=== PATIENT | female | born 1940 | race Caucasian/White ===

== ENCOUNTER 2016-11-11 10:24 | Observation (INO) | payer MEDICARE ==
[~2016-11-11] VITALS: Ht 157.5 cm; Wt 55.0 kg
[~2016-11-11 10:24] MED LIST: ALPR.25 PO; APIX5TAB PO; BETH10TA PO; CALTTAB2 PO; CARV3.12 PO; CO Q100C9 PO; DILT120C9 PO; FERR324T4 PO; FISH1000 PO; IMDU60TA PO; LEVO.1 PO; LUTE20TA PO; MESA1000R RECTAL; NITR0.4S SL; OMEP40CA2 PO; PACE100T2 PO; PRESCAP5 PO; RED600TA PO; REST0.05 EACH EYE; VITA100020 PO
[2016-11-11 10:39] VITALS: BP 188/81; PULSE 74; RESP 20; TEMP 97.9; O2SAT 99
[2016-11-11] MEDS ORDERED: REST0.05 EACH EYE (11:15)
[2016-11-11] MEDS ORDERED: LEVO125T4 PO (11:15)
[2016-11-11] MEDS ORDERED: OMEG600C2 PO (11:15)
[2016-11-11] MEDS ORDERED: ISOS60TA PO (11:15)
[2016-11-11] MEDS ORDERED: DILT120C9 PO (11:15)
[2016-11-11] MEDS ORDERED: APIX5TAB PO (11:15)
[2016-11-11] MEDS ORDERED: LUTE20CA PO (11:15)
[2016-11-11] MEDS ORDERED: PROT40TA PO (11:15)
[2016-11-11] MEDS ORDERED: CARV3.125 PO (11:15)
[2016-11-11] MEDS ORDERED: VITA10002 PO (11:19)
[2016-11-11] MEDS ORDERED: AMIO0.1T PO (11:19)
[2016-11-11] MEDS ORDERED: NITR0.4S SL (11:19)
[2016-11-11] MEDS ORDERED: VITA200012 PO (11:19)
[2016-11-11] MEDS ORDERED: CALC1TAB30 PO (11:19)
[2016-11-11] MEDS ORDERED: COEN1CAP PO (11:19)
[2016-11-11] MEDS ORDERED: OCUVTAB4 PO (11:19)
[2016-11-11 11:23] VITALS: BP 164/79; PULSE 74; RESP 18; O2SAT 100
--- NOTE | 2016-11-11 11:37 | RADRPT ---
EXAM DATE/TIME: 11/11/2016 11:22 [facility] COMPARISON: CHEST SINGLE AP, March 06, 2016, 15:21. INDICATIONS : Chest pain. Tingling down arms and legs. MEDICAL HISTORY : Hypertension. A-Fib. SURGICAL HISTORY : None. ENCOUNTER: Initial ACUITY: 1 day PAIN SCORE: 2/10 LOCATION: Bilateral chest FINDINGS: A single view of the chest demonstrates the lungs to be symmetrically hyperinflated with stable scarr ing in the left upper lobe. New atelectatic changes in the left base. No confluent infiltrate or effu lorna. Heart size is normal. Levoscoliosis of the dorsal spine with associated degenerative changes ar e. CONCLUSION: 1. Hyperinflation and linear scarring in the left upper lung, unchanged. 2. New atelectatic changes/scarring in the left lateral base. 3. No confluent infiltrate or effusion Bernabe Perea MD on November 11, 2016 at 11:31 Board Certified Radiologist. This report was verified electronically.
--- NOTE | 2016-11-11 11:38 | PD ---
HPI Chief Complaint: Neuro Symptoms/ Deficits Time Seen by Provider: 11:32 Travel History International Travel<30 days: No Contact w/Intl Traveler<30days: No Traveled to known affect area: No History of Present Illness HPI 76-year-old female that presents to the ED for evaluation of possible neuro deficits. Per patient she was at home about an hour ago when she was doing her normal chores when she was trying to walk to feed her birds and as she was walking towards the cage she started feeling that she was beginning to the left. Per patient she felt unsteady and she was able to hold onto something before she felt like she was given a fall. Per patient the sensation lasted for almost half an hour. Ambulance was called and when they got there she was complaining of some dizziness as well as tingling sensation to her hands and a burning sensation in her chest. Per patient this burning sensation and tingling sensation has since resolved. She was given nitroglycerin by ambulance. Per patient she's been having a slight headache on the back of her head but she is unclear as to if she had this headache when the symptoms started or after she was given the nitroglycerin. She states that she really doesn't have any pain at this time. Per patient she has no nausea or vomiting. She has a history of TIA as well as atrial fibrillation in the past. She states that she currently takes liquids. She denies any fall or injury. When asked she does tell me that she felt like she was weak on her left leg and that is what made her be or to the left that she is not quite sure she's never had this sensation before. She denies any recent travel or injury. No changes in medication. She does have a history of HTN, hypothyroidism, gastroparesis. Per patient her headache on the back of her head right naris 2 out of 10 and is mild. PFSH Past Medical History Hx Anticoagulant Therapy: Yes Arthritis: Yes Atrial Fibrillation: Yes Heart Rhythm Problems: Yes Cancer: No Cardiovascular Problems: Yes Chest Pain: Yes Cerebrovascular Accident: Yes Coronary Artery Disease: Yes Diabetes: No Diminished Hearing: No Endocrine: No Gastrointestinal Disorders: Yes (GASTROPARESIS, MCKENZIE'S ESOPHAGUS, DYSPHAGIA , NAUSEA, GERD) GERD: Yes Glaucoma: Yes Genitourinary: No Headaches: Yes Hepatitis: No Hiatal Hernia: Yes Hypertension: Yes Immune Disorder: Yes (ARTHRITIS) Implanted Vascular Access Dvce: Yes Musculoskeletal: No Neurologic: No Psychiatric: No Reproductive: No Respiratory: Yes (SLEEP APNEA) Immunizations Current: Yes Sleep Apnea: Yes Thyroid Disease: Yes Ulcer: Yes Menopausal: Yes : 3 Para: 3 Past Surgical History Abdominal Surgery: Yes (CHOLY, TOTAL COLECTOMY) AICD: No Appendectomy: Yes Body Medical Devices: STARCLOSE,RIGHT THUMB METAL,LEFT FOOT 2 SCREWS Cardiac Surgery: No Cholecystectomy: Yes Ear Surgery: No Endocrine Surgery: Yes (LYMPH NODE SURG) Eye Surgery: Yes (ESTELLA EYE CATARACT SX) Genitourinary Surgery: Yes Gynecologic Surgery: Yes (HYSTERECTOMY) Hysterectomy: Yes Joint Replacement: Yes (R HIP REPLACEMENT) Neurologic Surgery: No Oral Surgery: Yes (TONSILLECTOMY) Pacemaker: No Thoracic Surgery: No Tonsillectomy: Yes Other Surgery: Yes (NOSE SURG BONE SPURS, CALCANAL OSTEOTOMY) Social History Alcohol Use: No Tobacco Use: No Substance Use: No Allergies-Medications (Allergen,Severity, Reaction): Coded Allergies: Codeine (Verified Allergy, Severe, 11/11/16) Contrast Media (Verified Allergy, Severe, Cardiac Arrest, ANAPHALAXIS, ) Crab (Verified Allergy, Severe, Anaphylaxis, 11/11/16) Iodine (Verified Allergy, Severe, 11/11/16) Latex (Verified Allergy, Severe, SKIN BLISTERS, 11/11/16) Shellfish (Verified Allergy, Severe, ANAPHYLAXIS TO ALL SHELLFISH, 11/11/16 ) Reported Meds & Prescriptions Reported Meds & Active Scripts Active Reported Preservision Areds (Multiple Vitamins W/ Minerals) 1 Tab 1 Tab PO BID Amiodarone (Amiodarone HCl) 100 Mg Tab 100 Mg PO DAILY Nitrostat SL (Nitroglycerin) 0.4 Mg Subl 0.4 Mg SL DIRECTED PRN 1 tablet under the tongue as needed for chest pain. Repeat every 5 minutes for a total of 3 DOSES or call 911 if NO relief. Vitamin D3 (Cholecalciferol) 2,000 Unit Tab 2,000 Units PO BID Calcium 600 + D (Calcium Carbonate-Cholecalciferol) 600-200 Mg-Unit Tab 1 Tab PO BID Vitamin B-12 (Cyanocobalamin) 1,000 Mcg Tab 1,000 Mcg PO BID Co Q-10 (Coenzyme Q10 (Ubidecarenone)) 100 Mg Cap 100 Mg PO DAILY Restasis Opth Drops (Cyclosporine Opth Drops) 0.05% Emul 2 Drop EACH EYE BID Lutein 20 Mg Cap 20 Mg PO DAILY Fish Oil 600 mg ([place]-3 Fatty Acids) 1 Cap Cap 600 Mg PO BID Protonix (Pantoprazole Sodium) 40 Mg Tab 40 Mg PO DAILY Levothyroxine (Levothyroxine Sodium) 125 Mcg Tab 125 Mcg PO DAILY Isosorbide Mononitrate ER (Isosorbide Mononitrate) 60 Mg Tab 60 Mg PO DAILY Eliquis (Apixaban) 5 Mg Tab 5 Mg PO BID Coreg (Carvedilol) 3.125 Mg Tab 3.125 Mg PO BID Diltiazem ER 12 HR (Diltiazem HCl) 120 Mg Caper 120 Mg PO BID Review of Systems General / Constitutional: No: Fever, Chills, Weight Gain, Weight Loss, Other Eyes: No: Diploplia, Blurred Vision, Photophobia, Drainage, Redness, Foreign Body Sensation, Pain, Tearing, Blind Spots, Visual changes, Blindness, Other HENT: Positive: Headaches, No: Vertigo, Lightheadedness, Sore Throat, Rhinitis , Rhinorrhea, Congestion, Nosebleed, Neck Stiffness, Neck Pain, Masses, Gingival Bleeding, Dental Difficulties, Ear Discharge, Earache, Other Cardiovascular: Positive: Chest Pain or Discomfort, No: Palpitations, Irregular Rhythm, Tachycardia, Diaphoresis, Syncope, Dyspnea on exertion, Varicosities, Edema, Cyanosis, Varicosities, Phlebitis, Claudication, Other Respiratory: No: Cough, Shortness of Breath, Wheezing, Sneezing, Orthopnea, Hemoptysis, Stridor, Night Sweats, Pleuritic Pain, Other Gastrointestinal: No: Nausea, Vomiting, Diarrhea, Abdominal Pain, Hematemesis, Hematochezia, Constipation, Changes in Bowel Habits, Indigestion, Dysphagia, Loss of Appetite, Other Genitourinary: No: Urgency, Frequency, Dysuria, Nocturia, Hematuria, Decreased Urinary Output, Oliguria, Hesitancy, Dribbling, Incontinence, Pelvic Pain, Flank Pain, Dyspareunia, Discharge, Dysmenorrhea, Menorrhagia, Metorrhagia, Vaginal Bleeding, Other Musculoskeletal: Positive: Weakness, No: Myalgias, Arthralgias, Limited ROM, Cramping, Edema, Pain, Atrophy, Other Skin: No Rash, No Itching, No Dryness, No Lumps, No Hives, No Change in Pigmentation, No Change in nails, No Alopecia, No Lesions, No Breast Lumps, No Breast Tenderness, No Breast Swelling, No Other Neurologic: Positive: Weakness, Dizziness, Headache, Paresthesia, No: Syncope , Focal Abnormalities, Coordination Problem, Tremor, Ataxia, Change in Mentation , Slurred Speech, Incontinence, Seizures, Sensory Disturbance, Other Psychiatric: No: Anxiety, Depression, Suicidal Ideations, Disorder of Thought, Mood Disorder, Substance Abuse, Homicidal Ideation, Other Endocrine: No: Heat Intolerance, Cold Intolerance, Polyuria, Polydipsia, Other Hematologic/Lymphatic: No: Easy Bruising, Lymph Node Enlargement, Other Physical Exam Narrative GENERAL: SKIN: Warm and dry. HEAD: Atraumatic. Normocephalic. EYES: Pupils equal and round 4 mm reactive to light and accommodation. No scleral icterus. No injection or drainage. ENT: No nasal bleeding or discharge. Mucous membranes pink and moist. Tongue is midline. No uvula deviation. NECK: Trachea midline. No JVD. CARDIOVASCULAR: Regular rate and rhythm. No murmurs, S3, S4. RESPIRATORY: No accessory muscle use. Clear to auscultation. Breath sounds equal bilaterally. GASTROINTESTINAL: Abdomen soft, non-tender, nondistended. Hepatic and splenic margins not palpable. MUSCULOSKELETAL: Extremities without clubbing, cyanosis, or edema. No obvious deformities. Full range of motion of the upper and lower extremities bilaterally. 2+ pulses bilaterally. No lumbar, thoracic, cervical spine tenderness to palpation. NEUROLOGICAL: Awake and alert. No obvious cranial nerve deficits. Motor grossly within normal limits. Five out of 5 muscle strength in the arms and legs. Normal speech. Romberg test negative. Pronator test negative. Sensation appears to be intact bilaterally. PSYCHIATRIC: Appropriate mood and affect; insight and judgment normal. Data Data Last Documented VS Vital Signs Date Time Temp Pulse Resp B/P Pulse Ox O2 Delivery O2 Flow Rate FiO2 11/11/16 11:23 76 20 99 Room Air 11/11/16 11:23 164/79 11/11/16 10:39 97.9 Orders Electrocardiogram (11/11/16 11:19) Complete Blood Count With Diff (11/11/16 11:19) Comprehensive Metabolic Panel (11/11/16 11:19) Ckmb (Isoenzyme) Profile (11/11/16 11:19) Troponin I (11/11/16 11:19) Prothrombin Time / Inr (Pt) (11/11/16 11:19) Act Partial Throm Time (Ptt) (11/11/16 11:19) Urinalysis - C+S If Indicated (11/11/16 11:19) Magnesium (Mg) (11/11/16 11:19) Thyroid Stimulating Hormone (11/11/16 11:19) Chest, Single Ap (11/11/16 11:19) Ct Brain W/O Iv Contrast(Rout) (11/11/16 11:19) Acetaminophen (Tylenol) (11/11/16 12:45) Admit Order (Ed Use Only) (11/11/16 12:58) Labs Laboratory Tests Test 11/11/16 11/11/16 11:10 11:15 Urine Color YELLOW Urine Turbidity CLEAR Urine pH 7.0 Urine Specific [place] 1.012 Urine Protein NEG mg/dL Urine Glucose (UA) NEG mg/dL Urine Ketones NEG mg/dL Urine Occult Blood NEG Urine Nitrite NEG Urine Bilirubin NEG Urine Urobilinogen LESS THAN 2.0 MG/DL Urine Leukocyte Esterase MOD Urine RBC LESS THAN 1 /hpf Urine WBC 2 /hpf Urine Squamous Epithelial <1 /hpf Cells Urine Mucus FEW /lpf Microscopic Urinalysis Comment CULT NOT INDICATED White Blood Count 6.5 TH/MM3 Red Blood Count 3.96 MIL/MM3 Hemoglobin 9.1 GM/DL Hematocrit 29.2 % Mean Corpuscular Volume 73.7 FL Mean Corpuscular Hemoglobin 23.0 PG Mean Corpuscular Hemoglobin 31.2 % Concent Red Cell Distribution Width 16.7 % Platelet Count 184 TH/MM3 Mean Platelet Volume 7.4 FL Neutrophils (%) (Auto) 73.9 % Lymphocytes (%) (Auto) 15.5 % Monocytes (%) (Auto) 8.8 % Eosinophils (%) (Auto) 1.4 % Basophils (%) (Auto) 0.4 % Neutrophils # (Auto) 4.8 TH/MM3 Lymphocytes # (Auto) 1.0 TH/MM3 Monocytes # (Auto) 0.6 TH/MM3 Eosinophils # (Auto) 0.1 TH/MM3 Basophils # (Auto) 0.0 TH/MM3 CBC Comment AUTO DIFF Differential Comment AUTO DIFF CONFIRMED Prothrombin Time 11.4 SEC Prothromb Time International 1.0 RATIO Ratio Activated Partial 24.5 SEC Thromboplast Time Sodium Level 140 MEQ/L Potassium Level 3.6 MEQ/L Chloride Level 105 MEQ/L Carbon Dioxide Level 26.1 MEQ/L Anion Gap 9 MEQ/L Blood Urea Nitrogen 25 MG/DL Creatinine 0.95 MG/DL Estimat Glomerular Filtration 57 ML/MIN Rate Random Glucose 93 MG/DL Calcium Level 9.4 MG/DL Magnesium Level 1.9 MG/DL Total Bilirubin 0.5 MG/DL Aspartate Amino Transf 15 U/L (AST/SGOT) Alanine Aminotransferase 21 U/L (ALT/SGPT) Alkaline Phosphatase 71 U/L Total Creatine Kinase 41 U/L Troponin I LESS THAN 0.02 NG/ML Total Protein 6.0 GM/DL Albumin 3.1 GM/DL Thyroid Stimulating Hormone 2.820 uIU/ML [address] [place] [address] Medical Decision Making Medical Screen Exam Complete: Yes Emergency Medical Condition: Yes Medical Record Reviewed: Yes Interpretation(s) CBC & BMP Diagram 11/11/16 11:15 coags WNL LFTs WNL EKG shows sinus rhythm with no sign of acute ischemia or arrhytmia. Read by me and attending Troponin and CKMB negative Last Impressions Chest X-Ray 11/11/16 1119 Signed Impressions: Service Date/Time: Friday, November 11, 2016 11:22 - CONCLUSION: 1. Hyperinflation and linear scarring in the left upper lung, unchanged. 2. New atelectatic changes/scarring in the left lateral base. 3. No confluent infiltrate or effusion Bernabe Perea MD CT head negative Differential Diagnosis TIA versus CVA versus STEMI versus ACS versus atrophy relation versus anemia versus electrolyte abnormality versus generalized weakness versus weakness Narrative Course 76-year-old female that presents to the ED for evaluation of possible neurological deficits. Patient was properly examined and was found to have signs and symptoms which appear to be consistent with possible TIA versus CVA. Recommendation at this time is for labs and imaging. On my exam patient doesn' t have any obvious deficits. I do recommend labs and imaging. Patient complains of burning sensation in her chest and will check cardiac enzymes to rule out any sign of acute heart disease. Labs and imaging were essentially unremarkable. At this time I do recommend admission for possible TIA versus CVA. Patient is agreeable with this plan. Patient was admitted to the resident team who agreed to admission. Procedures EKG Prior to Arrival: No Diagnosis Primary Impression: Gait instability Additional Impression: Chest pain in adult Admitting Information Admitting Physician Requests: Observation Quoc Wagner Nov 11, 2016 11:38
[2016-11-11 11:48] LABS: AUTOMATED NEUTROPHIL # 4.8 TH/MM3 (1.8-7.7); BASOPHIL % 0.4 % (0.0-2.0); EOSINOPHIL # 0.1 TH/MM3 (0-0.4); EOSINOPHIL % 1.4 % (0.0-4.0); HEMATOCRIT 29.2 % (35.0-46.0); LYMPH % 15.5 % (9.0-44.0); MEAN CELL VOLUME 73.7 FL (80.0-100.0); MEAN CORPUSCULAR HGB CONC 31.2 % (32.0-36.0); MONO % 8.8 % (0.0-8.0); NEUT % 73.9 % (16.0-70.0); PLATELET COUNT 184 TH/MM3 (150-450); RED BLOOD COUNT 3.96 MIL/MM3 (4.00-5.30); RED CELL DISTRIBUTION WIDTH 16.7 % (11.6-17.2); WHITE BLOOD COUNT 6.5 TH/MM3 (4.0-11.0)
[2016-11-11 11:52] LABS: HEMO FLAGS AUTO DIFF
[2016-11-11 11:56] LABS: APTT (PATIENT) 24.5 SEC (24.3-30.1); PROTHROMBIN TIME - PATIENT 11.4 SEC (9.8-11.6)
[2016-11-11 12:02] LABS: BLOOD, URINE NEG (NEG); COMMENT (UR) CULT NOT INDICATED; CULTURE IF INDICATED CULT NOT INDICATED; GLUCOSE,URINE NEG (NEG); KETONE, URINE NEG (NEG); MUCUS URINE FEW /lpf (OCC); NITRITE,URINE NEG (NEG); SQUAMOUS EPITHELIAL CELL URINE <1 /hpf (0-5); URINE COLOR YELLOW (YELLW/STRAW)
[2016-11-11 12:04] LABS: ALT (GPT) 21 U/L (10-53); ANION GAP 9 MEQ/L (5-15); AST (GOT) 15 U/L (15-37); BICARBONATE 26.1 MEQ/L (21.0-32.0); BLOOD UREA NITROGEN 25 MG/DL (7-18); CHLORIDE 105 MEQ/L (98-107); GLOMERULAR FILTRATION RATE 57 ML/MIN (>89); MAGNESIUM 1.9 MG/DL (1.5-2.5); POTASSIUM 3.6 MEQ/L (3.5-5.1); SODIUM (NA) 140 MEQ/L (136-145)
[2016-11-11 12:14] LABS: ALKALINE PHOSPHATASE 71 U/L (45-117); TOTAL BILIRUBIN ADULT 0.5 MG/DL (0.2-1.0)
[2016-11-11 12:17] LABS: CREATINE KINASE 41 U/L (26-192)
[2016-11-11 12:21] LABS: SCAN/DIFF AUTO DIFF CONFIRMED
--- NOTE | 2016-11-11 12:31 | RADRPT ---
EXAM DATE/TIME: 11/11/2016 12:01 [facility] COMPARISON: No previous studies available for comparison. INDICATIONS : Dizziness and unsteady gait today. RADIATION DOSE: 56.35 CTDIvol (mGy) MEDICAL HISTORY : Stroke. Hypertension. Cardiovascular disease SURGICAL HISTORY : Hysterectomy. ENCOUNTER: Initial ACUITY: 1 day PAIN SCALE: 0/10 LOCATION: Bilateral head TECHNIQUE: Multiple contiguous axial images were obtained of the head. Using automated exposure control and adj ustment of the mA and/or kV according to patient size, radiation dose was kept as low as reasonably a chievable to obtain optimal diagnostic quality images. FINDINGS: CEREBRUM: The ventricles are normal for age. No evidence of midline shift, mass lesion, hemorrhage or acute in farction. No extra-axial fluid collections are seen. POSTERIOR FOSSA: The cerebellum and brainstem are intact. The 4th ventricle is midline. The cerebellopontine angle i s unremarkable. EXTRACRANIAL: The visualized portion of the orbits is intact. SKULL: The calvaria is intact. No evidence of skull fracture. CONCLUSION: Negative for an acute process. Gregory Medrano MD FACR on November 11, 2016 at 12:29 Board Certified Radiologist. This report was verified electronically.
[2016-11-11] MEDS ORDERED: ACETAMINOPHEN 500 MG CPLT PO ONE (12:45)
--- NOTE | 2016-11-11 12:59 | HHI.HP ---
[facility] Service Family Medicine Primary Care Physician Vickie Dinh, DO Admission Diagnosis Diagnoses: International Travel<30 Days: No Contact w/Intl Traveler<30days: No Known Affected Area: No History of Present Illness Patient is a 76-year-old female with a PMH significant for A. fib, prior TIA, gastroparesis, colon ulcer. Presented today due to left-sided weakness. Symptoms started this morning as she was walking over to take care of her parrot. She noticed that she began to lean to her left side due to left lower and upper extremity weakness. She then sat down for about 15 minutes which did help her symptoms. However when she tried to walk again, she continued to have left-sided weakness and leaning to the left side. She then developed substernal chest burning with bilateral arm paresthesia. Associated with nausea but not vomiting. She called EMS at which time she received nitroglycerin which did help alleviate her symptoms. History significant for prior TIA in 2014 that was associated with right arm flaccid paralysis. She otherwise is a relatively active lady and is able to walk upstairs without chest pain or SOB. Prior to the onset of symptoms today, she was feeling well except for a history of significant weight loss due to gastroparesis. (Lula Otto MD R2) Review of Systems Constitutional: COMPLAINS OF: Weight loss, Change in appetite, DENIES: Diaphoretic episodes Eyes: DENIES: Blurred vision, Eye pain Ears, nose, mouth, throat: DENIES: Throat pain, Running Nose Respiratory: COMPLAINS OF: Sputum production, DENIES: Cough, Shortness of breath Cardiovascular: DENIES: Chest pain, Syncope, Lower Extremity Edema Gastrointestinal: COMPLAINS OF: Nausea, DENIES: Abdominal pain, Constipation, Diarrhea, Vomiting Genitourinary: DENIES: Hematuria, Dysuria Integumentary: DENIES: Rash Neurologic: COMPLAINS OF: Abnormal gait, Headache, Paresthesias, DENIES: Speech Problems (Lula Fischer MD R2) Past Family Social History Past Medical History Atrial fibrillation on chronic anticoagulation with Eliquis Gastroparesis Mild coronary artery disease with 10% lesion on cardiac catheterization in 2011 Hypothyroidism GERD/Mccoy's esophagus Colon ulcer HTN TIA 2014 Past Surgical History Tonsillectomy Cholecystectomy Partial colectomy Cataract surgery bilaterally Hysterectomy Bilateral rotator cuff surgery Left foot surgery Cardiac catheterization in 2011, no intervention (Dr. Alonso) Reported Medications Reported Meds & Active Scripts Active Reported Preservision Areds (Multiple Vitamins W/ Minerals) 1 Tab 1 Tab PO BID Amiodarone (Amiodarone HCl) 100 Mg Tab 100 Mg PO DAILY Nitrostat SL (Nitroglycerin) 0.4 Mg Subl 0.4 Mg SL DIRECTED PRN 1 tablet under the tongue as needed for chest pain. Repeat every 5 minutes for a total of 3 DOSES or call 911 if NO relief. Vitamin D3 (Cholecalciferol) 2,000 Unit Tab 2,000 Units PO BID Calcium 600 + D (Calcium Carbonate-Cholecalciferol) 600-200 Mg-Unit Tab 1 Tab PO BID Vitamin B-12 (Cyanocobalamin) 1,000 Mcg Tab 1,000 Mcg PO BID Co Q-10 (Coenzyme Q10 (Ubidecarenone)) 100 Mg Cap 100 Mg PO DAILY Restasis Opth Drops (Cyclosporine Opth Drops) 0.05% Emul 2 Drop EACH EYE BID Lutein 20 Mg Cap 20 Mg PO DAILY Fish Oil 600 mg ([place]-3 Fatty Acids) 1 Cap Cap 600 Mg PO BID Protonix (Pantoprazole Sodium) 40 Mg Tab 40 Mg PO DAILY Levothyroxine (Levothyroxine Sodium) 125 Mcg Tab 125 Mcg PO DAILY Isosorbide Mononitrate ER (Isosorbide Mononitrate) 60 Mg Tab 60 Mg PO DAILY Eliquis (Apixaban) 5 Mg Tab 5 Mg PO BID Coreg (Carvedilol) 3.125 Mg Tab 3.125 Mg PO BID Diltiazem ER 12 HR (Diltiazem HCl) 120 Mg Caper 120 Mg PO BID (Lula Fischer MD R2) Allergies: Coded Allergies: Codeine (Verified Allergy, Severe, 11/11/16) Contrast Media (Verified Allergy, Severe, Cardiac Arrest, ANAPHALAXIS, ) Crab (Verified Allergy, Severe, Anaphylaxis, 11/11/16) Iodine (Verified Allergy, Severe, 11/11/16) Latex (Verified Allergy, Severe, SKIN BLISTERS, 11/11/16) Shellfish (Verified Allergy, Severe, ANAPHYLAXIS TO ALL SHELLFISH, 11/11/16 ) Family History Reports her whole family has heart disease and that her daughter in her early 50s from heart disease Social History Lives alone Tobacco: Denies Alcohol: Denies Illicit: Denies (Lula Fischer MD R2) Physical Exam Vital Signs Vital Signs Date Time Temp Pulse Resp B/P Pulse Ox O2 Delivery O2 Flow Rate FiO2 11/11/16 11:23 76 20 99 Room Air 11/11/16 11:23 74 18 164/79 100 Room Air 11/11/16 10:39 97.9 74 20 188/81 99 Physical Exam GENERAL: This is a well-nourished, well-developed patient, in no apparent distress. Resting comfortably in bed. SKIN: No rashes or lesions. Cool and dry. Multiple ecchymosis present on bilateral upper and lower extremities that are of varying ages. HEAD: Atraumatic. Normocephalic. EYES: Pupils equal round and reactive. Pale Conjunctiva. Extraocular motions intact. No scleral icterus. No injection or drainage. ENT: Nose without bleeding, purulent drainage. Throat without erythema, tonsillar hypertrophy or exudate. Airway patent. NECK: No lymphadenopathy. CARDIOVASCULAR: Regular rate and rhythm without murmurs, gallops, or rubs. RESPIRATORY: Clear to auscultation. Breath sounds equal bilaterally. No wheezes , rales, or rhonchi. GASTROINTESTINAL: Abdomen soft, non-tender, nondistended. No hepato-splenomegaly , or palpable masses. No guarding. MUSCULOSKELETAL: Extremities without clubbing, cyanosis, or edema. No calf tenderness. NEUROLOGICAL: Awake and alert. Cranial nerves II through XII intact. Pronator drift negative. Motor and sensory grossly within normal limits. Five out of 5 muscle strength in all muscle groups. Normal speech. Laboratory Laboratory Tests Test 11/11/16 11/11/16 11:10 11:15 Urine Color YELLOW Urine Turbidity CLEAR Urine pH 7.0 Urine Specific Sweet 1.012 Urine Protein NEG Urine Glucose (UA) NEG Urine Ketones NEG Urine Occult Blood NEG Urine Nitrite NEG Urine Bilirubin NEG Urine Urobilinogen LESS THAN 2.0 Urine Leukocyte Esterase MOD Urine RBC LESS THAN 1 Urine WBC 2 Urine Squamous Epithelial <1 Cells Urine Mucus FEW Microscopic Urinalysis Comment CULT NOT INDICATED White Blood Count 6.5 Red Blood Count 3.96 Hemoglobin 9.1 Hematocrit 29.2 Mean Corpuscular Volume 73.7 Mean Corpuscular Hemoglobin 23.0 Mean Corpuscular Hemoglobin 31.2 Concent Red Cell Distribution Width 16.7 Platelet Count 184 Mean Platelet Volume 7.4 Neutrophils (%) (Auto) 73.9 Lymphocytes (%) (Auto) 15.5 Monocytes (%) (Auto) 8.8 Eosinophils (%) (Auto) 1.4 Basophils (%) (Auto) 0.4 Neutrophils # (Auto) 4.8 Lymphocytes # (Auto) 1.0 Monocytes # (Auto) 0.6 Eosinophils # (Auto) 0.1 Basophils # (Auto) 0.0 CBC Comment AUTO DIFF Differential Comment AUTO DIFF CONFIRMED Prothrombin Time 11.4 Prothromb Time International 1.0 Ratio Activated Partial 24.5 Thromboplast Time Sodium Level 140 Potassium Level 3.6 Chloride Level 105 Carbon Dioxide Level 26.1 Anion Gap 9 Blood Urea Nitrogen 25 Creatinine 0.95 Estimat Glomerular Filtration 57 Rate Random Glucose 93 Calcium Level 9.4 Magnesium Level 1.9 Total Bilirubin 0.5 Aspartate Amino Transf 15 (AST/SGOT) Alanine Aminotransferase 21 (ALT/SGPT) Alkaline Phosphatase 71 Total Creatine Kinase 41 Troponin I LESS THAN 0.02 Total Protein 6.0 Albumin 3.1 Thyroid Stimulating Hormone 2.820 3rd Gen (Lula Fishcer MD R2) Result Diagram: 11/11/16 1115 11/11/16 1115 Imaging Last Impressions Head CT 11/11/16 1119 Signed Impressions: Service Date/Time: Friday, November 11, 2016 12:01 - CONCLUSION: Negative for an acute process. Gregory Medrano MD FACR Chest X-Ray 11/11/16 1119 Signed Impressions: Service Date/Time: Friday, November 11, 2016 11:22 - CONCLUSION: 1. Hyperinflation and linear scarring in the left upper lung, unchanged. 2. New atelectatic changes/scarring in the left lateral base. 3. No confluent infiltrate or effusion Bernabe Perea MD (Lula Fischer MD R2) Assessment and Plan Assessment and Plan 76-year-old female with a PMH significant for A. fib, prior TIA, gastroparesis , colon ulcer Code Status Full Discussed Condition With Dr. Fernández (Lula Fischer MD R2) Attending Attestation Patient seen and examined. Case reviewed and discussed with the resident team. Agree with plan of care as discussed with me and documented in the resident note. (Maida Fernández MD) Problem List: (1) TIA (transient ischemic attack) Status: Acute Plan: History of prior TIA. New-onset left-sided weakness that was associated with unsteady gait. No slurred speech. No focal neurological deficits on exam. Symptoms have improved since presentation to the ED. -CBC unremarkable except for anemia -ACS evaluation -Echocardiogram ordered -Lipid panel and A1c ordered -Neuro checks and cardiac telemetry Imaging: * Head CT negative * MRI, MRA: Pending * CXR: Negative for acute processes Medications: * Atorvastatin 40 mg * NOT A CANDIDATE FOR ASPIRIN (2) Atrial fibrillation Status: Chronic Plan: Current rate and rhythm controlled. Continue the following home meds -Amiodarone 100mg daily -Eliquis 5mg BID -Coreg 3.125mg BID -Cardizem 120mg BID (3) Atypical chest pain Status: Acute Plan: No supicious for cardiac etiology. Suspect symptoms of chest burning with paresthesias may be due to anxiety at the onset of strokelike symptoms. We 'll evaluate further with ACS evaluation. See plan above. -Continue home Imdur (4) Nutrition, metabolism, and development symptoms Status: Acute Plan: Diet: Heart healthy with boost supplementation due to gastroparesis Electrolytes: Unremarkable Fluids: None DVT prophylaxis: home Eliquis GI prophylaxis: Continue home Protonix Chronic Conditions: * Hypothyroidism: continue home levothyroxine (Lula Fischer MD R2) Lula Fischer MD R2 Nov 11, 2016 12:59 Maida Fernández MD Nov 11, 2016 16:06
[2016-11-11] MEDS ORDERED: PILL SPLITTER OTHER PRN (13:30)
[2016-11-11] MEDS ORDERED: DEXTROSE 50% IN WATER 50 ML VIAL(D50) IV PUSH PRN (13:45)
[2016-11-11] MEDS ORDERED: SODIUM CHLORIDE 0.9% FLUSH 10 ML FLUSH IV FLUSH PRN (13:45)
[2016-11-11] MEDS ORDERED: GLUCAGON 1 MG/ML VIAL OTHER PRN (13:45)
[2016-11-11] MEDS ORDERED: ENALAPRILAT 1.25 MG/ML VIAL IV PRN (13:45)
--- NOTE | 2016-11-11 13:47 | HHI.FPPN ---
Subjective Remarks 76 yo female who lives at home with her parrot today was walking after breakfast at home, and felt the left side of her body was weak and she felt she was veering to the left. Sat down, waited a few minutes, made some phone calls, then arose and the sx were the same, so she called [facility] on the advice of her PCP. She experienced central burning chest pain and a brief episode of nausea in [facility]. Has had OLIVER since nitro in [facility]. Now here CP and weakness have completely resolved. See H&P for this admission for detailed past, family, social history and ROS. Objective Vitals Vital Signs Date Time Temp Pulse Resp B/P Pulse Ox O2 Delivery O2 Flow Rate FiO2 11/11/16 11:23 76 20 99 Room Air 11/11/16 11:23 74 18 164/79 100 Room Air 11/11/16 10:39 97.9 74 20 188/81 99 Result Diagram: 11/11/16 1115 11/11/16 1115 Other Results Laboratory Tests Test 11/11/16 11/11/16 11:10 11:15 Urine Leukocyte Esterase MOD Urine Mucus FEW /lpf Red Blood Count 3.96 MIL/MM3 Hemoglobin 9.1 GM/DL Hematocrit 29.2 % Mean Corpuscular Volume 73.7 FL Mean Corpuscular Hemoglobin 23.0 PG Mean Corpuscular Hemoglobin 31.2 % Concent Neutrophils (%) (Auto) 73.9 % Monocytes (%) (Auto) 8.8 % Blood Urea Nitrogen 25 MG/DL Estimat Glomerular Filtration 57 ML/MIN Rate Troponin I LESS THAN 0.02 NG/ML Total Protein 6.0 GM/DL Albumin 3.1 GM/DL Imaging EKG: SINUS RHYTHM NORMAL ECG Last Impressions Head CT 11/11/161118 Signed Impressions: Service Date/Time: Friday, November 11, 2016 12:01 - CONCLUSION: Negative for an acute process. Gregory Medrano MD FACR Chest X-Ray 11/11/161118 Signed Impressions: Service Date/Time: Friday, November 11, 2016 11:22 - CONCLUSION: 1. Hyperinflation and linear scarring in the left upper lung, unchanged. 2. New atelectatic changes/scarring in the left lateral base. 3. No confluent infiltrate or effusion Bernabe Perea MD Objective Remarks O. CONSTITUTIONAL/GEN: normally nourished, in NAD. EYES: conjunctiva pale, PERRLA, EOMI. ENT: Mouth and pharynx normal. NECK: thyroid midline, carotids symmetrical. LUNGS: clear A-P, respiratory effort is normal. CARDIOVASCULAR: RR without murmur or gallop. No significant edema. GI/ABD: soft without masses, without organomegaly. : no CVA tenderness NEURO: No focal deficits. CN 2-12 intact. SKIN: color normal, no rashes noted. HEME/LYMPH: no unusual bruising, petechia or significant adenopathy MUSC: back is normal in appearance. Extremities are normal in appearance. PSYCH/MENTAL STATUS: Alert and oriented x 3. A/P Assessment and Plan 76 yo female with transient neurological sx of left sided weakness, history of TIA in 2015 on Eliquis for AF. Attending Attestation Patient seen and examined. Case reviewed and discussed with the resident team. Agree with plan of care as discussed with me and documented in the resident note. Maida Fernández MD Nov 11, 2016 13:47
[2016-11-11 14:37] VITALS: O2SAT 99
[2016-11-11 15:24] VITALS: BP 180/84; PULSE 80; RESP 18; O2SAT 98
--- NOTE | 2016-11-11 15:25 | RADRPT ---
EXAM DATE/TIME: 11/11/2016 14:26 [facility] COMPARISON: No previous studies available for comparison. INDICATIONS : Left sided weakness. MEDICAL HISTORY : Afib SURGICAL HISTORY : Tonsillectomy. Hysterectomy. Cholecystectomy. ENCOUNTER: Initial ACUITY: 2 day PAIN SCORE: 1/10 LOCATION: Head TECHNIQUE: Multiplanar, multisequence MRI of the brain was performed without contrast. FINDINGS: Scattered periventricular white matter changes are noted. There is no restricted diffu lorna. There are no extra-axial fluid collections appreciated. Posterior fossa is unremarkable. Portion of the orbits and paranasal sinuses visualized are unremarkable. Midline structures are intact. There is no evidence for parenchymal hemorrhage. CONCLUSION: Periventricular white matter changes without restricted diffusion suggest an acute i nfarction. Gregory Medrano MD FACR on November 11, 2016 at 14:57 Board Certified Radiologist. This report was verified electronically.
--- NOTE | 2016-11-11 15:51 | RADRPT ---
EXAM DATE/TIME: 11/11/2016 14:26 [facility] COMPARISON: No previous studies available for comparison. INDICATIONS : Left sided weakness. MEDICAL HISTORY : Afib. SURGICAL HISTORY : Tonsillectomy. Cholecystectomy. Hysterectomy. ENCOUNTER: Initial ACUITY: 2 day PAIN SCORE: 1/10 LOCATION: Head Please note a normal MRA of the brain does not entirely exclude the possibility of a small aneurysm, nor the possibility of distal intracranial vessel disease. TECHNIQUE: 3D time of flight MRA was performed. Source images, multiplanar STS MIP, and 3D volume MIP reconstru ctions were reviewed. FINDINGS: There is poor visualization of both carotid arteries at the skull base. There is some mild dilatatio n of the cavernous carotid on the left. The A1 segment on the right is not visualized. The left vertebral artery is not visualized. Atherosclerotic disease is seen in the right vertebral a rtery. CONCLUSION: Significant atherosclerotic intracranial vascular disease. I do not see evidence for a major branch vessel occlusion. Skull base is poorly imaged. Gregory Medrano MD FACR on November 11, 2016 at 14:58 Board Certified Radiologist. This report was verified electronically.
[2016-11-11] MEDS: INSULIN ASPART SUPPLEMENTAL SCALE SQ SCH ×2 (16:00→21:00)
--- NOTE | 2016-11-11 17:41 | EC ---
Study Study Date:11/11/2016 STUDY CONCLUSIONS SUMMARY - Procedure narrative: Image quality was fair. The study was technically limited due to poor acoustic window availability. - Left ventricle: The cavity size was normal. Systolic function was at the lower limits of normal. The estimated ejection fraction was in the range of 50% to 55%. Doppler parameters are consistent with abnormal left ventricular relaxation (grade 1 diastolic dysfunction). - Aortic valve: Trace regurgitation. - Mitral valve: Mild regurgitation. If LV function is below 40, please consider prescribing an ACEI or ARB or document rationale for non-use. PROCEDURE DATA STUDY STATUS: Elective. Procedure: Transthoracic echocardiography. Image quality was fair. The study was technically limited due to poor acoustic window availability. Scanning was performed from the parasternal, apical, and subcostal acoustic windows. Study completion: The patient tolerated the procedure well. Transthoracic echocardiography. M-mode, complete 2D, complete spectral Doppler, and color Doppler. Height: Height: 62in. Weight: Weight: 120.7lb. Body mass index: BMI: 22.1kg/m^2. Body surface area: BSA: 1.54m^2. Patient status: Inpatient. CARDIAC ANATOMY LEFT VENTRICLE: The cavity size was normal. Systolic function was at the lower limits of normal. The estimated ejection fraction was in the range of 50% to 55%. Images were inadequate for LV wall motion assessment. Doppler parameters are consistent with abnormal left ventricular relaxation (grade 1 diastolic dysfunction). AORTIC VALVE: The valve appears to be grossly normal. Doppler: There was no stenosis. Trace regurgitation. Valve area: 2.25cm^2 (Vmax). Indexed valve area: 1.46cm^2/m^2 (Vmax). Peak gradient: 10mm Hg (S). MITRAL VALVE: The valve appears to be grossly normal. Doppler: There was no evidence for stenosis. Mild regurgitation. LEFT ATRIUM: The atrium was normal in size. PULMONIC VALVE: Not well visualized. TRICUSPID VALVE: The valve appears to be grossly normal. Doppler: There was no evidence for stenosis. Trace regurgitation. PERICARDIUM: There was no pericardial effusion. Patient weight: 120.7lb _Ejection fraction:_ 65-75% _Fractional shortening:_ 32% up to 5Kg 5-11.5Kg 11.6-22.9Kg 23-45Kg 45-57Kg Aortic Root 7-13 <17 13-22 17-27 17-27 LA diam 6-13 <23 24-38 33-47 37-40 RVID 10-17 7-15 7-15 7-18 8-17 LVIDd 12-22 <32 24-38 33-47 37-40 LVPW 2-4 3-6 5-7 6-8 7-8 IVS 2-4 3-6 5-7 6-8 7-8 BASIC MEASUREMENTS ADULT NORMAL Left ventricle LV internal dimension, ED, chordal *42 mm 43-52 level, PLAX LV internal dimension, ES, chordal 33.5 mm 23-38 level, PLAX Fractional shortening, chordal level, *20 % >29 PLAX LV posterior wall thickness, ED 7.56 mm IVS/LVPW ratio, ED 0.95 <1.3 Ventricular septum Septal thickness, ED 7.21 mm Aortic valve Leaflet separation 19 mm 15-26 BASIC MEASUREMENTS ADULT NORMAL Aortic valve Leaflet separation 19 mm 15-26 Aorta Root diameter, ED 31 mm 20-37 Left atrium Anterior-posterior dimension, ES 30 mm 19-40 Anterior-posterior dimension index, ES 1.95 cm/m^2 <2.2 LA/aortic root ratio 0.97 DOPPLER MEASUREMENTS ADULT NORMAL Aortic valve Peak velocity, S 160 cm/s Peak gradient, S 10 mm Hg Valve area, Vmax 2.25 cm^2 Valve area index, Vmax 1.46 cm^2/m^2 Regurgitant velocity, ED 320 cm/s Regurgitant deceleration 1800 cm/s^2 Regurgitant pressure half-time 520 ms Regurgitant gradient, ED 41 mm Hg Mitral valve Peak E-wave velocity 60.2 cm/s Peak A-wave velocity 92.3 cm/s Deceleration time 176 ms 150-230 Peak E/A ratio 0.7 Maximal regurgitant velocity 480 cm/s Tricuspid valve Regurgitant peak velocity 228 cm/s Peak RV-RA gradient, S 21 mm Hg Maximal regurgitant velocity 228 cm/s Pulmonic valve Peak velocity, S 95 cm/s LEGEND: Mean values are shown as u=mean value. Asterisk (*) salas values outside specified normal range. Prepared and signed by Julio Arboleda [id number]
[2016-11-11] MEDS ORDERED: ATORVASTATIN 40 MG TAB PO SCH (21:00)
[2016-11-11] MEDS: SODIUM CHLORIDE 0.9% FLUSH 10 ML FLUSH IV FLUSH SCH (21:00)
[2016-11-11] MEDS: DILTIAZEM-CD 120 MG CAP ER PO SCH (21:48)
[2016-11-11] MEDS: CARVEDILOL 3.125 MG TAB PO SCH (21:48)
[2016-11-11] MEDS: APIXABAN 5 MG TABLET PO SCH (21:49)
[2016-11-11] MEDS ORDERED: ONDANSETRON HCL 4 MG/2 ML VIAL IV PUSH ONE (22:30)
[2016-11-11] MEDS ORDERED: ACETAMINOPHEN 500 MG CPLT PO PRN (22:30)
[2016-11-11 22:32] LABS: HEMOGLOBIN A1a 1.9 %; HEMOGLOBIN A1b 1.7 %; HEMOGLOBIN Ao 84.6 %; HEMOGLOBIN LA1C 1.9 %; HEMOGLOBIN P3 3.9 %
[2016-11-11 23:17] VITALS: BP 115/68; PULSE 68; RESP 18; TEMP 98; O2SAT 98
[2016-11-11 23:18] VITALS: PULSE 74
[2016-11-12 00:33] VITALS: O2SAT 98
[2016-11-12 03:48] VITALS: BP 114/56; PULSE 87; RESP 18; TEMP 97.8; O2SAT 98
[2016-11-12] MEDS: INSULIN ASPART SUPPLEMENTAL SCALE SQ SCH ×2 (05:33→11:00)
[2016-11-12] MEDS ORDERED: LEVOTHYROXINE SODIUM 125 MCG TAB PO SCH (06:00)
[2016-11-12] MEDS ORDERED: PRAV40TA2 PO (06:48)
--- NOTE | 2016-11-12 06:49 | HHI.DCPOC ---
Discharge Care Plan Diagnosis: (1) TIA (transient ischemic attack) (2) Atrial fibrillation (3) Atypical chest pain Goals to Promote Your Health * To prevent worsening of your condition and complications * To maintain your health at the optimal level Directions to Meet Your Goals Take your medications as prescribed Follow your dietary instruction Follow activity as directed Keep your appointments as scheduled Take your immunizations and boosters as scheduled If your symptoms worsen call your PCP, if no PCP go to Urgent Care Center or Emergency Room Smoking is Dangerous to Your Health. Avoid second hand smoke Call the 24-hour hour crisis hotline for domestic abuse at Lula Fischer MD R2 Nov 12, 2016 06:49
[2016-11-12] MEDS ORDERED: ISOSORBIDE MONONITRATE 60 MG TAB PO SCH (07:00)
[2016-11-12 07:52] VITALS: BP 122/65; PULSE 73; RESP 18; TEMP 97.6; O2SAT 95
[2016-11-12 08:46] LABS: HDL CHOLESTEROL 62.2 MG/DL (40.0-60.0)
[2016-11-12] MEDS ORDERED: AMIODARONE 200 MG TAB PO SCH (09:00)
[2016-11-12] MEDS ORDERED: PANTOPRAZOLE SOD 40 MG DELAYED RELEASE TAB PO SCH (09:00)
[2016-11-12] MEDS: SODIUM CHLORIDE 0.9% FLUSH 10 ML FLUSH IV FLUSH SCH (09:00)
[2016-11-12] MEDS: CARVEDILOL 3.125 MG TAB PO SCH (09:36)
[2016-11-12] MEDS: DILTIAZEM-CD 120 MG CAP ER PO SCH (09:36)
[2016-11-12] MEDS: APIXABAN 5 MG TABLET PO SCH (09:36)
[2016-11-12 10:25] LABS: HEMATOCRIT 27.6 % (35.0-46.0); MEAN CELL VOLUME 73.2 FL (80.0-100.0); MEAN CORPUSCULAR HEMOGLOBIN 23.6 PG (27.0-34.0); MEAN CORPUSCULAR HGB CONC 32.3 % (32.0-36.0); PLATELET COUNT 176 TH/MM3 (150-450); RED BLOOD COUNT 3.76 MIL/MM3 (4.00-5.30); RED CELL DISTRIBUTION WIDTH 16.5 % (11.6-17.2); WHITE BLOOD COUNT 4.4 TH/MM3 (4.0-11.0)
[2016-11-12 10:29] LABS: REVIEW FLAG FINAL
[2016-11-12 10:52] VITALS: BP 128/64; PULSE 75; RESP 18; TEMP 97.9; O2SAT 93
--- NOTE | 2016-11-12 12:08 | HHI.FPPN ---
Subjective Remarks No acute events overnight. Vital signs unremarkable. This morning patient reports that she feels better but continues to have some left-sided weakness when ambulating and she when she was walking with her PT therapist this morning. She is otherwise asymptomatic. (Lula Fischer MD R2) Objective Vitals Vital Signs Date Time Temp Pulse Resp B/P Pulse Ox O2 Delivery O2 Flow Rate FiO2 11/12/16 10:52 97.9 75 18 128/64 93 11/12/16 07:52 97.6 73 18 122/65 95 11/12/16 03:48 97.8 87 18 114/56 98 11/12/16 00:33 98 11/11/16 23:18 74 11/11/16 23:17 98.0 68 18 115/68 98 11/11/16 16:54 16 11/11/16 15:24 80 18 180/84 98 Room Air 11/11/16 14:37 99 21 I/O 11/11/16 11/11/16 11/11/16 11/12/16 11/12/16 11/12/16 07:00 15:00 23:00 07:00 15:00 23:00 Intake Total 50 ml Output Total 300 ml 1500 ml Balance -250 ml -1500 ml Intake Oral 50 ml Output Urine Total 300 ml 1500 ml # Voids 1 (Lula Fischer MD R2) Result Diagram: 11/12/16 1003 11/11/16 1115 Objective Remarks GEN: Well-developed, well-nourished patient. No acute distress. Laying comfortably in bed CV: Regular rate and rhythm without obvious murmurs LUNGS: Clear to auscultation bilaterally. Normal respiratory effort. No wheezes , rales, rhonchi. EXT: No edema. No calf tenderness. NEURO/PSYCH: Awake, alert. Appropriate insight and judgment. Normal speech ( Lula Fischer MD R2) A/P Assessment and Plan 76-year-old female with a PMH significant for A. fib, prior TIA, gastroparesis , colon ulcer. Admitted for TIA Discharge Planning Today with home health sdw Dr. Fernández, Dr. Mendel Beltran, Dr. Rodríguez (Lula Fischer MD R2) Attending Attestation Patient seen and examined. Case reviewed and discussed with the resident team. Agree with plan of care as discussed with me and documented in the resident note. (Maida Fernández MD) Problem List: (1) TIA (transient ischemic attack) Status: Acute Plan: History of prior TIA. New-onset left-sided weakness that was associated with unsteady gait. No slurred speech. No focal neurological deficits on exam. Symptoms have improved since presentation to the ED but continue to be present with mild left sided weakness. -CBC unremarkable except for anemia -ACS evaluation negative -Echocardiogram EF 50-55% with grade 1 diastolic dysfunction -Lipid panel and A1c unremarkable -Neuro checks and cardiac telemetry Imaging: * Head CT negative * MRI: periventricular white matter changes without restricted diffusion to suggest an acute infarction. * MRA: Significant atherosclerotic intracranial vascular disease. No evidence for major branch vessel occlusion * CXR: Negative for acute processes Medications: * Atorvastatin changed to pravastatin due to interaction with amiodarone. * NOT A CANDIDATE FOR ASPIRIN (2) Atrial fibrillation Status: Chronic Plan: Current rate and rhythm controlled. Continue the following home meds -Amiodarone 100mg daily -Eliquis 5mg BID -Coreg 3.125mg BID -Cardizem 120mg BID (3) Atypical chest pain Status: Resolved Plan: No supicious for cardiac etiology. Suspect symptoms of chest burning with paresthesias may be due to anxiety at the onset of strokelike symptoms. ACS eval negative -Continue home Imdur (4) Nutrition, metabolism, and development symptoms Status: Acute Plan: Diet: Heart healthy with boost supplementation due to gastroparesis Electrolytes: Unremarkable Fluids: None DVT prophylaxis: home Eliquis GI prophylaxis: Continue home Protonix Chronic Conditions: * Hypothyroidism: continue home levothyroxine (Lula Fischer MD R2) Lula Fischer MD R2 Nov 12, 2016 12:08 Maida Fernández MD Nov 12, 2016 12:35
--- NOTE | 2016-11-12 12:11 | HHI.FF ---
Face to Face Verification Diagnosis: (1) TIA (transient ischemic attack) (2) Atrial fibrillation (3) Gait instability Physical Therapy Order: Evaluate and Treat, Improve ambulation I have seen patient Mary Melendez on 11/12/16. My clinical findings support the need for the requested home health care services because: Ltd mobility - disease progression I certify that my clinical findings support that this patient is homebound because: Unsteady gait/balance Lula Fischer MD R2 Nov 12, 2016 12:11
--- NOTE | 2016-11-12 12:48 | HHI.FF ---
Face to Face Verification Diagnosis: (1) Gait instability (2) TIA (transient ischemic attack) Physical Therapy Order: Evaluate and Treat, Improve ambulation, Strength and gait training Home Health Nursing Order: Medical education Signs/symptoms of disease process I have seen patient Mary Melendez on 11/12/16. My clinical findings support the need for the requested home health care services because: Ltd mobility - disease progression I certify that my clinical findings support that this patient is homebound because: Unsteady gait/balance Willis Rodríguez MD R1 Nov 12, 2016 12:48
[2016-11-12] MEDS ORDERED: PRAVASTATIN SOD 40 MG TAB PO SCH (21:00)
--- NOTE | 2016-11-12 21:48 | EKG ---
Date Performed: 11/11/2016 Time Performed: 11:38:33 PTAGE: 76 years EKG: Sinus rhythm Since previous tracing, no significant change noted NORMAL ECG PREVIOUS TRACING : 03/07/2016 06.05 DOCTOR: Karen Curtis Interpretating Date/Time 11/12/2016 21:46:45
--- NOTE | 2016-11-12 21:48 | EKG ---
Date Performed: 11/11/2016 Time Performed: 15:16:04 PTAGE: 76 years EKG: Sinus rhythm Since previous tracing, no significant change noted NORMAL ECG PREVIOUS TRACING : 11/11/2016 11.38 DOCTOR: Karen Curtis Interpretating Date/Time 11/12/2016 21:47:01
--- NOTE | 2016-11-12 21:48 | EKG ---
Date Performed: 11/11/2016 Time Performed: 18:30:11 PTAGE: 76 years EKG: Sinus rhythm Since previous tracing, no significant change noted NORMAL ECG PREVIOUS TRACING : 11/11/2016 15.16 DOCTOR: Karen Curtis Interpretating Date/Time 11/12/2016 21:47:17
== END 2016-11-12 15:28 | disposition home or self-care (01) ==
LOC: NEPE 10:24 → NEDA 13:00 → NEPGCP 19:04
PROVIDERS: ADMIT Family Medicine; ATTEND Family Medicine
DX: G45.9 Transient cerebral ischemic attack, unspecified (principal); R07.89 Other chest pain; I48.2 Chronic atrial fibrillation; I10 Essential (primary) hypertension; E03.9 Hypothyroidism, unspecified; I25.10 Atherosclerotic heart disease of native coronary artery without angina pectoris; K21.9 Gastro-esophageal reflux disease without esophagitis; K31.84 Gastroparesis; Z79.01 Long term (current) use of anticoagulants; Z91.041 Radiographic dye allergy status; Z91.040 Latex allergy status; Z88.5 Allergy status to narcotic agent; Z91.013 Allergy to seafood; Z96.641 Presence of right artificial hip joint
CPT/HCPCS: 70450; 70544; 70551; 71010; 80053; 80061; 81001; 82550; 82948; 83036; 83735; 84443; 84484; 85025; 85027; 85610; 85730; 93005; 93306; 97163; 97165; 99285; G0378; G8987; G8988; G8989; J2405

== ENCOUNTER 2016-12-01 15:27 | Emergency (ER) | payer MEDICARE ==
[~2016-12-01 15:27] MED LIST changes: -ALPR.25 PO; +AMIO0.1T PO; -BETH10TA PO; +CALC1TAB30 PO; -CALTTAB2 PO; -CARV3.12 PO; +CARV3.125 PO; -CO Q100C9 PO; +COEN1CAP PO; -FERR324T4 PO; -FISH1000 PO; -IMDU60TA PO; +ISOS60TA PO; -LEVO.1 PO; +LEVO125T4 PO; +LUTE20CA PO; -LUTE20TA PO; -MESA1000R RECTAL; +OCUVTAB4 PO; +OMEG600C2 PO; -OMEP40CA2 PO; -PACE100T2 PO; +PRAV40TA2 PO; -PRESCAP5 PO; +PROT40TA PO; -RED600TA PO; +VITA10002 PO; -VITA100020 PO; +VITA200012 PO
[2016-12-01 15:40] VITALS: BP 164/75; PULSE 78; RESP 18; TEMP 98; O2SAT 96
[2016-12-01 15:42] VITALS: BP 164/75; PULSE 78; RESP 18; TEMP 98; O2SAT 98
[2016-12-01 15:44] VITALS: BP 164/75; PULSE 80; RESP 18; TEMP 98; O2SAT 94
[2016-12-01] MEDS ORDERED: LIDOCAINE 1%/EPINEPHrine 1:100,000 SOLN 20 ML VIAL INFIL ONE (15:45)
[2016-12-01] MEDS ORDERED: SODIUM CHLORIDE 0.9% FLUSH 10 ML FLUSH IV FLUSH PRN (15:45)
--- NOTE | 2016-12-01 15:58 | PD ---
HPI Chief Complaint: Fall Time Seen by Provider: 15:37 Travel History International Travel<30 days: No Contact w/Intl Traveler<30days: No Traveled to known affect area: No History of Present Illness HPI Patient is a 76-year-old female who presents the emergency department complaint of right wrist pain. Patient had a mechanical fall, falling on outstretched right hand. She noted deformity and pain, slight paresthesias of the distal fingertips. EMS was called and noticed fracture deformity and patient was given a total of 20 mg of morphine during her one hour long EMS transport to the hospital. She was splinted. She is pain-free at this time. Denies any other injuries. PFSH Past Medical History Hx Anticoagulant Therapy: Yes Arthritis: Yes Atrial Fibrillation: Yes Blood Disorders: No Heart Rhythm Problems: Yes (HX OF AFIB) Cancer: No Cardiovascular Problems: Yes High Cholesterol: No Chest Pain: No Congestive Heart Failure: No Cerebrovascular Accident: Yes Coronary Artery Disease: Yes Diabetes: No Diminished Hearing: No Endocrine: No Gastrointestinal Disorders: Yes (GASTROPARESIS, MCKENZIE'S ESOPHAGUS, DYSPHAGIA , NAUSEA, GERD) GERD: Yes Glaucoma: Yes Genitourinary: No Headaches: Yes Hepatitis: No Hiatal Hernia: Yes Heparin Induced Thrombocytopen: No Hypertension: Yes Immune Disorder: No Implanted Vascular Access Dvce: Yes Medical other: Yes (BOWEL OBSTRUCTION) Musculoskeletal: Yes (ARTHRITIS) Neurologic: Yes (TIA IN JUNE 2016) Psychiatric: No Reproductive: No Respiratory: No Immunizations Current: Yes Sleep Apnea: Yes Thyroid Disease: Yes Ulcer: Yes ?: Not Menopausal: Yes : 3 Para: 3 Past Surgical History Abdominal Surgery: Yes (CHOLY, TOTAL COLECTOMY) AICD: No Appendectomy: Yes Body Medical Devices: STARCLOSE,RIGHT THUMB METAL,LEFT FOOT 2 SCREWS Cardiac Surgery: No Cholecystectomy: Yes Ear Surgery: No Endocrine Surgery: Yes (LYMPH NODE SURG) Eye Surgery: Yes (ESTELLA EYE CATARACT SX) Genitourinary Surgery: Yes Gynecologic Surgery: Yes (HYSTERECTOMY) Hysterectomy: Yes Joint Replacement: Yes (R HIP REPLACEMENT) Neurologic Surgery: No Oral Surgery: Yes (TONSILLECTOMY) Pacemaker: No Thoracic Surgery: No Tonsillectomy: Yes Other Surgery: Yes (NOSE SURG BONE SPURS, CALCANAL OSTEOTOMY) Family History Family Myocardial Infarction: No Social History Alcohol Use: No Tobacco Use: No Substance Use: No Allergies-Medications (Allergen,Severity, Reaction): Coded Allergies: Codeine (Verified Allergy, Severe, 12/01/16) Contrast Media (Verified Allergy, Severe, Cardiac Arrest, ANAPHALAXIS, ) Crab (Verified Allergy, Severe, Anaphylaxis, 12/01/16) Iodine (Verified Allergy, Severe, 12/01/16) Latex (Verified Allergy, Severe, SKIN BLISTERS, 12/01/16) Shellfish (Verified Allergy, Severe, ANAPHYLAXIS TO ALL SHELLFISH, 12/01/16 ) Reported Meds & Prescriptions Reported Meds & Active Scripts Active Pravastatin 40 Mg Tab 40 Mg PO DAILY Reported Preservision Areds (Multiple Vitamins W/ Minerals) 1 Tab 1 Tab PO BID Amiodarone (Amiodarone HCl) 100 Mg Tab 100 Mg PO DAILY Nitrostat SL (Nitroglycerin) 0.4 Mg Subl 0.4 Mg SL DIRECTED PRN 1 tablet under the tongue as needed for chest pain. Repeat every 5 minutes for a total of 3 DOSES or call 911 if NO relief. Vitamin D3 (Cholecalciferol) 2,000 Unit Tab 2,000 Units PO BID Calcium 600 + D (Calcium Carbonate-Cholecalciferol) 600-200 Mg-Unit Tab 1 Tab PO BID Vitamin B-12 (Cyanocobalamin) 1,000 Mcg Tab 1,000 Mcg PO BID Co Q-10 (Coenzyme Q10 (Ubidecarenone)) 100 Mg Cap 100 Mg PO DAILY Restasis Opth Drops (Cyclosporine Opth Drops) 0.05% Emul 2 Drop EACH EYE BID Lutein 20 Mg Cap 20 Mg PO DAILY Fish Oil 600 mg ([place]-3 Fatty Acids) 1 Cap Cap 600 Mg PO BID Protonix (Pantoprazole Sodium) 40 Mg Tab 40 Mg PO DAILY Levothyroxine (Levothyroxine Sodium) 125 Mcg Tab 125 Mcg PO DAILY Isosorbide Mononitrate ER (Isosorbide Mononitrate) 60 Mg Tab 60 Mg PO DAILY Eliquis (Apixaban) 5 Mg Tab 5 Mg PO BID Coreg (Carvedilol) 3.125 Mg Tab 3.125 Mg PO BID Diltiazem ER 12 HR (Diltiazem HCl) 120 Mg Caper 120 Mg PO BID Review of Systems Except as stated in HPI: all other systems reviewed are Neg Physical Exam Narrative GENERAL: Elderly thin female in no acute distress SKIN: Focused skin assessment warm/dry. HEAD: Atraumatic. Normocephalic. EYES: No scleral icterus. No injection or drainage. ENT: Mucous membranes pink and moist. NECK: Supple CARDIOVASCULAR: Regular rate and rhythm. RESPIRATORY: No accessory muscle use. Clear to auscultation. GASTROINTESTINAL: Abdomen soft, non-tender, nondistended. MUSCULOSKELETAL: Right upper extremity with fork-like fracture deformity consistent with Colles' fracture of the right distal radius. Distal sensation, pulses intact. NEUROLOGICAL: Awake and alert. No obvious cranial nerve deficits. Motor grossly within normal limits. Normal speech. PSYCHIATRIC: Appropriate mood and affect; insight and judgment normal. Data Data Last Documented VS Vital Signs Date Time Temp Pulse Resp B/P Pulse Ox O2 Delivery O2 Flow Rate FiO2 12/01/16 17:00 87 18 168/91 96 Room Air 12/01/16 15:44 98.0 Orders Iv Access Insert/Monitor (12/01/16 15:37) Ecg Monitoring (12/01/16 15:37) Oximetry (12/01/16 15:37) Sodium Chloride 0.9% Flush (Ns Flush) (12/01/16 15:45) Lidocai-Epi 1%-1:100,000 Inj (Xylocaine- (12/01/16 15:45) Wrist, Complete (Wqt6ogy) (12/01/16 ) Support Splint (12/01/16 16:02) Wrist, Limited (Ap&Lat) (12/01/16 ) Fiberglass Sugartong Sp Ad Arm (12/01/16 ) Sling Cradle Arm (12/01/16 ) [facility] Medical Decision Making Medical Screen Exam Complete: Yes Emergency Medical Condition: Yes Medical Record Reviewed: Yes Differential Diagnosis 76-year-old female here with FOOSH to her right dominant hand with obvious deformity. Differential includes distal radius, ulnar fracture, carpal row fracture or dislocation. Narrative Course Patient had x-ray obtained showing distal radial fracture with dorsal angulation an associated ulnar styloid fracture. Patient had a hematoma block posteriorly, tolerated procedure well and reduction performed, please see procedure note. She is placed in sugar tong splint. Postreduction x-rays show improved positioning, though not 100% alignment. I spoke with Dr. Barrett of hand surgery who feels reduction is adequate and is okay with disposition to home with outpatient follow-up. Procedures Procedure Narrative 1% lidocaine with epinephrine 10 mL was injected in sterile fashion into the dorsal aspect of the fracture line. Fracture dislocation reduction: Distal traction and volar displacement of the distal fracture fragment was performed with improved alignment. During procedure patient did sustain a skin tear along the dorsal aspect of the forearm from my pressure. Diagnosis Primary Impression: Closed fracture distal radius and ulna Qualified Code: S52.501A - Closed fracture distal radius and ulna, right, initial encounter Referrals: Oseas Barrett III, MD 1 week Additional Instructions: Follow-up with hand surgery as instructed. Elevate the right upper extremity which will help with swelling and pain. You may ice through the splint 20 minutes at a time 3-4 times daily which will also help with swelling and pain. Tylenol, ibuprofen as needed for pain. Ramsay as needed for breakthrough pain. Med/Other Pt SpecificInfo: Prescription(s) given Scripts Hydrocodone-Acetaminophen (Ramsay)5-325 mg Tab1-2 Tab PO Q6H PRN (PAIN) #20 TAB Ref 0 Prov:Daily Valdez MD 12/01/16 Disposition: 01 DISCHARGE HOME Condition: Stable Daily Valdez MD Dec 01, 2016 15:58
--- NOTE | 2016-12-01 16:39 | RADRPT ---
EXAM DATE/TIME: 12/01/2016 15:50 [facility] COMPARISON: No previous studies available for comparison. INDICATIONS : Right wrist pain and deformity post fall. MEDICAL HISTORY : None. SURGICAL HISTORY : None. ENCOUNTER: Initial ACUITY: 1 day PAIN SCORE: 10/10 LOCATION: Right wrist FINDINGS: There is a Colles' fracture of the right wrist with posterior displacement of distal radius fracture and mild displacement of distal ulna fracture through base of ulnar styloid. No dislocation at the wr ist joint. Soft tissue swelling. Previous wire fixation first MCP. Osteopenia. CONCLUSION: 1. Fractures of the distal radius and ulna with mild posterior displacement. No dislocation. Jordy Bautista MD on December 01, 2016 at 16:35 Board Certified Radiologist. This report was verified electronically.
[2016-12-01 17:00] VITALS: BP 168/91; PULSE 87; RESP 18; O2SAT 96
[2016-12-01] MEDS ORDERED: NORC5TAB PO (17:19)
--- NOTE | 2016-12-01 17:25 | RADRPT ---
EXAM DATE/TIME: 12/01/2016 16:32 [facility] COMPARISON: No previous studies available for comparison. INDICATIONS : Post reduction. MEDICAL HISTORY : None. SURGICAL HISTORY : None. ENCOUNTER: Initial ACUITY: 1 day PAIN SCORE: 10/10 LOCATION: Right wrist FINDINGS: There is improvement in alignment at the previously noted Colles' fracture of the right wrist. No dis location. Overlying cast. Previous wire fixation first MCP. CONCLUSION: 1. Improvement in alignment at previously noted Colles' fracture of the right wrist. Jordy Bautista MD on December 01, 2016 at 17:22 Board Certified Radiologist. This report was verified electronically.
[2016-12-01 18:55] VITALS: BP 134/72
== END 2016-12-01 18:58 | disposition home or self-care (01) ==
LOC: NEPE 15:27
DX: S52.501A Unspecified fracture of the lower end of right radius, initial encounter for closed fracture (principal); S52.511A Displaced fracture of right radial styloid process, initial encounter for closed fracture; W18.30XA Fall on same level, unspecified, initial encounter; Y93.9 Activity, unspecified; Y92.9 Unspecified place or not applicable; Y99.9 Unspecified external cause status; I48.91 Unspecified atrial fibrillation; H40.9 Unspecified glaucoma; I10 Essential (primary) hypertension; Z96.641 Presence of right artificial hip joint
CPT/HCPCS: 25565; 73100; 73110

== ENCOUNTER 2016-12-06 09:10 | Inpatient (IN) | payer MEDICARE ==
[~2016-12-06] VITALS: Ht 157.5 cm; Wt 56.6 kg
[2016-12-06] VITALS (13 sets, daily range): BP systolic 116–194; BP diastolic 64–92; PULSE 72–81; RESP 16–22; TEMP 96.7–98.5; O2SAT 96–99
[~2016-12-06 09:10] MED LIST changes: +NORC5TAB PO
[2016-12-06 10:12] LABS: AUTOMATED NEUTROPHIL # 3.2 TH/MM3 (1.8-7.7); EOSINOPHIL % 0.9 % (0.0-4.0); HEMATOCRIT 25.2 % (35.0-46.0); LYMPH % 19.9 % (9.0-44.0); LYMPHOCYTE # 0.9 TH/MM3 (1.0-4.8); MEAN CELL VOLUME 70.2 FL (80.0-100.0); MEAN CORPUSCULAR HEMOGLOBIN 21.4 PG (27.0-34.0); MEAN CORPUSCULAR HGB CONC 30.5 % (32.0-36.0); MONO % 9.9 % (0.0-8.0); NEUT % 68.3 % (16.0-70.0); PLATELET COUNT 144 TH/MM3 (150-450); RED BLOOD COUNT 3.59 MIL/MM3 (4.00-5.30); RED CELL DISTRIBUTION WIDTH 17.5 % (11.6-17.2); WHITE BLOOD COUNT 4.6 TH/MM3 (4.0-11.0)
[2016-12-06 10:13] LABS: HEMO FLAGS AUTO DIFF
[2016-12-06 10:27] LABS: BICARBONATE 26.6 MEQ/L (21.0-32.0); POTASSIUM 3.7 MEQ/L (3.5-5.1)
[2016-12-06] MEDS ORDERED: SODIUM CHLORIDE 0.9% FLUSH 10 ML FLUSH IVF PRN (10:45)
[2016-12-06] MEDS ORDERED: PANTOPRAZOLE INJ 80 MG in SODIUM CHLORIDE 0.9% INJ 35 ML IV ONE (10:45)
[2016-12-06] MEDS ORDERED: SODIUM CHLOR 0.9% 250 ML INJ 250 ML IV ONE (11:00)
--- NOTE | 2016-12-06 11:14 | HHI.HP ---
[facility] Service [facility] Primary Care Physician Vickie Dinh DO Admission Diagnosis Diagnoses: (1) GI bleed (2) Symptomatic anemia (3) Anemia due to acute blood loss (4) Closed fracture distal radius and ulna (5) Paroxysmal a-fib Chief Complaint: dark blood per rectum with Low hemoglobin Travel History International Travel<30 Days: No Contact w/Intl Traveler <30 Da: No Traveled to Known Affected Are: No History of Present Illness 76 year-old female with a history of paroxysmal A. fib, known history of GI bleed with a recent right radius fracture was refer to the emergency department for evaluation of abnormal hemoglobin 6.3 at the preop lab performed today by hand surgeon, as patient was scheduled for ORIF. Patient reports 2 episodes of dark stool over the past 48 hours. She does have a history of A. fib for which she is on Eliquis however this was held since 12/03/16 and patient was given Lovenox subcutaneous 1 12/05/16. Patient reports increasing fatigue, dizziness and shortness of breath. She follows with gastroenterology specialist Dr Carver and states she is supposed to have colonoscopy in the near future. Otherwise, patient denies any hematuria, hemoptysis. Review of Systems Other 12 systems reviewed and are negative except for the one mentioned in history of present illness Past Family Social History Past Medical History Atrial fibrillation on chronic anticoagulation with Eliquis Gastroparesis Mild coronary artery disease with 10% lesion on cardiac catheterization in 2011 Hypothyroidism GERD/Mccoy's esophagus Colon ulcer HTN TIA 2014 Past Surgical History Tonsillectomy Cholecystectomy Partial colectomy Cataract surgery bilaterally Hysterectomy Bilateral rotator cuff surgery Left foot surgery Reported Medications [place] (Hydrocodone-Acetaminophen) 5-325 mg Tab 1-2 Tab PO Q6H PRN Pravastatin 40 Mg Tab 40 Mg PO DAILY Reported Preservision Areds (Multiple Vitamins W/ Minerals) 1 Tab 1 Tab PO BID Amiodarone (Amiodarone HCl) 100 Mg Tab 100 Mg PO DAILY Nitrostat SL (Nitroglycerin) 0.4 Mg Subl 0.4 Mg SL DIRECTED PRN 1 tablet under the tongue as needed for chest pain. Repeat every 5 minutes for a total of 3 DOSES or call 911 if NO relief. Vitamin D3 (Cholecalciferol) 2,000 Unit Tab 2,000 Units PO BID Calcium 600 + D (Calcium Carbonate-Cholecalciferol) 600-200 Mg-Unit Tab 1 Tab PO BID Vitamin B-12 (Cyanocobalamin) 1,000 Mcg Tab 1,000 Mcg PO BID Co Q-10 (Coenzyme Q10 (Ubidecarenone)) 100 Mg Cap 100 Mg PO DAILY Restasis Opth Drops (Cyclosporine Opth Drops) 0.05% Emul 2 Drop EACH EYE BID Lutein 20 Mg Cap 20 Mg PO DAILY Fish Oil 600 mg ([place]-3 Fatty Acids) 1 Cap Cap 600 Mg PO BID Protonix (Pantoprazole Sodium) 40 Mg Tab 40 Mg PO DAILY Levothyroxine (Levothyroxine Sodium) 125 Mcg Tab 125 Mcg PO DAILY Isosorbide Mononitrate ER (Isosorbide Mononitrate) 60 Mg Tab 60 Mg PO DAILY Eliquis (Apixaban) 5 Mg Tab 5 Mg PO BID Coreg (Carvedilol) 3.125 Mg Tab 3.125 Mg PO BID Diltiazem ER 12 HR (Diltiazem HCl) 120 Mg Caper 120 Mg PO BID Allergies: Coded Allergies: Codeine (Verified Allergy, Severe, 12/06/16) Contrast Media (Verified Allergy, Severe, Cardiac Arrest, ANAPHALAXIS, ) Crab (Verified Allergy, Severe, Anaphylaxis, 12/06/16) Iodine (Verified Allergy, Severe, 12/06/16) Latex (Verified Allergy, Severe, SKIN BLISTERS, 12/06/16) Shellfish (Verified Allergy, Severe, ANAPHYLAXIS TO ALL SHELLFISH, 12/06/16 ) Family History whole family has heart disease and that her daughter in her early 50s from heart disease Social History She denies any alcohol or tobacco use Lives at home by herself Physical Exam Vital Signs Vital Signs Date Time Temp Pulse Resp B/P Pulse Ox O2 Delivery O2 Flow Rate FiO2 12/06/16 09:12 98.2 75 18 168/71 99 Physical Exam GENERAL: This is a well-nourished, well-developed patient, in no apparent distress. SKIN: No rashes, ecchymoses or lesions. Cool and dry. HEAD: Atraumatic. Normocephalic. No temporal or scalp tenderness. EYES: Pupils equal round and reactive. Extraocular motions intact. No scleral icterus. No injection or drainage. ENT: Nose without bleeding, purulent drainage or septal hematoma. Throat without erythema, tonsillar hypertrophy or exudate. Uvula midline. Airway patent. NECK: Trachea midline. No JVD or lymphadenopathy. Supple, nontender, no meningeal signs. CARDIOVASCULAR: Regular rate and rhythm without murmurs, gallops, or rubs. RESPIRATORY: Clear to auscultation. Breath sounds equal bilaterally. No wheezes , rales, or rhonchi. GASTROINTESTINAL: Abdomen soft, non-tender, nondistended. No hepato-splenomegaly , or palpable masses. No guarding. MUSCULOSKELETAL: Extremities without clubbing, cyanosis, or edema. No joint tenderness, effusion, or edema noted. No calf tenderness. Negative Homans sign bilaterally. NEUROLOGICAL: Awake and alert. Cranial nerves II through XII intact. Motor and sensory grossly within normal limits. Five out of 5 muscle strength in all muscle groups. Normal speech. Laboratory Laboratory Tests Test 12/06/16 09:57 White Blood Count 4.6 Red Blood Count 3.59 Hemoglobin 7.7 Hematocrit 25.2 Mean Corpuscular Volume 70.2 Mean Corpuscular Hemoglobin 21.4 Mean Corpuscular Hemoglobin 30.5 Concent Red Cell Distribution Width 17.5 Platelet Count 144 Mean Platelet Volume 7.5 Neutrophils (%) (Auto) 68.3 Lymphocytes (%) (Auto) 19.9 Monocytes (%) (Auto) 9.9 Eosinophils (%) (Auto) 0.9 Basophils (%) (Auto) 1.0 Neutrophils # (Auto) 3.2 Lymphocytes # (Auto) 0.9 Monocytes # (Auto) 0.5 Eosinophils # (Auto) 0.0 Basophils # (Auto) 0.0 CBC Comment AUTO DIFF Sodium Level 140 Potassium Level 3.7 Chloride Level 105 Carbon Dioxide Level 26.6 Anion Gap 8 Blood Urea Nitrogen 21 Creatinine 1.07 Estimat Glomerular Filtration 50 Rate Random Glucose 113 Calcium Level 9.5 Blood Type A POSITIVE Antibody Screen NEGATIVE Result Diagram: 12/06/1657 12/06/1657 Assessment and Plan Problem List: (1) GI bleed ICD Code: K92.2 Status: Acute (2) Symptomatic anemia ICD Code: D64.9 Status: Acute (3) Anemia due to acute blood loss ICD Code: D62 Status: Acute (4) Paroxysmal a-fib ICD Code: I48.0 Status: Acute (5) Closed fracture distal radius and ulna ICD Code: S52.609A Status: Acute (6) Hypothyroidism ICD Code: E03.9 Status: Chronic Assessment and Plan 76-year-old female with GI bleed Symptomatic anemia Anemia due to acute blood loss -Status PPI drip -Consult gastroenterology for evaluation for possible panendoscopy -Transfuse 1 unit packed red blood cell now and continue serial H&H check -Continue to hold Eliquis Paroxysmal atrial fibrillation -Consult cardiology -Resumed home medication including amiodarone, Coreg, Cardizem, Imdur -Continue to hold Eliquis pending further evaluation from cardiology Closed fracture right distal radius and ulnar -Consult hand surgery -Pain medication when necessary Acute renal failure -Gentle IV fluid hydration and monitor BUN and creatinine Hypothyroidism -Resume Synthroid DVT prophylaxis: Chemical anti-prophylaxis is contraindicated, bilateral SCDs GI prophylaxis: PPI Code Status Full code Discussed Condition With Patient, ED physician Physician Certification 2 Midnight Certification Type: Admission for Inpatient Services Order for Inpatient Services The services are ordered in accordance with Medicare regulations or non- Medicare payer requirements, as applicable. In the case of services not specified as inpatient-only, they are appropriately provided as inpatient services in accordance with the 2-midnight benchmark. Estimated LOS (days): 2 days is the estimated time the patient will need to remain in the hospital, assuming treatment plan goals are met and no additional complications. Post-Hospital Plan: Not yet determined Andrea Marcus MD Dec 06, 2016 11:14
[2016-12-06] MEDS ORDERED: NALOXONE HCL 0.4 MG/ML AMP IV PRN (11:15)
[2016-12-06] MEDS ORDERED: MORPHINE SULFATE 4 MG/ML INJ IV PRN (11:15)
[2016-12-06] MEDS ORDERED: ONDANSETRON HCL 4 MG/2 ML VIAL IVP PRN (11:15)
[2016-12-06] MEDS ORDERED: ACETAMINOPHEN 325 MG TAB PO PRN (11:15)
[2016-12-06] MEDS ORDERED: SODIUM CHLORIDE 0.9% FLUSH 10 ML FLUSH IV FLUSH PRN (11:15)
[2016-12-06 11:24] LABS: KERATOCYTES OCC (NORMAL); OVALOCYTES 1+ (NORMAL); SCAN/DIFF AUTO DIFF CONFIRMED
--- NOTE | 2016-12-06 11:48 | PD ---
HPI Chief Complaint: Abnormal Results Time Seen by Provider: 09:50 Travel History International Travel<30 days: No Contact w/Intl Traveler<30days: No Traveled to known affect area: No History of Present Illness HPI 76-year-old female presents after having her outpatient hand surgery canceled with Dr. Jacobs for a low hemoglobin of 6.3. She states that she has history of low hemoglobin and has been following with Dr. dahl her GI specialist. She states that she is on eliquis for atrial fibrillation and has had prior strokes. She states that her stool has been different colored and denies other concurrent complaints. She states that her blood count level was around 6 and that is why she was sent here. History is supplemented from consults as patient does not recall some details. PFSH Past Medical History Hx Anticoagulant Therapy: Yes Arthritis: Yes Atrial Fibrillation: Yes Blood Disorders: No Heart Rhythm Problems: Yes (HX OF AFIB) Cancer: No Cardiovascular Problems: Yes High Cholesterol: No Chest Pain: No Congestive Heart Failure: No Cerebrovascular Accident: Yes Coronary Artery Disease: Yes Diabetes: No Diminished Hearing: No Endocrine: No Gastrointestinal Disorders: Yes (GASTROPARESIS, MCKENZIE'S ESOPHAGUS, DYSPHAGIA , NAUSEA, GERD) GERD: Yes Glaucoma: Yes Genitourinary: No Headaches: Yes Hepatitis: No Hiatal Hernia: Yes Heparin Induced Thrombocytopen: No Hypertension: Yes Immune Disorder: No Implanted Vascular Access Dvce: Yes Medical other: Yes (BOWEL OBSTRUCTION) Musculoskeletal: Yes (ARTHRITIS) Neurologic: Yes (TIA IN JUNE 2016) Psychiatric: No Reproductive: No Respiratory: No Immunizations Current: Yes Sleep Apnea: Yes (STS SHE NO LONGER HAS IT.) Thyroid Disease: Yes Ulcer: Yes Menopausal: Yes : 3 Para: 3 Past Surgical History Abdominal Surgery: Yes (CHOLY, TOTAL COLECTOMY) AICD: No Appendectomy: Yes Body Medical Devices: STARCLOSE,RIGHT THUMB METAL,LEFT FOOT 2 SCREWS Cardiac Surgery: No Cholecystectomy: Yes Ear Surgery: No Endocrine Surgery: Yes (LYMPH NODE SURG) Eye Surgery: Yes (ESTELLA EYE CATARACT SX) Genitourinary Surgery: Yes Gynecologic Surgery: Yes (HYSTERECTOMY) Hysterectomy: Yes Joint Replacement: Yes (R HIP REPLACEMENT) Neurologic Surgery: No Oral Surgery: Yes (TONSILLECTOMY) Pacemaker: No Thoracic Surgery: No Tonsillectomy: Yes Other Surgery: Yes (NOSE SURG BONE SPURS, CALCANAL OSTEOTOMY) Social History Alcohol Use: No Tobacco Use: No Substance Use: No Allergies-Medications (Allergen,Severity, Reaction): Coded Allergies: Codeine (Verified Allergy, Severe, 12/06/16) Contrast Media (Verified Allergy, Severe, Cardiac Arrest, ANAPHALAXIS, ) Crab (Verified Allergy, Severe, Anaphylaxis, 12/06/16) Iodine (Verified Allergy, Severe, 12/06/16) Latex (Verified Allergy, Severe, SKIN BLISTERS, 12/06/16) Shellfish (Verified Allergy, Severe, ANAPHYLAXIS TO ALL SHELLFISH, 12/06/16 ) Reported Meds & Prescriptions Reported Meds & Active Scripts Active Blanchard (Hydrocodone-Acetaminophen) 5-325 mg Tab 1-2 Tab PO Q6H PRN Reported Preservision Areds (Multiple Vitamins W/ Minerals) 1 Tab 1 Tab PO BID Amiodarone (Amiodarone HCl) 100 Mg Tab 100 Mg PO DAILY Nitrostat SL (Nitroglycerin) 0.4 Mg Subl 0.4 Mg SL DIRECTED PRN 1 tablet under the tongue as needed for chest pain. Repeat every 5 minutes for a total of 3 DOSES or call 911 if NO relief. Vitamin D3 (Cholecalciferol) 2,000 Unit Tab 2,000 Units PO BID Calcium 600 + D (Calcium Carbonate-Cholecalciferol) 600-200 Mg-Unit Tab 1 Tab PO BID Vitamin B-12 (Cyanocobalamin) 1,000 Mcg Tab 1,000 Mcg PO BID Co Q-10 (Coenzyme Q10 (Ubidecarenone)) 100 Mg Cap 100 Mg PO DAILY Restasis Opth Drops (Cyclosporine Opth Drops) 0.05% Emul 2 Drop EACH EYE BID Lutein 20 Mg Cap 20 Mg PO DAILY Fish Oil 600 mg (Barnhart-3 Fatty Acids) 1 Cap Cap 600 Mg PO BID Protonix (Pantoprazole Sodium) 40 Mg Tab 40 Mg PO DAILY Levothyroxine (Levothyroxine Sodium) 125 Mcg Tab 125 Mcg PO DAILY Isosorbide Mononitrate ER (Isosorbide Mononitrate) 60 Mg Tab 60 Mg PO DAILY Eliquis (Apixaban) 5 Mg Tab 5 Mg PO BID Coreg (Carvedilol) 3.125 Mg Tab 3.125 Mg PO BID Diltiazem ER 12 HR (Diltiazem HCl) 120 Mg Caper 120 Mg PO BID Review of Systems Except as stated in HPI: all other systems reviewed are Neg Physical Exam Narrative GENERAL: Well-nourished, well-developed patient. SKIN: Warm and dry. HEAD: Normocephalic and atraumatic. EYES: No injection or drainage. ENT: No nasal drainage noted. NECK: Supple, trachea midline. CARDIOVASCULAR: Regular rate and rhythm RESPIRATORY: No increased effort. No accessory muscle use. GASTROINTESTINAL: Abdomen soft, non-tender, nondistended. RECTAL EXAM: Performed with unarmed security officer and after permission. No large external hemorrhoid or fissure, stool is black NEUROLOGICAL: Awake and alert. Moves all extremities. Normal speech. Data Data Last Documented VS Vital Signs Date Time Temp Pulse Resp B/P Pulse Ox O2 Delivery O2 Flow Rate FiO2 12/06/16 09:12 98.2 75 18 168/71 99 Orders Complete Blood Count With Diff (12/06/16 09:37) Basic Metabolic Panel (Bmp) (12/06/16 09:37) Iv Access Insert/Monitor (12/06/16 09:37) Ecg Monitoring (12/06/16 09:37) Oximetry (12/06/16 09:37) Type And Screen (12/06/16 09:37) Sodium Chloride 0.9% Flush (Ns Flush) (12/06/16 10:45) Pantoprazole Inj (Protonix Inj) (12/06/16 10:45) Pantoprazole Inj (Protonix Inj) (12/06/16 10:45) Magnesium (Mg) (12/06/16 10:39) Phosphorus (Po4) (12/06/16 10:39) Act Partial Throm Time (Ptt) (12/06/16 10:39) Prothrombin Time / Inr (Pt) (12/06/16 10:39) Consult Gastroenterology (12/06/16 ) Diet Npo (12/06/16 Lunch) Red Blood Cells (Rbc) (12/06/16 10:54) Blood Product Administration .UPON TRANSFUSION (12/06/16 10:54) Sodium Chlor 0.9% 250 Ml Inj (Ns 250 Ml (12/06/16 11:00) Electrocardiogram (12/06/16 ) Consult Hand Surgery (12/06/16 ) Admit Order (Ed Use Only) (12/06/16 11:13) Labs Laboratory Tests Test 4/21/17 4/21/17 09:57 11:00 White Blood Count 4.6 TH/MM3 Red Blood Count 3.59 MIL/MM3 Hemoglobin 7.7 GM/DL Hematocrit 25.2 % Mean Corpuscular Volume 70.2 FL Mean Corpuscular Hemoglobin 21.4 PG Mean Corpuscular Hemoglobin 30.5 % Concent Red Cell Distribution Width 17.5 % Platelet Count 144 TH/MM3 Mean Platelet Volume 7.5 FL Neutrophils (%) (Auto) 68.3 % Lymphocytes (%) (Auto) 19.9 % Monocytes (%) (Auto) 9.9 % Eosinophils (%) (Auto) 0.9 % Basophils (%) (Auto) 1.0 % Neutrophils # (Auto) 3.2 TH/MM3 Lymphocytes # (Auto) 0.9 TH/MM3 Monocytes # (Auto) 0.5 TH/MM3 Eosinophils # (Auto) 0.0 TH/MM3 Basophils # (Auto) 0.0 TH/MM3 CBC Comment AUTO DIFF Differential Comment AUTO DIFF CONFIRMED Ovalocytes 1+ Keratocytes OCC Sodium Level 140 MEQ/L Potassium Level 3.7 MEQ/L Chloride Level 105 MEQ/L Carbon Dioxide Level 26.6 MEQ/L Anion Gap 8 MEQ/L Blood Urea Nitrogen 21 MG/DL Creatinine 1.07 MG/DL Estimat Glomerular Filtration 50 ML/MIN Rate Random Glucose 113 MG/DL Calcium Level 9.5 MG/DL Blood Type A POSITIVE Antibody Screen NEGATIVE Crossmatch Leukocyte-Reduced Red Blood Cells Blood Bank Comment MDM Medical Decision Making Medical Screen Exam Complete: Yes Emergency Medical Condition: Yes Medical Record Reviewed: Yes (past history confirmed) Interpretation(s) CBC & BMP Diagram 12/06/16 09:57 Differential Diagnosis lab error, gastritis, ulcer, iron deficiency... Narrative Course Will check blood work and dose with Protonix and discuss with her GI specialist Patient updated and agrees to admission, vitals stable, agrees to transfusion Critical Care Narrative Aggregate critical care time was 35 minutes. Time to perform other separately billable procedures was not included in the critical care time. My time did not include minutes spent treating any other patients simultaneously or on activities that did not directly contribute to the patient's treatment. The services I provided to this patient were to treat and/or prevent clinically significant deterioration that could result in: Hemorrhagic Shock I provided critical care services requiring my management, as noted below: Chart data review, documentation time, medication orders and management, vital sign assessments/reviewing monitor data, ordering and reviewing lab tests, ordering and interpreting/reviewing x-rays and diagnostic studies, care of the patient and discussion of the patient with the admitting physicians. Physician Communication Physician Communication Dr. Dahl request for anticoagulant to be held, keep nothing by mouth, agrees to giving 1 unit now and keeping 1 unit on hold, states has history of needing cauterizing in her stomach for a vascular finding in the past and has complex history that she has sought second opinion before as well Dr. Jacobs requests Dr. Stewart to be consulted for possible surgery on Friday, states Dr. Savage her psychology tech gave her Lovenox yesterday given she was off Elaquis and will need to follow along to determine anticoagulation Dr. Marcus agrees to admission Diagnosis Primary Impression: GI bleed Admitting Information Admitting Physician Requests: Admit Hilary Cunningham MD Dec 06, 2016 11:48 Hilary Cunningham MD Dec 06, 2016 11:48
[2016-12-06] MEDS: PANTOPRAZOLE INJ 80 MG in SODIUM CHLORIDE 0.9% INJ 100 ML IV SCH ×2 (12:07→20:45)
[2016-12-06 12:23] LABS: PROTHROMBIN TIME - PATIENT 10.6 SEC (9.8-11.6)
[2016-12-06 12:24] LABS: APTT (PATIENT) 22.3 SEC (24.3-30.1)
[2016-12-06] MEDS: SODIUM CHLOR 0.9% 1000 ML INJ 1,000 ML IV SCH (12:45)
--- NOTE | 2016-12-06 17:26 | MB ---
cc: MARIANA ALONSO M.D., MARK B. M.D. DATE OF CONSULTATION 12/06/16 REASON FOR CONSULTATION Atrial fibrillation, GI bleeding, anticoagulation. HISTORY OF PRESENT ILLNESS Ms. Melendez is a 76-year-old white female well-known to Dr. Alonso with history of paroxysmal atrial fibrillation, recent TIA, chronic GI bleeding and anemia. The patient fell recently and fractured her right wrist and was set up as an outpatient for an ORIF today. Her preoperative labs indicated severe anemia with a hemoglobin reported of 6.3 and she was sent to the emergency room for workup and admission. The patient has been feeling reasonably well. She has some mild dyspnea on exertion. Denies any chest pains. She has noted some dark or black colored stools for some time now. She says she has very infrequent bowel movements but has noticed them for at least the past few weeks. She had been maintained on Eliquis 5 mg p.o. b.i.d., but that was held on December 03 and she received one dose of 40 mg subcutaneous Lovenox yesterday in preparation for her surgery today. The patient tells me that her hemoglobin was in the eight range about a month or two ago when it was checked at that time and she has needed blood transfusions in the past. She is currently receiving packed red blood cell transfusion here in the emergency room. She denies any syncope or lightheadedness. PAST MEDICAL HISTORY 1. Paroxysmal atrial fibrillation which she tells me she has not felt any recent arrhythmias. 2. Multiple prior transient ischemic attacks, the last one about a month ago. She had a transient ischemic attack on November 11, 2016 and a remote TIA as well. 3. Mild carotid ASO 4. Moderate mitral regurgitation with mitral valve prolapse, no significant coronary disease with a negative cardiac catheterization back in 2011. 5. She has had intermittent GI bleeds and sees Dr. Dahl for that and had a planned upper endoscopy coming up, but that had been postponed for some reason. 6. She has normal left ventricular function denies prior myocardial infarction or heart failure. Denies diabetes. 7. She has longstanding hypertension and some chronic kidney disease. PAST SURGICAL HISTORY 1. Cardiac catheterization 2011 2. Mild nonobstructive coronary disease 3. Tonsillectomy 1961, 4. Partial hysterectomy 1957, 5. Rotator cuff repair 2007, 6. Right hip surgery 2014, 7. Cholecystectomy 1993, 8. Colectomy 1993 MEDICATIONS As mentioned 1. Eliquis 5 mg p.o. b.i.d. that was stopped on December 03. 2. Amiodarone 100 mg p.o. daily, 3. Isosorbide 60 mg daily, 4. Synthroid 125 mcg daily, 5. Carvedilol 3.125 mg b.i.d. 6. Diltiazem CD 120 mg b.i.d. 7. Zofran 4 mg q.6 h p.r.n. 8. Tylenol 650 mg p.r.n., 9. Morphine sulfate 2 mg IV q.3 h p.r.n. 10. Pantoprazole infusion. ALLERGIES CODEINE CONTRAST MEDIA CRAB IODINE LATEX, SHELLFISH SOCIAL HISTORY The patient denies tobacco, alcohol or illicit drug use anytime now or in the past. She is currently since 2009. FAMILY HISTORY Significant for cancer, hypertension, coronary artery disease. Negative for diabetes. REVIEW OF SYSTEMS Denies lower extremity edema or claudication. Denies palpitations, lightheadedness or syncope. Denies fevers, chills, night sweats, nausea, vomiting, diarrhea. Denies exertional or resting chest discomfort, orthopnea or PND type symptoms. Except that mentioned in HPI her complete 12-point review of systems is otherwise negative. PHYSICAL EXAMINATION GENERAL: Elderly thin white female lying in bed in no distress at this time. VITAL SIGNS: Blood pressure 152/80 mmHg, heart rate is 76 and regular, respiratory rate 16, temperature 98.5, oxygen saturations 98% on room air. HEENT: Head is normocephalic and atraumatic. Pupils equal, round and react to light. Sclerae anicteric. Extraocular movements intact. NECK: Supple. There is no adenopathy. There is no jugular venous distension at 45 degrees. Carotid upstrokes are normal. No bruits heard. Thyroid exam is normal. LUNGS: Clear. HEART: PMI is not displaced. S1-S2 normal. No murmurs, gallops, clicks or rubs. ABDOMEN: Bowel sounds present, soft, nontender. No hepatosplenomegaly, masses or bruits. EXTREMITIES: No cyanosis, clubbing or edema. Perfusion is adequate in the upper and lower extremities. There are no femoral bruits. NEUROLOGIC: Exam is grossly intact. CARDIOLOGY STUDIES EKG is pending. Telemetry monitoring shows sinus rhythm. LABORATORY DATA CBC - white count 4.6, hemoglobin 7.7, hematocrit 25.2, platelet count 144,000. Sodium 140, potassium 3.7, chloride 105, CO2 26.6, BUN 21, creatinine 1.07, calcium 9.5, random glucose 113. Coags are normal. IMPRESSION 1. Paroxysmal atrial fibrillation, currently in sinus rhythm. 2. Long-term anticoagulation therapy with Eliquis. 3. Acute and chronic GI bleeding with critical anemia requiring blood transfusions at this time. 4. Hypertensive heart disease. 5. Mild nonobstructive coronary artery disease. 6. History of multiple TIAs, most recently January 11, 2017. RECOMMENDATIONS I think because of the critical nature of her anemia and requirement of transfusion at this time, we will continue to hold her anticoagulation therapy until further GI workup is performed. Hopefully, there will be something that can be addressed at the time of endoscopy so that she may be restarted on her anticoagulation therapy safely. She is still awaiting her right wrist ORIF as well. I have discussed the plans with the patient in detail and she understands that for safety purposes we need to withhold anticoagulation at least short-term at this time and that she does have increased risk of TIA or stroke without it. She agrees with this plan. Dr. Dahl is her continuous drier operator and we are awaiting his input at this time. Fortunately, she is currently in sinus rhythm we will just continuing monitoring from our standpoint. Dr. Arora will be covering over the weekend. I thank you for allowing us to participate in the care of this patient. MD BRII Zimmer/ /1:28 PM /4:59 PM
--- NOTE | 2016-12-06 19:07 | MB ---
cc: AURORA SALGADO DATE OF CONSULTATION: 12/06/2016. REASON FOR CONSULTATION: Anemia. GI bleed with heme-positive stools and melena. DATE OF : 1940. HISTORY OF PRESENT ILLNESS: 76-year-old female who is known to Dr. Dahl. She had scheduled hand surgery as he had a fracture of the right upper extremity and she was being evaluated by Dr. Jacobs. She was found to have a hemoglobin of 6.3. She was directed to the emergency room for admission. She does have a history of anemia with occult GI bleeding in the past. She is on Eliquis for atrial fibrillation. She recently saw Dr. Dahl in the office on 11/05 and he advised EGD, stool Hemoccult, iron therapy. At that time, her hemoglobin was 9.0. She also has a history of weight loss over the past year from 170 pounds to 120 pounds apparently. She has a poor appetite and she has gastroparesis as she reports she has failed medical therapy. She also is requesting that she try Botox injection therapy to the stomach and antral region. In any event, the patient most recently before seeing Dr. Dahl was followed by Dr. Fair's group and she had several endoscopies performed but I do not have those reports. She also had a capsule endoscopy on two or three occasions. She reports that no active bleeding source has been found. She had a subtotal colectomy in the , either for a cecal volvulus or diverticular disease, I am not certain at this point. She reports that she has had transfusions one time in the past for a hemoglobin down in the 6.9 range also. She denies any vomiting. She has epigastric pain. She has been taking pantoprazole. Once again, she does have gastroparesis and eats very small meals. I was asked to evaluate her further regarding her anemia and possible GI bleeding source. PAST MEDICAL HISTORY: Her past history is partially mentioned above. 1. She has had a cholecystectomy in the past. 2. Subtotal colectomy. 3. She has had a total hip replacement. 4. Basal cell cancer. 5. Previous hysterectomy. 6. Atrial fibrillation. 7. Previous CVA. Actually the patient had a TIA on 11/11. She reports she had a history of Gastroesophageal reflux disease (GERD). 8. Bowel obstruction. 9. Thyroid disease. SOCIAL HISTORY: The negative for alcohol or smoking. ALLERGIES: 1. CODEINE. 2. CONTRAST MEDIA. 3. CRAB. 4. IODINE. 5. LATEX. 6. SHELLFISH. MEDICATIONS: Medications reported include: 1. [place]. 2. Amiodarone. 3. Nitrostat. 4. Vitamin D3. 5. Restasis. 6. Lutein. 7. Eliquis. 8. Levothyroxine. 9. Protonix. 10. Coreg. 11. Diltiazem. REVIEW OF SYSTEMS: The twelve-point review of systems is as stated in the history of present illness. EXAMINATION: GENERAL: A pleasant well-developed female alert and oriented times three and in no acute distress. She does have a bandage right upper extremity. HEAD, EYES, EARS, NOSE, THROAT: Normocephalic. The sclerae are nonicteric. Oral mucosa moist. NECK: Neck is supple. CARDIAC: Cardiac exam S1 and S2. Regular rhythm. CHEST: Chest is clear. ABDOMEN: The abdomen is soft, nontender. Surgical scars are well-healed. Bowel sounds are present. RECTAL: Stools previously were dark and heme-positive. LABS: Platelet count was 144,000. Creatinine was 1.07. Electrolytes were stable. IMPRESSION: A 76-year-old female presents with recurrent occult GI bleeding, etiology undefined. This could include upper versus lower source. It could include angiodysplastic disease or even a Dieulafoy's lesion intermittently bleeding. She also has a history of gastroparesis, epigastric pain and weight loss. PLAN: 1. Would continue with transfusions to an adequate hemoglobin and then we can plan on pursuing EGD and sigmoidoscopy for lower GI evaluation as she has had a previous colectomy. The procedure risks, benefits were discussed including the risks of bleeding source, perforation, risk of anesthesia; however, biopsies would be limited because of the patient's being on Eliquis therapy. 2. Will discuss with Dr. Dahl as the patient is an adequate candidate for Botox injections to the antropyloric region for her gastroparesis as she has failed other medical therapy. 3. Would continue to follow her hemoglobin and hematocrit after her transfusions have been completed. 4. Will continue IV proton pump inhibitor for prophylaxis. We will be following the patient with you closely. Thank you kindly for this consult. I have discussed this with the patient as well. MD VASQUEZ Ruano/SUKUMAR /5:02 PM /6:54 PM
[2016-12-06] MEDS: SODIUM CHLORIDE 0.9% FLUSH 10 ML FLUSH IV FLUSH SCH (20:17)
[2016-12-06] MEDS: DILTIAZEM-CD 120 MG CAP ER PO SCH (20:17)
[2016-12-06] MEDS: CARVEDILOL 3.125 MG TAB PO SCH (20:17)
[2016-12-06 22:46] LABS: MAGNESIUM 2.1 MG/DL (1.5-2.5)
[2016-12-07] VITALS (8 sets, daily range): BP systolic 100–167; BP diastolic 62–72; PULSE 66–80; RESP 18–20; TEMP 97.2–98.2; O2SAT 95–98
[2016-12-07] MEDS: ACETAMINOPHEN 325 MG TAB PO PRN ×3 (00:53→20:04)
[2016-12-07] MEDS: SODIUM CHLOR 0.9% 1000 ML INJ 1,000 ML IV SCH ×2 (03:03→17:21)
[2016-12-07] MEDS: LEVOTHYROXINE SODIUM 125 MCG TAB PO SCH (05:47)
[2016-12-07] MEDS: PANTOPRAZOLE INJ 80 MG in SODIUM CHLORIDE 0.9% INJ 100 ML IV SCH (05:49)
[2016-12-07 07:21] LABS: AUTOMATED NEUTROPHIL # 2.3 TH/MM3 (1.8-7.7); BASOPHIL % 0.7 % (0.0-2.0); EOSINOPHIL # 0.1 TH/MM3 (0-0.4); EOSINOPHIL % 2.3 % (0.0-4.0); HEMATOCRIT 33.4 % (35.0-46.0); LYMPH % 23.3 % (9.0-44.0); LYMPHOCYTE # 0.9 TH/MM3 (1.0-4.8); MEAN CELL VOLUME 73.2 FL (80.0-100.0); MEAN CORPUSCULAR HEMOGLOBIN 24.4 PG (27.0-34.0); MEAN CORPUSCULAR HGB CONC 33.3 % (32.0-36.0); MONO % 10.4 % (0.0-8.0); NEUT % 63.3 % (16.0-70.0); PLATELET COUNT 172 TH/MM3 (150-450); RED BLOOD COUNT 4.56 MIL/MM3 (4.00-5.30); RED CELL DISTRIBUTION WIDTH 19.1 % (11.6-17.2); WHITE BLOOD COUNT 3.7 TH/MM3 (4.0-11.0)
[2016-12-07 07:29] LABS: HEMO FLAGS AUTO DIFF
[2016-12-07 07:59] LABS: ALKALINE PHOSPHATASE 69 U/L (45-117); ALT (GPT) 21 U/L (10-53); ANION GAP 8 MEQ/L (5-15); AST (GOT) 17 U/L (15-37); BICARBONATE 25.6 MEQ/L (21.0-32.0); BLOOD UREA NITROGEN 12 MG/DL (7-18); CHLORIDE 107 MEQ/L (98-107); GLOMERULAR FILTRATION RATE 65 ML/MIN (>89); POTASSIUM 3.5 MEQ/L (3.5-5.1); SODIUM (NA) 141 MEQ/L (136-145); TOTAL BILIRUBIN ADULT 1.4 MG/DL (0.2-1.0)
[2016-12-07] MEDS: CARVEDILOL 3.125 MG TAB PO SCH ×2 (08:03→22:06)
[2016-12-07] MEDS: DILTIAZEM-CD 120 MG CAP ER PO SCH ×2 (08:04→22:06)
[2016-12-07] MEDS: AMIODARONE 200 MG TAB PO SCH (08:05)
[2016-12-07] MEDS: ISOSORBIDE MONONITRATE 60 MG TAB PO SCH (08:05)
[2016-12-07] MEDS: SODIUM CHLORIDE 0.9% FLUSH 10 ML FLUSH IV FLUSH SCH ×2 (09:00→21:00)
[2016-12-07 09:26] LABS: KERATOCYTES OCC (NORMAL); OVALOCYTES 1+ (NORMAL); PLATELET ESTIMATE SMEAR NORMAL (NORMAL); PLATELET MORPHOLOGY NORMAL (NORMAL); SCAN/DIFF AUTO DIFF CONFIRMED
--- NOTE | 2016-12-07 10:35 | HHI.PR ---
Subjective Remarks 76 year old female seen here for GI bleed. 12/07/16- patient seen and evaluated this AM. AFVSS. Patient c/o epigastric pain and nausea, which is consistent with her baseline. States sxs related to gastroparesis. Denies any dizziness or diarrhea this AM. No emesis. Objective Vitals Vital Signs Date Time Temp Pulse Resp B/P Pulse Ox O2 Delivery O2 Flow Rate FiO2 12/07/16 08:00 98.2 80 19 100/72 95 12/07/16 06:00 79 12/07/16 02:44 16 12/07/16 00:00 98.1 69 18 140/65 95 12/06/16 22:00 96.7 74 16 156/74 97 12/06/16 20:00 97.7 73 18 142/66 96 12/06/16 19:00 97.8 81 16 194/92 96 12/06/16 18:45 97.7 80 18 161/81 96 12/06/16 15:15 97.9 76 20 168/74 98 12/06/16 14:25 72 16 137/64 96 Room Air 12/06/16 13:00 76 16 152/80 98 Room Air 12/06/16 12:37 98.5 75 18 116/69 98 Room Air 12/06/16 12:08 98.2 72 22 152/80 98 Room Air 12/06/16 11:42 72 18 153/69 98 Room Air I/O 12/06/16 12/06/16 12/06/16 12/07/16 12/07/16 12/07/16 07:00 15:00 23:00 07:00 15:00 23:00 Intake Total 500 ml 0 ml 0 ml Output Total 475 ml 300 ml Balance 500 ml -475 ml -300 ml Intake Oral 0 ml 0 ml Packed Cells 500 ml Output Urine Total 475 ml 300 ml # Bowel Movements 0 0 Result Diagram: 12/07/16 0657 12/07/16656 Objective Remarks GENERAL: This is a well-nourished, well-developed patient, in no apparent distress. SKIN: No rashes, ecchymoses or lesions. Cool and dry. CARDIOVASCULAR: Regular rate and rhythm without murmurs, gallops, or rubs. RESPIRATORY: Clear to auscultation. Breath sounds equal bilaterally. No wheezes , rales, or rhonchi. GASTROINTESTINAL: Abdomen soft, non-tender, nondistended. No hepato-splenomegaly , or palpable masses. No guarding. MUSCULOSKELETAL: Extremities without clubbing, cyanosis, or edema. No joint tenderness, effusion, or edema noted. No calf tenderness. RUE in splint in place. NEUROLOGICAL: awake and alert. Moves fingers in RUE well. Sensation intact to touch in RUE fingers. A/P Problem List: (1) GI bleed ICD Code: K92.2 Status: Acute (2) Symptomatic anemia ICD Code: D64.9 Status: Acute (3) Anemia due to acute blood loss ICD Code: D62 Status: Acute (4) Paroxysmal a-fib ICD Code: I48.0 Status: Acute (5) Closed fracture distal radius and ulna ICD Code: S52.609A Status: Acute (6) Hypothyroidism ICD Code: E03.9 Status: Chronic Assessment and Plan 76-year-old female with 1. GI bleed: GI consulted. They have recommended sigmoidoscopy + EGD. ? botox 2/ 2 failed medical therapy for gastroparesis. S/p transfusion of 2 u pRBC yesterday with appropriate rise in Hb (7.7 to 11.1). Switch protonix drip to protonix 40mg IV BID. Continue to hold Eliquis. 2. Paroxysmal Afib: cardiology consulted. Have recommended holding eliquis. Resumed home medication including amiodarone, Coreg, Cardizem, Imdur. 3. Closed fx right distal radius and ulna: hand surgery consulted. PRN pain medication. 4. ARF: resolved. Gentle IVF while patient is NPO. 5. Hypothyroidism: resume home synthroid. Add TSH to specimen in lab. DVT prophylaxis: Chemical anti-prophylaxis is contraindicated, bilateral SCDs GI prophylaxis: PPI, as above Problem Qualifiers (1) GI bleed: Qualified Code: K92.2 - Gastrointestinal hemorrhage, unspecified gastrointestinal hemorrhage type (2) Hypothyroidism: Qualified Code: E03.9 - Hypothyroidism, unspecified type Nazario Guajardo MD R3 Dec 07, 2016 10:35
[2016-12-07] MEDS: PANTOPRAZOLE SODIUM 40 MG VIAL IV PUSH SCH ×2 (11:01→22:10)
--- NOTE | 2016-12-07 11:17 | PD.CARD.PN ---
Subjective Subjective Remarks Patient has been transfused and is feeling well. She remains in sinus rhythm. No shortness of breath. GI following. Objective Medications Current Medications Medications (Trade) Dose Ordered Sig/Yolie Route Start Time Stop Time Status Last Admin (NS Flush) 2 ml UNSCH PRN IVF 12/06/16 10:45 (NS Flush) 2 ml UNSCH PRN IV FLUSH 12/06/16 11:15 (NS Flush) 2 ml BID IV FLUSH 12/06/16 21:00 (Tylenol) 650 mg Q4H PRN PO 12/06/16 11:15 (Zofran Inj) 4 mg Q6H PRN IVP 12/06/16 11:15 (Tylenol) 650 mg Q6H PRN PO 12/06/16 11:15 12/07/16 11:01 (Morphine Inj) 2 mg Q3H PRN IV 12/06/16 11:15 (Narcan Inj) 0.4 mg UNSCH PRN IV 12/06/16 11:15 (Cordarone) 100 mg DAILY PO 12/07/16 09:00 12/07/16 08:05 (Coreg) 3.125 mg BID PO 12/06/16 21:00 12/07/16 08:03 (Imdur) 60 mg DAILY PO 12/07/16 09:00 12/07/16 08:05 (Synthroid) 125 mcg DAILY@0600 PO 12/07/16 06:00 12/07/16 05:47 Diltiazem HCl 120 mg 120 mg BID PO 12/06/16 21:00 12/07/16 08:04 (NS 1000 ml Inj) 1,000 ml @ 70 mls/hr [id number] IV 12/06/16 12:45 12/07/16 03:03 (Protonix Inj) 40 mg Q12H IV PUSH 12/07/16 11:00 12/07/16 11:01 Vital Signs / I&O Vital Signs Date Time Temp Pulse Resp B/P Pulse Ox O2 Delivery O2 Flow Rate FiO2 12/07/16 08:00 98.2 80 19 100/72 95 12/07/16 06:00 79 12/07/16 02:44 16 12/07/16 00:00 98.1 69 18 140/65 95 12/06/16 22:00 96.7 74 16 156/74 97 12/06/16 20:00 97.7 73 18 142/66 96 12/06/16 19:00 97.8 81 16 194/92 96 12/06/16 18:45 97.7 80 18 161/81 96 12/06/16 15:15 97.9 76 20 168/74 98 12/06/16 14:25 72 16 137/64 96 Room Air 12/06/16 13:00 76 16 152/80 98 Room Air 12/06/16 12:37 98.5 75 18 116/69 98 Room Air 12/06/16 12:08 98.2 72 22 152/80 98 Room Air 12/06/16 11:42 72 18 153/69 98 Room Air I/O 12/06/16 12/06/16 12/06/16 12/07/16 12/07/16 12/07/16 07:00 15:00 23:00 07:00 15:00 23:00 Intake Total 500 ml 0 ml 0 ml Output Total 475 ml 300 ml Balance 500 ml -475 ml -300 ml Intake Oral 0 ml 0 ml Packed Cells 500 ml Output Urine Total 475 ml 300 ml # Bowel Movements 0 0 Physical Exam GENERAL: SKIN: Warm and dry. HEAD: Normocephalic. EYES: No scleral icterus. No injection or drainage. NECK: Supple, trachea midline. No JVD or lymphadenopathy. CARDIOVASCULAR: Regular rate and rhythm with grade 1 systolic murmur RESPIRATORY: Breath sounds equal bilaterally. No accessory muscle use. GASTROINTESTINAL: Abdomen soft, non-tender, nondistended. MUSCULOSKELETAL: No cyanosis, or edema. BACK: Nontender without obvious deformity. No CVA tenderness. Laboratory Laboratory Tests Test 12/06/16 12/07/16 11:50 06:57 Prothrombin Time 10.6 SEC Prothromb Time International 1.0 RATIO Ratio Activated Partial 22.3 SEC Thromboplast Time White Blood Count 3.7 TH/MM3 Red Blood Count 4.56 MIL/MM3 Hemoglobin 11.1 GM/DL Hematocrit 33.4 % Mean Corpuscular Volume 73.2 FL Mean Corpuscular Hemoglobin 24.4 PG Mean Corpuscular Hemoglobin 33.3 % Concent Red Cell Distribution Width 19.1 % Platelet Count 172 TH/MM3 Mean Platelet Volume 6.9 FL Neutrophils (%) (Auto) 63.3 % Lymphocytes (%) (Auto) 23.3 % Monocytes (%) (Auto) 10.4 % Eosinophils (%) (Auto) 2.3 % Basophils (%) (Auto) 0.7 % Neutrophils # (Auto) 2.3 TH/MM3 Lymphocytes # (Auto) 0.9 TH/MM3 Monocytes # (Auto) 0.4 TH/MM3 Eosinophils # (Auto) 0.1 TH/MM3 Basophils # (Auto) 0.0 TH/MM3 CBC Comment AUTO DIFF Differential Comment AUTO DIFF CONFIRMED Platelet Estimate NORMAL Platelet Morphology Comment NORMAL Ovalocytes 1+ Keratocytes OCC Sodium Level 141 MEQ/L Potassium Level 3.5 MEQ/L Chloride Level 107 MEQ/L Carbon Dioxide Level 25.6 MEQ/L Anion Gap 8 MEQ/L Blood Urea Nitrogen 12 MG/DL Creatinine 0.85 MG/DL Estimat Glomerular Filtration 65 ML/MIN Rate Random Glucose 82 MG/DL Calcium Level 9.1 MG/DL Total Bilirubin 1.4 MG/DL Aspartate Amino Transf 17 U/L (AST/SGOT) Alanine Aminotransferase 21 U/L (ALT/SGPT) Alkaline Phosphatase 69 U/L Total Protein 6.1 GM/DL Albumin 2.9 GM/DL Imaging Assessment and Plan Assessment and Plan She will remain off Eliquis. Dr. Bucio or Gavin will follow Friday Reymundo Arora MD Dec 07, 2016 11:17 Stop Time Status Last Admin (NS Flush) 2 ml UNSCH PRN IVF 12/06/16 10:45 (NS Flush) 2 ml UNSCH PRN IV FLUSH 12/06/16 11:15 (NS Flush) 2 ml BID IV FLUSH 12/06/16 21:00 (Tylenol) 650 mg Q4H PRN PO 12/06/16 11:15 (Zofran Inj) 4 mg Q6H PRN IVP 12/06/16 11:15 (Tylenol) 650 mg Q6H PRN PO 12/06/16 11:15 12/07/16 11:01 (Morphine Inj) 2 mg Q3H PRN IV 12/06/16 11:15 (Narcan Inj) 0.4 mg UNSCH PRN IV 12/06/16 11:15 (Cordarone) 100 mg DAILY PO 12/07/16 09:00 12/07/16 08:05 (Coreg) 3.125 mg BID PO 12/06/16:00 12/07/16 08:03 (Imdur) 60 mg DAILY PO 12/07/16 09:00 12/07/16 08:05 (Synthroid) 125 mcg DAILY@0600 PO 12/07/16 06:00 12/07/16 05:47 Diltiazem HCl 120 mg 120 mg BID PO 12/06/16 21:00 12/07/16 08:04 (NS 1000 ml Inj) 1,000 ml @ 70 mls/hr [id number] IV 12/06/16 12:45 12/07/16 03:03 (Protonix Inj) 40 mg Q12H IV PUSH 12/07/16 11:00 12/07/16 11:01 Reymundo Arora MD Dec 07, 2016 11:17
--- NOTE | 2016-12-07 11:33 | HHI.GIFU ---
Subjective Remarks ALERT NAD HB 11 AFTER TRANSFUSIONS NO ACTIVE BLEEDING Objective Vitals I&O Vital Signs Date Time Temp Pulse Resp B/P Pulse Ox O2 Delivery O2 Flow Rate FiO2 12/07/16 08:00 98.2 80 19 100/72 95 12/07/16 06:00 79 12/07/16 02:44 16 12/07/16 00:00 98.1 69 18 140/65 95 12/06/16 22:00 96.7 74 16 156/74 97 12/06/16 20:00 97.7 73 18 142/66 96 12/06/16 19:00 97.8 81 16 194/92 96 12/06/16 18:45 97.7 80 18 161/81 96 12/06/16 15:15 97.9 76 20 168/74 98 12/06/16 14:25 72 16 137/64 96 Room Air 12/06/16 13:00 76 16 152/80 98 Room Air 12/06/16 12:37 98.5 75 18 116/69 98 Room Air 12/06/16 12:08 98.2 72 22 152/80 98 Room Air 12/06/16 11:42 72 18 153/69 98 Room Air I/O 12/06/16 12/06/16 12/06/16 12/07/16 12/07/16 12/07/16 07:00 15:00 23:00 07:00 15:00 23:00 Intake Total 500 ml 0 ml 0 ml Output Total 475 ml 300 ml Balance 500 ml -475 ml -300 ml Intake Oral 0 ml 0 ml Packed Cells 500 ml Output Urine Total 475 ml 300 ml # Bowel Movements 0 0 Laboratory Laboratory Tests Test 12/06/16 12/07/16 11:50 06:57 Prothrombin Time 10.6 Prothromb Time International 1.0 Ratio Activated Partial 22.3 Thromboplast Time White Blood Count 3.7 Red Blood Count 4.56 Hemoglobin 11.1 Hematocrit 33.4 Mean Corpuscular Volume 73.2 Mean Corpuscular Hemoglobin 24.4 Mean Corpuscular Hemoglobin 33.3 Concent Red Cell Distribution Width 19.1 Platelet Count 172 Mean Platelet Volume 6.9 Neutrophils (%) (Auto) 63.3 Lymphocytes (%) (Auto) 23.3 Monocytes (%) (Auto) 10.4 Eosinophils (%) (Auto) 2.3 Basophils (%) (Auto) 0.7 Neutrophils # (Auto) 2.3 Lymphocytes # (Auto) 0.9 Monocytes # (Auto) 0.4 Eosinophils # (Auto) 0.1 Basophils # (Auto) 0.0 CBC Comment AUTO DIFF Differential Comment AUTO DIFF CONFIRMED Platelet Estimate NORMAL Platelet Morphology Comment NORMAL Ovalocytes 1+ Keratocytes OCC Sodium Level 141 Potassium Level 3.5 Chloride Level 107 Carbon Dioxide Level 25.6 Anion Gap 8 Blood Urea Nitrogen 12 Creatinine 0.85 Estimat Glomerular Filtration 65 Rate Random Glucose 82 Calcium Level 9.1 Total Bilirubin 1.4 Aspartate Amino Transf 17 (AST/SGOT) Alanine Aminotransferase 21 (ALT/SGPT) Alkaline Phosphatase 69 Total Protein 6.1 Albumin 2.9 Physical Exam CHEST: Chest is clear to auscultation and percussion. CARDIAC: Regular rate and rhythm with no murmur gallop or rubs. ABDOMEN: Soft, nondistended, nontender; no hepatosplenomegaly; bowel sounds are present in all four quadrants. EXTREMITIES: No clubbing, cyanosis, or edema. SKIN: Normal; no rash; no jaundice. TRAINING PERSONNEL SUPERVISOR: No focal deficits; alert and oriented times three. Assessment and Plan Assessment: (1) Anemia due to acute blood loss (2) Occult GI bleeding Plan DISCUSSED WITH PT THE NEED TO PROCEED WITH EGD AND SIGMOIDOSCOPY EVALUATION AT THIS TIME TO EVLUATE HER SXS AND ANEMIA . I DISCUSSED THIS WITH DR LITTLE WELL AND HE AGREES....IN ADDITION WE CAN PROCEED WITH BOTOX INJECTION TO ANTRUM FOR HER GASTROPARESIS...ALSO AT THIS TIME SHE IS OFF HER ANTICAOGUALTION THERAPY WILL FOLLOW UP CLOSELY Yevgeniy Lacy MD Dec 07, 2016 11:33
--- NOTE | 2016-12-07 13:43 | EKG ---
Date Performed: 12/06/2016 Time Performed: 12:43:56 PTAGE: 76 years EKG: Sinus rhythm NORMAL ECG Compared to prior tracing no significant change PREVIOUS TRACING : 11/11/2016 18.30 DOCTOR: Dany Murcia Interpretating Date/Time 12/07/2016 13:37:44
--- NOTE | 2016-12-07 22:36 | PD.ORT.PN ---
Subjective Subjective Remarks Patient denies paresthesias, chest pain, dizziness. Reports mild pain right wrist. Objective Vitals Vital Signs Date Time Temp Pulse Resp B/P Pulse Ox O2 Delivery O2 Flow Rate FiO2 12/07/16 22:16 Room Air 12/07/16 20:00 97.6 66 20 167/71 95 12/07/16 16:00 97.2 68 19 131/68 98 12/07/16 13:11 79 12/07/16 12:00 97.7 70 19 136/62 96 12/07/16 08:00 98.2 80 19 100/72 95 12/07/16 06:00 79 12/07/16 02:44 16 12/07/16 00:00 98.1 69 18 140/65 95 I/O 12/06/16 12/06/16 12/06/16 12/07/16 12/07/16 12/07/16 07:00 15:00 23:00 07:00 15:00 23:00 Intake Total 500 ml 0 ml 0 ml 720 ml Output Total 475 ml 300 ml Balance 500 ml -475 ml -300 ml 720 ml Intake Oral 0 ml 0 ml 720 ml Packed Cells 500 ml Output Urine Total 475 ml 300 ml # Voids 4 1 # Bowel Movements 0 0 0 Result Diagram: 12/07/16 0657 12/07/16656 Objective Remarks splint in place, sitlt m/u/r, <2 sec capillary refill, able to flex/extend fingers Assessment & Plan Assessment and Plan 76yF with right distal radius fracture admitted friday with low hemoglobin -H/H after transfusion -Dr Jacobs plans to take patient to OR 12/09 for closed versus open reduction right distal radius fracture, will attempt to coordinate with GI -continue elevation right hand and NWB right wrist Madhavi Stewart MD Dec 07, 2016 22:36
[2016-12-08] VITALS (7 sets, daily range): BP systolic 136–177; BP diastolic 62–83; PULSE 62–71; RESP 16–20; TEMP 97.5–98.4; O2SAT 92–98
[2016-12-08] MEDS: LEVOTHYROXINE SODIUM 125 MCG TAB PO SCH (06:27)
[2016-12-08 07:04] LABS: AUTOMATED NEUTROPHIL # 2.6 TH/MM3 (1.8-7.7); EOSINOPHIL # 0.1 TH/MM3 (0-0.4); EOSINOPHIL % 2.8 % (0.0-4.0); HEMATOCRIT 32.5 % (35.0-46.0); LYMPH % 20.1 % (9.0-44.0); LYMPHOCYTE # 0.8 TH/MM3 (1.0-4.8); MEAN CELL VOLUME 72.7 FL (80.0-100.0); MEAN CORPUSCULAR HEMOGLOBIN 23.1 PG (27.0-34.0); MEAN CORPUSCULAR HGB CONC 31.7 % (32.0-36.0); MONO % 11.6 % (0.0-8.0); NEUT % 64.5 % (16.0-70.0); PLATELET COUNT 168 TH/MM3 (150-450); RED BLOOD COUNT 4.46 MIL/MM3 (4.00-5.30); RED CELL DISTRIBUTION WIDTH 19.4 % (11.6-17.2); WHITE BLOOD COUNT 4.1 TH/MM3 (4.0-11.0)
[2016-12-08 07:12] LABS: HEMO FLAGS AUTO DIFF
[2016-12-08 07:28] LABS: APTT (PATIENT) 23.6 SEC (24.3-30.1); PROTHROMBIN TIME - PATIENT 11.2 SEC (9.8-11.6)
[2016-12-08 07:38] LABS: BICARBONATE 26.5 MEQ/L (21.0-32.0); POTASSIUM 3.3 MEQ/L (3.5-5.1)
[2016-12-08 08:16] LABS: KERATOCYTES OCC (NORMAL); OVALOCYTES 1+ (NORMAL); PLATELET ESTIMATE SMEAR NORMAL (NORMAL); PLATELET MORPHOLOGY NORMAL (NORMAL)
[2016-12-08 08:17] LABS: SCAN/DIFF AUTO DIFF CONFIRMED
[2016-12-08] MEDS: SODIUM CHLORIDE 0.9% FLUSH 10 ML FLUSH IV FLUSH SCH ×2 (09:00→20:35)
[2016-12-08] MEDS: CARVEDILOL 3.125 MG TAB PO SCH ×2 (09:53→20:35)
[2016-12-08] MEDS: AMIODARONE 200 MG TAB PO SCH (09:54)
[2016-12-08] MEDS: ISOSORBIDE MONONITRATE 60 MG TAB PO SCH (09:54)
[2016-12-08] MEDS: DILTIAZEM-CD 120 MG CAP ER PO SCH ×2 (09:54→20:35)
--- NOTE | 2016-12-08 10:16 | HHI.PR ---
Subjective Remarks Patient seen and examined this morning. Vitals are stable and the patient is afebrile. She states she has not had a BM. Eats small meals. Discussed with nurse, there were no overnight events. States her hand pain is what bothers her the most. Objective Vital Signs Date Time Temp Pulse Resp B/P Pulse Ox O2 Delivery O2 Flow Rate FiO2 12/08/16 08:00 98.1 70 17 177/72 96 12/08/16 04:00 97.7 70 18 166/83 98 12/08/16 00:26 97.8 69 18 136/62 97 12/07/16 22:16 Room Air 12/07/16 20:10 70 12/07/16 20:00 97.6 66 20 167/71 95 12/07/16 16:00 97.2 68 19 131/68 98 12/07/16 13:11 79 12/07/16 12:00 97.7 70 19 136/62 96 I/O 12/07/16 12/07/16 12/07/16 12/08/16 12/08/16 12/08/16 07:00 15:00 23:00 07:00 15:00 23:00 Intake Total 0 ml 720 ml Output Total 300 ml Balance -300 ml 720 ml Intake Oral 0 ml 720 ml Output Urine Total 300 ml # Voids 4 1 # Bowel Movements 0 0 Result Diagram: 12/08/16 0620 12/08/16 0620 Objective Remarks GENERAL: This is a well-nourished, well-developed patient, in no apparent distress. SKIN: No rashes, ecchymoses or lesions. Cool and dry. CARDIOVASCULAR: Regular rate and rhythm without murmurs, gallops, or rubs. RESPIRATORY: Clear to auscultation. Breath sounds equal bilaterally. No wheezes , rales, or rhonchi. GASTROINTESTINAL: Abdomen soft, non-tender, nondistended. No hepato-splenomegaly , or palpable masses. No guarding. MUSCULOSKELETAL: Extremities without clubbing, cyanosis, or edema. No joint tenderness, effusion, or edema noted. No calf tenderness. RUE in splint in place. NEUROLOGICAL: awake and alert. Moves fingers in RUE well. Sensation intact to touch in RUE fingers. A/P Problem List: (1) Atrial fibrillation ICD Code: I48.91 (2) Anemia due to acute blood loss ICD Code: D62 (3) GI bleed ICD Code: K92.2 (4) Hypothyroidism ICD Code: E03.9 Assessment and Plan 76-year-old female with 1. GI bleed: GI consulted. They have recommended sigmoidoscopy + EGD. ? botox 2/ 2 failed medical therapy for gastroparesis. S/p transfusion of 2 u pRBC 12/06 with appropriate rise in Hb (7.7 to 11.1). Cont protonix 40mg IV BID. Continue to hold Eliquis. 2. Paroxysmal Afib: cardiology consulted. Have recommended holding eliquis. Resumed home medication including amiodarone, Coreg, Cardizem, Imdur. 3. Closed fx right distal radius and ulna: hand surgery consulted. "-Dr Jacobs plans to take patient to OR Mon 12/09 for closed versus open reduction right distal radius fracture, will attempt to coordinate with GI -continue elevation right hand and NWB right wrist" 4. ARF: resolved. Gentle IVF 5. Hypothyroidism: resume home synthroid. Add TSH to specimen in lab. DVT prophylaxis: Chemical anti-prophylaxis is contraindicated, bilateral SCDs GI prophylaxis: PPI, as above HypoK: 3.3, will replete Diet: currently clear liquid diet, bowel prep @1500 Discharge Planning D/C pending GI workup and hand surgery. Problem Qualifiers (1) GI bleed: Qualified Code: K92.2 - Gastrointestinal hemorrhage, unspecified gastrointestinal hemorrhage type (2) Hypothyroidism: Qualified Code: E03.9 - Hypothyroidism, unspecified type Jackie Nguyen MD R3 Dec 08, 2016 10:15
--- NOTE | 2016-12-08 11:26 | HHI.GIFU ---
Subjective Remarks ALERT NAD VSS Objective Vitals I&O Vital Signs Date Time Temp Pulse Resp B/P Pulse Ox O2 Delivery O2 Flow Rate FiO2 12/08/16 10:16 65 12/08/16 08:00 98.1 70 17 177/72 96 12/08/16 08:00 Room Air 12/08/16 04:00 97.7 70 18 166/83 98 12/08/16 00:26 97.8 69 18 136/62 97 12/07/16 22:16 Room Air 12/07/16 20:10 70 12/07/16 20:00 97.6 66 20 167/71 95 12/07/16 16:00 97.2 68 19 131/68 98 12/07/16 13:11 79 12/07/16 12:00 97.7 70 19 136/62 96 I/O 12/07/16 12/07/16 12/07/16 12/08/16 12/08/16 12/08/16 07:00 15:00 23:00 07:00 15:00 23:00 Intake Total 0 ml 720 ml Output Total 300 ml Balance -300 ml 720 ml Intake Oral 0 ml 720 ml Output Urine Total 300 ml # Voids 4 1 # Bowel Movements 0 0 Laboratory Laboratory Tests Test 12/08/16 06:20 White Blood Count 4.1 Red Blood Count 4.46 Hemoglobin 10.3 Hematocrit 32.5 Mean Corpuscular Volume 72.7 Mean Corpuscular Hemoglobin 23.1 Mean Corpuscular Hemoglobin 31.7 Concent Red Cell Distribution Width 19.4 Platelet Count 168 Mean Platelet Volume 6.9 Neutrophils (%) (Auto) 64.5 Lymphocytes (%) (Auto) 20.1 Monocytes (%) (Auto) 11.6 Eosinophils (%) (Auto) 2.8 Basophils (%) (Auto) 1.0 Neutrophils # (Auto) 2.6 Lymphocytes # (Auto) 0.8 Monocytes # (Auto) 0.5 Eosinophils # (Auto) 0.1 Basophils # (Auto) 0.0 CBC Comment AUTO DIFF Differential Comment AUTO DIFF CONFIRMED Platelet Estimate NORMAL Platelet Morphology Comment NORMAL Ovalocytes 1+ Keratocytes OCC Prothrombin Time 11.2 Prothromb Time International 1.0 Ratio Activated Partial 23.6 Thromboplast Time Sodium Level 142 Potassium Level 3.3 Chloride Level 108 Carbon Dioxide Level 26.5 Anion Gap 8 Blood Urea Nitrogen 10 Creatinine 0.82 Estimat Glomerular Filtration 67 Rate Random Glucose 82 Calcium Level 8.7 Physical Exam CHEST: Chest is clear to auscultation and percussion. CARDIAC: Regular rate and rhythm with no murmur gallop or rubs. ABDOMEN: Soft, nondistended, nontender; no hepatosplenomegaly; bowel sounds are present in all four quadrants. EXTREMITIES: No clubbing, cyanosis, or edema. SKIN: Normal; no rash; no jaundice. CATERING ATTENDANT: No focal deficits; alert and oriented times three. Assessment and Plan Assessment: (1) Anemia due to acute blood loss (2) Occult GI bleeding Plan wILL PROCEED W ENOD EVALUATON TOMORROW EGD/BOTOX AND FLEX SIGMOID EXAM PRBS EXPLAINED..... ? PT ALSO TO HAVE SURGERY ONRIGHT UPPER EXT/ HAND TOMORROW PLACED A CALL TO DR JOHN PROGRAMS ASSISTANT WELL Yevgeniy Lacy MD Dec 08, 2016 11:26
--- NOTE | 2016-12-08 11:27 | HHI.GIFU ---
Subjective Remarks ALERT NAD Objective Vitals I&O Vital Signs Date Time Temp Pulse Resp B/P Pulse Ox O2 Delivery O2 Flow Rate FiO2 12/08/16 10:16 65 12/08/16 08:00 98.1 70 17 177/72 96 12/08/16 08:00 Room Air 12/08/16 04:00 97.7 70 18 166/83 98 12/08/16 00:26 97.8 69 18 136/62 97 12/07/16 22:16 Room Air 12/07/16 20:10 70 12/07/16 20:00 97.6 66 20 167/71 95 12/07/16 16:00 97.2 68 19 131/68 98 12/07/16 13:11 79 12/07/16 12:00 97.7 70 19 136/62 96 I/O 12/07/16 12/07/16 12/07/16 12/08/16 12/08/16 12/08/16 07:00 15:00 23:00 07:00 15:00 23:00 Intake Total 0 ml 720 ml Output Total 300 ml Balance -300 ml 720 ml Intake Oral 0 ml 720 ml Output Urine Total 300 ml # Voids 4 1 # Bowel Movements 0 0 Laboratory Laboratory Tests Test 12/08/16 06:20 White Blood Count 4.1 Red Blood Count 4.46 Hemoglobin 10.3 Hematocrit 32.5 Mean Corpuscular Volume 72.7 Mean Corpuscular Hemoglobin 23.1 Mean Corpuscular Hemoglobin 31.7 Concent Red Cell Distribution Width 19.4 Platelet Count 168 Mean Platelet Volume 6.9 Neutrophils (%) (Auto) 64.5 Lymphocytes (%) (Auto) 20.1 Monocytes (%) (Auto) 11.6 Eosinophils (%) (Auto) 2.8 Basophils (%) (Auto) 1.0 Neutrophils # (Auto) 2.6 Lymphocytes # (Auto) 0.8 Monocytes # (Auto) 0.5 Eosinophils # (Auto) 0.1 Basophils # (Auto) 0.0 CBC Comment AUTO DIFF Differential Comment AUTO DIFF CONFIRMED Platelet Estimate NORMAL Platelet Morphology Comment NORMAL Ovalocytes 1+ Keratocytes OCC Prothrombin Time 11.2 Prothromb Time International 1.0 Ratio Activated Partial 23.6 Thromboplast Time Sodium Level 142 Potassium Level 3.3 Chloride Level 108 Carbon Dioxide Level 26.5 Anion Gap 8 Blood Urea Nitrogen 10 Creatinine 0.82 Estimat Glomerular Filtration 67 Rate Random Glucose 82 Calcium Level 8.7 Physical Exam CHEST: Chest is clear to auscultation and percussion. CARDIAC: Regular rate and rhythm with no murmur gallop or rubs. ABDOMEN: Soft, nondistended, nontender; no hepatosplenomegaly; bowel sounds are present in all four quadrants. EXTREMITIES: No clubbing, cyanosis, or edema. SKIN: Normal; no rash; no jaundice. 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 Assessment and Plan Assessment: (1) Anemia due to acute blood loss (2) Occult GI bleeding Plan wILL PROCEED W ENOD EVALUATON TOMORROW EGD/BOTOX AND FLEX SIGMOID EXAM PRBS EXPLAINED..... ? PT ALSO TO HAVE SURGERY ONRIGHT UPPER EXT/ HAND TOMORROW PLACED A CALL TO DR JOHN ASSOCIATE FINANCIAL REPRESENTATIVE WELL Yevgeniy Lacy MD Dec 08, 2016 11:27
[2016-12-08] MEDS ORDERED: POTASSIUM CHLORIDE 10 MEQ CONTROLLED RELEASE TAB PO ONE (14:15)
[2016-12-08] MEDS ORDERED: PEG (High)/E-LYTE SOLN 4000 ML BTL PO ONE (15:00)
[2016-12-08] MEDS: PANTOPRAZOLE SODIUM 40 MG VIAL IV PUSH SCH ×2 (15:26→23:00)
--- NOTE | 2016-12-08 20:12 | PD.ORT.PN ---
Subjective Subjective Remarks wants right wrist fixed Range of Motion Full AROM of fingers right hand; right short arm splint intact with minimal swelling of fingers Objective Vitals Vital Signs Date Time Temp Pulse Resp B/P Pulse Ox O2 Delivery O2 Flow Rate FiO2 12/08/16 16:00 97.5 66 16 171/76 97 12/08/16 12:00 98.4 62 16 138/64 92 12/08/16 10:16 65 12/08/16 08:00 98.1 70 17 177/72 96 12/08/16 08:00 Room Air 12/08/16 04:00 97.7 70 18 166/83 98 12/08/16 00:26 97.8 69 18 136/62 97 12/07/16 22:16 Room Air 12/07/16 20:10 70 I/O 12/07/16 12/07/16 12/07/16 12/08/16 12/08/16 12/08/16 07:00 15:00 23:00 07:00 15:00 23:00 Intake Total 0 ml 720 ml 120 ml Output Total 300 ml Balance -300 ml 720 ml 120 ml Intake Oral 0 ml 720 ml 120 ml Output Urine Total 300 ml # Voids 4 1 3 # Bowel Movements 0 0 0 Result Diagram: 12/08/16 0620 12/08/16 0620 Other Results Laboratory Tests Test 12/08/16 06:20 Prothrombin Time 11.2 SEC (9.8-11.6) Prothromb Time International 1.0 RATIO Ratio Objective Remarks NVI, full AROM of fingers right hand Assessment & Plan Assessment and Plan 76yF with right distal radius fracture admitted friday with low hemoglobin -H/H stable after transfusion -will take patient to OR 12/09 for closed versus open reduction right distal radius fracture; coordinated with Dr. Lacy today -patient understands and wishes to proceed. -NPO after midnight tonight -consents placed on the chart Yudi Jacobs MD Dec 08, 2016 20:12
[2016-12-08] MEDS: SODIUM CHLOR 0.9% 1000 ML INJ 1,000 ML IV SCH (21:57)
[2016-12-09] VITALS (7 sets, daily range): BP systolic 132–160; BP diastolic 61–74; PULSE 65–82; RESP 18–20; TEMP 97.8–98.4; O2SAT 96–98
[2016-12-09] MEDS: LEVOTHYROXINE SODIUM 125 MCG TAB PO SCH (05:14)
[2016-12-09] MEDS: SODIUM CHLORIDE 0.9% FLUSH 10 ML FLUSH IV FLUSH SCH ×2 (07:53→21:00)
[2016-12-09] MEDS: DILTIAZEM-CD 120 MG CAP ER PO SCH ×2 (08:08→21:28)
[2016-12-09] MEDS: AMIODARONE 200 MG TAB PO SCH (08:08)
[2016-12-09] MEDS: CARVEDILOL 3.125 MG TAB PO SCH ×2 (08:08→21:28)
[2016-12-09] MEDS: ISOSORBIDE MONONITRATE 60 MG TAB PO SCH (08:08)
[2016-12-09] MEDS ORDERED: PROPOFOL 200 MG/20 ML AMP IV ONE (12:00)
[2016-12-09] MEDS ORDERED: ONDANSETRON HCL 4 MG/2 ML VIAL IV PUSH ONE (12:00)
[2016-12-09] MEDS ORDERED: NEOSTIGMINE 3 MG/3 ML SYR IV ONE (12:00)
[2016-12-09] MEDS ORDERED: PHENYLEPH/NS 1000 MCG/10 ML SYR IV ONE (12:00)
[2016-12-09] MEDS: SODIUM CHLOR 0.9% 1000 ML INJ 1,000 ML IV SCH (12:37)
[2016-12-09] MEDS: PANTOPRAZOLE SODIUM 40 MG VIAL IV PUSH SCH ×2 (12:43→23:28)
--- NOTE | 2016-12-09 13:54 | HHI.PR ---
Subjective Remarks Follow up GI bleed. Patient seen and examined laying in bed, she is awaiting surgery for wrist and egd/colon. Patient complains of constant pain to her right wrist with numbness in her ring finger. She denies any nausea or vomiting. She states she had a BM last night with the GI prep. Objective Vitals Vital Signs Date Time Temp Pulse Resp B/P Pulse Ox O2 Delivery O2 Flow Rate FiO2 12/09/16 12:32 98.4 65 18 133/67 96 12/09/16 08:26 97.8 69 18 160/74 98 12/09/16 07:24 Room Air 12/09/16 04:00 98.0 72 20 148/67 98 12/08/16 20:48 Room Air 12/08/16 20:00 98.0 71 20 169/75 97 12/08/16 16:00 97.5 66 16 171/76 97 I/O 12/08/16 12/08/16 12/08/16 12/09/16 12/09/16 12/09/16 07:00 15:00 23:00 07:00 15:00 23:00 Intake Total 120 ml 220 ml Balance 120 ml 220 ml Intake Oral 120 ml 220 ml # Voids 3 2 # Bowel Movements 0 0 Result Diagram: 12/08/1661912/08/16 0620 Objective Remarks GENERAL: This is a well-nourished, well-developed patient, in no apparent distress. SKIN: No rashes, ecchymoses or lesions. Cool and dry. CARDIOVASCULAR: Regular rate and rhythm without murmurs, gallops, or rubs. RESPIRATORY: Clear to auscultation. Breath sounds equal bilaterally. No wheezes , rales, or rhonchi. GASTROINTESTINAL: Abdomen soft, non-tender, nondistended. No hepato-splenomegaly , or palpable masses. No guarding. MUSCULOSKELETAL: Extremities without clubbing, cyanosis, or edema. No joint tenderness, effusion, or edema noted. No calf tenderness. RUE in splint in place. NEUROLOGICAL: awake and alert. Moves fingers in RUE well. Sensation intact to touch in RUE fingers, slight numbness in ring finger. Medications and IVs Current Medications Medications (Trade) Dose Ordered Sig/Yolie Route Start Time Stop Time Status Last Admin (NS Flush) 2 ml UNSCH PRN IVF 12/06/16 10:45 (NS Flush) 2 ml UNSCH PRN IV FLUSH 12/06/16 11:15 (NS Flush) 2 ml BID IV FLUSH 12/06/16 21:00 (Tylenol) 650 mg Q4H PRN PO 12/06/16 11:15 (Zofran Inj) 4 mg Q6H PRN IVP 12/06/16 11:15 (Tylenol) 650 mg Q6H PRN PO 12/06/16 11:15 12/07/16 20:04 (Morphine Inj) 2 mg Q3H PRN IV 12/06/16 11:15 (Narcan Inj) 0.4 mg UNSCH PRN IV 12/06/16 11:15 (Cordarone) 100 mg DAILY PO 12/07/16 09:00 12/09/16 08:08 (Coreg) 3.125 mg BID PO 12/06/16 21:00 12/09/16 08:08 (Imdur) 60 mg DAILY PO 12/07/16 09:00 12/09/16 08:08 (Synthroid) 125 mcg DAILY@0600 PO 12/07/16 06:00 12/08/16 06:27 Diltiazem HCl 120 mg 120 mg BID PO 12/06/16 21:00 12/09/16 08:08 (NS 1000 ml Inj) 1,000 ml @ 70 mls/hr [id number] IV 12/06/16 12:45 12/09/16 12:37 (Protonix Inj) 40 mg Q12H IV PUSH 12/07/16 11:00 12/09/16 12:43 (Roxicodone) 5 mg Q4H PRN PO 12/07/16 21:00 12/07/16 22:06 (Roxicodone) 10 mg Q4H PRN PO 12/07/16 21:00 12/09/16 08:21 A/P Problem List: (1) GI bleed ICD Code: K92.2 Status: Acute (2) Symptomatic anemia ICD Code: D64.9 Status: Acute (3) Anemia due to acute blood loss ICD Code: D62 Status: Acute (4) Paroxysmal a-fib ICD Code: I48.0 Status: Acute (5) Closed fracture distal radius and ulna ICD Code: S52.609A Status: Acute (6) Hypothyroidism ICD Code: E03.9 Status: Chronic Assessment and Plan 76-year-old female with GI bleed, hgb 7.7-->11.1 -GI consulted. Sigmoidoscopy + EGD. ? Botox 2/2 failed medical therapy for gastroparesis today -Cont Protonix 40mg IV BID. -Continue to hold Eliquis. Paroxysmal Afib, chronic -Cardiology consulted, recommended holding eliquis. -Resumed home medication including amiodarone, Coreg, Cardizem, Imdur. Closed fx right distal radius and ulna - hand surgery consulted. Dr Jacobs plans to take patient to OR today for closed versus open reduction right distal radius fracture -continue elevation right hand and NWB right wrist" ARF: resolved. Gentle IVF Hypothyroidism, chronic -resume home Synthroid. TSH 2.86 HypoK: 3.3,Replacement given 12/08, BMP in AM DVT prophylaxis: Chemical anti-prophylaxis is contraindicated, bilateral SCDs GI prophylaxis: PPI, as above Written by OTIS Stafford acting as scribe for [Louise] on 12/09/16 at 13:30. This note was transcribed by scribe []. I, Dr. Angelina Gil personally performed the history, physical exam, and medical decision making; and confirmed the accuracy of the information in the transcribed note. Authenticated by Dr. Angelina Gil on 12/09/16 at 14:00. Problem Qualifiers (1) GI bleed: Qualified Code: K92.2 - Gastrointestinal hemorrhage, unspecified gastrointestinal hemorrhage type (2) Hypothyroidism: Qualified Code: E03.9 - Hypothyroidism, unspecified type Madhavi Reynolds Dec 09, 2016 13:54 Angelina Gil MD Dec 09, 2016 14:47
[2016-12-09] MEDS ORDERED: LIDOCAINE HCL 2% 50 ML VIAL ONE (16:11)
[2016-12-09] MEDS ORDERED: TRIAMCINOLONE ACETONIDE 40 MG/ML VIAL ONE (16:11)
[2016-12-09] MEDS ORDERED: BACITRACIN TOP OINT 15 GM TUBE ONE (16:11)
[2016-12-09] MEDS ORDERED: BUPIVACAINE HCL PF 0.5% 30 ML VIAL ONE (16:11)
[2016-12-09] MEDS ORDERED: ACETAMINOPHEN 1000 MG/100 ML VIAL IV ONE (16:25)
[2016-12-09] MEDS ORDERED: DEXAMETHASONE SOD PHOS 4 MG/ML VIAL ONE (16:25)
[2016-12-09] MEDS ORDERED: ONABOTULINUMTOXINA INJ 100 UNITS/VIAL SCH (16:30)
[2016-12-09] MEDS ORDERED: fentaNYL CITRATE 250 MCG/5 ML AMP ONE (17:14)
[2016-12-09] MEDS ORDERED: ceFAZolin INJ 1,000 MG VIAL IV ONE (17:15)
[2016-12-09] MEDS ORDERED: BUPIVACAINE HCL PF 0.5% 30 ML VIAL INFIL ONE (18:30)
[2016-12-09] MEDS ORDERED: *morphine SULFATE 8 MG/ML PERIprocedure ONLY ONE (18:58)
[2016-12-09] MEDS ORDERED: DO NOT ADM ANY ANTICOAGULANT DRUGS PRN (20:00)
[2016-12-10] VITALS (7 sets, daily range): BP systolic 125–168; BP diastolic 60–78; PULSE 67–91; RESP 17–20; TEMP 97.7–98.4; O2SAT 94–98
[2016-12-10] MEDS: SODIUM CHLOR 0.9% 1000 ML INJ 1,000 ML IV SCH ×2 (04:16→08:27)
[2016-12-10] MEDS: LEVOTHYROXINE SODIUM 125 MCG TAB PO SCH (05:29)
[2016-12-10 07:28] LABS: HEMATOCRIT 32.5 % (35.0-46.0); MEAN CELL VOLUME 74.5 FL (80.0-100.0); MEAN CORPUSCULAR HEMOGLOBIN 23.4 PG (27.0-34.0); MEAN CORPUSCULAR HGB CONC 31.5 % (32.0-36.0); PLATELET COUNT 167 TH/MM3 (150-450); RED BLOOD COUNT 4.36 MIL/MM3 (4.00-5.30); RED CELL DISTRIBUTION WIDTH 20.3 % (11.6-17.2); WHITE BLOOD COUNT 5.2 TH/MM3 (4.0-11.0)
[2016-12-10 07:34] LABS: REVIEW FLAG FINAL
[2016-12-10 07:45] LABS: BICARBONATE 22.5 MEQ/L (21.0-32.0); POTASSIUM 3.9 MEQ/L (3.5-5.1)
[2016-12-10] MEDS: DILTIAZEM-CD 120 MG CAP ER PO SCH ×2 (08:26→20:16)
[2016-12-10] MEDS: CARVEDILOL 3.125 MG TAB PO SCH ×2 (08:27→20:16)
[2016-12-10] MEDS: AMIODARONE 200 MG TAB PO SCH (08:27)
[2016-12-10] MEDS: ISOSORBIDE MONONITRATE 60 MG TAB PO SCH (08:27)
[2016-12-10] MEDS: SODIUM CHLORIDE 0.9% FLUSH 10 ML FLUSH IV FLUSH SCH ×2 (08:27→20:16)
[2016-12-10] MEDS: PANTOPRAZOLE SODIUM 40 MG VIAL IV PUSH SCH ×2 (11:02→22:22)
--- NOTE | 2016-12-10 12:41 | HHI.GIFU ---
Subjective Remarks alert nad discussed egd/ flex sig findings ....no active GIB source seen HB stable 10 gms s Objective Vitals I&O Vital Signs Date Time Temp Pulse Resp B/P Pulse Ox O2 Delivery O2 Flow Rate FiO2 12/10/16 12:12 98.3 77 18 140/64 95 12/10/16 09:02 Room Air 12/10/16 08:01 97.9 84 18 168/78 96 12/10/16 04:00 97.8 82 18 146/66 94 12/10/16 00:00 97.7 91 20 136/63 94 12/09/16 20:00 Room Air 12/09/16 20:00 98.1 79 18 132/61 98 12/09/16 20:00 82 12/09/16 19:28 98.1 74 13 146/70 95 Nasal Cannula 2 12/09/16 19:15 73 12 145/69 96 Nasal Cannula 2 12/09/16 19:00 71 12 150/68 94 Nasal Cannula 2 12/09/16 18:47 97.7 70 15 136/80 97 Nasal Cannula 2 12/09/16 16:23 97.8 72 18 155/74 96 12/09/16 15:00 82 I/O 12/09/16 12/09/16 12/09/16 12/10/16 12/10/16 12/10/16 07:00 15:00 23:00 07:00 15:00 23:00 Intake Total 300 ml 1050 ml 957 ml Output Total 50 ml Balance 300 ml 1000 ml 957 ml Intake Oral 0 ml 0 ml 240 ml IV Total 300 ml 50 ml 717 ml Other 1000 ml Estimated Blood Loss 50 ml # Voids 3 1 2 # Bowel Movements 0 0 0 Laboratory Laboratory Tests Test 12/10/16 06:22 White Blood Count 5.2 Red Blood Count 4.36 Hemoglobin 10.2 Hematocrit 32.5 Mean Corpuscular Volume 74.5 Mean Corpuscular Hemoglobin 23.4 Mean Corpuscular Hemoglobin 31.5 Concent Red Cell Distribution Width 20.3 Platelet Count 167 Mean Platelet Volume 6.8 Sodium Level 139 Potassium Level 3.9 Chloride Level 107 Carbon Dioxide Level 22.5 Anion Gap 10 Blood Urea Nitrogen 13 Creatinine 0.82 Estimat Glomerular Filtration 67 Rate Random Glucose 97 Calcium Level 8.7 Physical Exam CHEST: Chest is clear to auscultation and percussion. CARDIAC: Regular rate and rhythm with no murmur gallop or rubs. ABDOMEN: Soft, nondistended, nontender; no hepatosplenomegaly; bowel sounds are present in all four quadrants. EXTREMITIES: No clubbing, cyanosis, or edema. SKIN: Normal; no rash; no jaundice. Assessment and Plan Assessment: (1) Anemia due to acute blood loss (2) Occult GI bleeding Plan Pt to f/u w DR Dahl for capsule endo evaluation Ok for D/c w me discussed w pt Physician Comments also discussed botox injection that was given Yevgeniy Lacy MD Dec 10, 2016 12:41
--- NOTE | 2016-12-10 16:12 | HHI.PR ---
Subjective Remarks Patient is upset today and does not understand why she has to do another capsule endoscopy. In addition, she does not understand why she cannot get it done in the Hospital. She does not feel safe to go home today. States she lives by herself and daughter will not be able to help today. Objective Vitals Vital Signs Date Time Temp Pulse Resp B/P Pulse Ox O2 Delivery O2 Flow Rate FiO2 12/10/16 12:12 98.3 77 18 140/64 95 12/10/16 09:02 Room Air 12/10/16 08:01 97.9 84 18 168/78 96 12/10/16 04:00 97.8 82 18 146/66 94 12/10/16 00:00 97.7 91 20 136/63 94 12/09/16 20:00 Room Air 12/09/16 20:00 98.1 79 18 132/61 98 12/09/16 20:00 82 12/09/16 19:28 98.1 74 13 146/70 95 Nasal Cannula 2 12/09/16 19:15 73 12 145/69 96 Nasal Cannula 2 12/09/16 19:00 71 12 150/68 94 Nasal Cannula 2 12/09/16 18:47 97.7 70 15 136/80 97 Nasal Cannula 2 12/09/16 16:23 97.8 72 18 155/74 96 I/O 12/09/16 12/09/16 12/09/16 12/10/16 12/10/16 12/10/16 07:00 15:00 23:00 07:00 15:00 23:00 Intake Total 300 ml 1050 ml 957 ml Output Total 50 ml Balance 300 ml 1000 ml 957 ml Intake Oral 0 ml 0 ml 240 ml IV Total 300 ml 50 ml 717 ml Other 1000 ml Estimated Blood Loss 50 ml # Voids 3 1 2 # Bowel Movements 0 0 0 Result Diagram: 12/10/16 0622 12/10/16 0622 A/P Problem List: (1) GI bleed ICD Code: K92.2 Status: Acute (2) Symptomatic anemia ICD Code: D64.9 Status: Acute (3) Anemia due to acute blood loss ICD Code: D62 Status: Acute (4) Paroxysmal a-fib ICD Code: I48.0 Status: Acute (5) Closed fracture distal radius and ulna ICD Code: S52.609A Status: Acute (6) Hypothyroidism ICD Code: E03.9 Status: Chronic Assessment and Plan 76-year-old female with GI bleed, hgb 7.7-->11.1 -GI consulted. S/P Sigmoidoscopy + EGD. s/p Botox 2/2 failed medical therapy for gastroparesis. No active bleeding -Cont Protonix. Switch to oral -Patient currently off Eliquis. GI cleared the patient for discharge to follow up outpatient for capsule endoscopy. Paroxysmal Afib, chronic -Cardiology consulted, recommended holding eliquis. Cardiology to follow -Resumed home medication including amiodarone, Coreg, Cardizem, Imdur. Closed fx right distal radius and ulna - hand surgery Dr Jacobs. Patient underwent ORIF distal radius fracture. I discussed with Dr. Jacobs, patient cleared for discharge to follow up outpatient - Pain control - Consult PT ARF: resolved. Gentle IVF Hypothyroidism, chronic -resume home Synthroid. TSH 2.86 HypoK: Resolved DVT prophylaxis: Chemical anti-prophylaxis is contraindicated, bilateral SCDs GI prophylaxis: PPI, as above Discharge Planning Patient is frail, lives by herself. I attempted to call her daughter to coordinate DC planning, left a message. Will arrange for home health with plan to DC in AM. Problem Qualifiers (1) GI bleed: Qualified Code: K92.2 - Gastrointestinal hemorrhage, unspecified gastrointestinal hemorrhage type (2) Hypothyroidism: Qualified Code: E03.9 - Hypothyroidism, unspecified type Angelina Gil MD Dec 10, 2016 16:12
--- NOTE | 2016-12-10 23:28 | MR ---
cc: AURORA SALGADO M.D. DATE: 12/10/2016 PROCEDURE Upper endoscopy. Botox injection. Sigmoidoscopy. DATE OF : 38 INDICATIONS FOR PROCEDURE: The patient presented with significant anemia. Endoscopic workup is being performed for evaluation of epigastric pain, weight loss and severe anemia, rule out GI blood loss. Photographs were taken. PREMEDICATION Administered by anesthesiology. Monitoring was accomplished with pulse oximeter, EKG, blood pressure monitor. The patient was to have surgical procedure by Dr. Jacobs on her right upper extremity after the endoscopy. PROCEDURE NOTE After informed consent was obtained, the procedure, risks and benefits were explained including the risks of bleeding, sepsis, perforation, the risks of anesthesia. The patient was placed in the left lateral position. The video endoscope was inserted into the esophagus. Esophagus appeared to be fairly normal throughout without any evidence of esophagitis. A small hiatal hernia was traversed. The stomach was entered. Gastric mucosa was normal throughout. In the retroflex view the cardia and fundus were normal. The pylorus was patent. The duodenal bulb was unremarkable for any ulcer disease. The second and third portion of the duodenum were also unremarkable. The scope was pulled back into the stomach and then using an injector needle device Botox was injected through the antrum in four divided doses, delivering a total of 100 units of Botox as the patient has gastroparesis and this was treated with Botox injection as outlined above through the antral pyloric region. Injections appeared to proceed adequately. After the final injection was made the needle, catheter and scope were withdrawn. The patient was repositioned and sigmoidoscopy, ileoscopy were performed. As the scope was inserted into the rectum, it had a prior subtotal colectomy. There was approximately 25 cm left of colonic mucosa intact. This appeared to be normal. There was some residual debris or liquefied stool noted. The anastomosis was patent. There was a small pouch off to the left side that was not open to any further bowel. The small bowel was entered via the anastomosis moving towards the right. The scope was advanced to approximately the 60 to 70 cm level examining the small bowel. Further advancement was difficult, therefore, the scope was gradually withdrawn. The small bowel mucosa when visualized appeared to be grossly normal. There was no evidence of active bleeding noted. In the rectum, the scope was retroflexed. I did not appreciate any obvious bleeding, hemorrhoids or any other pathology in the rectum. The scope was straightened and removed. The patient tolerated the procedure well. The patient was to go onto have surgical repair of fracture of the right upper extremity by Dr. Jacobs. IMPRESSION This examination today failed to reveal any active GI bleeding source with both upper endoscopy and sigmoidoscopy, ileoscopy performed as above. The patient did undergo Botox injection to the antral pyloric region for gastroparesis and its treatment. The patient will require further workup as an outpatient with capsule endoscopy to try and define her source of any GI bleeding. All discussed with the patient as well. Continue present medical management for now. MD VASQUEZ Ruano/JES /5:05 PM /10:33 PM
[2016-12-11] VITALS: BP 123/60; PULSE 62; RESP 18; TEMP 98; O2SAT 96
[2016-12-11 04:00] VITALS: BP 136/62; PULSE 62; RESP 16; TEMP 98; O2SAT 95
[2016-12-11] MEDS: LEVOTHYROXINE SODIUM 125 MCG TAB PO SCH (05:16)
--- NOTE | 2016-12-11 07:57 | HHI.DCPOC ---
Discharge Care Plan Diagnosis: (1) GI bleed (2) Anemia due to acute blood loss (3) Gait instability (4) Hypothyroidism (5) Closed fracture distal radius and ulna Goals to Promote Your Health * To prevent worsening of your condition and complications * To maintain your health at the optimal level Directions to Meet Your Goals Take your medications as prescribed Follow your dietary instruction Follow activity as directed Keep your appointments as scheduled Take your immunizations and boosters as scheduled If your symptoms worsen call your PCP, if no PCP go to Urgent Care Center or Emergency Room Smoking is Dangerous to Your Health. Avoid second hand smoke Call the 24-hour hour crisis hotline for domestic abuse at Angelina Gil MD Dec 11, 2016 07:57
--- NOTE | 2016-12-11 07:58 | HHI.FF ---
Face to Face Verification Diagnosis: (1) Occult GI bleeding (2) Gait instability (3) Paroxysmal a-fib (4) Anemia due to acute blood loss Physical Therapy Order: Evaluate and Treat, Improve ambulation, Strength and gait training Home Health Nursing Order: Medical education Signs/symptoms of disease process Medication education-adverse effect Nursing assessment with vital signs I have seen patient Mary Melendez on 12/11/16. My clinical findings support the need for the requested home health care services because: Deconditioned w/ increased weakness Limited ability to care for self High risk of falls I certify that my clinical findings support that this patient is homebound because: Unsteady gait/balance Need for psychosocial assistance Angelina Gil MD Dec 11, 2016 07:58
[2016-12-11 08:03] VITALS: BP 172/75; PULSE 74; RESP 16; TEMP 98.5; O2SAT 96
[2016-12-11] MEDS ORDERED: OXYC-392 PO (08:03)
--- NOTE | 2016-12-11 08:06 | HHI.DS ---
Discharge Summary Admission Date Dec 06, 2016 at 11:15 Discharge Date: Dec 11, 2016 Admitting Diagnosis (1) GI bleed ICD Code: K92.2 (2) Symptomatic anemia ICD Code: D64.9 (3) Anemia due to acute blood loss ICD Code: D62 (4) Paroxysmal a-fib ICD Code: I48.0 (5) Closed fracture distal radius and ulna ICD Code: S52.609A (6) Hypothyroidism ICD Code: E03.9 Procedures EGD, sigmoidoscopy Right wrist ORIF Brief History - From Admission 76 year-old female with a history of paroxysmal A. fib, known history of GI bleed with a recent right radius fracture was refer to the emergency department for evaluation of abnormal hemoglobin 6.3 at the preop lab performed today by hand surgeon, as patient was scheduled for ORIF. Patient reports 2 episodes of dark stool over the past 48 hours. She does have a history of A. fib for which she is on Eliquis however this was held since 12/03/16 and patient was given Lovenox subcutaneous 1 12/05/16. Patient reports increasing fatigue, dizziness and shortness of breath. She follows with gastroenterology specialist Dr Carver and states she is supposed to have colonoscopy in the near future. Otherwise, patient denies any hematuria, hemoptysis. CBC/BMP: 12/10/16 0622 12/10/16 0622 Significant Findings Laboratory Tests Test 12/10/16 06:22 Hemoglobin 10.2 GM/DL (11.6-15.3) Hematocrit 32.5 % (35.0-46.0) Mean Corpuscular Volume 74.5 FL (80.0-100.0) Mean Corpuscular Hemoglobin 23.4 PG (27.0-34.0) Mean Corpuscular Hemoglobin 31.5 % Concent (32.0-36.0) Red Cell Distribution Width 20.3 % (11.6-17.2) Mean Platelet Volume 6.8 FL (7.0-11.0) Estimat Glomerular Filtration 67 ML/MIN (>89) Rate PE at Discharge GENERAL: This is a well-nourished, well-developed patient, in no apparent distress. SKIN: No rashes, ecchymoses or lesions. Cool and dry. CARDIOVASCULAR: Regular rate and rhythm without murmurs, gallops, or rubs. RESPIRATORY: Clear to auscultation. Breath sounds equal bilaterally. No wheezes , rales, or rhonchi. GASTROINTESTINAL: Abdomen soft, non-tender, nondistended. No hepato-splenomegaly , or palpable masses. No guarding. MUSCULOSKELETAL: Extremities without clubbing, cyanosis, or edema. No joint tenderness, effusion, or edema noted. No calf tenderness. RUE in splint in place. NEUROLOGICAL: awake and alert. Moves fingers in RUE well. Sensation intact to touch in RUE fingers, slight numbness in ring finger. Pt update on day of discharge Patient reports she is feeling much better today. Her daughter is at bedside and ready to take her home. Pain is controlled. We discussed discharge planning at length. Hospital Course 76-year-old female admitted with GI bleeding, right distal radius and ulna fractures. Evaluation and treatment course detailed below: GI bleed, hgb 7.7-->11.1 -GI consulted. S/P Sigmoidoscopy + EGD. s/p Botox 2/2 failed medical therapy for gastroparesis. No active bleeding -Cont Protonix. -Patient currently off Eliquis. GI cleared the patient for discharge to follow up outpatient for capsule endoscopy. Paroxysmal Afib, chronic -Cardiology consulted, recommended holding eliquis. Patient advised to follow up outpatient with cardiology and GI on timing of resuming Eliquis. -Resumed home medication including amiodarone, Coreg, Cardizem, Imdur. Closed fx right distal radius and ulna - hand surgery Dr Jacobs. Patient underwent ORIF distal radius fracture. I discussed with Dr. Jacobs, patient cleared for discharge to follow up outpatient - Pain control -Continue rehabilitation efforts at home with home health and physical therapy. ARF: resolved with IV fluid. Hypothyroidism, chronic -resume home Synthroid. TSH 2.86 Pt Condition on Discharge: Good Discharge Disposition: Disch w/ Home Health Serv Discharge Time: > 30 minutes Discharge Instructions DIET: Follow Instructions for: Heart Healthy Diet Activities you can perform: Regular-No Restrictions Other Activity Instructions: Use assistance and assistive device. Follow Hand surgery instructions Follow up Referrals: Gastroenterology - 1 Week with Oseas Dahl MD Orthopedics with Yudi Jacobs MD New Medications: Oxycodone (Oxycodone) 5 Mg Tab 5 MG PO Q4H PRN PAIN GREATER THAN 5 #30 TAB Continued Medications: Amiodarone (Amiodarone) 100 Mg Tab 100 MG PO DAILY Regulate Heart Beat #30 Ref 0 TAB Calcium Carbonate-Cholecalciferol (Calcium 600 + D) 600-200 Mg-Unit Tab 1 TAB PO BID TAB Carvedilol (Coreg) 3.125 Mg Tab 3.125 MG PO BID #60 Ref 0 TAB Cholecalciferol (Vitamin D3) 2,000 Unit Tab 2000 UNITS PO BID Nutritional Supplement #1 Ref 0 BOTTLE Coenzyme Q10 (Ubidecarenone) (Co Q-10) 100 Mg Cap 100 MG PO DAILY Cyanocobalamin (Vitamin B-12) 1,000 Mcg Tab 1000 MCG PO BID Nutritional Supplement #1 Ref 0 BOTTLE Cyclosporine Opth Drops (Restasis Opth Drops) 0.05% Emul 2 DROP EACH EYE BID Dry Eye #1 Ref 0 BOX Diltiazem ER 12 HR (Diltiazem ER 12 HR) 120 Mg Caper 120 MG PO BID #60 Ref 0 CAP Isosorbide Mononitrate ER (Isosorbide Mononitrate ER) 60 Mg Tab 60 MG PO DAILY Prevent Chest Pain #30 Ref 0 TAB Levothyroxine (Levothyroxine) 125 Mcg Tab 125 MCG PO DAILY Thyroid #30 Ref 0 TAB Lutein (Lutein) 20 Mg Cap 20 MG PO DAILY Nutritional Supplement Ref 0 CAP Multiple Vitamins W/ Minerals (Preservision Areds) 1 Tab 1 TAB PO BID Nutritional Supplement Ref 0 TAB Nitroglycerin SL (Nitrostat SL) 0.4 Mg Subl 0.4 MG SL DIRECTED 1 tablet under the tongue as needed for chest pain. Repeat every 5 minutes for a total of 3 DOSES or call 911 if NO relief. PRN CHEST PAIN #100 Ref 0 TAB.SL Junction-3 Fatty Acids (Fish Oil 600 mg) 1 Cap Cap 600 MG PO BID Pantoprazole (Protonix) 40 Mg Tab 40 MG PO DAILY Reflux #30 Ref 0 TAB Discontinued Medications: Apixaban (Eliquis) 5 Mg Tab 5 MG PO BID Blood Clot Prevention #60 Ref 0 TAB Hydrocodone-Acetaminophen (Aurora) 5-325 mg Tab 1-2 TAB PO Q6H PRN PAIN #20 Ref 0 TAB Angelina Gil MD Dec 11, 2016 08:06
[2016-12-11] MEDS: CARVEDILOL 3.125 MG TAB PO SCH (08:45)
[2016-12-11] MEDS: DILTIAZEM-CD 120 MG CAP ER PO SCH (08:45)
[2016-12-11] MEDS: ISOSORBIDE MONONITRATE 60 MG TAB PO SCH (08:45)
[2016-12-11] MEDS: AMIODARONE 200 MG TAB PO SCH (08:45)
--- NOTE | 2016-12-11 09:33 | MP ---
cc: [facility] SURGERYMUNDO TAMARA M.D. DATE OF SURGERY 12/09/2016 PREOPERATIVE DIAGNOSIS Displaced closed right distal radius extraarticular fracture with distal ulna fracture. POSTOPERATIVE DIAGNOSIS Displaced closed right distal radius extraarticular fracture with distal ulna fracture. PROCEDURE Open reduction, internal fixation of right distal radius extraarticular fracture and use of the mini image intensifier for imaging the right wrist. ANESTHESIA General with local. TOURNIQUET TIME 73 minutes INDICATIONS Ms. Melendez is a 76-year-old lady who sustained the above injury approximately eight days ago and has been admitted for a potential GI bleed. She is brought to the room for definitive treatment. PROCEDURE Proper consents were obtained. The patient was brought to the operating room where the side and site was identified and Dr. Lacy performed a panendoscopy prior to the distal radius procedure. General anesthesia was performed by the anesthesiologist and MICA MINER and tourniquet. After Dr. Lacy performed his panendoscopy, the patient remained in the operating room intubated and side and site was identified and a tourniquet placed on her right lower. Her right upper extremity prepped and draped in the usual sterile fashion with Hibiclens and exsanguinated with an Andrew wrap and tourniquet inflated to 250 mmHg where it remained for the next 73 minutes. A longitudinal incision was made at the radial aspect of the right volar wrist and blunt dissection proceeded with tenotomy scissors and hemostasis with bipolar cautery. The FCR tendon was not present, but the floor of the FCR sheath was incised and the pronator quadratus identified and elevated from about the distal radius. The fracture site identified. The brachial radialis tendon was incised and lengthened in a V-fashion and hematoma was debrided from the fracture site and the fracture was manually reduced. Trying to manually reduce the fracture, there was a small skin tear that occurred on the dorsum of the left hand that was superficial. His skin tear on the dorsum of the right wrist was protected and the fracture site was irrigated thoroughly with saline as a Synthes narrow variable angle locking volar stainless steel plate was placed using the mini image intensifier to verify fracture reduction and hardware alignment. Four locking screws were placed in the distal fragment after drilling and measuring appropriate lengths. The plate was placed along the volar radius and the oblong shaft hole was drilled and a 2.7-mm screw placed and then using the image intensifier and visualization, the length was obtained and the screw was tightened and then a locking screw was placed just proximal to this after drilling appropriately and measuring and then the most proximal shaft screw was a 2.4 mm screw placed, a cortical nonlocking screw. Multiple views, AP, lateral and obliques of the right wrist were made in the operating room to verify fracture reduction and hardware alignment. The wound was irrigated thoroughly with saline. The pronator quadratus was closed with 3-0 Vicryl interrupted fashion and the brachial radialis tendon repaired with 3-0 Vicryl interrupted fashion. The subcutaneous tissues were closed with 4-0 Vicryl in a buried interrupted fashion and the skin with 4-0 nylon. Ten mL of 0.5% Marcaine was used for local anesthesia and bacitracin ointment, and Adaptic placed on the wound and the skin tear on the dorsum of the right wrist and right hand and a bulky hand dressing with 4x4s, Sof-Rol and Andrew wrap. The tourniquet was deflated after 73 minutes and the fingers pinked up immediately. The patient was taken to the recovery room in good condition having tolerated the procedure well. ESTIMATED BLOOD LOSS Minimal Addendum: The mini image intensifier was used throughout the procedure to verify fracture reduction and hardware alignment. AP, lateral and two oblique x-rays of the right wrist were made prior to application of the dressing to verify fracture in reduction and these were permanent films. MD NAEEM Qiu/VERONIKA /10:10 PM /9:12 AM EARLINE
== END 2016-12-11 10:33 | disposition home health service (06) | DRG 982 ==
LOC: NEPC 09:10 → NEDA 11:15 → N04B 15:25
PROVIDERS: ADMIT Family Medicine; ATTEND Family Medicine
PROC: 30253N1 (ICD-10-PCS; 2016-12-06)
PROC: 0DJD8ZZ Inspection of Lower Intestinal Tract, Via Natural or Artificial Opening Endoscopic (ICD-10-PCS; 2016-12-09)
PROC: 0PSH04Z Reposition Right Radius with Internal Fixation Device, Open Approach (ICD-10-PCS; principal; 2016-12-09 16:30)
PROC: 0DJ08ZZ Inspection of Upper Intestinal Tract, Via Natural or Artificial Opening Endoscopic (ICD-10-PCS; 2016-12-09 16:30)
PROC: 3E0G8GC Introduction of Other Therapeutic Substance into Upper GI, Via Natural or Artificial Opening Endoscopic (ICD-10-PCS; 2016-12-09 16:30)
DX: K92.2 Gastrointestinal hemorrhage, unspecified (principal); N17.9 Acute kidney failure, unspecified; K63.3 Ulcer of intestine; K31.84 Gastroparesis; K22.70 Barrett's esophagus without dysplasia; I13.10 Hypertensive heart and chronic kidney disease without heart failure, with stage 1 through stage 4 chronic kidney disease, or unspecified chronic kidney disease; I48.0 Paroxysmal atrial fibrillation; D62 Acute posthemorrhagic anemia; S52.559A Other extraarticular fracture of lower end of unspecified radius, initial encounter for closed fracture; S52.601A Unspecified fracture of lower end of right ulna, initial encounter for closed fracture; Z79.01 Long term (current) use of anticoagulants; I25.10 Atherosclerotic heart disease of native coronary artery without angina pectoris; E03.9 Hypothyroidism, unspecified; K21.9 Gastro-esophageal reflux disease without esophagitis; Z86.73 Personal history of transient ischemic attack (TIA), and cerebral infarction without residual deficits; E87.6 Hypokalemia; G47.30 Sleep apnea, unspecified; N18.9 Chronic kidney disease, unspecified; I34.0 Nonrheumatic mitral (valve) insufficiency; I34.1 Nonrheumatic mitral (valve) prolapse; K44.9 Diaphragmatic hernia without obstruction or gangrene; Z85.828 Personal history of other malignant neoplasm of skin; Z90.49 Acquired absence of other specified parts of digestive tract; Z90.710 Acquired absence of both cervix and uterus; Z96.649 Presence of unspecified artificial hip joint
CPT/HCPCS: 36430; 76937; 80048; 80053; 83735; 84100; 84443; 85025; 85027; 85610; 85730; 86850; 86900; 86901; 86920; 93005; 94150; 99291; C1713; C9113; J0131; J0585; J0690; J1100; J2270; J2370; J2405; J2710; J3010; J3301; J7030; J7050; P9016

== ENCOUNTER 2016-12-25 12:57 | Emergency (ER) | payer MEDICARE ==
[~2016-12-25] VITALS: Ht 157.5 cm; Wt 50.0 kg
[~2016-12-25 12:57] MED LIST changes: -APIX5TAB PO; -NORC5TAB PO; +OXYC-392 PO; -PRAV40TA2 PO
[2016-12-25 13:10] VITALS: BP 187/81; PULSE 68; RESP 20; TEMP 97.7; O2SAT 99
--- NOTE | 2016-12-25 13:19 | PD ---
Physical Exam Date Seen by Provider: December 25, 2016 Time Seen by Provider: 13:17 Narrative 76 year old female presents to the emergency department for evaluation of generalized weakness, off balance. Her primary care physician sent her in for evaluation. She states she is short of breath and has a history of anemia. Vital signs reviewed. Patient awaiting bed placement. Data Data Last Documented VS Vital Signs Date Time Temp Pulse Resp B/P Pulse Ox O2 Delivery O2 Flow Rate FiO2 12/25/16 13:10 97.7 68 20 187/81 99 MDM Supervised Visit with TIFFANIE: Nolvia Carranza December 25, 2016 13:19
[2016-12-25] MEDS ORDERED: SODIUM CHLORIDE 0.9% FLUSH 10 ML FLUSH IVF PRN (13:30)
[2016-12-25 13:33] VITALS: O2SAT 95
--- NOTE | 2016-12-25 13:36 | PD ---
HPI Chief Complaint: General Weakness Time Seen by Provider: 13:33 Travel History International Travel<30 days: No Contact w/Intl Traveler<30days: No Traveled to known affect area: No History of Present Illness HPI 76-year-old female with history of GI bleed, anemia, hypertension, A. fib, multiple medical issues, previous CA, presents to the ER today because she has been feeling weak and dizzy, unsteady in the past few days. She has a recent history of GI bleed and talked her physician, was sent in for further evaluation. She denies any chest pains but states she has some dyspnea on exertion intermittently. She has not fallen. She denies any fevers, vomiting, or other symptoms. She did notice some reddish brown stools 2 days ago. She denies any black stools. Modifying Factors: None Associated Signs & Symptoms: Weak, dizzy, feeling unsteady, dyspnea on exertion Risk Factors: Elderly, GI bleed history PFSH Past Medical History Hx Anticoagulant Therapy: Yes Arthritis: Yes Atrial Fibrillation: Yes Blood Disorders: No Heart Rhythm Problems: Yes (HX OF AFIB) Cancer: No Cardiovascular Problems: Yes High Cholesterol: No Chest Pain: No Congestive Heart Failure: No Cerebrovascular Accident: Yes Coronary Artery Disease: Yes Diabetes: No Diminished Hearing: No Endocrine: No Gastrointestinal Disorders: Yes (GASTROPARESIS, MCKENZIE'S ESOPHAGUS, DYSPHAGIA , NAUSEA, GERD) GERD: Yes Glaucoma: Yes Genitourinary: No Headaches: Yes Hepatitis: No Hiatal Hernia: Yes Heparin Induced Thrombocytopen: No Hypertension: Yes Immune Disorder: No Implanted Vascular Access Dvce: Yes Musculoskeletal: Yes (ARTHRITIS) Neurologic: Yes (TIA IN JUNE 2016) Psychiatric: No Reproductive: No Respiratory: No Immunizations Current: Yes Sleep Apnea: Yes (STS SHE NO LONGER HAS IT.) Thyroid Disease: Yes Ulcer: Yes Menopausal: Yes : 3 Para: 3 Past Surgical History Abdominal Surgery: Yes (CHOLY, TOTAL COLECTOMY) AICD: No Appendectomy: Yes Body Medical Devices: STARCLOSE,RIGHT THUMB METAL,LEFT FOOT 2 SCREWS Cardiac Surgery: No Cholecystectomy: Yes Ear Surgery: No Endocrine Surgery: Yes (LYMPH NODE SURG) Eye Surgery: Yes (ESTELLA EYE CATARACT SX) Genitourinary Surgery: Yes Gynecologic Surgery: Yes (HYSTERECTOMY) Hysterectomy: Yes Joint Replacement: Yes (R HIP REPLACEMENT) Neurologic Surgery: No Oral Surgery: Yes (TONSILLECTOMY) Thoracic Surgery: No Tonsillectomy: Yes Other Surgery: Yes (NOSE SURG BONE SPURS, CALCANAL OSTEOTOMY) Social History Alcohol Use: No Tobacco Use: No Substance Use: No Allergies-Medications (Allergen,Severity, Reaction): Coded Allergies: Codeine (Verified Allergy, Severe, 12/06/16) Contrast Media (Verified Allergy, Severe, Cardiac Arrest, ANAPHALAXIS, ) Crab (Verified Allergy, Severe, Anaphylaxis, 12/06/16) Iodine (Verified Allergy, Severe, 12/06/16) Latex (Verified Allergy, Severe, SKIN BLISTERS, 12/06/16) Shellfish (Verified Allergy, Severe, ANAPHYLAXIS TO ALL SHELLFISH, 12/06/16 ) Reported Meds & Prescriptions Reported Meds & Active Scripts Active Oxycodone (Oxycodone HCl) 5 Mg Tab 5 Mg PO Q4H PRN Reported Preservision Areds (Multiple Vitamins W/ Minerals) 1 Tab 1 Tab PO BID Amiodarone (Amiodarone HCl) 100 Mg Tab 100 Mg PO DAILY Nitrostat SL (Nitroglycerin) 0.4 Mg Subl 0.4 Mg SL DIRECTED PRN 1 tablet under the tongue as needed for chest pain. Repeat every 5 minutes for a total of 3 DOSES or call 911 if NO relief. Vitamin D3 (Cholecalciferol) 2,000 Unit Tab 2,000 Units PO BID Calcium 600 + D (Calcium Carbonate-Cholecalciferol) 600-200 Mg-Unit Tab 1 Tab PO BID Vitamin B-12 (Cyanocobalamin) 1,000 Mcg Tab 1,000 Mcg PO BID Co Q-10 (Coenzyme Q10 (Ubidecarenone)) 100 Mg Cap 100 Mg PO DAILY Restasis Opth Drops (Cyclosporine Opth Drops) 0.05% Emul 2 Drop EACH EYE BID Lutein 20 Mg Cap 20 Mg PO DAILY Fish Oil 600 mg (Holly-3 Fatty Acids) 1 Cap Cap 600 Mg PO BID Protonix (Pantoprazole Sodium) 40 Mg Tab 40 Mg PO DAILY Levothyroxine (Levothyroxine Sodium) 125 Mcg Tab 125 Mcg PO DAILY Isosorbide Mononitrate ER (Isosorbide Mononitrate) 60 Mg Tab 60 Mg PO DAILY Coreg (Carvedilol) 3.125 Mg Tab 3.125 Mg PO BID Diltiazem ER 12 HR (Diltiazem HCl) 120 Mg Caper 120 Mg PO BID Review of Systems Except as stated in HPI: all other systems reviewed are Neg Physical Exam Narrative GENERAL: Well-developed elderly white female patient in mild distress. Awake and oriented 3. SKIN: Focused skin assessment warm/dry. HEAD: Atraumatic. Normocephalic. EYES: Pupils equal and round. No scleral icterus. No injection or drainage. ENT: No nasal bleeding or discharge. Mucous membranes pink and moist. NECK: Trachea midline. No JVD. CARDIOVASCULAR: Regular rate and rhythm. No murmur appreciated. RESPIRATORY: No accessory muscle use. Clear to auscultation. Breath sounds equal bilaterally. GASTROINTESTINAL: Abdomen soft, non-tender, nondistended. Hepatic and splenic margins not palpable. RECTAL EXAM: No masses or tenderness, stool is brown. Hemoccult negative. MUSCULOSKELETAL: No obvious deformities. No clubbing. No cyanosis. No edema. NEUROLOGICAL: Awake and alert. No obvious cranial nerve deficits. Motor grossly within normal limits. Normal speech. PSYCHIATRIC: Appropriate mood and affect; insight and judgment normal. Data Data Last Documented VS Vital Signs Date Time Temp Pulse Resp B/P Pulse Ox O2 Delivery O2 Flow Rate FiO2 12/25/16 15:26 67 20 176/85 99 Room Air 12/25/16 13:10 97.7 Orders Electrocardiogram (12/25/16 13:24) Complete Blood Count With Diff (12/25/16 13:24) Comprehensive Metabolic Panel (12/25/16 13:24) Magnesium (Mg) (12/25/16 13:24) Ckmb (Isoenzyme) Profile (12/25/16:24) Troponin I (12/25/16:24) Act Partial Throm Time (Ptt) (12/25/16 13:24) Prothrombin Time / Inr (Pt) (12/25/16 13:24) Urinalysis - C+S If Indicated (12/25/16 13:24) Chest, Single Ap (12/25/16 13:24) Ct Brain W/O Iv Contrast(Rout) (12/25/16 13:24) Ecg Monitoring (12/25/16 13:24) Iv Access Insert/Monitor (12/25/16 13:24) Oximetry (12/25/16 13:24) Sodium Chloride 0.9% Flush (Ns Flush) (12/25/16 13:30) Labs Laboratory Tests Test 12/25/16 12/25/16 13:39 14:25 White Blood Count 6.8 TH/MM3 Red Blood Count 4.91 MIL/MM3 Hemoglobin 11.9 GM/DL Hematocrit 36.8 % Mean Corpuscular Volume 74.8 FL Mean Corpuscular Hemoglobin 24.2 PG Mean Corpuscular Hemoglobin 32.3 % Concent Red Cell Distribution Width 23.7 % Platelet Count 179 TH/MM3 Mean Platelet Volume 7.6 FL Neutrophils (%) (Auto) 68.6 % Lymphocytes (%) (Auto) 21.6 % Monocytes (%) (Auto) 8.8 % Eosinophils (%) (Auto) 0.7 % Basophils (%) (Auto) 0.3 % Neutrophils # (Auto) 4.7 TH/MM3 Lymphocytes # (Auto) 1.5 TH/MM3 Monocytes # (Auto) 0.6 TH/MM3 Eosinophils # (Auto) 0.0 TH/MM3 Basophils # (Auto) 0.0 TH/MM3 CBC Comment AUTO DIFF Differential Total Cells 100 Counted Neutrophils % (Manual) 74 % Band Neutrophils % 6 % Lymphocytes % 15 % Monocytes % 4 % Neutrophils # (Manual) 5.5 TH/MM3 Metamyelocytes 1 % Differential Comment FINAL DIFF MANUAL Platelet Estimate NORMAL Platelet Morphology Comment NORMAL Prothrombin Time 11.2 SEC Prothromb Time International 1.0 RATIO Ratio Activated Partial 21.7 SEC Thromboplast Time Sodium Level 140 MEQ/L Potassium Level 3.5 MEQ/L Chloride Level 101 MEQ/L Carbon Dioxide Level 28.8 MEQ/L Anion Gap 10 MEQ/L Blood Urea Nitrogen 23 MG/DL Creatinine 1.17 MG/DL Estimat Glomerular Filtration 45 ML/MIN Rate Random Glucose 97 MG/DL Calcium Level 9.5 MG/DL Magnesium Level 2.1 MG/DL Total Bilirubin 0.6 MG/DL Aspartate Amino Transf 24 U/L (AST/SGOT) Alanine Aminotransferase 23 U/L (ALT/SGPT) Alkaline Phosphatase 100 U/L Total Creatine Kinase 40 U/L Troponin I LESS THAN 0.02 NG/ML Total Protein 7.0 GM/DL Albumin 3.6 GM/DL Urine Color YELLOW Urine Turbidity CLEAR Urine pH 6.0 Urine Specific [place] 1.023 Urine Protein TRACE mg/dL Urine Glucose (UA) NEG mg/dL Urine Ketones 10 mg/dL Urine Occult Blood NEG Urine Nitrite NEG Urine Bilirubin NEG Urine Urobilinogen LESS THAN 2.0 MG/DL Urine Leukocyte Esterase SMALL Urine RBC LESS THAN 1 /hpf Urine WBC 2 /hpf Urine Squamous Epithelial <1 /hpf Cells Urine Hyaline Casts 3 /lpf Urine Mucus FEW /lpf Microscopic Urinalysis Comment CULT NOT INDICATED MDM Medical Decision Making Medical Screen Exam Complete: Yes Emergency Medical Condition: Yes Medical Record Reviewed: Yes Interpretation(s) EKG shows NSR, no ST elevation or depression, and no arrhythmias. No significant T-wave inversions. Laboratory Tests Test 12/25/16 12/25/16 13:39 14:25 Mean Corpuscular Volume 74.8 FL (80.0-100.0) Mean Corpuscular Hemoglobin 24.2 PG (27.0-34.0) Red Cell Distribution Width 23.7 % (11.6-17.2) Monocytes (%) (Auto) 8.8 % (0.0-8.0) Neutrophils % (Manual) 74 % (16-70) Activated Partial 21.7 SEC Thromboplast Time (24.3-30.1) Blood Urea Nitrogen 23 MG/DL (7-18) Creatinine 1.17 MG/DL (0.50-1.00) Estimat Glomerular Filtration 45 ML/MIN (>89) Rate Troponin I LESS THAN 0.02 NG/ML (0.02-0.05) Urine Ketones 10 mg/dL (NEG) Urine Leukocyte Esterase SMALL (NEG) Urine Mucus FEW /lpf (OCC) Last [address] 12/25/16 1324 Signed Impressions: Service Date/Time: Sunday, December 25, 2016 14:34 - CONCLUSION: Negative for acute process.. Gregory Medrano MD FACR Chest X-Ray 12/25/16 1324 Signed Impressions: Service Date/Time: Sunday, December 25, 2016 13:36 - CONCLUSION: No acute disease. Left upper lobe scarring, stable. Andrea Kent MD Differential Diagnosis General weakness, dizziness, dyspnea on exertionGI bleed/symptomatic anemia versus dysrhythmias versus CVA versus metabolic issues versus dehydration Narrative Course Vital signs are stable in the ER. EKG did not show dysrhythmias. Lab work did not show significant metabolic issues. Cardiac enzymes and negative. CT of the brain is negative. Patient is able to ablate in to the bathroom by herself without issues. She has no focal neurological deficits on evaluation. At this point, I have talked to the patient regarding findings and patient states she feels fine and states that she is post to follow up with Dr. Moser and primary care physician. At this point, my plan would be to release her with follow-up to primary care physician. The plan was discussed with her and she states understanding. [facility] Point of Care Internal Pos. & Neg. Controls: Passed Fecal Specimen Occult Blood: Negative Diagnosis Primary Impression: Dizziness Disposition: 01 DISCHARGE HOME Condition: Stable Tatum Iniguez MD December 25, 2016 13:36
[2016-12-25 13:53] LABS: AUTOMATED NEUTROPHIL # 4.7 TH/MM3 (1.8-7.7); BASOPHIL % 0.3 % (0.0-2.0); EOSINOPHIL % 0.7 % (0.0-4.0); HEMATOCRIT 36.8 % (35.0-46.0); LYMPH % 21.6 % (9.0-44.0); LYMPHOCYTE # 1.5 TH/MM3 (1.0-4.8); MEAN CELL VOLUME 74.8 FL (80.0-100.0); MEAN CORPUSCULAR HEMOGLOBIN 24.2 PG (27.0-34.0); MEAN CORPUSCULAR HGB CONC 32.3 % (32.0-36.0); MONO % 8.8 % (0.0-8.0); NEUT % 68.6 % (16.0-70.0); PLATELET COUNT 179 TH/MM3 (150-450); RED BLOOD COUNT 4.91 MIL/MM3 (4.00-5.30); RED CELL DISTRIBUTION WIDTH 23.7 % (11.6-17.2); WHITE BLOOD COUNT 6.8 TH/MM3 (4.0-11.0)
[2016-12-25 13:56] LABS: HEMO FLAGS AUTO DIFF
[2016-12-25 14:04] LABS: APTT (PATIENT) 21.7 SEC (24.3-30.1); PROTHROMBIN TIME - PATIENT 11.2 SEC (9.8-11.6)
[2016-12-25 14:11] LABS: ANION GAP 10 MEQ/L (5-15); AST (GOT) 24 U/L (15-37); BICARBONATE 28.8 MEQ/L (21.0-32.0); BLOOD UREA NITROGEN 23 MG/DL (7-18); CHLORIDE 101 MEQ/L (98-107); GLOMERULAR FILTRATION RATE 45 ML/MIN (>89); MAGNESIUM 2.1 MG/DL (1.5-2.5); POTASSIUM 3.5 MEQ/L (3.5-5.1); SODIUM (NA) 140 MEQ/L (136-145)
--- NOTE | 2016-12-25 14:13 | RADRPT ---
EXAM DATE/TIME: 12/25/2016 13:36 [facility] COMPARISON: CHEST SINGLE AP, November 11, 2016, 11:22. INDICATIONS : Short of breath and weakness. Patient was sent to the emergency room from her primary physician due to abnormal blood work. MEDICAL HISTORY : Atrial fibrillation. SURGICAL HISTORY : Tonsillectomy. Hysterectomy. Cholecystectomy. ENCOUNTER: Initial ACUITY: 3 days PAIN SCORE: 0/10 LOCATION: Bilateral chest FINDINGS: A single view of the chest demonstrates the lungs to be symmetrically aerated without evidence of mas s, infiltrate or effusion. Scarring left upper lobe. The cardiomediastinal contours are unremarkable . Osseous structures are intact. CONCLUSION: No acute disease. Left upper lobe scarring, stable. Andrea Kent MD on December 25, 2016 at 14:11 Board Certified Radiologist. This report was verified electronically.
[2016-12-25 14:17] LABS: ALKALINE PHOSPHATASE 100 U/L (45-117); ALT (GPT) 23 U/L (10-53); TOTAL BILIRUBIN ADULT 0.6 MG/DL (0.2-1.0)
[2016-12-25 14:19] LABS: CREATINE KINASE 40 U/L (26-192)
[2016-12-25 14:41] LABS: BANDS 6 % (0-6); METAMYELOCYTES 1 % (0-1); NEUTROPHIL # MANUAL DIFF 5.5 TH/MM3 (1.8-7.7); PLATELET ESTIMATE SMEAR NORMAL (NORMAL); PLATELET MORPHOLOGY NORMAL (NORMAL); POLYS (SEG NEUTROPHILS) 74 % (16-70); SCAN/DIFF FINAL DIFF MANUAL; WBC DIFF SAMPLE 100
[2016-12-25 14:48] VITALS: BP 183/83; PULSE 70; RESP 20; O2SAT 99
[2016-12-25 14:48] LABS: BLOOD, URINE NEG (NEG); COMMENT (UR) CULT NOT INDICATED; CULTURE IF INDICATED CULT NOT INDICATED; GLUCOSE,URINE NEG (NEG); HYALINE CAST, URINE 3 /lpf (RARE); KETONE, URINE 10 mg/dL (NEG); MUCUS URINE FEW /lpf (OCC); NITRITE,URINE NEG (NEG); SQUAMOUS EPITHELIAL CELL URINE <1 /hpf (0-5); URINE COLOR YELLOW (YELLW/STRAW)
--- NOTE | 2016-12-25 14:51 | RADRPT ---
EXAM DATE/TIME: 12/25/2016 14:34 [facility] COMPARISON: CT BRAIN W/O CONTRAST, November 11, 2016, 12:01. INDICATIONS : Patient complains of dizziness, weakness. RADIATION DOSE: 56.35 CTDIvol (mGy) MEDICAL HISTORY : Cardiovascular disease. Hypertension. SURGICAL HISTORY : Appendectomy. Cholecystectomy.Hysterectomy. ENCOUNTER: Initial ACUITY: 4 - 6 days PAIN SCALE: 0/10 LOCATION: cranial TECHNIQUE: Multiple contiguous axial images were obtained of the head. Using automated exposure control and adj ustment of the mA and/or kV according to patient size, radiation dose was kept as low as reasonably a chievable to obtain optimal diagnostic quality images. FINDINGS: CEREBRUM: The ventricles are normal for age. No evidence of midline shift, mass lesion, hemorrhage or acute in farction. No extra-axial fluid collections are seen. POSTERIOR FOSSA: The cerebellum and brainstem are intact. The 4th ventricle is midline. The cerebellopontine angle i s unremarkable. EXTRACRANIAL: The visualized portion of the orbits is intact. SKULL: The calvaria is intact. No evidence of skull fracture. CONCLUSION: Negative for acute process.. Gregory Medrano MD FACR on December 25, 2016 at 14:49 Board Certified Radiologist. This report was verified electronically.
[2016-12-25 15:26] VITALS: BP 176/85; PULSE 67; RESP 20; O2SAT 99
--- NOTE | 2016-12-26 15:52 | EKG ---
Date Performed: 12/25/2016 Time Performed: 13:40:59 PTAGE: 76 years EKG: Sinus rhythm NORMAL ECG PREVIOUS TRACING : 12/06/2016 12.43 Compared to prior tracing no significant change DOCTOR: Donis Lux Interpretating Date/Time 12/26/2016 15:51:37
== END 2016-12-25 16:16 | disposition home or self-care (01) ==
LOC: NEPC 12:57
DX: R42 Dizziness and giddiness (principal); R06.02 Shortness of breath; D64.9 Anemia, unspecified; I10 Essential (primary) hypertension; I48.91 Unspecified atrial fibrillation; Z79.01 Long term (current) use of anticoagulants; Z86.73 Personal history of transient ischemic attack (TIA), and cerebral infarction without residual deficits; I25.10 Atherosclerotic heart disease of native coronary artery without angina pectoris; K21.9 Gastro-esophageal reflux disease without esophagitis
CPT/HCPCS: 70450; 71010; 80053; 81001; 82550; 83735; 84484; 85007; 85027; 85610; 85730; 93005

== ENCOUNTER 2017-03-23 05:41 | Inpatient (IN) | payer MEDICARE ==
[~2017-03-23] VITALS: Ht 157.5 cm; Wt 56.0 kg
[2017-03-23] VITALS (12 sets, daily range): BP systolic 123–198; BP diastolic 60–91; PULSE 63–77; RESP 16–23; TEMP 98–98.7; O2SAT 95–100
[2017-03-23] MEDS ORDERED: NITROGLYCERIN 0.4 MG SL 25 TABS/BTL SL ONE ×2 (06:00→06:30)
[2017-03-23] MEDS ORDERED: SODIUM CHLORIDE 0.9% FLUSH 10 ML FLUSH IVF PRN (06:00)
[2017-03-23] MEDS ORDERED: MORPHINE SULFATE 4 MG/ML INJ IV PUSH ONE (06:00)
--- NOTE | 2017-03-23 06:09 | PD ---
HPI Chief Complaint: Chest Pain Time Seen by Provider: 05:59 Travel History International Travel<30 days: No Contact w/Intl Traveler<30days: No Traveled to known affect area: No History of Present Illness HPI 76 yo F c/o retrosternal chest pain radiating to L shoulder since approximately one half hours prior to ER arrival. At its worst the pain was 8-9/10. At the time of ER evaluation at this 3/10. Quality is burning. + Dyspnea at rest and worse with exertion. + Family hx CAD in family. No DM/HLD. +HTN. Yesterday the patient had episodes of atrial fibrillation which is very uncomfortable for her. She has a history of atrial fibrillation however has not had any for more than a few years. She takes no blood thinner. PFSH Past Medical History Hx Anticoagulant Therapy: Yes Arthritis: Yes Atrial Fibrillation: Yes Blood Disorders: No Heart Rhythm Problems: Yes (HX OF AFIB) Cancer: No Cardiovascular Problems: Yes High Cholesterol: No Chest Pain: No Congestive Heart Failure: No Cerebrovascular Accident: Yes Coronary Artery Disease: Yes Diabetes: No Diminished Hearing: No Endocrine: No Gastrointestinal Disorders: Yes (GASTROPARESIS, MCKENZIE'S ESOPHAGUS, DYSPHAGIA , NAUSEA, GERD) GERD: Yes Glaucoma: Yes Genitourinary: No Headaches: Yes Hepatitis: No Hiatal Hernia: Yes Heparin Induced Thrombocytopen: No Hypertension: Yes Immune Disorder: No Implanted Vascular Access Dvce: Yes Medical other: Yes (BOWEL OBSTRUCTION) Musculoskeletal: Yes (ARTHRITIS) Neurologic: Yes (TIA IN JUNE 2016) Psychiatric: No Reproductive: No Respiratory: No Immunizations Current: Yes Sleep Apnea: Yes (STS SHE NO LONGER HAS IT.) Thyroid Disease: Yes (hypothyroidism) Ulcer: Yes (colon) Tetanus Vaccination: Unknown Influenza Vaccination: Yes Menopausal: Yes : 3 Para: 3 Past Surgical History Abdominal Surgery: Yes (CHOLY, TOTAL COLECTOMY, 12 inches of colon removed) AICD: No Appendectomy: Yes Body Medical Devices: STARCLOSE,RIGHT THUMB METAL,LEFT FOOT 2 SCREWS Cardiac Surgery: No Cholecystectomy: Yes Ear Surgery: No Endocrine Surgery: Yes (LYMPH NODE SURG) Eye Surgery: Yes (ESTELLA EYE CATARACT SX) Genitourinary Surgery: Yes Gynecologic Surgery: Yes (HYSTERECTOMY) Hysterectomy: Yes Joint Replacement: Yes (R HIP REPLACEMENT) Neurologic Surgery: No Oral Surgery: Yes (TONSILLECTOMY) Thoracic Surgery: No Tonsillectomy: Yes Other Surgery: Yes (NOSE SURG BONE SPURS, CALCANAL OSTEOTOMY) Social History Alcohol Use: No Tobacco Use: No Substance Use: No Allergies-Medications (Allergen,Severity, Reaction): Coded Allergies: Codeine (Verified Allergy, Severe, 12/06/16) Contrast Media (Verified Allergy, Severe, Cardiac Arrest, ANAPHALAXIS, ) Crab (Verified Allergy, Severe, Anaphylaxis, 12/06/16) Iodine (Verified Allergy, Severe, 12/06/16) Latex (Verified Allergy, Severe, SKIN BLISTERS, 12/06/16) Shellfish (Verified Allergy, Severe, ANAPHYLAXIS TO ALL SHELLFISH, 12/06/16 ) Reported Meds & Prescriptions Reported Meds & Active Scripts Active Oxycodone (Oxycodone HCl) 5 Mg Tab 5 Mg PO Q4H PRN Reported Preservision Areds (Multiple Vitamins W/ Minerals) 1 Tab 1 Tab PO BID Amiodarone (Amiodarone HCl) 100 Mg Tab 100 Mg PO DAILY Nitrostat SL (Nitroglycerin) 0.4 Mg Subl 0.4 Mg SL DIRECTED PRN 1 tablet under the tongue as needed for chest pain. Repeat every 5 minutes for a total of 3 DOSES or call 911 if NO relief. Vitamin D3 (Cholecalciferol) 2,000 Unit Tab 2,000 Units PO BID Calcium 600 + D (Calcium Carbonate-Cholecalciferol) 600-200 Mg-Unit Tab 1 Tab PO BID Vitamin B-12 (Cyanocobalamin) 1,000 Mcg Tab 1,000 Mcg PO BID Co Q-10 (Coenzyme Q10 (Ubidecarenone)) 100 Mg Cap 100 Mg PO DAILY Restasis Opth Drops (Cyclosporine Opth Drops) 0.05% Emul 2 Drop EACH EYE BID Lutein 20 Mg Cap 20 Mg PO DAILY Fish Oil 600 mg (Ophir-3 Fatty Acids) 1 Cap Cap 600 Mg PO BID Protonix (Pantoprazole Sodium) 40 Mg Tab 40 Mg PO DAILY Levothyroxine (Levothyroxine Sodium) 125 Mcg Tab 125 Mcg PO DAILY Isosorbide Mononitrate ER (Isosorbide Mononitrate) 60 Mg Tab 60 Mg PO DAILY Coreg (Carvedilol) 3.125 Mg Tab 3.125 Mg PO BID Diltiazem ER 12 HR (Diltiazem HCl) 120 Mg Caper 120 Mg PO BID Review of Systems Except as stated in HPI: all other systems reviewed are Neg Physical Exam Narrative GENERAL: 76-year-old female mild distress secondary to pain and/or anxiety SKIN: Focused skin assessment warm/dry. HEAD: Atraumatic. Normocephalic. EYES: Pupils equal and round. No scleral icterus. No injection or drainage. ENT: No nasal bleeding or discharge. Mucous membranes pink and moist. NECK: Trachea midline. No JVD. CARDIOVASCULAR: Regular rate and rhythm. No murmur appreciated. RESPIRATORY: No accessory muscle use. Clear to auscultation. Breath sounds equal bilaterally. GASTROINTESTINAL: Abdomen soft, non-tender, nondistended. Hepatic and splenic margins not palpable. MUSCULOSKELETAL: No obvious deformities. No clubbing. No cyanosis. No edema. NEUROLOGICAL: Awake and alert. No obvious cranial nerve deficits. Motor grossly within normal limits. Normal speech. PSYCHIATRIC: Appropriate mood and affect; insight and judgment normal. Data Data Last Documented VS Vital Signs Date Time Temp Pulse Resp B/P Pulse Ox O2 Delivery O2 Flow Rate FiO2 03/23/17 06:05 70 18 187/88 97 Room Air 03/23/17 05:44 98.0 Vital signs reviewed Orders Electrocardiogram (03/23/17 05:59) Basic Metabolic Panel (Bmp) (03/23/17 05:59) Ckmb (Isoenzyme) Profile (03/23/17 05:59) Complete Blood Count With Diff (03/23/17 05:59) Magnesium (Mg) (03/23/17 05:59) Prothrombin Time / Inr (Pt) (03/23/17 05:59) Act Partial Throm Time (Ptt) (03/23/17 05:59) Troponin I (03/23/17 05:59) Chest, Single Ap (03/23/17 05:59) Ecg Monitoring (03/23/17 05:59) Bilateral Bp Monitoring (03/23/17 05:59) Iv Access Insert/Monitor (03/23/17 05:59) Oximetry (03/23/17 05:59) Oxygen Administration (03/23/17 05:59) Morphine Inj (Morphine Inj) (03/23/17 06:00) Sodium Chloride 0.9% Flush (Ns Flush) (03/23/17 06:00) Nitroglycerin Sl (Nitrostat Sl) (03/23/17 06:00) Al-Mag Hy-Si 40-40-4 Mg/Ml Liq (Mag-Al P (03/23/17 06:30) Lidocaine 2% Viscous (Xylocaine 2% Visco (03/23/17 06:30) Nitroglycerin Sl (Nitrostat Sl) (03/23/17 06:30) MDM Medical Decision Making Medical Screen Exam Complete: Yes Emergency Medical Condition: Yes Differential Diagnosis NSTEMI, unstable angina, coronary vasospasm, PE, PTX, aortic dissection, pericarditis, myocarditis, endocarditis, PNA, esophageal disease, aneurysm, musculoskeletal etiologies, anxiety, cocaine/sympathomimetic abuse Narrative Course EKG shows a sinus rhythm with no significant ST changes in the precordial leads possibly concerning for ischemia Diagnosis Primary Impression: Chest pain Jag Arboleda MD Mar 23, 2017 06:09
[2017-03-23] MEDS ORDERED: FLUT50SP EACH NARE (06:30)
[2017-03-23] MEDS ORDERED: fish oil PO (06:30)
[2017-03-23] MEDS ORDERED: VITA2000 PO (06:30)
[2017-03-23] MEDS ORDERED: ALUMINUM/MAGNESIUM/SIMETH 30 ML CUP PO ONE (06:30)
[2017-03-23] MEDS ORDERED: CALC600T10 PO (06:30)
[2017-03-23] MEDS ORDERED: LIDOCAINE VISCOUS 2% SOLN 15 ML UDC PO ONE (06:30)
[2017-03-23] MEDS ORDERED: FERR325T8 PO (06:30)
[2017-03-23] MEDS ORDERED: LUTE20CA PO (06:30)
[2017-03-23] MEDS ORDERED: PRESSER VISION EACH EYE (06:30)
[2017-03-23 06:40] LABS: AUTOMATED NEUTROPHIL # 2.3 TH/MM3 (1.8-7.7); BASOPHIL % 0.7 % (0.0-2.0); EOSINOPHIL # 0.1 TH/MM3 (0-0.4); EOSINOPHIL % 1.6 % (0.0-4.0); HEMATOCRIT 37.7 % (35.0-46.0); HEMO FLAGS DIFF FINAL; LYMPH % 32.5 % (9.0-44.0); LYMPHOCYTE # 1.4 TH/MM3 (1.0-4.8); MEAN CELL VOLUME 78.4 FL (80.0-100.0); MEAN CORPUSCULAR HEMOGLOBIN 25.6 PG (27.0-34.0); MEAN CORPUSCULAR HGB CONC 32.7 % (32.0-36.0); MONO % 11.5 % (0.0-8.0); NEUT % 53.7 % (16.0-70.0); PLATELET COUNT 130 TH/MM3 (150-450); RED BLOOD COUNT 4.81 MIL/MM3 (4.00-5.30); RED CELL DISTRIBUTION WIDTH 16.1 % (11.6-17.2); WHITE BLOOD COUNT 4.3 TH/MM3 (4.0-11.0)
[2017-03-23 06:48] LABS: APTT (PATIENT) 22.6 SEC (24.3-30.1); PROTHROMBIN TIME - PATIENT 10.7 SEC (9.8-11.6)
--- NOTE | 2017-03-23 06:50 | RADRPT ---
EXAM DATE/TIME: 03/23/2017 06:02 [facility] COMPARISON: CHEST SINGLE AP, December 25, 2016, 13:36. INDICATIONS : Chest pain MEDICAL HISTORY : Hypertension. Hiatal hernia. Hypothyroidism. Mccoy's esophagus, gerd, tia SURGICAL HISTORY : Bilateral Rotator Cuff Repair ENCOUNTER: Initial ACUITY: 1 day PAIN SCORE: 8/10 LOCATION: Bilateral chest FINDINGS: A single view of the chest demonstrates the lungs to be symmetrically aerated without evidence of mas s, infiltrate or effusion. The cardiomediastinal contours are unremarkable. Osseous structures are intact. CONCLUSION: 1. No acute cardiopulmonary disease. Contreras Mata MD on March 23, 2017 at 6:49 Board Certified Radiologist. This report was verified electronically.
--- NOTE | 2017-03-23 07:07 | PD ---
Physical Exam Narrative Patient was seen by ED physician signed out to me. Patient states that she started having cardiac palpitation typical atrial fibrillation yesterday morning. Patient states that the palpitations lasted all morning and resolved by itself. Patient states that she probably had breakthrough of atrial fibrillation. Patient states that she was back to sinus rhythm yesterday afternoon. Patient states that she had burning sensation upper back and achiness of the left arm yesterday during the palpitation. Patient started having burning sensation anterior chest substernally this morning. Patient also complains of left arm achiness this morning. Patient has history of atrial fibrillation and was on Eliquis in the past. Patient states that Eliquis was stopped because of GI bleeding that required a blood transfusion in November of this year. Patient is not on any anticoagulation medication. Patient has history of hypertension and hyperlipidemia. Patient is a nonsmoker. Patient has family history heart disease. Patient's academic services coordinator Dr. Alonso. Data Data Last Documented VS Vital Signs Date Time Temp Pulse Resp B/P Pulse Ox O2 Delivery O2 Flow Rate FiO2 03/23/17 07:35 184/91 03/23/17 06:57 69 18 95 Room Air 03/23/17 05:44 98.0 Orders Electrocardiogram (03/23/17 05:59) Basic Metabolic Panel (Bmp) (03/23/17 05:59) Ckmb (Isoenzyme) Profile (03/23/17 05:59) Complete Blood Count With Diff (03/23/17 05:59) Magnesium (Mg) (03/23/17 05:59) Prothrombin Time / Inr (Pt) (03/23/17 05:59) Act Partial Throm Time (Ptt) (03/23/17 05:59) Troponin I (03/23/17 05:59) Chest, Single Ap (03/23/17 05:59) Ecg Monitoring (03/23/17 05:59) Bilateral Bp Monitoring (03/23/17 05:59) Iv Access Insert/Monitor (03/23/17 05:59) Oximetry (03/23/17 05:59) Oxygen Administration (03/23/17 05:59) Morphine Inj (Morphine Inj) (03/23/17 06:00) Sodium Chloride 0.9% Flush (Ns Flush) (03/23/17 06:00) Nitroglycerin Sl (Nitrostat Sl) (03/23/17 06:00) Al-Mag Hy-Si 40-40-4 Mg/Ml Liq (Mag-Al P (03/23/17 06:30) Lidocaine 2% Viscous (Xylocaine 2% Visco (03/23/17 06:30) Nitroglycerin Sl (Nitrostat Sl) (03/23/17 06:30) Aspirin Chew (Aspirin Chew) (03/23/17 08:00) Labs Laboratory Tests Test 03/23/17 06:30 White Blood Count 4.3 TH/MM3 Red Blood Count 4.81 MIL/MM3 Hemoglobin 12.3 GM/DL Hematocrit 37.7 % Mean Corpuscular Volume 78.4 FL Mean Corpuscular Hemoglobin 25.6 PG Mean Corpuscular Hemoglobin 32.7 % Concent Red Cell Distribution Width 16.1 % Platelet Count 130 TH/MM3 Mean Platelet Volume 7.5 FL Neutrophils (%) (Auto) 53.7 % Lymphocytes (%) (Auto) 32.5 % Monocytes (%) (Auto) 11.5 % Eosinophils (%) (Auto) 1.6 % Basophils (%) (Auto) 0.7 % Neutrophils # (Auto) 2.3 TH/MM3 Lymphocytes # (Auto) 1.4 TH/MM3 Monocytes # (Auto) 0.5 TH/MM3 Eosinophils # (Auto) 0.1 TH/MM3 Basophils # (Auto) 0.0 TH/MM3 CBC Comment DIFF FINAL Differential Comment Prothrombin Time 10.7 SEC Prothromb Time International 1.0 RATIO Ratio Activated Partial 22.6 SEC Thromboplast Time Sodium Level 139 MEQ/L Potassium Level 4.0 MEQ/L Chloride Level 106 MEQ/L Carbon Dioxide Level 27.9 MEQ/L Anion Gap 5 MEQ/L Blood Urea Nitrogen 22 MG/DL Creatinine 1.06 MG/DL Estimat Glomerular Filtration 50 ML/MIN Rate Random Glucose 95 MG/DL Calcium Level 9.5 MG/DL Magnesium Level 1.8 MG/DL Total Creatine Kinase 66 U/L Troponin I LESS THAN 0.02 NG/ML [facility] Supervised Visit with TIFFANIE: No Interpretation(s) 7:35 AM. EKG shows sinus rhythm unspecific ST-T wave change. Last Impressions Chest X-Ray 03/23/17 0559 Signed Impressions: Service Date/Time: Thursday, March 23, 2017 06:02 - CONCLUSION: 1. No acute cardiopulmonary disease. Contreras Mata MD 7:35 AM. CBC within normal limit. CMP with BUN 22. Creatinine 1.06. Cardiac enzymes are normal. Narrative Course I spoke with Dr. Jennnigs. Advised medical admission with consultation to Dr. Alonso. Advised aspirin 81 mg daily. Advised serial EKG cardiac enzymes. Diagnosis Primary Impression: Chest pain Qualified Code: R07.9 - Chest pain, unspecified type Admitting Information Admitting Physician Requests: Emmanuel De Leon MD Mar 23, 2017 07:07
[2017-03-23 07:14] LABS: ANION GAP 5 MEQ/L (5-15); BICARBONATE 27.9 MEQ/L (21.0-32.0); BLOOD UREA NITROGEN 22 MG/DL (7-18); CHLORIDE 106 MEQ/L (98-107); GLOMERULAR FILTRATION RATE 50 ML/MIN (>89); MAGNESIUM 1.8 MG/DL (1.5-2.5); SODIUM (NA) 139 MEQ/L (136-145)
[2017-03-23 07:18] LABS: CREATINE KINASE 66 U/L (26-192)
[2017-03-23] MEDS ORDERED: ASPIRIN 81 MG CHEW TAB CHEW ONE (08:00)
[2017-03-23] MEDS ORDERED: SENNOSIDES 8.6 MG TAB PO PRN (09:30)
[2017-03-23] MEDS ORDERED: SODIUM CHLORIDE 0.9% FLUSH 10 ML FLUSH IV FLUSH PRN (09:30)
[2017-03-23] MEDS ORDERED: ONDANSETRON HCL 4 MG/2 ML VIAL IVP PRN (09:30)
[2017-03-23] MEDS ORDERED: MAGNESIUM HYDROXIDE SUSP 30 ML CUP PO PRN (09:30)
[2017-03-23] MEDS ORDERED: NALOXONE HCL 0.4 MG/ML AMP IV PRN (09:30)
[2017-03-23] MEDS ORDERED: BISACODYL 10 MG SUPP RECTAL PRN (09:30)
[2017-03-23] MEDS ORDERED: PILL SPLITTER OTHER PRN (09:45)
[2017-03-23] MEDS: FERROUS SULFATE 325 MG (65 MG ELEMENTAL IRON) TAB PO SCH (10:16)
[2017-03-23] MEDS: AMIODARONE 200 MG TAB PO SCH (10:16)
[2017-03-23] MEDS: CARVEDILOL 3.125 MG TAB PO SCH ×2 (10:16→20:33)
[2017-03-23] MEDS: PANTOPRAZOLE SOD 40 MG DELAYED RELEASE TAB PO SCH (10:16)
[2017-03-23] MEDS: DILTIAZEM-CD 240 MG CAP ER PO SCH (10:44)
[2017-03-23] MEDS: ISOSORBIDE MONONITRATE 60 MG TAB PO SCH (10:44)
[2017-03-23] MEDS: FLUTICASONE PROPIONATE 50 MCG/ACT 16 GM NASAL SPRAY EACH NARE SCH ×2 (10:44→20:32)
[2017-03-23] MEDS: LEVOTHYROXINE SODIUM 125 MCG TAB PO SCH (10:45)
[2017-03-23] MEDS ORDERED: MORPHINE SULFATE 4 MG/ML INJ IV PUSH PRN (11:00)
[2017-03-23] MEDS ORDERED: NITROGLYCERIN 0.4 MG SL 25 TABS/BTL SL PRN (11:00)
[2017-03-23] MEDS ORDERED: DOCUSATE SODIUM 50 MG/SENNA 8.6 MG TAB PO ONE (11:00)
[2017-03-23] MEDS ORDERED: ALUMINUM/MAGNESIUM/SIMETH 30 ML CUP PO PRN (11:00)
--- NOTE | 2017-03-23 11:10 | HHI.HP ---
[facility] Service [facility] Primary Care Physician Vickie Dinh, DO Admission Diagnosis chest pain. Paroxysmal atrial fibrillation Diagnoses: Chief Complaint: chest pain Travel History International Travel<30 Days: No Contact w/Intl Traveler <30 Da: No Traveled to Known Affected Are: No History of Present Illness 76-year-old female with history of atrial fibrillation not on anticoagulation secondary to GIB, HTN, TIA, gastroparesis, Mccoy's esophagus, GERD, presents with a two day history of chest pain. The patient reports all day yesterday she did not feel very well. She states she noticed that she went into A. fib yesterday morning with associated palpitations, dizziness, shortness of breath, and mild chest discomfort. Her symptoms persisted for a couple hours, then she took two nitroglycerin with relief of symptoms. She still didn't feel well with persistent nausea, so she decided to stay at her daughter's house last night. Her daughter is a nurse here in ICU. The patient was very restless throughout the night, did not sleep well, then around 4:30 AM she had acute onset chest pain. She locates the pain to the substernal area with pain radiating down the left arm, described as burning 7/10 constant pains. She did not take any medications, and asked her daughter to transport her to the hospital immediately. Upon arrival to the ED, EKG showed sinus rhythm without acute ischemic changes. She was given nitroglycerin 2 with moderate relief of her chest pain, now rated 3/10. She has a history of cardiac catheterization in 2004 with only minimal CAD, medically managed. She has never had stents or bypass. Her road mechanic is Dr. Alonso. She also has ongoing GI complaints that are chronic and related to her gastroparesis. She has frequent nausea, no recent vomiting. She also has chronic constipation, currently has not had a BM in 4days which she states is usual for her. Her massage therapy instructor is Dr. Dahl. Otherwise the patient has no other medical complaints at this time. Review of Systems Except as stated in HPI: all other systems reviewed are Neg Past Family Social History Past Medical History atrial fibrillation GIB HTN TIA gastroparesis Mccoy's esophagus GERD dysphagia bowel obstruction hypothyroidism Past Surgical History colectomy cholecystectomy hysterectomy Right total hip arthroplasty tonsillectomy nasal surgery bone spur resection cardiac catheterization EGD/colonoscopy Reported Medications Fluticasone Nasal [place] 50 Mcg/Act Naspr 50 Mcg EACH NARE BID 50 mcg/spray Ferrous Sulfate 325 Mg (65 Mg Iron) Tablet 325 Mg PO DAILY [presser vision] 1 Drop EACH EYE BID Vitamin D3 (Cholecalciferol) 2,000 Unit Cap 2,000 Units PO DAILY Calcium + D3 (Calcium Carbonate-Cholecalciferol) 600-200 Mg-Unit Tab 1 Tab PO BID [fish oil] 600 Mg PO BID Lutein 20 Mg Cap 25 Mg PO DAILY Preservision Areds (Multiple Vitamins W/ Minerals) 1 Tab 1 Tab PO BID Amiodarone (Amiodarone HCl) 100 Mg Tab 100 Mg PO DAILY Nitrostat SL (Nitroglycerin) 0.4 Mg Subl 0.4 Mg SL DIRECTED PRN 1 tablet under the tongue as needed for chest pain. Repeat every 5 minutes for a total of 3 DOSES or call 911 if NO relief. Vitamin B-12 (Cyanocobalamin) 1,000 Mcg Tab 1,000 Mcg PO BID Co Q-10 (Coenzyme Q10 (Ubidecarenone)) 100 Mg Cap 100 Mg PO DAILY Restasis Opth 0.05% (Cyclosporine Opth 0.05%) 0.05% Emul 2 Drop EACH EYE BID Protonix (Pantoprazole Sodium) 40 Mg Tab 40 Mg PO DAILY Levothyroxine (Levothyroxine Sodium) 125 Mcg Tab 125 Mcg PO DAILY Isosorbide Mononitrate ER (Isosorbide Mononitrate) 60 Mg Tab 60 Mg PO DAILY Coreg (Carvedilol) 3.125 Mg Tab 3.125 Mg PO BID Diltiazem ER 12 HR (Diltiazem HCl) 120 Mg Caper 120 Mg PO BID Allergies: Coded Allergies: Codeine (Verified Allergy, Severe, 12/06/16) Contrast Media (Verified Allergy, Severe, Cardiac Arrest, ANAPHALAXIS, ) Crab (Verified Allergy, Severe, Anaphylaxis, 12/06/16) Iodine (Verified Allergy, Severe, 12/06/16) Latex (Verified Allergy, Severe, SKIN BLISTERS, 12/06/16) Shellfish (Verified Allergy, Severe, ANAPHYLAXIS TO ALL SHELLFISH, 12/06/16 ) Active Ordered Medications Current Medications Medications (Trade) Dose Ordered Sig/Yolie Route Start Time Stop Time Status Last Admin (NS Flush) 2 ml UNSCH PRN IV FLUSH 03/23/17 09:30 (NS Flush) 2 ml BID IV FLUSH 03/23/17 21:00 (Tylenol) 650 mg Q4H PRN PO 03/23/17 09:30 (Zofran Inj) 4 mg Q6H PRN IVP 03/23/17 09:30 (Narcan Inj) 0.4 mg UNSCH PRN IV 03/23/17 09:30 (Milk Of Magnesia Liq) 30 ml Q12H PRN PO 03/23/17 09:30 (Senokot) 17.2 mg Q12H PRN PO 03/23/17 09:30 (Dulcolax Supp) 10 mg DAILY PRN RECTAL 03/23/17 09:30 (Cordarone) 100 mg DAILY PO 03/23/17 10:00 03/23/17 10:16 (Coreg) 3.125 mg BID PO 03/23/17 10:00 03/23/17 10:16 (Ferrous Sulfate) 325 mg DAILY PO 03/23/17 10:00 03/23/17 10:16 (Flonase Dax Spr) 1 spray BID EACH NARE 03/23/17 10:00 (Imdur) 60 mg DAILY@07 PO 03/23/17 10:00 (Synthroid) 125 mcg DAILY@06 PO 03/23/17 10:00 (Protonix) 40 mg DAILY PO 03/23/17 10:00 03/23/17 10:16 (Cardizem Cd) 240 mg DAILY PO 03/23/17 10:00 (Pill Splitter) 1 ea UNSCH PRN OTHER 03/23/17 09:45 Family History Mother with heart disease, age 62 Father with stomach cancer, age 74 Daughter with heart disease/ME, age 50 Sister with heart disease Brother with stroke, diabetes Social History Denies any tobacco, alcohol, or illicit drug use. . Physical Exam Vital Signs Vital Signs Date Time Temp Pulse Resp B/P Pulse Ox O2 Delivery O2 Flow Rate FiO2 03/23/17 09:37 74 16 177/83 100 Room Air 03/23/17 07:35 184/91 8/6/17 06:57 69 18 176/82 95 Room Air 03/23/17 06:32 72 18 153/77 100 Room Air 03/23/17 06:05 70 18 187/88 97 Room Air 03/23/17 05:51 Room Air 03/23/17 05:44 98.0 77 16 198/90 100 Room Air Physical Exam GENERAL: Well-nourished, well-developed pleasant thin elderly female patient in [facility]. SKIN: Warm and dry. No rash. HEAD: Normocephalic. Atraumatic. EYES: Pupils equal and round. No scleral icterus. No injection or drainage. ENT: No nasal bleeding or discharge. Mucous membranes pink and moist. NECK: Supple. Trachea midline. CARDIOVASCULAR: Regular rate and rhythm. S1, S2 noted. No murmur appreciated. RESPIRATORY: No accessory muscle use. Clear to auscultation. Breath sounds equal bilaterally. GASTROINTESTINAL: Abdomen soft, non-tender, nondistended. Normoactive bowel sounds x4. MUSCULOSKELETAL: No obvious deformities. Extremities without clubbing, cyanosis , or edema. NEUROLOGICAL: Awake and alert. No obvious cranial nerve deficits. Motor grossly within normal limits. Normal speech. PSYCHIATRIC: Appropriate mood and affect; insight and judgment normal. Laboratory Laboratory Tests Test 03/23/17 06:30 White Blood Count 4.3 Red Blood Count 4.81 Hemoglobin 12.3 Hematocrit 37.7 Mean Corpuscular Volume 78.4 Mean Corpuscular Hemoglobin 25.6 Mean Corpuscular Hemoglobin 32.7 Concent Red Cell Distribution Width 16.1 Platelet Count 130 Mean Platelet Volume 7.5 Neutrophils (%) (Auto) 53.7 Lymphocytes (%) (Auto) 32.5 Monocytes (%) (Auto) 11.5 Eosinophils (%) (Auto) 1.6 Basophils (%) (Auto) 0.7 Neutrophils # (Auto) 2.3 Lymphocytes # (Auto) 1.4 Monocytes # (Auto) 0.5 Eosinophils # (Auto) 0.1 Basophils # (Auto) 0.0 CBC Comment DIFF FINAL Differential Comment Prothrombin Time 10.7 Prothromb Time International 1.0 Ratio Activated Partial 22.6 Thromboplast Time Sodium Level 139 Potassium Level 4.0 Chloride Level 106 Carbon Dioxide Level 27.9 Anion Gap 5 Blood Urea Nitrogen 22 Creatinine 1.06 Estimat Glomerular Filtration 50 Rate Random Glucose 95 Calcium Level 9.5 Magnesium Level 1.8 Total Creatine Kinase 66 Troponin I LESS THAN 0.02 Result Diagram: 03/23/17 0630 03/23/17 0630 Imaging Last Impressions Chest X-Ray 03/23/17 0559 Signed Impressions: Service Date/Time: Thursday, March 23, 2017 06:02 - CONCLUSION: 1. No acute cardiopulmonary disease. Contreras Mata MD Assessment and Plan Problem List: (1) Chest pain ICD Code: R07.9 Status: Acute (2) Dizziness ICD Code: R42 Status: Acute (3) Atrial fibrillation ICD Code: I48.91 Status: Chronic Assessment and Plan 76-year-old female with history of atrial fibrillation not on anticoagulation secondary to GIB, HTN, TIA, gastroparesis, Mccoy's esophagus, GERD, presents with a two day history of intermittent chest pain, palpitations. Chest Pain: need to rule out ACS, possibly GI related with gastroparesis. Initial troponin negative. EKG reviewed, shows NSR, no acute ischemic changes. Given nitro x2 with moderate relief. ER MD discussed with Dr. Jennings covering for Dr. Alonso, recommended giving aspirin 81mg and admit for evaluation by Dr. Alonso tomorrow. -Continue to rule out ACS with serial cardiac enzymes and EKGs -monitor on telemetry -started aspirin 81mg daily -continue patient's BB, Imdur -continue nitro prn, IV morphine prn, O2 as needed -Consult road mechanic Dr. Alonso Paroxysmal Atrial Fibrillation: patient believed she was in afib for 2 hours yesterday. EKG upon arrival shows NSR. Chads2 Vasc score of 5 (HTN, age, TIA, female). -continue rate control with amiodarone, Coreg, cardizem -monitor on telemetry -not on full anticoagulation secondary to GIB in November2016 -cardiology consulted as above -continue aspirin for now Accelerated Hypertension: BP 198/90 upon arrival. Patient did not take morning medications today. -restart home medications -clonidine prn -monitor BP, adjust antihypertensives as needed Gastroparesis: with +nausea. Symptoms above possibly GI related, pain described as burning, associated with nausea. S/p Mylanta and viscous lidocaine in the ED. -Continue PPI, Mylanta prn dyspepsia -Consider trial of reglan? -Outpatient follow up with GI Dr. Dahl Constipation: no BM x4days. Also patient recently started on iron replacement. -start on aimee-colace 2tabs po bid -Dulcolax, MOM, and Senokot prn -monitor for BM Hypothyroidism: chronic -continue patient's synthroid DVT Prophylaxis: teds/SCDs. Avoid chemoprophylaxis with hx of recent GIB. Attestation Patient seen and examined with Mita Beltran PA-C. The exam, history, and the medical decision-making described in the above note were completed with the assistance of the dictating practitioner. I attest that I had a [id number] encounter with the patient on the same day, and personally performed all of the history, exam, or medical decision making. Discussed case with her thoroughly after seeing the patient, reviewed and agreed with the plan. Please see addendum in History, Physical examination. See below for any errata/additional input: 76-year-old female with history of atrial fibrillation not on anticoagulation secondary to GIB, HTN, TIA, gastroparesis, Mccoy's esophagus percent and with chest pain and palpitations. She noticed that she had palpitations yesterday morning associated with dizziness and shortness of breath with mild chest discomfort. She took nitroglycerin with relief of symptoms. She however had persistent nausea. She was restless overnight, did not sleep well, early this morning, had acute chest pain substernal, radiating to left arm, 7/10, described as burning. Presently, patient is chest pain-free and feels a lot better, no nausea either Not in distress Regular rate and rhythm Clear breath sounds No edema Alert awake and oriented 3 no focal deficits Chest pain-no EKG changes consistent with ischemia, first troponin negative, not on aspirin, continue aspirin, coreg, Imdur, nitroglycerin as needed. Serial cardiac enzymes and EKG. Consult cardiology. Could be GI?, Agree with Protonix and Mylanta, not on NSAIDS. Atrial fibrillation-currently in sinus rhythm, continue Cardizem, amiodarone. Keep on telemetry Uncontrolled hypertension-did not take her medications today, resume home medications, clonidine as needed. Discussed Condition With Patient, patient's daughter at bedside, ED RN, Dr. Stevens Physician Certification 2 Midnight Certification Type: Admission for Inpatient Services Order for Inpatient Services The services are ordered in accordance with Medicare regulations or non- Medicare payer requirements, as applicable. In the case of services not specified as inpatient-only, they are appropriately provided as inpatient services in accordance with the 2-midnight benchmark. Estimated LOS (days): 3 days is the estimated time the patient will need to remain in the hospital, assuming treatment plan goals are met and no additional complications. Post-Hospital Plan: Not yet determined Problem Qualifiers (1) Chest pain: Qualified Code: R07.9 - Chest pain, unspecified type Kandice Beltran PA-C Mar 23, 2017 11:10 Hayley Stevens MD Mar 23, 2017 14:55
[2017-03-23] MEDS ORDERED: cloNIDine HCL 0.1 MG TAB PO PRN (11:15)
[2017-03-23] MEDS ORDERED: amLODIPine BESYLATE 5 MG TAB PO PRN (13:45)
--- NOTE | 2017-03-23 14:07 | PD.CONS ---
HPI Service Cardiology Physicians Consult Requested By Dr Montez Reason for Consult Chest pain Primary Care Physician Vickie Dinh DO History of Present Illness The patient is an active 76 year old female known to Dr. Cesar for atrial fibrillation and HTN. She has a history of cardiac cath 10/2011 that revealed essentially normal coronary arteries. There was LAD 10% atherosclerosis. The patient presented to the ER for a one day history of chest pain/pressure with left arm radiation associated with palpitations that the patient stated felt like atrial fibrillation that started yesterday when she woke up. She was prompted to come in after waking up at 4:30 AM with chest pain 03/27. Chest pain improved with nitroglycerin administered in ER. On examination today she continues to have mild chest tightness at rest. She has a history of gastroparesis, but the symptoms feel different compared her normal GI symptoms. She denies cardiac symptoms prior to yesterday. She climbs 145 stairs daily without decreased tolerance, CP or SOB. She denies recent changes to medications. (Ashlie Damian) Review of Systems Consitutional: DENIES: Fatigue, Fever, Chills, Weight gain, Weight loss Eyes: DENIES: Amaurosis Fugax, Change in vision HEENT: DENIES: Lightheadedness, Change in hearing Respiratory: COMPLAINS OF: Shortness of breath, DENIES: See HPI, Cough, Snoring, Wheezing, Sputum production Cardiovascular: COMPLAINS OF: Chest pain, Palpitations, Tachycardia, DENIES: See HPI, Syncope Gastrointestinal: DENIES: Nausea, Vomiting, Change in bowel habits, Reflux, Bloody stools, Melena Genitourinary: DENIES: Urinary incontinence, Difficulty voiding Integumentary: DENIES: Rash Neurologic: DENIES: Tingling or numbness, Memory problems, Poor Balance, Stroke symptoms Musculoskeletal: DENIES: Joint pain, Muscle pain, Limited range of motion, Back pain Psychiatric: DENIES: Anxiety, Depression, Sleep disturbances Hematologic: DENIES: Bruising tendencies, Bleeding tendencies Endocrine: DENIES: Weight gain, Weight loss, Thyroid disease (Ashlie Damian ) Past Family Social History Allergies: Coded Allergies: Codeine (Verified Allergy, Severe, 12/06/16) Contrast Media (Verified Allergy, Severe, Cardiac Arrest, ANAPHALAXIS, ) Crab (Verified Allergy, Severe, Anaphylaxis, 12/06/16) Iodine (Verified Allergy, Severe, 12/06/16) Latex (Verified Allergy, Severe, SKIN BLISTERS, 12/06/16) Shellfish (Verified Allergy, Severe, ANAPHYLAXIS TO ALL SHELLFISH, 12/06/16 ) Past Medical History atrial fibrillation GIB HTN TIA gastroparesis Mccoy's esophagus GERD dysphagia bowel obstruction hypothyroidism Past Surgical History cholecystectomy hysterectomy Right total hip arthroplasty tonsillectomy nasal surgery bone spur resection cardiac catheterization EGD/colonoscopy Reported Medications Reported Meds & Active Scripts Active Reported Fluticasone Nasal Amanda 50 Mcg/Act Naspr 50 Mcg EACH NARE BID 50 mcg/spray Ferrous Sulfate 325 Mg (65 Mg Iron) Tablet 325 Mg PO DAILY [presser vision] 1 Drop EACH EYE BID Vitamin D3 (Cholecalciferol) 2,000 Unit Cap 2,000 Units PO DAILY Calcium + D3 (Calcium Carbonate-Cholecalciferol) 600-200 Mg-Unit Tab 1 Tab PO BID [fish oil] 600 Mg PO BID Lutein 20 Mg Cap 25 Mg PO DAILY Preservision Areds (Multiple Vitamins W/ Minerals) 1 Tab 1 Tab PO BID Amiodarone (Amiodarone HCl) 100 Mg Tab 100 Mg PO DAILY Nitrostat SL (Nitroglycerin) 0.4 Mg Subl 0.4 Mg SL DIRECTED PRN 1 tablet under the tongue as needed for chest pain. Repeat every 5 minutes for a total of 3 DOSES or call 911 if NO relief. Vitamin B-12 (Cyanocobalamin) 1,000 Mcg Tab 1,000 Mcg PO BID Co Q-10 (Coenzyme Q10 (Ubidecarenone)) 100 Mg Cap 100 Mg PO DAILY Restasis Opth 0.05% (Cyclosporine Opth 0.05%) 0.05% Emul 2 Drop EACH EYE BID Protonix (Pantoprazole Sodium) 40 Mg Tab 40 Mg PO DAILY Levothyroxine (Levothyroxine Sodium) 125 Mcg Tab 125 Mcg PO DAILY Isosorbide Mononitrate ER (Isosorbide Mononitrate) 60 Mg Tab 60 Mg PO DAILY Coreg (Carvedilol) 3.125 Mg Tab 3.125 Mg PO BID Diltiazem ER 12 HR (Diltiazem HCl) 120 Mg Caper 120 Mg PO BID Active Ordered Medications Current Medications Medications (Trade) Dose Ordered Sig/Yolie Route Start Time Stop Time Status Last Admin (NS Flush) 2 ml UNSCH PRN IV FLUSH 03/23/17 09:30 (NS Flush) 2 ml BID IV FLUSH 03/23/17 21:00 (Tylenol) 650 mg Q4H PRN PO 03/23/17 09:30 (Zofran Inj) 4 mg Q6H PRN IVP 03/23/17 09:30 (Narcan Inj) 0.4 mg UNSCH PRN IV 03/23/17 09:30 (Milk Of Magnesia Liq) 30 ml Q12H PRN PO 03/23/17 09:30 (Senokot) 17.2 mg Q12H PRN PO 03/23/17 09:30 (Dulcolax Supp) 10 mg DAILY PRN RECTAL 03/23/17 09:30 (Cordarone) 100 mg DAILY PO 03/23/17 10:00 03/23/17 10:16 (Coreg) 3.125 mg BID PO 03/23/17 10:00 03/23/17 10:16 (Ferrous Sulfate) 325 mg DAILY PO 03/23/17 10:00 03/23/17 10:16 (Flonase Dax Spr) 1 spray BID EACH NARE 03/23/17 10:00 03/23/17 10:44 (Imdur) 60 mg DAILY@07 PO 03/23/17 10:00 03/23/17 10:44 (Synthroid) 125 mcg DAILY@06 PO 03/23/17 10:00 03/23/17 10:45 (Protonix) 40 mg DAILY PO 03/23/17 10:00 03/23/17 10:16 (Cardizem Cd) 240 mg DAILY PO 03/23/17 10:00 03/23/17 10:44 (Pill Splitter) 1 ea UNSCH PRN OTHER 03/23/17 09:45 (Nitrostat Sl) 0.4 mg Q5M PRN SL 03/23/17 11:00 (Mag-Al Plus Susp Liq) 30 ml Q6H PRN PO 03/23/17 11:00 (Ecotrin Ec) 81 mg DAILY PO 03/24/17 09:00 (Adelaida-Colace) 2 tab BID PO 03/23/17 21:00 (Morphine Inj) 2 mg Q3H PRN IV PUSH 03/23/17 11:00 (Catapres) 0.1 mg Q6H PRN PO 03/23/17 11:15 (Norvasc) 2.5 mg DAILY PRN PO 03/23/17 13:45 UNV (Nitroglycerin 2% Oint) 0.5 inch Q6HR TOPICAL 03/23/17 13:45 UNV Family History non contributory Social History no ETOH, lifelong nonsmoker (Ashlie Damian) Physical Exam Vital Signs Vital Signs Date Time Temp Pulse Resp B/P Pulse Ox O2 Delivery O2 Flow Rate FiO2 03/23/17 09:37 74 16 177/83 100 Room Air 03/23/17 07:35 184/91 03/23/17 06:57 69 18 176/82 95 Room Air 03/23/17 06:32 72 18 153/77 100 Room Air 03/23/17 06:05 70 18 187/88 97 Room Air 03/23/17 05:51 Room Air 03/23/17 05:44 98.0 77 16 198/90 100 Room Air Physical Exam GENERAL: Elderly female in ER SKIN: Warm and dry. HEAD: Atraumatic. Normocephalic. EYES: Pupils equal and round. No scleral icterus. No injection or drainage. ENT: No nasal bleeding or discharge. NECK: Trachea midline. CARDIOVASCULAR: Regular rate and rhythm. RESPIRATORY: No accessory muscle use. Clear to auscultation. Breath sounds equal bilaterally. GASTROINTESTINAL: Epigastric tenderness with palpations MUSCULOSKELETAL: Extremities without clubbing, cyanosis, or edema. NEUROLOGICAL: Awake and alert. No obvious cranial nerve deficits. Normal speech PSYCHIATRIC: Appropriate mood and affect; insight and judgment normal. Laboratory Laboratory Tests Test 03/23/17 03/23/17 06:30 11:20 White Blood Count 4.3 Red Blood Count 4.81 Hemoglobin 12.3 Hematocrit 37.7 Mean Corpuscular Volume 78.4 Mean Corpuscular Hemoglobin 25.6 Mean Corpuscular Hemoglobin 32.7 Concent Red Cell Distribution Width 16.1 Platelet Count 130 Mean Platelet Volume 7.5 Neutrophils (%) (Auto) 53.7 Lymphocytes (%) (Auto) 32.5 Monocytes (%) (Auto) 11.5 Eosinophils (%) (Auto) 1.6 Basophils (%) (Auto) 0.7 Neutrophils # (Auto) 2.3 Lymphocytes # (Auto) 1.4 Monocytes # (Auto) 0.5 Eosinophils # (Auto) 0.1 Basophils # (Auto) 0.0 CBC Comment DIFF FINAL Differential Comment Prothrombin Time 10.7 Prothromb Time International 1.0 Ratio Activated Partial 22.6 Thromboplast Time Sodium Level 139 Potassium Level 4.0 Chloride Level 106 Carbon Dioxide Level 27.9 Anion Gap 5 Blood Urea Nitrogen 22 Creatinine 1.06 Estimat Glomerular Filtration 50 Rate Random Glucose 95 Calcium Level 9.5 Magnesium Level 1.8 Total Creatine Kinase 66 Troponin I LESS THAN 0.02 LESS THAN 0.02 (Ashlie Damian) Result Diagram: 03/23/17 0630 03/23/17 0630 Imaging Last 72 hours Impressions Chest X-Ray 03/23/17 0559 Signed Impressions: Service Date/Time: Thursday, March 23, 2017 06:02 - CONCLUSION: 1. No acute cardiopulmonary disease. Contreras Mata MD (Ashlie Damian) Assessment and Plan Assessment and Plan Chest pain- Troponin X 2 negative, EKG NSR without ST-T wave changes. Patient was on Imdur prior to admission for what seem to be prinzmetals angina. Cardiac cath 10/2011 essentially negative for ASHD. Paroxysmal atrial fibrillation. The patient has a history of GI bleed. Not currently on oral AC HTN Hypothyroidism PLAN: Continue ASA, BB, amio and Imdur Check thyroid and lipids Start nitro paste Amlodipine PRN for SBP > 150 or DBP > 90 Dr. Cesar who the patient is known to will follow up tomorrow The patient was seen and evaluated by Dr. Jennings (Ashlie Damian) Assessment and Plan The exam, history, and the medical decision-making described in the above note were completed with the assistance of the mid-level provider. I reviewed and agree with the findings presented. I attest that I had a [id number] encounter with the patient on the same day, and personally performed and documented my assessment and findings in the medical record. Has paroxysmal afib and possible chest pain secondary to such, negative cath prior. (Ron Jennings MD) Ashlie Damian Mar 23, 2017 14:07 Ron Jennings MD Mar 23, 2017 17:10
[2017-03-23] MEDS: NITROGLYCERIN 2% OINT 1 GM PACKET TOPICAL SCH ×2 (14:31→19:37)
[2017-03-23] MEDS: ACETAMINOPHEN 325 MG TAB PO PRN (14:32)
--- NOTE | 2017-03-23 17:18 | EKG ---
Date Performed: 03/23/2017 Time Performed: 09:53:26 PTAGE: 76 years EKG: Sinus rhythm NORMAL ECG Since PREVIOUS TRACING , no significant change noted PREVIOUS TRACIN03/23/2017 05.56 DOCTOR: Ron Jennings Interpretating Date/Time 03/23/2017 17:16:59
--- NOTE | 2017-03-23 17:18 | EKG ---
Date Performed: 03/23/2017 Time Performed: 05:56:08 PTAGE: 76 years EKG: Sinus rhythm MINIMAL ST DEPRESSION BORDERLINE ECG Since PREVIOUS TRACING , no significant change noted PREVIOUS TRACIN12/25/2016 13.40 DOCTOR: Ron Jennings Interpretating Date/Time 03/23/2017 17:16:52
[2017-03-23] MEDS: SODIUM CHLORIDE 0.9% FLUSH 10 ML FLUSH IV FLUSH SCH (20:32)
[2017-03-23] MEDS: DOCUSATE SODIUM 50 MG/SENNA 8.6 MG TAB PO SCH (20:33)
[2017-03-24] MEDS: NITROGLYCERIN 2% OINT 1 GM PACKET TOPICAL SCH ×4 (01:12→18:41)
[2017-03-24] MEDS: ACETAMINOPHEN 325 MG TAB PO PRN ×2 (03:42→18:49)
[2017-03-24 05:22] VITALS: BP 146/64; PULSE 74; RESP 18; TEMP 98.7; O2SAT 98
[2017-03-24] MEDS: LEVOTHYROXINE SODIUM 125 MCG TAB PO SCH (06:02)
[2017-03-24] MEDS: ISOSORBIDE MONONITRATE 60 MG TAB PO SCH (06:02)
[2017-03-24 07:51] VITALS: BP 155/65; PULSE 65; RESP 18; TEMP 97.6; O2SAT 98
[2017-03-24 08:05] VITALS: PULSE 64
[2017-03-24 08:05] LABS: AUTOMATED NEUTROPHIL # 2.7 TH/MM3 (1.8-7.7); BASOPHIL % 0.5 % (0.0-2.0); EOSINOPHIL # 0.1 TH/MM3 (0-0.4); EOSINOPHIL % 1.6 % (0.0-4.0); HEMATOCRIT 31.2 % (35.0-46.0); HEMO FLAGS DIFF FINAL; MEAN CELL VOLUME 77.7 FL (80.0-100.0); MEAN CORPUSCULAR HEMOGLOBIN 25.6 PG (27.0-34.0); MEAN CORPUSCULAR HGB CONC 32.9 % (32.0-36.0); MONO % 10.3 % (0.0-8.0); NEUT % 63.6 % (16.0-70.0); PLATELET COUNT 115 TH/MM3 (150-450); RED BLOOD COUNT 4.02 MIL/MM3 (4.00-5.30); RED CELL DISTRIBUTION WIDTH 16.3 % (11.6-17.2); WHITE BLOOD COUNT 4.2 TH/MM3 (4.0-11.0)
[2017-03-24] MEDS: DOCUSATE SODIUM 50 MG/SENNA 8.6 MG TAB PO SCH (08:29)
[2017-03-24] MEDS: CARVEDILOL 3.125 MG TAB PO SCH ×2 (08:29→20:34)
[2017-03-24] MEDS: DILTIAZEM-CD 240 MG CAP ER PO SCH (08:29)
[2017-03-24] MEDS: FERROUS SULFATE 325 MG (65 MG ELEMENTAL IRON) TAB PO SCH (08:30)
[2017-03-24] MEDS: PANTOPRAZOLE SOD 40 MG DELAYED RELEASE TAB PO SCH (08:32)
[2017-03-24] MEDS: SODIUM CHLORIDE 0.9% FLUSH 10 ML FLUSH IV FLUSH SCH (08:33)
[2017-03-24] MEDS: FLUTICASONE PROPIONATE 50 MCG/ACT 16 GM NASAL SPRAY EACH NARE SCH (08:37)
[2017-03-24 08:38] LABS: BICARBONATE 28.3 MEQ/L (21.0-32.0); POTASSIUM 4.1 MEQ/L (3.5-5.1)
[2017-03-24] MEDS: AMIODARONE 200 MG TAB PO SCH (08:40)
[2017-03-24 08:41] LABS: HDL CHOLESTEROL 57.5 MG/DL (40.0-60.0)
[2017-03-24] MEDS ORDERED: ASPIRIN EC 81 MG TABEC PO SCH (09:00)
--- NOTE | 2017-03-24 10:52 | HHI.PR ---
Subjective Remarks Follow-up for chest pain. Seen and examined with patient's daughter at bedside. The patient denies any further chest pain, shortness breath, or palpitations since admission. She has nausea which she reports is at her baseline. She's been tolerating oral intake with no vomiting. She denies noticing any signs of dark or bloody stools. Discussed at length regarding anticoagulation and atrial fibrillation with stroke risk and GI bleeding risk. The patient does have a history of colon ulcer and colon resection. However knowing the risk of GI bleeding, she would prefer to be on anticoagulation for stroke prevention if possible. Telemetry shows NSR. She reports her hemoglobin was 11 when checked by her PCP 2 weeks ago. Objective Vitals Vital Signs Date Time Temp Pulse Resp B/P Pulse Ox O2 Delivery O2 Flow Rate FiO2 03/24/17 08:05 64 03/24/17 07:51 97.6 65 18 155/65 98 03/24/17 05:22 98.7 74 18 146/64 98 03/23/17 23:45 98.4 66 18 142/60 97 03/23/17 23:03 63 03/23/17 19:34 98.7 64 18 136/61 97 03/23/17 18:40 69 03/23/17 17:05 17 03/23/17 14:53 98.5 67 16 123/62 98 03/23/17 13:47 98.7 69 23 132/65 97 Room Air I/O 03/23/17 03/23/17 03/23/17 03/24/17 03/24/17 03/24/17 07:00 15:00 23:00 07:00 15:00 23:00 Intake Total 240 ml Output Total 1 ml Balance 240 ml -1 ml Intake Oral 240 ml Output Stool Total 1 ml # Voids 1 Result Diagram: 03/24/17 0655 03/24/17 0655 Imaging Last Impressions Chest X-Ray 03/23/17 0559 Signed Impressions: Service Date/Time: Thursday, March 23, 2017 06:02 - CONCLUSION: 1. No acute cardiopulmonary disease. Contreras Mata MD Objective Remarks GENERAL: Well-developed well-nourished. In no acute distress. SKIN: Warm and dry. No lesions noted. HEENT: Normocephalic. Pupils equal and round. Mucous membranes pink and moist. CARDIOVASCULAR: Regular rate and rhythm. No murmur appreciated. RESPIRATORY: No accessory muscle use. Clear to auscultation. Breath sounds equal bilaterally. GASTROINTESTINAL: Abdomen soft, non-tender, nondistended. Bowel sounds x4. MUSCULOSKELETAL: No obvious deformities. No clubbing or cyanosis. No edema. NEUROLOGICAL: Awake and alert. No focal neurological deficits. Moves upper and lower extremities spontaneously. Normal speech. PSYCHIATRIC: Appropriate mood and affect; insight and judgment normal. A/P Problem List: (1) Chest pain ICD Code: R07.9 Status: Resolved (2) Atrial fibrillation ICD Code: I48.91 Status: Chronic Assessment and Plan 76-year-old female with history of atrial fibrillation not on anticoagulation secondary to GIB, HTN, TIA, gastroparesis, Mccoy's esophagus, GERD, presents with a two day history of intermittent chest pain, palpitations. Chest Pain: Possibly secondary to paroxysmal atrial fibrillation. Initial EKG did show minimal anterior ST depressions, which did resolve on repeat EKG. Troponin negative 3. Given nitro x2 with moderate relief. ER MD discussed with Dr. Jennings covering for Dr. Alonso, recommended giving aspirin 81mg and admit for evaluation by Dr. Alonso the next day. -monitor on telemetry -started aspirin 81mg daily -continue patient's BB, Imdur -continue nitro prn, IV morphine prn, O2 as needed -Consulted call center director Dr. Alonso, appreciate input Paroxysmal Atrial Fibrillation: patient believed she was in afib for 2 hours yesterday. EKG upon arrival shows NSR. Chads2 Vasc score of 6 (HTN, age, TIA, female, reports CHF hx). HAS-BLED 5.9%. -continue rate control with amiodarone, Coreg, cardizem -monitor on telemetry, NSR since admission upon review -not on full anticoagulation secondary to GIB in November2016 -cardiology consulted as above -continue aspirin for now, consider resuming Eliquis if hemoglobin is stable Microcytic anemia: Hemoglobin 12.3 admission, previous 11.9 on 12/25/16. Hemoglobin did decrease to 10.3 overnight. -Repeat H&H to assess for stability. Further treatment if hemoglobin continues to drop. Hypertension: Accelerated upon admission, better controlled today after home medications resumed. -Continue home medications -clonidine prn -monitor BP, adjust antihypertensives as needed Gastroparesis: with +nausea. Symptoms above possibly GI related, pain described as burning, associated with nausea. S/p Mylanta and viscous lidocaine in the ED. -Continue PPI, Mylanta prn dyspepsia -Consider trial of reglan? -Outpatient follow up with GI Dr. Dahl Constipation: no BM x4days. Also patient recently started on iron replacement. -start on aimee-colace 2tabs po bid -Dulcolax, MOM, and Senokot prn -monitor for BM Hypothyroidism: chronic -continue patient's synthroid DVT Prophylaxis: teds/SCDs. Caution with chemoprophylaxis with hx of recent GIB. Discharge Planning If hemoglobin is stable and patient is cleared by cardiology, discharge planning later today. Attending Statement I discussed with Video Game Programmer Dr. Dread Her at length. We will discharge patient home tonight and she can follow up with her call center director. Patient was on Apixaban 5mg BID for Afib anti-coagulation. However, in November 2016, she required 2 units of PRBCs due to GI blood loss. No bleeding source was identified. Patient has been off of Anticoagulation since November 2016. Patient has not had any major GI bleed and currently takes PPI. This patient is 76, weighs 56 kg, has a history of GI bleed. She has had two recent TIA's according to her daughter. She is also being treated for hypertension. Her overall [id number] score is at least 6 (female, over 74, TIA, HTN). Patient's call center director agreed that Apixaban 2.5 mg BID would be appropriate for this patient. We will also advise against using Aspirin. Discharge patient to home Condition on discharge: Improved Regular Diet as tolerated Ad Arti activity Rx written: - Apixaban 2.5mg BID - DO NOT TAKE Aspirin. Follow-up with primary care physician and cardiology in 1-2 weeks. Problem Qualifiers (1) Chest pain: Qualified Code: R07.9 - Chest pain, unspecified type (2) Atrial fibrillation: Qualified Code: I48.0 - Paroxysmal atrial fibrillation Jose Cruz Sandy Mar 24, 2017 10:52 Gabriela Brand DO Mar 24, 2017 19:45
[2017-03-24 11:09] VITALS: BP 142/62; PULSE 72; RESP 18; TEMP 98.6; O2SAT 97
[2017-03-24 13:08] LABS: REVIEW FLAG FINAL
[2017-03-24 16:08] VITALS: BP_SYST 164; BP_SYST 167; BP_DIAS 72; BP_DIAS 74; PULSE 66; RESP 18; TEMP 98; O2SAT 99
[2017-03-24] MEDS ORDERED: APIX2.5T PO ×2 (19:39→20:03)
[2017-03-24 20:12] VITALS: BP 163/82; PULSE 79; RESP 19; TEMP 97.7; O2SAT 97
[2017-03-24] MEDS ORDERED: APIXABAN 2.5 MG TABLET PO ONE (20:15)
== END 2017-03-24 21:52 | disposition home or self-care (01) | DRG 310 ==
LOC: NEPC 05:41 → NEDA 08:26 → NEDH 13:21 → NEPHCDU 15:39
PROVIDERS: ADMIT Hospitalist; ATTEND Hospitalist
PROC: 3E0F7GC Introduction of Other Therapeutic Substance into Respiratory Tract, Via Natural or Artificial Opening (ICD-10-PCS; principal; 2017-03-23)
DX: I48.0 Paroxysmal atrial fibrillation (principal); R07.9 Chest pain, unspecified; I11.0 Hypertensive heart disease with heart failure; I50.9 Heart failure, unspecified; I25.111 Atherosclerotic heart disease of native coronary artery with angina pectoris with documented spasm; E78.5 Hyperlipidemia, unspecified; Z96.641 Presence of right artificial hip joint; M19.90 Unspecified osteoarthritis, unspecified site; K22.70 Barrett's esophagus without dysplasia; K31.84 Gastroparesis; K21.9 Gastro-esophageal reflux disease without esophagitis; R13.10 Dysphagia, unspecified; H40.9 Unspecified glaucoma; K44.9 Diaphragmatic hernia without obstruction or gangrene; E03.9 Hypothyroidism, unspecified; Z82.49 Family history of ischemic heart disease and other diseases of the circulatory system; Z86.73 Personal history of transient ischemic attack (TIA), and cerebral infarction without residual deficits; Z82.3 Family history of stroke; Z83.3 Family history of diabetes mellitus; Z80.0 Family history of malignant neoplasm of digestive organs; K59.09 Other constipation; Z87.11 Personal history of peptic ulcer disease; D50.9 Iron deficiency anemia, unspecified
CPT/HCPCS: 71010; 80048; 80061; 82550; 83735; 84443; 84484; 85014; 85018; 85025; 85610; 85730; 93005; G8987-GP; G8988-GP

== ENCOUNTER 2017-04-30 08:17 | Emergency (ER) | payer MEDICARE ==
[~2017-04-30] VITALS: Ht 160 cm; Wt 51.0 kg
[~2017-04-30 08:17] MED LIST changes: +APIX2.5T PO; -CALC1TAB30 PO; +CALC600T10 PO; +FERR325T8 PO; +FLUT50SP EACH NARE; -OMEG600C2 PO; -OXYC-392 PO; +PRESSER VISION EACH EYE; +VITA2000 PO; -VITA200012 PO; +fish oil PO
[2017-04-30 08:35] VITALS: BP 183/84; PULSE 82; RESP 20; TEMP 97.5; O2SAT 96
[2017-04-30 08:40] VITALS: BP 198/98; PULSE 82; RESP 20; TEMP 97.5; O2SAT 100
[2017-04-30] MEDS ORDERED: SODIUM CHLORIDE 0.9% FLUSH 10 ML FLUSH IVF PRN (09:00)
[2017-04-30] MEDS ORDERED: LORazepam 2 MG/ML VIAL IV PUSH ONE (09:00)
[2017-04-30] MEDS ORDERED: ASPIRIN 81 MG CHEW TAB PO ONE (09:00)
[2017-04-30 09:09] LABS: AUTOMATED NEUTROPHIL # 4.2 TH/MM3 (1.8-7.7); BASOPHIL % 0.7 % (0.0-2.0); EOSINOPHIL # 0.1 TH/MM3 (0-0.4); EOSINOPHIL % 1.3 % (0.0-4.0); HEMATOCRIT 39.6 % (35.0-46.0); HEMO FLAGS DIFF FINAL; LYMPH % 16.3 % (9.0-44.0); LYMPHOCYTE # 0.9 TH/MM3 (1.0-4.8); MEAN CELL VOLUME 85.3 FL (80.0-100.0); MEAN CORPUSCULAR HEMOGLOBIN 27.4 PG (27.0-34.0); MEAN CORPUSCULAR HGB CONC 32.2 % (32.0-36.0); MONO % 8.9 % (0.0-8.0); NEUT % 72.8 % (16.0-70.0); PLATELET COUNT 125 TH/MM3 (150-450); RED BLOOD COUNT 4.63 MIL/MM3 (4.00-5.30); WHITE BLOOD COUNT 5.7 TH/MM3 (4.0-11.0)
[2017-04-30 09:15] VITALS: BP 180/97; PULSE 77; RESP 18; RESP 8; O2SAT 100; O2SAT 99
[2017-04-30 09:21] LABS: APTT (PATIENT) 23.1 SEC (24.3-30.1); PROTHROMBIN TIME - PATIENT 10.7 SEC (9.8-11.6)
--- NOTE | 2017-04-30 09:28 | RADRPT ---
EXAM DATE/TIME: 04/30/2017 09:06 [facility] COMPARISON: CHEST SINGLE AP, March 23, 2017, 6:02. INDICATIONS : Chest pains and pressure, with left jaw pains x2 days. MEDICAL HISTORY : Myelopathy. SURGICAL HISTORY : None. ENCOUNTER: Initial ACUITY: 2 days PAIN SCORE: 8/10 LOCATION: Left chest FINDINGS: No significant needle focal pleural or clinical opacities. Cardiomediastinal contours are within norm al limits. Remainder of exam is unchanged. CONCLUSION: 1. No acute abnormality or significant interval change. Christian Campbell MD on April 30, 2017 at 9:26 Board Certified Radiologist. This report was verified electronically.
[2017-04-30 09:30] LABS: ANION GAP 7 MEQ/L (5-15); AST (GOT) 19 U/L (15-37); BICARBONATE 26.7 MEQ/L (21.0-32.0); BLOOD UREA NITROGEN 22 MG/DL (7-18); CHLORIDE 108 MEQ/L (98-107); GLOMERULAR FILTRATION RATE 61 ML/MIN (>89); MAGNESIUM 1.9 MG/DL (1.5-2.5); POTASSIUM 3.9 MEQ/L (3.5-5.1); SODIUM (NA) 142 MEQ/L (136-145)
[2017-04-30 09:35] LABS: ALKALINE PHOSPHATASE 85 U/L (45-117); ALT (GPT) 22 U/L (10-53); TOTAL BILIRUBIN ADULT 0.4 MG/DL (0.2-1.0)
[2017-04-30] MEDS ORDERED: cloNIDine HCL 0.1 MG TAB PO ONE (09:45)
--- NOTE | 2017-04-30 09:54 | PD ---
HPI Chief Complaint: Chest Pain Time Seen by Provider: 08:46 Travel History International Travel<30 days: No Contact w/Intl Traveler<30days: No Traveled to known affect area: No History of Present Illness HPI 76 year-old woman presents to the emergency department complaining of chest pain arm pain and jaw pain and some tingling in her left arm that started this morning. She is otherwise well and healthy. She has had negative cardiac workups in the past. She had a stress test within the past week or so. She states she feels better now after taking several doses of nitroglycerin. She has had nausea but no vomiting. She otherwise has been feeling generally well. She has a lot of abdominal problems that she treats to gastroparesis. This is been about the same. She has constipation but also been about the same. History Past Medical History Narrative Medical Hypertension Hypothyroidism Gastroparesis Anemia TIA On Eliquis, unclear she's had A. fib in the past. This is for TIA symptoms. Menopausal: Yes : 3 Para: 3 Social History Alcohol Use: No Tobacco Use: No Allergies-Medications (Allergen,Severity, Reaction): Coded Allergies: codeine (Unverified Allergy, Severe, 04/30/17) crab (Unverified Allergy, Severe, Anaphylaxis, 04/30/17) diatrizoate meglumine (Unverified Allergy, Severe, Cardiac Arrest, ANAPHALAXIS, 04/30/17) gadobenic acid (Unverified Allergy, Severe, Cardiac Arrest, ANAPHALAXIS, ) gadodiamide (Unverified Allergy, Severe, Cardiac Arrest, ANAPHALAXIS, 04/30) gadoteridol (Unverified Allergy, Severe, Cardiac Arrest, ANAPHALAXIS, 04/30) iodine (Unverified Allergy, Severe, 04/30/17) iodixanol (Unverified Allergy, Severe, Cardiac Arrest, ANAPHALAXIS, ) iohexol (Unverified Allergy, Severe, Cardiac Arrest, ANAPHALAXIS, 04/30/17) latex (Unverified Allergy, Severe, SKIN BLISTERS, 04/30/17) potassium iodide (Unverified Allergy, Severe, 04/30/17) povidone-iodine (Unverified Allergy, Severe, 04/30/17) shellfish derived (Unverified Allergy, Severe, ANAPHYLAXIS TO ALL SHELLFISH, 04/30/17) sodium iodide (Unverified Allergy, Severe, 04/30/17) sodium iodide (Unverified Allergy, Severe, 04/30/17) Reported Meds & Prescriptions Reported Meds & Active Scripts Active Eliquis (Apixaban) 2.5 Mg Tab 2.5 Mg PO BID Reported Fluticasone Nasal [place] 50 Mcg/Act Naspr 50 Mcg EACH NARE BID 50 mcg/spray Ferrous Sulfate 325 Mg (65 Mg Iron) Tablet 325 Mg PO DAILY [presser vision] 1 Drop EACH EYE BID Vitamin D3 (Cholecalciferol) 2,000 Unit Cap 2,000 Units PO DAILY Calcium + D3 (Calcium Carbonate-Cholecalciferol) 600-200 Mg-Unit Tab 1 Tab PO BID [fish oil] 600 Mg PO BID Lutein 20 Mg Cap 25 Mg PO DAILY Preservision Areds (Multiple Vitamins W/ Minerals) 1 Tab 1 Tab PO BID Amiodarone (Amiodarone HCl) 100 Mg Tab 100 Mg PO DAILY Nitrostat SL (Nitroglycerin) 0.4 Mg Subl 0.4 Mg SL DIRECTED PRN 1 tablet under the tongue as needed for chest pain. Repeat every 5 minutes for a total of 3 DOSES or call 911 if NO relief. Vitamin B-12 (Cyanocobalamin) 1,000 Mcg Tab 1,000 Mcg PO BID Co Q-10 (Coenzyme Q10 (Ubidecarenone)) 100 Mg Cap 100 Mg PO DAILY Restasis Opth 0.05% (Cyclosporine Opth 0.05%) 0.05% Emul 2 Drop EACH EYE BID Protonix (Pantoprazole Sodium) 40 Mg Tab 40 Mg PO DAILY Levothyroxine (Levothyroxine Sodium) 125 Mcg Tab 125 Mcg PO DAILY Isosorbide Mononitrate ER (Isosorbide Mononitrate) 60 Mg Tab 60 Mg PO DAILY Coreg (Carvedilol) 3.125 Mg Tab 3.125 Mg PO BID Diltiazem ER 12 HR (Diltiazem HCl) 120 Mg Caper 120 Mg PO BID Review of Systems Except as stated in HPI: all other systems reviewed are Neg Physical Exam Narrative GENERAL: Well-appearing 76 year-old woman, no acute distress. SKIN: Focused skin assessment warm/dry. HEAD: Atraumatic. Normocephalic. EYES: Pupils equal and round. No scleral icterus. No injection or drainage. ENT: No nasal bleeding or discharge. Mucous membranes pink and moist. NECK: Trachea midline. No JVD. CARDIOVASCULAR: Regular rate and rhythm. No murmur appreciated. RESPIRATORY: No accessory muscle use. Clear to auscultation. Breath sounds equal bilaterally. GASTROINTESTINAL: Abdomen soft, non-tender, nondistended. Hepatic and splenic margins not palpable. MUSCULOSKELETAL: No obvious deformities. No clubbing. No cyanosis. No edema. NEUROLOGICAL: Awake and alert. No obvious cranial nerve deficits. Motor grossly within normal limits. Normal speech. PSYCHIATRIC: Appropriate mood and affect; insight and judgment normal. Data Data Last Documented VS Vital Signs Date Time Temp Pulse Resp B/P (MAP) Pulse Ox O2 Delivery O2 Flow Rate FiO2 04/30/17 08:40 86 20 100 Room Air 04/30/17 08:40 97.5 198/98 (131) Orders Orders Electrocardiogram (04/30/17 08:47) Complete Blood Count With Diff (04/30/17 08:47) Comprehensive Metabolic Panel (04/30/17 08:47) Magnesium (Mg) (04/30/17 08:47) Prothrombin Time / Inr (Pt) (04/30/17 08:47) Act Partial Throm Time (Ptt) (04/30/17 08:47) Troponin I (04/30/17 08:47) Lipase (04/30/17 08:47) Chest, Single Ap (04/30/17 08:47) Ecg Monitoring (04/30/17 08:47) Iv Access Insert/Monitor (04/30/17 08:47) Oximetry (04/30/17 08:47) Oxygen Administration (04/30/17 08:47) Aspirin Chew (Aspirin Chew) (04/30/17 09:00) Sodium Chloride 0.9% Flush (Ns Flush) (04/30/17 09:00) Lorazepam Inj (Ativan Inj) (04/30/17 09:00) Clonidine (Catapres) (04/30/17 09:45) Labs Laboratory Tests Test 04/30/17 08:40 White Blood Count 5.7 TH/MM3 Red Blood Count 4.63 MIL/MM3 Hemoglobin 12.7 GM/DL Hematocrit 39.6 % Mean Corpuscular Volume 85.3 FL Mean Corpuscular Hemoglobin 27.4 PG Mean Corpuscular Hemoglobin Concent 32.2 % Red Cell Distribution Width 23.0 % Platelet Count 125 TH/MM3 Mean Platelet Volume 7.5 FL Neutrophils (%) (Auto) 72.8 % Lymphocytes (%) (Auto) 16.3 % Monocytes (%) (Auto) 8.9 % Eosinophils (%) (Auto) 1.3 % Basophils (%) (Auto) 0.7 % Neutrophils # (Auto) 4.2 TH/MM3 Lymphocytes # (Auto) 0.9 TH/MM3 Monocytes # (Auto) 0.5 TH/MM3 Eosinophils # (Auto) 0.1 TH/MM3 Basophils # (Auto) 0.0 TH/MM3 CBC Comment DIFF FINAL Differential Comment Prothrombin Time 10.7 SEC Prothromb Time International Ratio 1.0 RATIO Activated Partial Thromboplast Time 23.1 SEC Blood Urea Nitrogen 22 MG/DL Creatinine 0.90 MG/DL Random Glucose 99 MG/DL Total Protein 6.2 GM/DL Albumin 3.3 GM/DL Calcium Level 8.9 MG/DL Magnesium Level 1.9 MG/DL Alkaline Phosphatase 85 U/L Aspartate Amino Transf (AST/SGOT) 19 U/L Alanine Aminotransferase (ALT/SGPT) 22 U/L Total Bilirubin 0.4 MG/DL Sodium Level 142 MEQ/L Potassium Level 3.9 MEQ/L Chloride Level 108 MEQ/L Carbon Dioxide Level 26.7 MEQ/L Anion Gap 7 MEQ/L Estimat Glomerular Filtration Rate 61 ML/MIN Troponin I LESS THAN 0.02 NG/ML Lipase 166 U/L MDM Medical Decision Making Medical Screen Exam Complete: Yes Emergency Medical Condition: Yes Interpretation(s) CBC is unremarkable. Platelet count 125. CMP generally unremarkable. Low protein. Troponin negative Lipase normal Coags unremarkable. My review of EKG: Normal sinus rhythm a rate of 80, normal axis, normal intervals, no acute ischemia. Chest x-ray negative. Differential Diagnosis acs, hypertension, chest pain Narrative Course Medical decision making 76 year-old woman, chest pain, looks well. Symptoms are concerning for ACS but she's had extensive workups recently. I spoke with her regulatory and compliance technician she reports recent negative heart catheter, as well as recent negative stress test. Suspect may be vasospasm. We'll get her blood pressure under better control. Labs are unremarkable. Chest x-rays unremarkable. Recommend outpatient follow-up. Diagnosis Primary Impression: Chest pain Additional Instructions: Follow-up with your regulatory and compliance technician in the next one to 2 days. Return to the emergency department for any worsening chest pain, trouble breathing, or any other new or worsening symptoms. Med/Other Pt SpecificInfo: Prescription(s) given Disposition: 01 DISCHARGE HOME Condition: Stable Russel Grant MD Apr 30, 2017 09:54
[2017-04-30 10:18] VITALS: BP 151/90
--- NOTE | 2017-04-30 21:07 | EKG ---
Date Performed: 04/30/2017 Time Performed: 08:38:32 PTAGE: 76 years EKG: Sinus rhythm NORMAL ECG PREVIOUS TRACING : 03/23/2017 09.53 Compared to prior tracing no significant change DOCTOR: Leif Mahan Interpretating Date/Time 04/30/2017 21:07:01
== END 2017-04-30 10:28 | disposition home or self-care (01) ==
LOC: NEPE 08:17
DX: R07.9 Chest pain, unspecified (principal); R68.84 Jaw pain; R20.2 Paresthesia of skin; E03.9 Hypothyroidism, unspecified; I10 Essential (primary) hypertension; Z79.899 Other long term (current) drug therapy
CPT/HCPCS: 71010; 80053; 83690; 83735; 84484; 85025; 85610; 85730; 93005; 96374; 99285; J2060

== ENCOUNTER 2017-07-12 13:45 | Emergency (ER) | payer MEDICARE ==
[~2017-07-12] VITALS: Ht 157.5 cm; Wt 52.0 kg
[~2017-07-12 13:45] MED LIST changes: +FERR325T18 PO; -FERR325T8 PO
[2017-07-12 13:47] VITALS: BP 162/75; PULSE 82; RESP 16; TEMP 98.6; O2SAT 100
--- NOTE | 2017-07-12 14:12 | PD ---
HPI Chief Complaint: Fall Time Seen by Provider: 14:00 Travel History International Travel<30 days: No Contact w/Intl Traveler<30days: No Traveled to known affect area: No History of Present Illness HPI 77-year-old female presents the emergency department with her daughter status post fall 4 days ago while visiting [facility]. Patient was seen in [place], and evaluated with head CT, and told to stop her [place]. Patient states she is having a worsening headache which is now 8 out of 10, but denies dizziness or nausea or vomiting. Patient complains of upper jaw pain and inability to eat as well. She denies recent epistaxis. Patient went to her local dentist and had a panel filled place. PFSH Past Medical History Hx Anticoagulant Therapy: Yes Arthritis: Yes Asthma: No Atrial Fibrillation: Yes Autoimmune Disease: No Blood Disorders: Yes (UNKNOWN SOURCE OF BLEEDING . ) Anxiety: No Depression: No Heart Rhythm Problems: Yes (HX OF AFIB) Cancer: No Cardiac Catheterization: No Cardiovascular Problems: Yes (AFIB) High Cholesterol: Yes Chemotherapy: No Chest Pain: Yes Congestive Heart Failure: No COPD: No Cerebrovascular Accident: Yes Coronary Artery Disease: Yes Diabetes: No Diminished Hearing: No Endocrine: No Gastrointestinal Disorders: Yes (GASTROPARESIS, MCKENZIE'S ESOPHAGUS, DYSPHAGIA , NAUSEA, GERD) GERD: Yes Glaucoma: Yes Genitourinary: Yes (URGENCY ) Headaches: Yes Hepatitis: No Hiatal Hernia: Yes Heparin Induced Thrombocytopen: No Hypertension: Yes Immune Disorder: No Implanted Vascular Access Dvce: Yes Kidney Stones: No Medical other: Yes (BOWEL OBSTRUCTION) Musculoskeletal: Yes (ARTHRITIS, OSTEOSPOROSIS) Neurologic: Yes (TIA IN JUNE 2016) Psychiatric: No Reproductive: Yes (HYSTERECTOMY ) Respiratory: No Immunizations Current: Yes Migraines: No Myocardial Infarction: No Radiation Therapy: No Renal Failure: No Seizures: No Sickle Cell Disease: No Sleep Apnea: Yes (STS SHE NO LONGER HAS IT.) Thyroid Disease: Yes (hypothyroidism) Ulcer: Yes (colon) Menopausal: Yes : 3 Para: 3 Past Surgical History Abdominal Surgery: Yes (CHOLY, TOTAL COLECTOMY, 12 inches of colon removed) AICD: No Appendectomy: Yes Body Medical Devices: STARCLOSE,RIGHT THUMB METAL,LEFT FOOT 2 SCREWS Cardiac Surgery: No Cholecystectomy: Yes Coronary Artery Bypass Graft: No Ear Surgery: No Endocrine Surgery: Yes (LYMPH NODE SURG) Eye Surgery: Yes (ESTELLA EYE CATARACT SX) Genitourinary Surgery: Yes Gynecologic Surgery: Yes (HYSTERECTOMY) Hysterectomy: Yes Insulin Pump: No Joint Replacement: Yes (R HIP REPLACEMENT) Neurologic Surgery: No Oral Surgery: Yes (TONSILLECTOMY) Pacemaker: No Thoracic Surgery: No Tonsillectomy: Yes Other Surgery: Yes (NOSE SURG BONE SPURS, CALCANAL OSTEOTOMY) Social History Alcohol Use: No Tobacco Use: No Substance Use: No Allergies-Medications (Allergen,Severity, Reaction): Coded Allergies: codeine (Unverified Allergy, Severe, 04/30/17) crab (Unverified Allergy, Severe, Anaphylaxis, 04/30/17) diatrizoate meglumine (Unverified Allergy, Severe, Cardiac Arrest, ANAPHALAXIS, 04/30/17) gadobenic acid (Unverified Allergy, Severe, Cardiac Arrest, ANAPHALAXIS, ) gadodiamide (Unverified Allergy, Severe, Cardiac Arrest, ANAPHALAXIS, 04/30) gadoteridol (Unverified Allergy, Severe, Cardiac Arrest, ANAPHALAXIS, 04/30) iodine (Unverified Allergy, Severe, 04/30/17) iodixanol (Unverified Allergy, Severe, Cardiac Arrest, ANAPHALAXIS, ) iohexol (Unverified Allergy, Severe, Cardiac Arrest, ANAPHALAXIS, 04/30/17) latex (Unverified Allergy, Severe, SKIN BLISTERS, 04/30/17) potassium iodide (Unverified Allergy, Severe, 04/30/17) povidone-iodine (Unverified Allergy, Severe, 04/30/17) shellfish derived (Unverified Allergy, Severe, ANAPHYLAXIS TO ALL SHELLFISH, 04/30/17) sodium iodide (Unverified Allergy, Severe, 04/30/17) sodium iodide (Unverified Allergy, Severe, 04/30/17) Reported Meds & Prescriptions Reported Meds & Active Scripts Active Tramadol (Tramadol HCl) 50 Mg Tab 50 Mg PO Q6H PRN Eliquis (Apixaban) 2.5 Mg Tab 2.5 Mg PO BID Reported Fluticasone Nasal [place] 50 Mcg/Act Naspr 50 Mcg EACH NARE BID 50 mcg/spray Ferrous Sulfate 325 Mg (65 Mg Iron) Tablet 325 Mg PO DAILY [presser vision] 1 Drop EACH EYE BID Vitamin D3 (Cholecalciferol) 2,000 Unit Cap 2,000 Units PO DAILY Calcium + D3 (Calcium Carbonate-Cholecalciferol) 600-200 Mg-Unit Tab 1 Tab PO BID [fish oil] 600 Mg PO BID Lutein 20 Mg Cap 25 Mg PO DAILY Preservision Areds (Multiple Vitamins W/ Minerals) 1 Tab 1 Tab PO BID Amiodarone (Amiodarone HCl) 100 Mg Tab 100 Mg PO DAILY Nitrostat SL (Nitroglycerin) 0.4 Mg Subl 0.4 Mg SL DIRECTED PRN 1 tablet under the tongue as needed for chest pain. Repeat every 5 minutes for a total of 3 DOSES or call 911 if NO relief. Vitamin B-12 (Cyanocobalamin) 1,000 Mcg Tab 1,000 Mcg PO BID Co Q-10 (Coenzyme Q10 (Ubidecarenone)) 100 Mg Cap 100 Mg PO DAILY Restasis Opth (Cyclosporine Opth) 0.05% Emul 2 Drop EACH EYE BID Protonix (Pantoprazole Sodium) 40 Mg Tab 40 Mg PO DAILY Levothyroxine (Levothyroxine Sodium) 125 Mcg Tab 125 Mcg PO DAILY Isosorbide Mononitrate ER (Isosorbide Mononitrate) 60 Mg Tab 60 Mg PO DAILY Coreg (Carvedilol) 3.125 Mg Tab 3.125 Mg PO BID Diltiazem ER 12 HR (Diltiazem HCl) 120 Mg Caper 120 Mg PO BID Review of Systems Except as stated in HPI: all other systems reviewed are Neg General / Constitutional: No: Fever Eyes: No: Diploplia, Blurred Vision, Photophobia, Visual changes HENT: Positive: Headaches, Nosebleed (previously but not recently.), No: Vertigo, Lightheadedness, Sore Throat, Rhinitis, Rhinorrhea, Congestion, Neck Stiffness, Neck Pain, Masses, Gingival Bleeding, Dental Difficulties, Ear Discharge, Earache, Other Cardiovascular: No: Chest Pain or Discomfort Respiratory: No: Shortness of Breath Gastrointestinal: No: Abdominal Pain Genitourinary: No: Dysuria Musculoskeletal: No: Pain Skin: No Rash Neurologic: No: Weakness Psychiatric: No: Depression Endocrine: No: Polydipsia Hematologic/Lymphatic: No: Easy Bruising Physical Exam Narrative GENERAL: Patient appears in mild distress but is ambulatory to the room without difficulty. SKIN: Warm and dry. Patient has multiple contusions with ecchymosis to the anterior face bilaterally and a raccoon distribution. The patient has healing abrasion to the nasal bridge as well as the upper lip. HEAD: Atraumatic. Normocephalic. Patient has mild tenderness to the upper maxillary jaw and nose. EYES: Pupils equal and round. No scleral icterus. No injection or drainage. Ocular motions are full without increased tenderness. ENT: No nasal bleeding or discharge. Mucous membranes pink and moist. No obvious dental injuries. Pharynx is clear. Airway is patent. TMs are clear bilaterally. NECK: Trachea midline. No bony tenderness or step-off. Range of motion is supple. Cervical spine is cleared utilizing nexus criteria. CARDIOVASCULAR: Regular rate and rhythm. RESPIRATORY: No accessory muscle use. Clear to auscultation. Breath sounds equal bilaterally. GASTROINTESTINAL: Abdomen soft, non-tender, nondistended. Hepatic and splenic margins not palpable. MUSCULOSKELETAL: Extremities without clubbing, cyanosis, or edema. No obvious deformities. NEUROLOGICAL: Awake and alert. No obvious cranial nerve deficits. Motor grossly within normal limits. Five out of 5 muscle strength in the arms and legs. Normal speech. PSYCHIATRIC: Appropriate mood and affect; insight and judgment normal. Data Data Last Documented VS Vital Signs Date Time Temp Pulse Resp B/P (MAP) Pulse Ox O2 Delivery O2 Flow Rate FiO2 07/12/17 14:04 Room Air 07/12/17 13:47 98.6 82 16 162/75 (104) 100 Orders Orders Complete Blood Count With Diff (07/12/17 14:09) Comprehensive Metabolic Panel (07/12/17 14:09) Prothrombin Time / Inr (Pt) (07/12/17 14:09) Act Partial Throm Time (Ptt) (07/12/17 14:09) Ct Brain W/O Iv Contrast(Rout) (07/12/17 14:09) Ct Facial Bones W/O Iv Cont (07/12/17 14:09) Labs Laboratory Tests Test 07/12/17 14:16 White Blood Count 7.1 TH/MM3 Red Blood Count 4.24 MIL/MM3 Hemoglobin 13.5 GM/DL Hematocrit 40.0 % Mean Corpuscular Volume 94.3 FL Mean Corpuscular Hemoglobin 31.9 PG Mean Corpuscular Hemoglobin Concent 33.8 % Red Cell Distribution Width 14.9 % Platelet Count 154 TH/MM3 Mean Platelet Volume 7.5 FL Neutrophils (%) (Auto) 65.8 % Lymphocytes (%) (Auto) 21.8 % Monocytes (%) (Auto) 10.8 % Eosinophils (%) (Auto) 1.2 % Basophils (%) (Auto) 0.4 % Neutrophils # (Auto) 4.7 TH/MM3 Lymphocytes # (Auto) 1.5 TH/MM3 Monocytes # (Auto) 0.8 TH/MM3 Eosinophils # (Auto) 0.1 TH/MM3 Basophils # (Auto) 0.0 TH/MM3 CBC Comment DIFF FINAL Differential Comment Prothrombin Time 10.5 SEC Prothromb Time International Ratio 1.0 RATIO Activated Partial Thromboplast Time 24.0 SEC Blood Urea Nitrogen 28 MG/DL Creatinine 1.42 MG/DL Random Glucose 124 MG/DL Total Protein 7.0 GM/DL Albumin 3.3 GM/DL Calcium Level 9.8 MG/DL Alkaline Phosphatase 94 U/L Aspartate Amino Transf (AST/SGOT) 26 U/L Alanine Aminotransferase (ALT/SGPT) 24 U/L Total Bilirubin 0.4 MG/DL Sodium Level 139 MEQ/L Potassium Level 4.4 MEQ/L Chloride Level 107 MEQ/L Carbon Dioxide Level 26.2 MEQ/L Anion Gap 6 MEQ/L Estimat Glomerular Filtration Rate 36 ML/MIN MDM Medical Decision Making Medical Screen Exam Complete: Yes Emergency Medical Condition: Yes Differential Diagnosis Fall. Facial contusion. Fracture. Intracranial bleed. Narrative Course Patient is medically stable at time of exam. Labs ordered including CBC, CMP, and coagulation studies. CT of the brain and facial bones are ordered. There is no active intracranial process or skull fracture other than nasal bone fracture. Read by the radiologist. Patient should remain off her pelvic rest until Friday and then call her metal sprayer machined parts regarding this. Patient is to take Tylenol and ice frequently to the injured areas. Patient is to have soft diet until improved. Patient is given tramadol 50 mg one every 6 hours when necessary pain as needed #20. Diagnosis Primary Impression: Fall (on)(from) sidewalk curb, initial encounter Additional Impressions: Nasal bone fracture Qualified Codes: S02.2XXA - Fracture of nasal bones, initial encounter for closed fracture Contusion of face Qualified Codes: S00.83XA - Contusion of other part of head, initial encounter Referrals: Primary Care Physician Patient Instructions: Facial Contusion (ED), General Instructions, Nasal Fracture (ED) Additional Instructions: There is no active intracranial process or skull fracture other than nasal bone fracture. Read by the radiologist. Patient should remain off her pelvic rest until Friday and then call her metal sprayer machined parts regarding this. Patient is to take Tylenol and ice frequently to the injured areas. Patient is to have soft diet until improved. Patient is given tramadol 50 mg one every 6 hours when necessary pain as needed #20. Med/Other Pt SpecificInfo: Prescription(s) given Scripts Tramadol (Tramadol) 50 Mg Tab 50 MG PO Q6H Y for PAIN, #20 TAB 0 Refills Prov: Garcia Panchal MD 07/12/17 Disposition: 01 DISCHARGE HOME Condition: Stable Anshul Altamirano Jul 12, 2017 14:12
[2017-07-12 14:31] LABS: AUTOMATED NEUTROPHIL # 4.7 TH/MM3 (1.8-7.7); BASOPHIL % 0.4 % (0.0-2.0); EOSINOPHIL # 0.1 TH/MM3 (0-0.4); EOSINOPHIL % 1.2 % (0.0-4.0); HEMO FLAGS DIFF FINAL; LYMPH % 21.8 % (9.0-44.0); LYMPHOCYTE # 1.5 TH/MM3 (1.0-4.8); MEAN CELL VOLUME 94.3 FL (80.0-100.0); MEAN CORPUSCULAR HEMOGLOBIN 31.9 PG (27.0-34.0); MEAN CORPUSCULAR HGB CONC 33.8 % (32.0-36.0); MONO % 10.8 % (0.0-8.0); NEUT % 65.8 % (16.0-70.0); PLATELET COUNT 154 TH/MM3 (150-450); RED BLOOD COUNT 4.24 MIL/MM3 (4.00-5.30); RED CELL DISTRIBUTION WIDTH 14.9 % (11.6-17.2); WHITE BLOOD COUNT 7.1 TH/MM3 (4.0-11.0)
[2017-07-12 14:36] LABS: PROTHROMBIN TIME - PATIENT 10.5 SEC (9.8-11.6)
[2017-07-12 14:41] LABS: ANION GAP 6 MEQ/L (5-15); AST (GOT) 26 U/L (15-37); BICARBONATE 26.2 MEQ/L (21.0-32.0); BLOOD UREA NITROGEN 28 MG/DL (7-18); CHLORIDE 107 MEQ/L (98-107); GLOMERULAR FILTRATION RATE 36 ML/MIN (>89); POTASSIUM 4.4 MEQ/L (3.5-5.1); SODIUM (NA) 139 MEQ/L (136-145)
--- NOTE | 2017-07-12 14:43 | RADRPT ---
EXAM DATE/TIME: 07/12/2017 14:21 [facility] COMPARISON: No previous studies available for comparison. INDICATIONS : Fall, extensive facial bruising. RADIATION DOSE: 56.35 CTDIvol (mGy) MEDICAL HISTORY : Stroke. Cardiovascular disease Hypertension. SURGICAL HISTORY : Appendectomy. Cholecystectomy.Hysterectomy. ENCOUNTER: Initial ACUITY: 1 day PAIN SCALE: 0/10 LOCATION: cranial TECHNIQUE: Multiple contiguous axial images were obtained of the head. Using automated exposure control and adj ustment of the mA and/or kV according to patient size, radiation dose was kept as low as reasonably a chievable to obtain optimal diagnostic quality images. DICOM format image data is available electro nically for review and comparison. FINDINGS: CEREBRUM: The ventricles are normal for age. No evidence of midline shift, mass lesion, hemorrhage or acute in farction. No extra-axial fluid collections are seen. POSTERIOR FOSSA: The cerebellum and brainstem are intact. The 4th ventricle is midline. The cerebellopontine angle i s unremarkable. EXTRACRANIAL: The visualized portion of the orbits is intact. SKULL: The calvaria is intact. No evidence of skull fracture. Nasal bone fractures present bilaterally CONCLUSION: 1. No acute intracranial abnormalities. Nasal bone fractures noted. Jordy Bautista MD on July 12, 2017 at 14:39 Board Certified Radiologist. This report was verified electronically.
[2017-07-12 14:44] LABS: ALKALINE PHOSPHATASE 94 U/L (45-117); ALT (GPT) 24 U/L (10-53); TOTAL BILIRUBIN ADULT 0.4 MG/DL (0.2-1.0)
--- NOTE | 2017-07-12 14:51 | RADRPT ---
EXAM DATE/TIME: 07/12/2017 14:23 [facility] COMPARISON: No previous studies available for comparison. INDICATIONS : Fall, bilateral facial bruising. RADIATION DOSE: 36.69 CTDIvol (mGy) MEDICAL HISTORY : Stroke. Cardiovascular disease Hypertension. SURGICAL HISTORY : None. ENCOUNTER: Initial ACUITY: 3 days PAIN SCORE: 4/10 LOCATION: Bilateral facial anteriorly by nose and orbits. TECHNIQUE: Volumetric scanning of the facial bones was performed. Using automated exposure control and adjustme nt of the mA and/or kV according to patient size, radiation dose was kept as low as reasonably achiev able to obtain optimal diagnostic quality images. DICOM format image data is available electronicall y for review and comparison. FINDINGS: There is a mildly displaced fracture of the right nasal bone and a relatively nondisplaced fracture l eft nasal bone. No other facial bone fractures identified. Globes intact. Mild mucosal thickening lef t sphenoid sinus with a retention cyst. CONCLUSION: 1. Bilateral nasal bone fractures. No other facial bone fractures identified. Jordy Bautista MD on July 12, 2017 at 14:47 Board Certified Radiologist. This report was verified electronically.
[2017-07-12] MEDS ORDERED: TRAM50TA PO (15:15)
== END 2017-07-12 16:18 | disposition home or self-care (01) ==
LOC: NEPC 13:45
DX: S02.2XXA Fracture of nasal bones, initial encounter for closed fracture (principal); S00.83XA Contusion of other part of head, initial encounter; I10 Essential (primary) hypertension; I48.91 Unspecified atrial fibrillation; I25.10 Atherosclerotic heart disease of native coronary artery without angina pectoris; K21.9 Gastro-esophageal reflux disease without esophagitis; M81.0 Age-related osteoporosis without current pathological fracture; E03.9 Hypothyroidism, unspecified; W19.XXXA Unspecified fall, initial encounter
CPT/HCPCS: 70450; 70486; 80053; 85025; 85610; 85730; 99285

== ENCOUNTER 2017-12-01 16:07 | Inpatient (IN) | payer MEDICARE ==
[~2017-12-01] VITALS: Ht 157.5 cm; Wt 61.4 kg
[~2017-12-01 16:07] MED LIST changes: +TRAM50TA PO
[2017-12-01 16:22] VITALS: BP 200/91; PULSE 90; RESP 16; O2SAT 98
[2017-12-01] MEDS ORDERED: TETANUS/DIPHTHERIA TOXOID ADULT 0.5 ML VIAL IM ONE (16:30)
--- NOTE | 2017-12-01 16:32 | PD ---
HPI Chief Complaint: Fall Time Seen by Provider: 16:16 Travel History International Travel<30 days: No Contact w/Intl Traveler<30days: No Traveled to known affect area: No History of Present Illness HPI 77-year-old female history of atrial fibrillation on Eliquis, hypertension, primary care physician Dr. Dinh, presents via EMS for evaluation after mechanical fall. Prior to arrival the patient reports that she tripped and fell , landing on her left side. She does not recall if there was any head injury. She is complaining of pain primarily in the left hip as well as in the left mid back and left anterior rib cage as well as mild neck pain. Pain is aching and worse with movement. She has an abrasion to left arm and abrasions of the left knee. Last tetanus vaccination unknown. Denies any numbness, tingling, weakness, abdominal pain, shortness of breath, nausea or vomiting. She has been unable to ambulate since the fall. She has no other complaints at this time. PFSH Past Medical History Hx Anticoagulant Therapy: Yes Arthritis: Yes Asthma: No Atrial Fibrillation: Yes Autoimmune Disease: No Blood Disorders: Yes (UNKNOWN SOURCE OF BLEEDING . ) Anxiety: No Depression: No Heart Rhythm Problems: Yes (HX OF AFIB) Cancer: No Cardiac Catheterization: No Cardiovascular Problems: Yes High Cholesterol: Yes Chemotherapy: No Chest Pain: Yes Congestive Heart Failure: No COPD: No Cerebrovascular Accident: Yes Coronary Artery Disease: Yes Diabetes: No Diminished Hearing: No Endocrine: No Gastrointestinal Disorders: Yes (GASTROPARESIS, MCKENZIE'S ESOPHAGUS, DYSPHAGIA , NAUSEA, GERD) GERD: Yes Glaucoma: Yes Genitourinary: Yes (URGENCY ) Headaches: Yes Hepatitis: No Hiatal Hernia: Yes Heparin Induced Thrombocytopen: No Hypertension: Yes Immune Disorder: No Implanted Vascular Access Dvce: Yes Kidney Stones: No Musculoskeletal: Yes (ARTHRITIS, OSTEOSPOROSIS) Neurologic: Yes (TIA IN JUNE 2016) Psychiatric: No Reproductive: Yes (HYSTERECTOMY ) Respiratory: No Immunizations Current: Yes Migraines: No Myocardial Infarction: No Radiation Therapy: No Renal Failure: No Seizures: No Sickle Cell Disease: No Sleep Apnea: Yes (STS SHE NO LONGER HAS IT.) Thyroid Disease: Yes (hypothyroidism) Ulcer: Yes (colon) Menopausal: Yes : 3 Para: 3 Past Surgical History Abdominal Surgery: Yes (CHOLY, TOTAL COLECTOMY, 12 inches of colon removed) AICD: No Appendectomy: Yes Body Medical Devices: STARCLOSE,RIGHT THUMB METAL,LEFT FOOT 2 SCREWS Cardiac Surgery: No Cholecystectomy: Yes Coronary Artery Bypass Graft: No Ear Surgery: No Endocrine Surgery: Yes (LYMPH NODE SURG) Eye Surgery: Yes (ESTELLA EYE CATARACT SX) Genitourinary Surgery: Yes Gynecologic Surgery: Yes (HYSTERECTOMY) Hysterectomy: Yes Insulin Pump: No Joint Replacement: Yes (R HIP REPLACEMENT) Neurologic Surgery: No Oral Surgery: Yes (TONSILLECTOMY) Pacemaker: No Thoracic Surgery: No Tonsillectomy: Yes Other Surgery: Yes (NOSE SURG BONE SPURS, CALCANAL OSTEOTOMY) Social History Alcohol Use: No Tobacco Use: No Substance Use: No Allergies-Medications (Allergen,Severity, Reaction): Coded Allergies: codeine (Verified Allergy, Severe, 12/01/17) crab (Verified Allergy, Severe, Anaphylaxis, 12/01/17) diatrizoate meglumine (Verified Allergy, Severe, Cardiac Arrest, ANAPHALAXIS, 12/01/17) gadobenic acid (Verified Allergy, Severe, Cardiac Arrest, ANAPHALAXIS, ) gadodiamide (Verified Allergy, Severe, Cardiac Arrest, ANAPHALAXIS, ) gadoteridol (Verified Allergy, Severe, Cardiac Arrest, ANAPHALAXIS, ) iodine (Verified Allergy, Severe, 12/01/17) iodixanol (Verified Allergy, Severe, Cardiac Arrest, ANAPHALAXIS, 12/01/17) iohexol (Verified Allergy, Severe, Cardiac Arrest, ANAPHALAXIS, 12/01/17) latex (Verified Allergy, Severe, SKIN BLISTERS, 12/01/17) potassium iodide (Verified Allergy, Severe, 12/01/17) povidone-iodine (Verified Allergy, Severe, 12/01/17) shellfish derived (Verified Allergy, Severe, ANAPHYLAXIS TO ALL SHELLFISH , 12/01/17) sodium iodide (Verified Allergy, Severe, 12/01/17) sodium iodide (Verified Allergy, Severe, 12/01/17) Reported Meds & Prescriptions Reported Meds & Active Scripts Active Tramadol (Tramadol HCl) 50 Mg Tab 50 Mg PO Q6H PRN Eliquis (Apixaban) 2.5 Mg Tab 2.5 Mg PO BID Reported Fluticasone Nasal [place] 50 Mcg/Act Naspr 50 Mcg EACH NARE BID 50 mcg/spray Ferrous Sulfate 325 Mg (65 Mg Iron) Tablet 325 Mg PO DAILY [presser vision] 1 Drop EACH EYE BID Vitamin D3 (Cholecalciferol) 2,000 Unit Cap 2,000 Units PO DAILY Calcium + D3 (Calcium Carbonate-Cholecalciferol) 600-200 Mg-Unit Tab 1 Tab PO BID [fish oil] 600 Mg PO BID Lutein 20 Mg Cap 25 Mg PO DAILY Preservision Areds (Multiple Vitamins W/ Minerals) 1 Tab 1 Tab PO BID Amiodarone (Amiodarone HCl) 100 Mg Tab 100 Mg PO DAILY Nitrostat SL (Nitroglycerin) 0.4 Mg Subl 0.4 Mg SL DIRECTED PRN 1 tablet under the tongue as needed for chest pain. Repeat every 5 minutes for a total of 3 DOSES or call 911 if NO relief. Vitamin B-12 (Cyanocobalamin) 1,000 Mcg Tab 1,000 Mcg PO BID Co Q-10 (Coenzyme Q10 (Ubidecarenone)) 100 Mg Cap 100 Mg PO DAILY Restasis Opth (Cyclosporine Opth) 0.05% Emul 2 Drop EACH EYE BID Protonix (Pantoprazole Sodium) 40 Mg Tab 40 Mg PO DAILY Levothyroxine (Levothyroxine Sodium) 125 Mcg Tab 125 Mcg PO DAILY Isosorbide Mononitrate ER (Isosorbide Mononitrate) 60 Mg Tab 60 Mg PO DAILY Coreg (Carvedilol) 3.125 Mg Tab 3.125 Mg PO BID Diltiazem ER 12 HR (Diltiazem HCl) 120 Mg Caper 120 Mg PO BID Review of Systems Except as stated in HPI: all other systems reviewed are Neg Physical Exam Narrative GENERAL: Well-developed well-nourished female no acute distress cervical collar in place laying on backboard. The patient was logrolled off the backboard using spinal precautions. SKIN: Warm and dry. Skin tear proximal left arm. Abrasion left knee. HEAD: Atraumatic. Normocephalic. EYES: Pupils equal and round. No scleral icterus. No injection or drainage. ENT: No nasal bleeding or discharge. Mucous membranes pink and moist. NECK: Trachea midline. No JVD. CARDIOVASCULAR: Regular rate and rhythm. No murmur appreciated. RESPIRATORY: No accessory muscle use. Clear to auscultation. Breath sounds equal bilaterally. GASTROINTESTINAL: Abdomen soft, non-tender, nondistended. Hepatic and splenic margins not palpable. MUSCULOSKELETAL: Left hip is externally rotated and shortened. There is some tenderness to palpation to the left thoracic paravertebral musculature. There is tenderness to palpation to the anterior left chest wall. There is tenderness to palpation of the left hip. 2+ dorsalis pedis pulse bilaterally. NEUROLOGICAL: Awake and alert. No obvious cranial nerve deficits. Motor grossly within normal limits. Normal speech. Data Data Last Documented VS Vital Signs Date Time Temp Pulse Resp B/P (MAP) Pulse Ox O2 Delivery O2 Flow Rate FiO2 12/01/17 17:50 15 12/01/17 16:26 Room Air 12/01/17 16:22 90 200/91 (127) 98 Orders Orders Hip, Uni(Ap&Lat) W Ap Pelvis (12/01/17 ) Ct Brain W/O Iv Contrast(Rout) (12/01/17 ) Ribs, Uni (W/Exp Cxr-Min 3vw) (12/01/17 ) Ct Cerv Spine W/O Contrast (12/01/17 ) Basic Metabolic Panel (Bmp) (12/01/17 16:26) Complete Blood Count With Diff (12/01/17 16:26) Prothrombin Time / Inr (Pt) (12/01/17 16:26) Act Partial Throm Time (Ptt) (12/01/17 16:26) Iv Access Insert/Monitor (12/01/17 16:26) Electrocardiogram (12/01/17 16:26) Tetanus/Diphtheria Tox Adult (Tetanus/Di (12/01/17 16:30) Type And Screen (12/01/17 16:26) Spine, Thoracic-Ap/Lat/Sw(3vw) (12/01/17 ) Knee, Ltd (1 Or 2vws) (12/01/17 ) Morphine Inj (Morphine Inj) (12/01/17 17:45) Ondansetron Inj (Zofran Inj) (12/01/17 17:45) Consult Orthopedic (12/01/17 ) (Hub Use Only)Inp Phy Cons/Ref (12/01/17 ) Admit Order (Ed Use Only) (12/01/17 19:11) Wound Care (12/01/17 19:12) Labs Laboratory Tests Test 12/01/17 16:30 White Blood Count 6.5 TH/MM3 Red Blood Count 4.20 MIL/MM3 Hemoglobin 10.2 GM/DL Hematocrit 31.7 % Mean Corpuscular Volume 75.6 FL Mean Corpuscular Hemoglobin 24.3 PG Mean Corpuscular Hemoglobin Concent 32.1 % Red Cell Distribution Width 16.3 % Platelet Count 142 TH/MM3 Mean Platelet Volume 7.4 FL Neutrophils (%) (Auto) 75.4 % Lymphocytes (%) (Auto) 14.6 % Monocytes (%) (Auto) 8.8 % Eosinophils (%) (Auto) 0.9 % Basophils (%) (Auto) 0.3 % Neutrophils # (Auto) 4.9 TH/MM3 Lymphocytes # (Auto) 0.9 TH/MM3 Monocytes # (Auto) 0.6 TH/MM3 Eosinophils # (Auto) 0.1 TH/MM3 Basophils # (Auto) 0.0 TH/MM3 CBC Comment DIFF FINAL Differential Comment Prothrombin Time 10.9 SEC Prothromb Time International Ratio 1.1 RATIO Activated Partial Thromboplast Time 21.7 SEC Blood Urea Nitrogen 24 MG/DL Creatinine 1.21 MG/DL Random Glucose 100 MG/DL Calcium Level 9.9 MG/DL Sodium Level 142 MEQ/L Potassium Level 3.8 MEQ/L Chloride Level 108 MEQ/L Carbon Dioxide Level 28.2 MEQ/L Anion Gap 6 MEQ/L Estimat Glomerular Filtration Rate 43 ML/MIN [facility] Medical Decision Making Medical Screen Exam Complete: Yes Emergency Medical Condition: Yes Medical Record Reviewed: Yes Differential Diagnosis Hip fracture, dislocation, contusion, closed head injury, rib fracture, pneumothorax, hemothorax Narrative Course The patient was placed on ECG monitoring pulse oximetry. Lab work and imaging studies have been ordered. The patient will be given morphine and Zofran. CBC reveals a hemoglobin of 10.2 and platelet count of 142 otherwise unremarkable. BMP reveals a GFR 43 otherwise unremarkable. X-ray imaging reveals CONCLUSION: 1. Left intertrochanteric hip fracture with varus angulation. 2. Probable old left inferior pubic ramus fracture. Discussed with Melchor Zarate PA-C pony ride attendant for Dr. Denise who would like the patient admitted to medicine with consultation, ROSALINDA Olvera after midnight. Discussed with Dr. Dickerson who is agreeable with admission. Local wound care provided for the left arm skin tear. Diagnosis Primary Impression: Closed left hip fracture Admitting Information Admitting Physician Requests: Admit Eduardo Dominguez Dec 01, 2017 16:32
[2017-12-01 16:56] LABS: AUTOMATED NEUTROPHIL # 4.9 TH/MM3 (1.8-7.7); BASOPHIL % 0.3 % (0.0-2.0); EOSINOPHIL # 0.1 TH/MM3 (0-0.4); EOSINOPHIL % 0.9 % (0.0-4.0); HEMATOCRIT 31.7 % (35.0-46.0); HEMOGLOBIN 10.2 GM/DL (11.6-15.3); LYMPH % 14.6 % (9.0-44.0); LYMPHOCYTE # 0.9 TH/MM3 (1.0-4.8); MEAN CELL VOLUME 75.6 FL (80.0-100.0); MEAN CORPUSCULAR HEMOGLOBIN 24.3 PG (27.0-34.0); MEAN CORPUSCULAR HGB CONC 32.1 % (32.0-36.0); MEAN PLATELET VOLUME 7.4 FL (7.0-11.0); MONO % 8.8 % (0.0-8.0); MONOCYTE # 0.6 TH/MM3 (0-0.9); NEUT % 75.4 % (16.0-70.0); PLATELET COUNT 142 TH/MM3 (150-450); RED CELL DISTRIBUTION WIDTH 16.3 % (11.6-17.2); WHITE BLOOD COUNT 6.5 TH/MM3 (4.0-11.0)
[2017-12-01 17:11] LABS: BICARBONATE 28.2 MEQ/L (21.0-32.0); CALCIUM 9.9 MG/DL (8.5-10.1); CREATININE 1.21 MG/DL (0.50-1.00)
[2017-12-01 17:17] LABS: INTERNATIONAL NORMALIZED RATIO 1.1 RATIO; PROTHROMBIN TIME - PATIENT 10.9 SEC (9.8-11.6)
--- NOTE | 2017-12-01 17:35 | RADRPT ---
EXAM DATE/TIME: 12/01/2017 16:45 [facility] COMPARISON: No previous studies available for comparison. INDICATIONS : Fall today. Left sided rib pain. MEDICAL HISTORY : Stroke. Cardiovascular disease Hypertension. SURGICAL HISTORY : Right hip replacement. ENCOUNTER: Initial ACUITY: 1 day PAIN SCORE: 5/10 LOCATION: Left ribs. FINDINGS: Multiple views of the left ribs were performed. There is no evidence of displaced fracture. No dest ructive lesions or areas of periosteal thickening are seen. Expiratory view of the chest is negative for pneumothorax. The mediastinal structures are midline. Lungs are hyperinflated but clear of acut e infiltrate. CONCLUSION: 1. Hyperinflation with no acute infiltrate. 2. No fracture Bernabe Perea MD on December 01, 2017 at 17:31 Board Certified Radiologist. This report was verified electronically.
--- NOTE | 2017-12-01 17:36 | RADRPT ---
EXAM DATE/TIME: 12/01/2017 16:54 [facility] COMPARISON: No previous studies available for comparison. INDICATIONS : Fall today. Pain in thoracic spine. MEDICAL HISTORY : Stroke. Cardiovascular disease Hypertension. SURGICAL HISTORY : Right hip replacement. ENCOUNTER: Initial ACUITY: 1 day PAIN SCORE: 5/10 LOCATION: Bilateral thoracic spine. FINDINGS: Mild extra scoliosis of the thoracolumbar spine. Multilevel degenerative disc disease with bridging o steophytes laterally and anteriorly. Vertebral body heights are maintained without fracture. CONCLUSION: 1. Multilevel and disc disease with bridging lateral and anterior osteophytes. 2. Mild dextroscoliosis of the thoracolumbar spine. 3. No acute fracture. Bernabe Perea MD on December 01, 2017 at 17:33 Board Certified Radiologist. This report was verified electronically.
--- NOTE | 2017-12-01 17:37 | RADRPT ---
EXAM DATE/TIME: 12/01/2017 17:00 [facility] COMPARISON: No previous studies available for comparison. INDICATIONS : Fall today. Left knee pain. MEDICAL HISTORY : Stroke. Cardiovascular disease Hypertension. SURGICAL HISTORY : Right hip replacement. ENCOUNTER: Initial ACUITY: 1 day PAIN SCORE: 5/10 LOCATION: Left knee. FINDINGS: Limited 2 view examination of the left knee demonstrates no evidence of fracture or dislocation. Bon y mineralization is normal. The suprapatellar soft tissues have a normal configuration. CONCLUSION: No acute fracture. No significant effusion. Bernabe Perea MD on December 01, 2017 at 17:34 Board Certified Radiologist. This report was verified electronically.
[2017-12-01] MEDS ORDERED: ONDANSETRON HCL 4 MG/2 ML VIAL IV PUSH ONE (17:45)
[2017-12-01] MEDS ORDERED: MORPHINE SULFATE 4 MG/ML INJ IV PUSH ONE ×2 (17:45→19:45)
--- NOTE | 2017-12-01 17:46 | RADRPT ---
EXAM DATE/TIME: 12/01/2017 16:54 [facility] COMPARISON: No previous studies available for comparison. INDICATIONS : Fall today. Left hip pain. MEDICAL HISTORY : Stroke. Cardiovascular disease Hypertension. SURGICAL HISTORY : Right hip replacement. ENCOUNTER: Initial ACUITY: 1 day PAIN SCORE: 10/10 LOCATION: Left hip. FINDINGS: Examination of the left hip was performed with AP Pelvis. Intratrochanteric fracture with some angul ation on the left. I believe there is an old inferior pubic ramus fracture as well. Right total hip a rthroplasty remains grossly intact CONCLUSION: 1. Left intertrochanteric hip fracture with varus angulation. 2. Probable old left inferior pubic ramus fracture. Bernabe Perea MD on December 01, 2017 at 17:43 Board Certified Radiologist. This report was verified electronically.
--- NOTE | 2017-12-01 17:53 | RADRPT ---
EXAM DATE/TIME: 12/01/2017 17:25 [facility] COMPARISON: No previous studies available for comparison. INDICATIONS : Trauma. Fall. RADIATION DOSE: 42.86 CTDIvol (mGy) MEDICAL HISTORY : Cerebrovascular disease. Cardiovascular disease Hypertension.Anemia SURGICAL HISTORY : Hysterectomy. ENCOUNTER: Initial ACUITY: 1 day PAIN SCALE: 7/10 LOCATION: neck TECHNIQUE: Volumetric scanning of the cervical spine was performed. Multiplanar reconstructions in the sagittal, coronal and oblique axial planes were performed. Using automated exposure control and adjustment o f the mA and/or kV according to patient size, radiation dose was kept as low as reasonably achievable to obtain optimal diagnostic quality images. DICOM format image data is available electronically f or review and comparison. FINDINGS: Sagittal and coronal reconstructions show multilevel degenerative disc disease with loss of disc heig ht at every cervical level. This is most severe from C3-4 through C5-6 where there is near bone-on-bobbi ne articulation. Grade 1 anterolisthesis of C2 on 3 and C3 on 4 probably due to facet degeneration. V ertebral body heights are maintained without fracture. C2-C3: The bony spinal canal is normal in size. No evidence of disc bulge or herniation. The neural forami na are bilaterally patent. C3-C4: Left-sided facet hypertrophy with narrowing of left neuroforamina. Spinal canal and right neural fora roseanne are adequate. C4-C5: Uncovertebral ridging. Spinal canal and neural foramina are adequate C5-C6: Uncovertebral ridging. Spinal canal and neural foramina are adequate C6-C7: The bony spinal canal is normal in size. No evidence of disc bulge or herniation. The neural forami na are bilaterally patent. C7-T1: The bony spinal canal is normal in size. No evidence of disc bulge or herniation. The neural forami na are bilaterally patent. CONCLUSION: 1. Multilevel degenerative disc disease with loss of disc height at just about every cervical level. This is most severe from C3-4 through C5-6. 2. Grade 1 anterolisthesis of C2 on 3 and C3 on 4 is probably chronic related to facet hypertrophy. 3. No fracture. 4. Foramina narrowing leftward at C3-4 due to facet hypertrophy may be severe enough to compromise th e left C4 nerve root. Bernabe Perea MD on December 01, 2017 at 17:48 Board Certified Radiologist. This report was verified electronically.
--- NOTE | 2017-12-01 18:28 | RADRPT ---
EXAM DATE/TIME: 12/01/2017 17:25 [facility] COMPARISON: CT BRAIN W/O CONTRAST, July 12, 2017, 14:21. INDICATIONS : Trauma, patient fell. RADIATION DOSE: 46.87 CTDIvol (mGy) MEDICAL HISTORY : Cardiovascular disease. Hypertension. Cerebrovascular disease. SURGICAL HISTORY : Hysterectomy. ENCOUNTER: Initial ACUITY: 1 day PAIN SCALE: 7/10 LOCATION: cranial TECHNIQUE: Multiple contiguous axial images were obtained of the head. Using automated exposure control and adj ustment of the mA and/or kV according to patient size, radiation dose was kept as low as reasonably a chievable to obtain optimal diagnostic quality images. DICOM format image data is available electro nically for review and comparison. FINDINGS: CEREBRUM: The ventricles are normal for age. Symmetric, bilateral and stable cortical atrophy. No evidence of midline shift, mass lesion, hemorrhage or acute infarction. No extra-axial fluid collections are see n. POSTERIOR FOSSA: The cerebellum and brainstem are intact. The 4th ventricle is midline. The cerebellopontine angle i s unremarkable. EXTRACRANIAL: The visualized portion of the orbits is intact. Mucoperiosteal thickening within the left sphenoid SKULL: The calvaria is intact. No evidence of skull fracture. CONCLUSION: 1. Chronic sinusitis, left sphenoid. 2. Stable, symmetric cortical atrophy. 3. No acute intracranial process, trauma or fracture. Bernabe Perea MD on December 01, 2017 at 18:25 Board Certified Radiologist. This report was verified electronically.
--- NOTE | 2017-12-01 19:03 | PD ---
Data Data Last Documented VS Vital Signs Date Time Temp Pulse Resp B/P (MAP) Pulse Ox O2 Delivery O2 Flow Rate FiO2 12/01/17 17:50 15 12/01/17 16:26 Room Air 12/01/17 16:22 90 200/91 (127) 98 Orders Orders Hip, Uni(Ap&Lat) W Ap Pelvis (12/01/17 ) Ct Brain W/O Iv Contrast(Rout) (12/01/17 ) Ribs, Uni (W/Exp Cxr-Min 3vw) (12/01/17 ) Ct Cerv Spine W/O Contrast (12/01/17 ) Basic Metabolic Panel (Bmp) (12/01/17 16:26) Complete Blood Count With Diff (12/01/17 16:26) Prothrombin Time / Inr (Pt) (12/01/17 16:26) Act Partial Throm Time (Ptt) (12/01/17 16:26) Iv Access Insert/Monitor (12/01/17 16:26) Electrocardiogram (12/01/17 16:26) Tetanus/Diphtheria Tox Adult (Tetanus/Di (12/01/17 16:30) Type And Screen (12/01/17 16:26) Spine, Thoracic-Ap/Lat/Sw(3vw) (12/01/17 ) Knee, Ltd (1 Or 2vws) (12/01/17 ) Morphine Inj (Morphine Inj) (12/01/17 17:45) Ondansetron Inj (Zofran Inj) (12/01/17 17:45) Consult Orthopedic (12/01/17 ) (Hub Use Only)Inp Phy Cons/Ref (12/01/17 ) Labs Laboratory Tests Test 12/01/17 16:30 White Blood Count 6.5 TH/MM3 Red Blood Count 4.20 MIL/MM3 Hemoglobin 10.2 GM/DL Hematocrit 31.7 % Mean Corpuscular Volume 75.6 FL Mean Corpuscular Hemoglobin 24.3 PG Mean Corpuscular Hemoglobin Concent 32.1 % Red Cell Distribution Width 16.3 % Platelet Count 142 TH/MM3 Mean Platelet Volume 7.4 FL Neutrophils (%) (Auto) 75.4 % Lymphocytes (%) (Auto) 14.6 % Monocytes (%) (Auto) 8.8 % Eosinophils (%) (Auto) 0.9 % Basophils (%) (Auto) 0.3 % Neutrophils # (Auto) 4.9 TH/MM3 Lymphocytes # (Auto) 0.9 TH/MM3 Monocytes # (Auto) 0.6 TH/MM3 Eosinophils # (Auto) 0.1 TH/MM3 Basophils # (Auto) 0.0 TH/MM3 CBC Comment DIFF FINAL Differential Comment Prothrombin Time 10.9 SEC Prothromb Time International Ratio 1.1 RATIO Activated Partial Thromboplast Time 21.7 SEC Blood Urea Nitrogen 24 MG/DL Creatinine 1.21 MG/DL Random Glucose 100 MG/DL Calcium Level 9.9 MG/DL Sodium Level 142 MEQ/L Potassium Level 3.8 MEQ/L Chloride Level 108 MEQ/L Carbon Dioxide Level 28.2 MEQ/L Anion Gap 6 MEQ/L Estimat Glomerular Filtration Rate 43 ML/MIN MDM Supervised Visit with TIFFANIE: Yes Narrative Course I, Dr. Wade, have reviewed the advance practice practitioner's documentation and am in agreement, met with the patient face to face, made the diagnosis, and the medical decision making was done by me. *My assessment and Findings: Patient has hip fracture. She will obviously need operative intervention for repair. Workup reviewed. Discussed with orthopedist Diagnosis Primary Impression: Closed left hip fracture David Wade MD Dec 01, 2017 19:03
[2017-12-01 19:30] VITALS: BP 163/81; PULSE 96; RESP 20; O2SAT 94
[2017-12-01] MEDS ORDERED: MAGNESIUM HYDROXIDE SUSP 30 ML CUP PO PRN (21:15)
[2017-12-01] MEDS ORDERED: BISACODYL 10 MG SUPP RECTAL PRN (21:15)
[2017-12-01] MEDS ORDERED: SENNOSIDES 8.6 MG TAB PO PRN (21:15)
[2017-12-01] MEDS ORDERED: ONDANSETRON HCL 4 MG/2 ML VIAL IVP PRN (21:15)
[2017-12-01] MEDS ORDERED: LACTULOSE SYRUP 20 GM/30 ML CUP PO PRN (21:15)
[2017-12-01] MEDS ORDERED: NALOXONE HCL 0.4 MG/ML AMP IV PUSH PRN (21:15)
[2017-12-01 21:46] VITALS: BP 153/71; PULSE 95; RESP 16; TEMP 98.1; O2SAT 94
--- NOTE | 2017-12-01 22:06 | HHI.HP ---
[facility] Vickie Dinh DO Admission Diagnosis Left hip fracture Diagnoses: Travel History International Travel<30 Days: No Contact w/Intl Traveler <30 Da: No Traveled to Known Affected Are: No History of Present Illness 77-year-old female with a past medical history significant for atrial fibrillation on Eliquis, hypertension, hyperlipidemia and history of multiple TIAs presents to the emergency department for evaluation of a fall. The patient reports she was wearing flip-flops when she was walking to get the mail and suddenly she fell. She denies any loss of consciousness. She did not strike her head. The patient reports she was unable to get up for approximately 20 minutes secondary to pain. Neighbors found her and EMS was called. The patient denies any chest pain or shortness of breath. No abdominal pain. No fever/chills. No nausea/vomiting/diarrhea. No lateralizing signs/symptoms. Review of Systems Except as stated in HPI: all other systems reviewed are Neg Past Family Social History Past Medical History Atrial fibrillation anticoagulated on Eliquis Hypertension Hyperlipidemia History of TIAs Past Surgical History Right hip Hysterectomy Partial colectomy Cholecystectomy Bilateral rotator cuff repair Right hand Tonsillectomy Reported Medications Reported Meds & Active Scripts Active Tramadol (Tramadol HCl) 50 Mg Tab 50 Mg PO Q6H PRN Eliquis (Apixaban) 2.5 Mg Tab 2.5 Mg PO BID Reported Fluticasone Nasal [place] 50 Mcg/Act Naspr 50 Mcg EACH NARE BID 50 mcg/spray Ferrous Sulfate 325 Mg (65 Mg Iron) Tablet 325 Mg PO DAILY [presser vision] 1 Drop EACH EYE BID Vitamin D3 (Cholecalciferol) 2,000 Unit Cap 2,000 Units PO DAILY Calcium + D3 (Calcium Carbonate-Cholecalciferol) 600-200 Mg-Unit Tab 1 Tab PO BID [fish oil] 600 Mg PO BID Lutein 20 Mg Cap 25 Mg PO DAILY Preservision Areds (Multiple Vitamins W/ Minerals) 1 Tab 1 Tab PO BID Amiodarone (Amiodarone HCl) 100 Mg Tab 100 Mg PO DAILY Nitrostat SL (Nitroglycerin) 0.4 Mg Subl 0.4 Mg SL DIRECTED PRN 1 tablet under the tongue as needed for chest pain. Repeat every 5 minutes for a total of 3 DOSES or call 911 if NO relief. Vitamin B-12 (Cyanocobalamin) 1,000 Mcg Tab 1,000 Mcg PO BID Co Q-10 (Coenzyme Q10 (Ubidecarenone)) 100 Mg Cap 100 Mg PO DAILY Restasis Opth (Cyclosporine Opth) 0.05% Emul 2 Drop EACH EYE BID Protonix (Pantoprazole Sodium) 40 Mg Tab 40 Mg PO DAILY Levothyroxine (Levothyroxine Sodium) 125 Mcg Tab 125 Mcg PO DAILY Isosorbide Mononitrate ER (Isosorbide Mononitrate) 60 Mg Tab 60 Mg PO DAILY Coreg (Carvedilol) 3.125 Mg Tab 3.125 Mg PO BID Diltiazem ER 12 HR (Diltiazem HCl) 120 Mg Caper 120 Mg PO BID Allergies: Coded Allergies: codeine (Verified Allergy, Severe, 12/01/17) crab (Verified Allergy, Severe, Anaphylaxis, 12/01/17) diatrizoate meglumine (Verified Allergy, Severe, Cardiac Arrest, ANAPHALAXIS, 12/01/17) gadobenic acid (Verified Allergy, Severe, Cardiac Arrest, ANAPHALAXIS, ) gadodiamide (Verified Allergy, Severe, Cardiac Arrest, ANAPHALAXIS, ) gadoteridol (Verified Allergy, Severe, Cardiac Arrest, ANAPHALAXIS, ) iodine (Verified Allergy, Severe, 12/01/17) iodixanol (Verified Allergy, Severe, Cardiac Arrest, ANAPHALAXIS, 12/01/17) iohexol (Verified Allergy, Severe, Cardiac Arrest, ANAPHALAXIS, 12/01/17) latex (Verified Allergy, Severe, SKIN BLISTERS, 12/01/17) potassium iodide (Verified Allergy, Severe, 12/01/17) povidone-iodine (Verified Allergy, Severe, 12/01/17) shellfish derived (Verified Allergy, Severe, ANAPHYLAXIS TO ALL SHELLFISH , 12/01/17) sodium iodide (Verified Allergy, Severe, 12/01/17) sodium iodide (Verified Allergy, Severe, 12/01/17) Family History Mother with CAD Social History Negative for alcohol, tobacco and illicit drugs Physical Exam Vital Signs Vital Signs Date Time Temp Pulse Resp B/P (MAP) Pulse Ox O2 Delivery O2 Flow Rate FiO2 12/01/17 21:26 12/01/17 19:30 96 20 163/81 (108) 94 Room Air 12/01/17 17:50 15 12/01/17 16:26 Room Air 12/01/17 16:22 90 16 200/91 (127) 98 Physical Exam GENERAL: female lying in bed SKIN: No rashes, ecchymoses or lesions. Cool and dry. HEAD: Atraumatic. Normocephalic. No temporal or scalp tenderness. EYES: Pupils equal round and reactive. Extraocular motions intact. No scleral icterus. No injection or drainage. ENT: Nose without bleeding, purulent drainage or septal hematoma. Throat without erythema, tonsillar hypertrophy or exudate. Uvula midline. Airway patent. NECK: Trachea midline. No JVD or lymphadenopathy. Supple, nontender, no meningeal signs. CARDIOVASCULAR: Regular rate and rhythm without murmurs, gallops, or rubs. RESPIRATORY: Clear to auscultation. Breath sounds equal bilaterally. No wheezes , rales, or rhonchi. GASTROINTESTINAL: Abdomen soft, non-tender, nondistended. No hepato-splenomegaly , or palpable masses. No guarding. MUSCULOSKELETAL: Extremities without clubbing, cyanosis, or edema. Left leg mildly externally rotated, neurovascularly intact. NEUROLOGICAL: Awake and alert. Cranial nerves II through XII intact. Motor and sensory grossly within normal limits. Normal speech. Laboratory Laboratory Tests Test 12/01/17 16:30 White Blood Count 6.5 Red Blood Count 4.20 Hemoglobin 10.2 Hematocrit 31.7 Mean Corpuscular Volume 75.6 Mean Corpuscular Hemoglobin 24.3 Mean Corpuscular Hemoglobin Concent 32.1 Red Cell Distribution Width 16.3 Platelet Count 142 Mean Platelet Volume 7.4 Neutrophils (%) (Auto) 75.4 Lymphocytes (%) (Auto) 14.6 Monocytes (%) (Auto) 8.8 Eosinophils (%) (Auto) 0.9 Basophils (%) (Auto) 0.3 Neutrophils # (Auto) 4.9 Lymphocytes # (Auto) 0.9 Monocytes # (Auto) 0.6 Eosinophils # (Auto) 0.1 Basophils # (Auto) 0.0 CBC Comment DIFF FINAL Differential Comment Prothrombin Time 10.9 Prothromb Time International Ratio 1.1 Activated Partial Thromboplast Time 21.7 Blood Urea Nitrogen 24 Creatinine 1.21 Random Glucose 100 Calcium Level 9.9 Sodium Level 142 Potassium Level 3.8 Chloride Level 108 Carbon Dioxide Level 28.2 Anion Gap 6 Estimat Glomerular Filtration Rate 43 Result Diagram: 12/01/17 1630 12/01/17 1630 Caprini VTE Risk Assessment Caprini VTE Risk Assessment: Mod/High Risk (score >= 2) Caprini Risk Assessment Model Point Value = 1 Point Value = 2 Point Value = 3 Point Value = 5 Age 41-60 Minor surgery BMI > 25 kg/m2 Swollen legs Varicose veins or History of unexplained or recurrent spontaneous Oral contraceptives or hormone replacement Sepsis (< 1 month) Serious lung disease, including pneumonia (< 1 month) Abnormal pulmonary function Acute myocardial infarction Congestive heart failure (< 1 month) History of inflammatory bowel disease Medical patient at bed rest Age 61-74 Arthroscopic surgery Major open surgery (> 45 min) Laparoscopic surgery (> 45 min) Malignancy Confined to bed (> 72 hours) Immobilizing plaster cast Central venous access Age >= 75 History of VTE Family history of VTE Factor V Leiden Prothrombin [id number] Lupus anticoagulant Anticardiolipin antibodies Elevated serum homocysteine Heparin-induced thrombocytopenia Other congenital or acquired thrombophilia Stroke (< 1 month) Elective arthroplasty Hip, pelvis, or leg fracture Acute spinal cord injury (< 1 month) Prophylaxis Regimen Total Risk Factor Score Risk Level Prophylaxis Regimen 0-1 Low Early ambulation 2 Moderate Order ONE of the following: *Sequential Compression Device (SCD) *Heparin 5000 units SQ BID 3-4 Higher Order ONE of the following medications: *Heparin 5000 units SQ TID *Enoxaparin/Lovenox 40 mg SQ daily (WT < 150 kg, CrCl > 30 mL/min) *Enoxaparin/Lovenox 30 mg SQ daily (WT < 150 kg, CrCl > 10-29 mL/min) *Enoxaparin/Lovenox 30 mg SQ BID (WT < 150 kg, CrCl > 30 mL/min) AND/OR *Sequential Compression Device (SCD) 5 or more Highest Order ONE of the following medications: *Heparin 5000 units SQ TID (Preferred with Epidurals) *Enoxaparin/Lovenox 40 mg SQ daily (WT < 150 kg, CrCl > 30 mL/min) *Enoxaparin/Lovenox 30 mg SQ daily (WT < 150 kg, CrCl > 10-29 mL/min) *Enoxaparin/Lovenox 30 mg SQ BID (WT < 150 kg, CrCl > 30 mL/min) AND *Sequential Compression Device (SCD) Assessment and Plan Assessment and Plan Assessment/plan: 1. Left hip fracture Pelvis x-ray significant for left intertrochanteric hip fracture with varus angulation Orthopedic surgery consulted, appreciate assistance Morphine for pain NPO 2. Fall Remainder of imaging including cervical spine CT, head CT, knee x-ray, rib x- ray and thoracic spine x-ray all negative for acute process. Patient does have multilevel degenerative disc disease with grade 1 anteriolisthesis, likely chronic, with foramina narrowing at C3-4. 3. Atrial fibrillation Holding home Eliquis in anticipation of operative intervention Continue home medications 4. Hypertension/hyperlipidemia Continue home medications FEN N.p.o. NS at 70 cc/hour Electrolytes: Monitor and replete as needed Holding pharmacologic anticoagulation secondary to operative intervention Physician Certification 2 Midnight Certification Type: Admission for Inpatient Services Order for Inpatient Services The services are ordered in accordance with Medicare regulations or non- Medicare payer requirements, as applicable. In the case of services not specified as inpatient-only, they are appropriately provided as inpatient services in accordance with the 2-midnight benchmark. Estimated LOS (days): 2 2 days is the estimated time the patient will need to remain in the hospital, assuming treatment plan goals are met and no additional complications. Post-Hospital Plan: Not yet determined Neli Dickerson MD Dec 01, 2017 22:06
[2017-12-01] MEDS: SODIUM CHLOR 0.9% 1000 ML INJ 1,000 ML IV SCH (22:51)
[2017-12-01] MEDS: MORPHINE SULFATE 4 MG/ML INJ IV PUSH PRN (23:00)
[2017-12-01] MEDS: SODIUM CHLORIDE 0.9% FLUSH 10 ML FLUSH IV FLUSH PRN (23:00)
[2017-12-02] VITALS (8 sets, daily range): BP systolic 128–165; BP diastolic 58–66; PULSE 85–91; RESP 16–20; TEMP 97.4–98.4; O2SAT 93–100
[2017-12-02] MEDS: SODIUM CHLORIDE 0.9% FLUSH 10 ML FLUSH IV FLUSH PRN (02:14)
[2017-12-02] MEDS: MORPHINE SULFATE 4 MG/ML INJ IV PUSH PRN ×2 (02:14→06:47)
[2017-12-02 07:38] LABS: AUTOMATED NEUTROPHIL # 2.8 TH/MM3 (1.8-7.7); BASOPHIL % 0.3 % (0.0-2.0); EOSINOPHIL % 0.7 % (0.0-4.0); HEMATOCRIT 27.4 % (35.0-46.0); HEMOGLOBIN 8.8 GM/DL (11.6-15.3); LYMPH % 15.2 % (9.0-44.0); LYMPHOCYTE # 0.6 TH/MM3 (1.0-4.8); MEAN CELL VOLUME 75.7 FL (80.0-100.0); MEAN CORPUSCULAR HEMOGLOBIN 24.3 PG (27.0-34.0); MEAN PLATELET VOLUME 7.2 FL (7.0-11.0); MONO % 14.2 % (0.0-8.0); MONOCYTE # 0.6 TH/MM3 (0-0.9); NEUT % 69.6 % (16.0-70.0); PLATELET COUNT 90 TH/MM3 (150-450); RED BLOOD COUNT 3.62 MIL/MM3 (4.00-5.30); RED CELL DISTRIBUTION WIDTH 16.2 % (11.6-17.2)
[2017-12-02 08:17] LABS: BICARBONATE 26.4 MEQ/L (21.0-32.0); CALCIUM 8.9 MG/DL (8.5-10.1); CREATININE 0.96 MG/DL (0.50-1.00)
[2017-12-02] MEDS ORDERED: METOPROLOL TARTRATE 25 MG TAB PO PRN (08:30)
[2017-12-02] MEDS ORDERED: LACTATED RINGER'S 1000 ML IV PRN (08:30)
[2017-12-02] MEDS ORDERED: INSULIN HUMAN REGULAR 1,000 UNITS/10 ML VIAL SQ PRN (08:30)
[2017-12-02] MEDS ORDERED: SODIUM CHLORID 0.9% 500 ML IV PRN (08:30)
[2017-12-02] MEDS ORDERED: FAMOTIDINE 20 MG/2 ML VIAL ONE (08:52)
[2017-12-02 08:55] LABS: KERATOCYTES OCC (NORMAL); OVALOCYTES 1+ (NORMAL)
[2017-12-02] MEDS: PANTOPRAZOLE SOD 40 MG DELAYED RELEASE TAB PO SCH (09:00)
[2017-12-02] MEDS: LEVOTHYROXINE SODIUM 125 MCG TAB PO SCH (09:00)
[2017-12-02] MEDS: ISOSORBIDE MONONITRATE 60 MG CR TAB (IMDUR) PO SCH (09:00)
[2017-12-02] MEDS: CARVEDILOL 3.125 MG TAB PO SCH ×2 (09:00→20:24)
[2017-12-02] MEDS: FERROUS SULFATE 325 MG (65 MG ELEMENTAL IRON) TAB PO SCH (09:00)
[2017-12-02] MEDS: DOCUSATE SODIUM 50 MG/SENNA 8.6 MG TAB PO SCH ×2 (09:00→20:24)
[2017-12-02] MEDS: AMIODARONE 200 MG TAB PO SCH (09:00)
[2017-12-02] MEDS: DILTIAZEM-CD 240 MG CAP ER PO SCH (09:00)
[2017-12-02] MEDS ORDERED: ceFAZolin INJ 1,000 MG VIAL ONE (10:47)
[2017-12-02] MEDS ORDERED: VANCOMYCIN HCL 1000 MG VIAL ONE (10:47)
[2017-12-02] MEDS ORDERED: SODIUM CHLOR 0.9% 250 ML INJ 250 ML ONE (10:48)
[2017-12-02] MEDS ORDERED: GENTAMICIN SULFATE 80 MG/2 ML VIAL ONE (10:48)
[2017-12-02] MEDS ORDERED: VITA500012 PO (11:11)
[2017-12-02] MEDS ORDERED: VITA2000 PO (11:11)
[2017-12-02] MEDS ORDERED: CALCTAB19 PO (11:11)
[2017-12-02] MEDS ORDERED: WALKER/ADULT/FO1 MIS (11:11)
[2017-12-02] MEDS ORDERED: HYDR-3580 PO (11:11)
[2017-12-02] MEDS ORDERED: ACETAMINOPHEN 1000 MG/100 ML 0 ML IV ONE (11:20)
[2017-12-02] MEDS ORDERED: BUPIVACAINE/EPINEPHRINE 0.5% 50 ML VIAL ONE (11:50)
[2017-12-02] MEDS ORDERED: LIDOCAINE HCL 1% PF 5 ML SYRINGE OTHER ONE (12:00)
[2017-12-02] MEDS ORDERED: ONDANSETRON HCL 4 MG/2 ML VIAL IV ONE (12:00)
[2017-12-02] MEDS ORDERED: ePHEDrine/NS 25 MG/5 ML SYRINGE IV ONE (12:00)
[2017-12-02] MEDS ORDERED: STERILE WATER FOR INJECTION 20 ML VIAL IV ONE (12:00)
[2017-12-02] MEDS ORDERED: PROPOFOL 200 MG/20 ML AMP IV ONE (12:00)
[2017-12-02] MEDS ORDERED: GLYCOPYRROLATE 1 MG/5 ML SYRINGE IV PUSH ONE (12:00)
[2017-12-02] MEDS ORDERED: LACTATED RINGER'S 1000 ML INJ 1,000 ML IV ONE (12:00)
[2017-12-02] MEDS ORDERED: NEOSTIGMINE 5 MG/5 ML SYRINGE IV PUSH ONE (12:00)
[2017-12-02] MEDS ORDERED: ROCURONIUM INJ 50 MG/5 ML SYRINGE IV PUSH ONE (12:00)
[2017-12-02] MEDS ORDERED: PHENYLEPH/NS 1000 MCG/10 ML SYR IV ONE (12:00)
[2017-12-02] MEDS ORDERED: DEXAMETHASONE SOD PHOS 4 MG/ML VIAL IV ONE (12:00)
--- NOTE | 2017-12-02 12:52 | PD.OP ---
cc: Daniele Frey MD Operative Report Date of Surgery: Dec 02, 2017 Preoperative Diagnosis: Left hip intertrochanteric fracture Postoperative Diagnosis: Procedure: Left hip reduction and intramedullary nail fixation Anesthesia: General Surgeon: Daniele Frey Spring Up Supervisor(s): GULSHAN Monroy PA-C The surgical procedure was assisted by my physician carpenter assistant installer. My P.A. presence was necessary throughout this case for the manipulation and positioning of the surgical extremity. My P.A. was assisting me throughout the duration of this procedure. The skill set of a physician carpenter assistant installer was medically necessary to complete this procedure. During the surgical case the assembler surgical garment was working at the back table and the physician carpenter assistant installer was directly assisting me. Operation and Findings: Implants used: [11]mm 125 Biomet short troch nail Plan of activity: Weight-bear as tolerated Patient was seen and evaluated preoperatively. The patient has significant hip pain from intertrochanteric hip fracture. The risk and benefits of surgery were discussed in depth with the patient to include bleeding infection nonunion malunion and need for hip replacement painful hardware as well as medical competitions including but not stroke heart attack and . Informed consent was obtained. Operative site was marked. Patient was brought to the operating room and placed on fracture table. IV sedation was administered by anesthesiologist. Timeout procedure was performed. Hip and leg were prepped with alcohol followed by DuraPrep and draped in the usual sterile fashion. IV antibiotics were given prior to incision. Procedure began with reduction of fracture. Traction was applied. The leg was manipulated to achieve reduction. Excellent reduction was achieved. Fluoroscopy was used to confirm reduction. A three inch incision was made proximal to the trochanter. Subcutaneous tissue was dissected bluntly. Guidepin was placed at the tip of the trochanter and advanced into the femoral canal. Fluoroscopy confirmed appropriate guidepin placement. A opening reamer was placed over the guidepin. The nail was attached to the insertion handle. Nail was now placed through the tip of the trochanter into the femoral canal. Fluoroscopy confirmed appropriate nail placement. A second incision was made over the lateral thigh. Cannulas were placed through the insertion handle down to the femur. Guidepin was now placed through the femoral nail into the center of the femoral head. Fluoroscopy confirmed appropriate guidepin placement. Screw length was measured. Cannulated drill was placed over the guidepin. Appropriate length lag screw was now placed. Traction was released and compression was applied. The set screw was now tightened in dynamic mode. Using the insertion handle as a guide a distal interlocking screw was drilled and placed. Final fluoroscopy revealed well aligned fracture with well-placed hardware. Incision was closed with 3-0 Vicryl and rema. Sterile dressings were applied. Patient was awakened and transferred to recovery room. Daniele Frey MD Dec 02, 2017 12:52
[2017-12-02] MEDS ORDERED: ENOXAPARIN SODIUM 30 MG/0.3 ML SYRINGE SQ SCH (13:00)
[2017-12-02] MEDS: CALCIUM/VITAMIN D 250 MG/125 U TAB PO SCH ×2 (13:00→17:46)
[2017-12-02] MEDS ORDERED: diphenhydrAMINE HCL 25 MG CAP PO PRN (13:00)
[2017-12-02] MEDS ORDERED: ERGOCALCIFEROL (VIT D2) 50,000 UNIT CAP PO ONE (13:00)
[2017-12-02] MEDS ORDERED: *MEPERIDINE 25 MG INJ VIAL PERIprocedural Use ONLY ONE (13:06)
[2017-12-02] MEDS ORDERED: *ONDANSETRON 4 MG VIAL PERIprocedural Use ONLY ONE (13:06)
--- NOTE | 2017-12-02 13:29 | MB ---
cc: Daniele Denise MD DATE: 12/02/2017 CONSULTING PHYSICIAN: Neli Dickerson MD CHIEF COMPLAINT: Left hip intertrochanteric fracture. HISTORY OF PRESENT ILLNESS: Mary Angeles is a 77-year-old female who was walking to get the mail. She caught her foot and fell. She describes a mechanical fall. She landed on her left side. She had immediate left hip pain. She was unable to stand or ambulate. She presented to the emergency room where x-rays revealed a left hip intertrochanteric fracture. She is currently awake and alert on the fourth floor. Pain is worse with movement, is improved with rest. She denies dizziness, syncope, loss of consciousness. PAST MEDICAL HISTORY: Illnesses: Atrial fibrillation, hypertension, high cholesterol, history of TIA. PAST SURGICAL HISTORY: Right total hip replacement, hysterectomy, partial colectomy, bilateral rotator cuff repair, and tonsillectomy. MEDICATIONS: Include tramadol, Eliquis, nasal spray, iron, vitamin D, calcium, amiodarone, , Protonix, Restasis, levothyroxine, isosorbide mononitrate, Coreg and diltiazem. ALLERGIES: INCLUDE CODEINE, IODINE, LATEX, POTASSIUM IODIDE AND SHELLFISH. FAMILY HISTORY: Positive for coronary artery disease in her mother. SOCIAL HISTORY: The patient denies alcohol, tobacco or drug use. She lives at home independently. She has a daughter that lives locally. REVIEW OF SYSTEMS: The patient denies headache, visual changes, neck pain, chest pain, shortness of breath, abdominal pain, nausea, vomiting, recent weight loss, fevers or chills or numbness or tingling of the extremities. Chief complaint is left hip pain. Pain is worse with movement. PHYSICAL EXAMINATION: GENERAL: The patient is a thin, 77-year-old female. She is awake and alert. She is alert and oriented x 3. She is in no acute distress. VITAL SIGNS: Temperature 98.4, pulse 91, respirations 18, blood pressure 139/66, O2 saturations 93% on room air. HEED: The patient is normocephalic. Pupils are equal. NECK: Soft, nontender. The trachea is in the midline. ABDOMEN: Soft, nontender, nondistended. EXTREMITIES: Examination of bilateral upper extremities reveals no pain with shoulder, elbow or wrist motion. She has intact sensation in all fingers. She has good cap refill in all fingers. Skin is intact. Radial pulses are palpable. Examination of right leg reveals no pain with hip, knee or ankle motion. Skin is intact. Dorsalis pedis pulses palpable. Sensation is intact. Examination of the left leg reveals pain with any hip motion. She has no tenderness about her knee, tibia or ankle. Skin is intact. Left leg is slightly shortened and externally rotated. She has good cap refill in her foot. X-RAYS: X-rays of the left hip are reviewed. X-rays reveal a displaced left hip intertrochanteric fracture. LABORATORY DATA: The patient has a white blood cell count of 4.0, hematocrit of 27.4, platelet count of 90. INR of 1.1, BUN of 19 and creatinine 0.96. IMPRESSION: 1. Atrial fibrillation, treated with Eliquis. 2. History of transient ischemic attacks. 3. Left hip intertrochanteric fracture. 4. 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 5. Hypertension. PLAN: The treatment options were discussed with patient. At this point, I would recommend left hip reduction and intramedullary nail fixation. Risks of surgery include bleeding, infection, injuries to arteries, nerves and blood vessels, nonunion, malunion, painful hardware as well as medical complications including blood clot, stroke, heart attack and . All questions were answered. The patient will need to continue with calcium and vitamin D for her bone health. She will need to resume her Eliquis for atrial fibrillation postoperatively. A mid-level provider in my office, nurse practitioner or PA, may see this patient on a followup basis and continue to implement the objective of this plan including: Starting or adjusting medications, injections of muscle, tendon, bursa or joints, cast application, orthotic or brace application, physical therapy, further radiographic studies including x-ray, MRI, CT, ultrasounds or bone scan, vascular studies, neurologic studies, or other specialist consultations, and proceeding with surgical management as appropriate. MD LENNIE Cornejo/LAUREEN , 12:57 PM , 01:28 PM
[2017-12-02] MEDS ORDERED: DO NOT ADM ANY ANTICOAGULANT DRUGS PRN (13:30)
--- NOTE | 2017-12-02 13:39 | RADRPT ---
EXAM DATE/TIME: 12/02/2017 12:38 [facility] COMPARISON: HIP LEFT (AP&LAT 2/3VWS) W AP PELVIS, December 01, 2017, 16:54. INDICATIONS : Post-op ORIF left hip fracture. MEDICAL HISTORY : None. SURGICAL HISTORY : None. ENCOUNTER: Subsequent ACUITY: 2 days PAIN SCORE: Non-responsive. LOCATION: Left hip. FINDINGS: Multiple fluoroscopic images of the left hip demonstrate compression screw and intramedullary sincere fix ation of the left femoral intertrochanteric fracture. Hardware appears well-positioned. There is near -anatomic alignment. CONCLUSION: 1. Left hip ORIF, as above. Christian Campbell MD on December 02, 2017 at 13:32 Board Certified Radiologist. This report was verified electronically.
[2017-12-02] MEDS: SODIUM CHLORIDE 0.9% FLUSH 10 ML FLUSH IV FLUSH SCH ×2 (14:10→20:26)
--- NOTE | 2017-12-02 15:15 | EKG ---
Date Performed: 12/01/2017 Time Performed: 16:36:12 PTAGE: 77 years EKG: Sinus rhythm NORMAL ECG Since the PREVIOUS TRACING , no significant change noted PREVIOUS TRACIN04/30/2017 08.38 DOCTOR: Donis Lux Interpretating Date/Time 12/02/2017 15:12:37
[2017-12-02] MEDS: ACETAMINOPHEN/HYDROcodone 325 MG/7.5 MG TAB PO PRN (15:46)
--- NOTE | 2017-12-02 19:23 | HHI.PR ---
Subjective Remarks Patient reports that she is feeling well. Pain is well controlled. Objective Vitals Vital Signs Date Time Temp Pulse Resp B/P (MAP) Pulse Ox O2 Delivery O2 Flow Rate FiO2 12/02/17 16:30 100 Nasal Cannula 2.00 12/02/17 15:00 97.4 87 17 165/65 (98) 98 12/02/17 14:50 97.5 80 13 138/63 (88) 100 Nasal Cannula 2 12/02/17 14:00 85 14 129/58 (81) 100 Nasal Cannula 2 12/02/17 13:45 86 12 137/62 (87) 100 Nasal Cannula 2 12/02/17 13:30 80 15 136/63 (87) 99 Nasal Cannula 2 12/02/17 13:15 88 13 128/60 (82) 99 Nasal Cannula 2 12/02/17 13:00 93 15 135/64 (87) 100 Nasal Cannula 2 12/02/17 12:57 98.3 97 20 138/62 (87) 100 Simple Mask 6 12/02/17 08:00 98.4 91 18 139/66 (90) 93 12/02/17 07:37 Room Air 12/02/17 03:50 98.4 91 16 133/60 (84) 94 12/02/17 03:50 Room Air 12/02/17 03:46 90 12/02/17 02:13 Room Air 12/02/17 00:04 85 12/02/17 00:00 Room Air 12/02/17 00:00 98.2 88 20 150/65 (93) 95 12/01/17 22:00 Room Air 12/01/17 21:46 98.1 95 16 153/71 (98) 94 12/01/17 21:26 12/01/17 19:30 96 20 163/81 (108) 94 Room Air I/O 12/01/17 12/01/17 12/01/17 12/02/17 12/02/17 12/02/17 07:00 15:00 23:00 07:00 15:00 23:00 Intake Total 200 ml 1600 ml Output Total 450 ml 170 ml Balance -250 ml 1430 ml Intake Oral 200 ml IV Total 0 ml Other 1600 ml Output Urine Total 450 ml 150 ml Estimated Blood Loss 20 ml Result Diagram: 12/02/1771412/02/17714 Objective Remarks GENERAL: No acute distress. Appears comfortable. SKIN: Warm and dry. EYES: No scleral icterus. No injection or drainage. NECK: Supple, trachea midline. No JVD or lymphadenopathy. CARDIOVASCULAR: Regular rate and rhythm without murmurs, gallops, or rubs. RESPIRATORY: Breath sounds equal bilaterally. No accessory muscle use. GASTROINTESTINAL: Abdomen soft, non-tender, nondistended. MUSCULOSKELETAL: Post op left hip dressing appear intact. Neurovascularly intact distally. A/P Assessment and Plan 77 Y/O female with 1. Left hip fracture secondary to mechanical fall. Pelvis x-ray significant for left intertrochanteric hip fracture with varus angulation Orthopedic surgery following, s/p Left hip reduction and intramedullary nail fixation Pain control 2. Fall Remainder of imaging including cervical spine CT, head CT, knee x-ray, rib x- ray and thoracic spine x-ray all negative for acute process. Patient does have multilevel degenerative disc disease with grade 1 anteriolisthesis, likely chronic, with foramina narrowing at C3-4. Pain control. PT 3. Atrial fibrillation Resume home Eliquis once cleared by Ortho. Continue home medications 4. Hypertension/hyperlipidemia Continue home medications Discharge Planning Will likely need SNF. Angelina Gil MD Dec 02, 2017 19:22
[2017-12-03] VITALS (9 sets, daily range): BP systolic 126–155; BP diastolic 60–71; PULSE 77–96; RESP 18–19; TEMP 97.5–98.4; O2SAT 94–99
[2017-12-03] MEDS: SODIUM CHLOR 0.9% 1000 ML INJ 1,000 ML IV SCH ×2 (02:14→16:54)
[2017-12-03] MEDS: LEVOTHYROXINE SODIUM 125 MCG TAB PO SCH (06:03)
--- NOTE | 2017-12-03 06:44 | PD.ORT.PN ---
Subjective Subjective Remarks Pain controlled no new complaints Objective Vitals Vital Signs Date Time Temp Pulse Resp B/P (MAP) Pulse Ox O2 Delivery O2 Flow Rate FiO2 12/03/17 04:00 98.1 95 18 141/66 (91) 99 12/03/17 00:00 98.0 94 18 129/60 (83) 98 12/02/17 21:30 Nasal Cannula 2.00 12/02/17 20:00 97.7 91 18 128/58 (81) 100 12/02/17 16:30 100 Nasal Cannula 2.00 12/02/17 15:00 97.4 87 17 165/65 (98) 98 12/02/17 14:50 97.5 80 13 138/63 (88) 100 Nasal Cannula 2 12/02/17 14:00 85 14 129/58 (81) 100 Nasal Cannula 2 12/02/17 13:45 86 12 137/62 (87) 100 Nasal Cannula 2 12/02/17 13:30 80 15 136/63 (87) 99 Nasal Cannula 2 12/02/17 13:15 88 13 128/60 (82) 99 Nasal Cannula 2 12/02/17 13:00 93 15 135/64 (87) 100 Nasal Cannula 2 12/02/17 12:57 98.3 97 20 138/62 (87) 100 Simple Mask 6 12/02/17 08:00 98.4 91 18 139/66 (90) 93 12/02/17 07:37 Room Air I/O 12/02/17 12/02/17 12/02/17 12/03/17 12/03/17 12/03/17 07:00 15:00 23:00 07:00 15:00 23:00 Intake Total 200 ml 1600 ml 100 ml Output Total 450 ml 170 ml Balance -250 ml 1430 ml 100 ml Intake Oral 200 ml IV Total 0 ml 100 ml Other 1600 ml Output Urine Total 450 ml 150 ml Estimated Blood Loss 20 ml Result Diagram: 12/02/1771412/02/17714 Imaging Last 72 hours Impressions Hip X-Ray 12/02/17 0000 Signed Impressions: Service Date/Time: Saturday, December 02, 2017 12:38 - CONCLUSION: 1. Left hip ORIF, as above. Christian Campbell MD Thoracic Spine X-Ray 12/01/17 0000 Signed Impressions: Service Date/Time: Friday, December 01, 2017 16:54 - CONCLUSION: 1. Multilevel and disc disease with bridging lateral and anterior osteophytes. 2. Mild dextroscoliosis of the thoracolumbar spine. 3. No acute fracture. Bernabe Perea MD Ribs X-Ray 12/01/17 0000 Signed Impressions: Service Date/Time: Friday, December 01, 2017 16:45 - CONCLUSION: 1. Hyperinflation with no acute infiltrate. 2. No fracture Bernabe Perea MD Knee X-Ray 12/01/17 0000 Signed Impressions: Service Date/Time: Friday, December 01, 2017 17:00 - CONCLUSION: No acute fracture. No significant effusion. Bernabe Perea MD Hip and Pelvis X-Ray 12/01/17 0000 Signed Impressions: Service Date/Time: Friday, December 01, 2017 16:54 - CONCLUSION: 1. Left intertrochanteric hip fracture with varus angulation. 2. Probable old left inferior pubic ramus fracture. Bernabe Perea MD Head CT 12/01/17 0000 Signed Impressions: Service Date/Time: Friday, December 01, 2017 17:25 - CONCLUSION: 1. Chronic sinusitis, left sphenoid. 2. Stable, symmetric cortical atrophy. 3. No acute intracranial process, trauma or fracture. Bernabe Perea MD Cervical Spine CT 12/01/17 0000 Signed Impressions: Service Date/Time: Friday, December 01, 2017 17:25 - CONCLUSION: 1. Multilevel degenerative disc disease with loss of disc height at just about every cervical level. This is most severe from C3-4 through C5-6. 2. Grade 1 anterolisthesis of C2 on 3 and C3 on 4 is probably chronic related to facet hypertrophy. 3. No fracture. 4. Foramina narrowing leftward at C3-4 due to facet hypertrophy may be severe enough to compromise the left C4 nerve root. Bernabe Perea MD Objective Remarks Left lower extremity: Clean dry dressings intact. Mild swelling. Distally intact sensation and good capillary refills with active dorsiflexion and plantar flexion of foot Assessment & Plan Assessment and Plan Left intertrochanteric femur fracture IM nail POD 1 Physical therapy: Weightbearing as tolerated Daily dressing changes beginning POD #2 Resume Eliquis Incentive spirometry Case management for rehab placement Follow-up with Dr. Denise or PA in 2 weeks Jay Zarate Jr. Dec 03, 2017 06:44
[2017-12-03] MEDS: DOCUSATE SODIUM 50 MG/SENNA 8.6 MG TAB PO SCH ×2 (08:08→22:13)
[2017-12-03] MEDS: ISOSORBIDE MONONITRATE 60 MG CR TAB (IMDUR) PO SCH (08:09)
[2017-12-03] MEDS: CHOLECALCIFEROL (VIT D3) 5000 UNIT CAP PO SCH (08:09)
[2017-12-03] MEDS: AMIODARONE 200 MG TAB PO SCH (08:09)
[2017-12-03] MEDS: DILTIAZEM-CD 240 MG CAP ER PO SCH (08:09)
[2017-12-03] MEDS: CALCIUM/VITAMIN D 250 MG/125 U TAB PO SCH ×3 (08:10→18:00)
[2017-12-03] MEDS: FERROUS SULFATE 325 MG (65 MG ELEMENTAL IRON) TAB PO SCH (08:10)
[2017-12-03] MEDS: CARVEDILOL 3.125 MG TAB PO SCH ×2 (08:10→22:13)
[2017-12-03] MEDS: PANTOPRAZOLE SOD 40 MG DELAYED RELEASE TAB PO SCH (08:10)
[2017-12-03] MEDS: SODIUM CHLORIDE 0.9% FLUSH 10 ML FLUSH IV FLUSH SCH ×2 (08:15→21:00)
[2017-12-03 09:53] LABS: HEMATOCRIT 21.3 % (35.0-46.0)
[2017-12-03 09:56] LABS: HEMOGLOBIN 6.7 GM/DL (11.6-15.3)
[2017-12-03] MEDS ORDERED: SODIUM CHLOR 0.9% 250 ML INJ 250 ML IV ONE (11:30)
[2017-12-03] MEDS ORDERED: FUROSEMIDE 20 MG/2 ML VIAL IV PUSH ONE (12:00)
--- NOTE | 2017-12-03 15:50 | HHI.PR ---
Subjective Remarks Hemoglobin dropped to 6.7 this morning. Currently receiving PRBC transfusion. States she is feeling better overall but remains very weak. Objective Vitals Vital Signs Date Time Temp Pulse Resp B/P (MAP) Pulse Ox O2 Delivery O2 Flow Rate FiO2 12/03/17 14:20 97.5 77 18 134/61 98 12/03/17 14:01 Nasal Cannula 2.00 12/03/17 11:03 98.2 96 18 142/66 (91) 99 12/03/17 07:48 97.8 90 18 126/63 (84) 98 12/03/17 04:00 98.1 95 18 141/66 (91) 99 12/03/17 00:00 98.0 94 18 129/60 (83) 98 12/02/17 21:30 Nasal Cannula 2.00 12/02/17 20:00 97.7 91 18 128/58 (81) 100 12/02/17 16:30 100 Nasal Cannula 2.00 I/O 12/02/17 12/02/17 12/02/17 12/03/17 12/03/17 12/03/17 07:00 15:00 23:00 07:00 15:00 23:00 Intake Total 200 ml 1600 ml 220 ml 400 ml Output Total 450 ml 170 ml 300 ml Balance -250 ml 1430 ml -80 ml 400 ml Intake Oral 200 ml 120 ml 400 ml IV Total 0 ml 100 ml Other 1600 ml Output Urine Total 450 ml 150 ml 300 ml Estimated Blood Loss 20 ml # Voids 1 # Bowel Movements 1 2 Result Diagram: 12/03/17 0906 12/02/17 0715 Objective Remarks GENERAL: No acute distress. Appears comfortable. SKIN: Warm and dry. EYES: No scleral icterus. No injection or drainage. NECK: Supple, trachea midline. No JVD or lymphadenopathy. CARDIOVASCULAR: Regular rate and rhythm without murmurs, gallops, or rubs. RESPIRATORY: Breath sounds equal bilaterally. No accessory muscle use. GASTROINTESTINAL: Abdomen soft, non-tender, nondistended. MUSCULOSKELETAL: Post op left hip dressing appear intact. Neurovascularly intact distally. A/P Assessment and Plan 77 Y/O female with Left hip fracture secondary to mechanical fall. Pelvis x-ray significant for left intertrochanteric hip fracture with varus angulation Orthopedic surgery following, s/p Left hip reduction and intramedullary nail fixation Pain control Fall Remainder of imaging including cervical spine CT, head CT, knee x-ray, rib x- ray and thoracic spine x-ray all negative for acute process. Patient does have multilevel degenerative disc disease with grade 1 anteriolisthesis, likely chronic, with foramina narrowing at C3-4. Pain control. PT Atrial fibrillation Resume home Eliquis once cleared by Ortho. Continue home medications Hypertension/hyperlipidemia Continue home medications Acute on chronic anemia, probably secondary to blood loss from surgery. -2 units of PRBC, transfusion ongoing. Follow-up H&H in the morning. - no signs of active bleeding. Discharge Planning Will need SNF. Angelina Gil MD Dec 03, 2017 15:50
[2017-12-03] MEDS ORDERED: HALOPERIDOL LACTATE 5 MG/ML AMP IM PRN (19:00)
[2017-12-03] MEDS ORDERED: LORazepam 2 MG/ML VIAL IV ONE (19:00)
[2017-12-04] VITALS: BP 153/66; PULSE 87; RESP 18; TEMP 98.4; O2SAT 94
[2017-12-04 04:00] VITALS: BP 149/68; PULSE 91; RESP 18; TEMP 98.1; O2SAT 99
--- NOTE | 2017-12-04 06:38 | PD.ORT.PN ---
Subjective Subjective Remarks POD 2 s/p IMN left hip confused. nurse reports that patient pulled out multiple IVs last night and was very confused. Objective Vitals Vital Signs Date Time Temp Pulse Resp B/P (MAP) Pulse Ox O2 Delivery O2 Flow Rate FiO2 12/04/17 04:00 98.1 91 18 149/68 (95) 99 12/04/17 00:00 98.4 87 18 153/66 (95) 94 12/03/17 23:18 98.4 87 18 153/66 12/03/17 20:00 97.9 96 19 151/70 (97) 94 12/03/17 18:00 98.1 90 18 155/71 99 12/03/17 17:59 98 Nasal Cannula 2.00 12/03/17 14:20 97.5 77 18 134/61 98 12/03/17 14:01 Nasal Cannula 2.00 12/03/17 11:03 98.2 96 18 142/66 (91) 99 12/03/17 07:48 97.8 90 18 126/63 (84) 98 I/O 12/03/17 12/03/17 12/03/17 12/04/17 12/04/17 12/04/17 07:00 15:00 23:00 07:00 15:00 23:00 Intake Total 220 ml 400 ml 400 ml 640 ml Output Total 300 ml Balance -80 ml 400 ml 400 ml 640 ml Intake Oral 120 ml 400 ml 240 ml IV Total 100 ml Packed Cells 400 ml 400 ml Output Urine Total 300 ml # Voids 1 2 # Bowel Movements 1 2 1 Result Diagram: 12/03/17 0906 12/02/17 0715 Imaging Last 72 hours Impressions Hip X-Ray 12/02/17 0000 Signed Impressions: Service Date/Time: Saturday, December 02, 2017 12:38 - CONCLUSION: 1. Left hip ORIF, as above. Christian Campbell MD Thoracic Spine X-Ray 12/01/17 0000 Signed Impressions: Service Date/Time: Friday, December 01, 2017 16:54 - CONCLUSION: 1. Multilevel and disc disease with bridging lateral and anterior osteophytes. 2. Mild dextroscoliosis of the thoracolumbar spine. 3. No acute fracture. Bernabe Perea MD Ribs X-Ray 12/01/17 0000 Signed Impressions: Service Date/Time: Friday, December 01, 2017 16:45 - CONCLUSION: 1. Hyperinflation with no acute infiltrate. 2. No fracture Bernabe Perea MD Knee X-Ray 12/01/17 0000 Signed Impressions: Service Date/Time: Friday, December 01, 2017 17:00 - CONCLUSION: No acute fracture. No significant effusion. Bernabe Perea MD Hip and Pelvis X-Ray 12/01/17 0000 Signed Impressions: Service Date/Time: Friday, December 01, 2017 16:54 - CONCLUSION: 1. Left intertrochanteric hip fracture with varus angulation. 2. Probable old left inferior pubic ramus fracture. Bernabe Perea MD Head CT 12/01/17 0000 Signed Impressions: Service Date/Time: Friday, December 01, 2017 17:25 - CONCLUSION: 1. Chronic sinusitis, left sphenoid. 2. Stable, symmetric cortical atrophy. 3. No acute intracranial process, trauma or fracture. Bernabe Perea MD Cervical Spine CT 12/01/17 0000 Signed Impressions: Service Date/Time: Friday, December 01, 2017 17:25 - CONCLUSION: 1. Multilevel degenerative disc disease with loss of disc height at just about every cervical level. This is most severe from C3-4 through C5-6. 2. Grade 1 anterolisthesis of C2 on 3 and C3 on 4 is probably chronic related to facet hypertrophy. 3. No fracture. 4. Foramina narrowing leftward at C3-4 due to facet hypertrophy may be severe enough to compromise the left C4 nerve root. Bernabe Perea MD Objective Remarks Left lower extremity: Clean dry dressings intact. Mild swelling. Distally intact sensation and good capillary refills with active dorsiflexion and plantar flexion of foot Assessment & Plan Assessment and Plan 1) Left intertrochanteric femur fracture IM nail - POD 2 Physical therapy: Weightbearing as tolerated Daily dressing changes Resume Eliquis Incentive spirometry Case management for rehab placement ortho clear for DC Follow-up with Dr. Denise or PA in 2 weeks Mateus Romero/[employer]ument [employer] Technician PA Dec 04, 2017 06:38
[2017-12-04] MEDS: SODIUM CHLOR 0.9% 1000 ML INJ 1,000 ML IV SCH ×2 (07:20→21:30)
[2017-12-04] MEDS: LEVOTHYROXINE SODIUM 125 MCG TAB PO SCH (07:57)
[2017-12-04 08:00] VITALS: BP 158/79; PULSE 97; RESP 19; TEMP 98.6; O2SAT 98
[2017-12-04] MEDS ORDERED: APIXABAN 2.5 MG TABLET PO ONE (08:00)
[2017-12-04] MEDS: DOCUSATE SODIUM 50 MG/SENNA 8.6 MG TAB PO SCH ×2 (11:00→21:00)
[2017-12-04] MEDS: CHOLECALCIFEROL (VIT D3) 5000 UNIT CAP PO SCH (11:01)
[2017-12-04] MEDS: ISOSORBIDE MONONITRATE 60 MG CR TAB (IMDUR) PO SCH (11:01)
[2017-12-04] MEDS: DILTIAZEM-CD 240 MG CAP ER PO SCH (11:01)
[2017-12-04] MEDS: PANTOPRAZOLE SOD 40 MG DELAYED RELEASE TAB PO SCH (11:01)
[2017-12-04] MEDS: AMIODARONE 200 MG TAB PO SCH (11:01)
[2017-12-04] MEDS: CALCIUM/VITAMIN D 250 MG/125 U TAB PO SCH ×3 (11:01→18:00)
[2017-12-04] MEDS: FERROUS SULFATE 325 MG (65 MG ELEMENTAL IRON) TAB PO SCH (11:01)
[2017-12-04] MEDS: SODIUM CHLORIDE 0.9% FLUSH 10 ML FLUSH IV FLUSH SCH ×2 (11:02→21:00)
[2017-12-04] MEDS: CARVEDILOL 3.125 MG TAB PO SCH ×2 (11:02→20:35)
[2017-12-04 11:26] LABS: BASOPHIL % 0.2 % (0.0-2.0); EOSINOPHIL % 0.2 % (0.0-4.0); HEMATOCRIT 31.9 % (35.0-46.0); HEMOGLOBIN 10.5 GM/DL (11.6-15.3); LYMPH % 11.1 % (9.0-44.0); LYMPHOCYTE # 0.7 TH/MM3 (1.0-4.8); MEAN CELL VOLUME 78.4 FL (80.0-100.0); MEAN CORPUSCULAR HEMOGLOBIN 25.8 PG (27.0-34.0); MEAN CORPUSCULAR HGB CONC 32.9 % (32.0-36.0); MEAN PLATELET VOLUME 7.4 FL (7.0-11.0); MONOCYTE # 0.7 TH/MM3 (0-0.9); NEUT % 77.5 % (16.0-70.0); PLATELET COUNT 127 TH/MM3 (150-450); RED BLOOD COUNT 4.07 MIL/MM3 (4.00-5.30); RED CELL DISTRIBUTION WIDTH 17.8 % (11.6-17.2); WHITE BLOOD COUNT 6.5 TH/MM3 (4.0-11.0)
[2017-12-04 11:40] VITALS: BP 146/80; PULSE 91; RESP 19; TEMP 97.5; O2SAT 97
[2017-12-04 11:52] LABS: BICARBONATE 28.6 MEQ/L (21.0-32.0); CALCIUM 8.9 MG/DL (8.5-10.1); CREATININE 0.71 MG/DL (0.50-1.00)
--- NOTE | 2017-12-04 13:57 | HHI.PR ---
Subjective Remarks Follow-up left hip fracture. Patient is partially confused, states we are holding her here against her will. She complains of bilateral rib pain. Denies any chest pain. Patient is status post 2 units of packed red blood cells. Objective Vitals Vital Signs Date Time Temp Pulse Resp B/P (MAP) Pulse Ox O2 Delivery O2 Flow Rate FiO2 12/04/17 11:40 97.5 91 19 146/80 (102) 97 12/04/17 08:00 98.6 97 19 158/79 (105) 98 12/04/17 04:00 98.1 91 18 149/68 (95) 99 12/04/17 00:00 98.4 87 18 153/66 (95) 94 12/03/17 23:18 98.4 87 18 153/66 12/03/17 20:00 97.9 96 19 151/70 (97) 94 12/03/17 18:00 98.1 90 18 155/71 99 12/03/17 17:59 98 Nasal Cannula 2.00 12/03/17 14:20 97.5 77 18 134/61 98 12/03/17 14:01 Nasal Cannula 2.00 I/O 12/03/17 12/03/17 12/03/17 12/04/17 12/04/17 12/04/17 07:00 15:00 23:00 07:00 15:00 23:00 Intake Total 220 ml 400 ml 400 ml 640 ml Output Total 300 ml Balance -80 ml 400 ml 400 ml 640 ml Intake Oral 120 ml 400 ml 240 ml IV Total 100 ml Packed Cells 400 ml 400 ml Output Urine Total 300 ml # Voids 1 2 # Bowel Movements 1 2 1 Result Diagram: 12/04/17 1056 12/04/17 1056 Objective Remarks GENERAL: SKIN: Warm and dry. right elbow skin tear HEAD: Atraumatic. Normocephalic. EYES: Pupils equal and round. No scleral icterus. No injection or drainage. ENT: No nasal bleeding or discharge. Mucous membranes pink and moist. NECK: Trachea midline. No JVD. CARDIOVASCULAR: Regular rate and rhythm. RESPIRATORY: No accessory muscle use. Clear to auscultation. Breath sounds equal bilaterally. GASTROINTESTINAL: Abdomen soft, non-tender, nondistended. Hepatic and splenic margins not palpable. MUSCULOSKELETAL: Extremities without clubbing, cyanosis, or edema. No obvious deformities. NEUROLOGICAL: Awake and alert. No obvious cranial nerve deficits. Motor grossly within normal limits. 4 out of 5 muscle strength in the arms and legs. Normal speech. PSYCHIATRIC: Appropriate mood and confused Medications and IVs Current Medications Medications (Trade) Dose Ordered Sig/Yolie Route Start Time Stop Time Status Last Admin (Morphine Inj) 4 mg Q3H PRN IV PUSH 12/01/17 21:15 12/02/17 06:47 Sodium Chloride 1,000 ml @ 70 mls/hr [id number] IV 12/01/17 22:00 12/01/17 22:51 (NS Flush) 2 ml UNSCH PRN IV FLUSH 12/01/17 21:15 12/02/17 02:14 (NS Flush) 2 ml BID IV FLUSH 12/02/17 09:00 12/04/17 11:02 (Tylenol) 650 mg Q4H PRN PO 12/01/17 21:15 (Zofran Inj) 4 mg Q6H PRN IVP 12/01/17 21:15 12/02/17 18:04 (Narcan Inj) 0.4 mg UNSCH PRN IV PUSH 12/01/17 21:15 (Adelaida-Colace) 1 tab BID PO 12/02/17 09:00 12/04/17 11:00 (Milk Of Magnesia Liq) 30 ml Q12H PRN PO 12/01/17 21:15 12/02/17 20:24 (Senokot) 17.2 mg Q12H PRN PO 12/01/17 21:15 (Dulcolax Supp) 10 mg DAILY PRN RECTAL 12/01/17 21:15 (Lactulose Liq) 30 ml DAILY PRN PO 12/01/17 21:15 (Cordarone) 100 mg DAILY PO 12/02/17 09:00 12/04/17 11:01 (Coreg) 3.125 mg BID PO 12/02/17 09:00 12/04/17 11:02 (Ferrous Sulfate) 325 mg DAILY PO 12/02/17 09:00 12/04/17 11:01 (Imdur) 60 mg DAILY PO 12/02/17 09:00 12/04/17 11:01 (Synthroid) 125 mcg DAILY@0700 PO 12/02/17 09:00 12/04/17 07:57 (Protonix) 40 mg DAILY PO 12/02/17 09:00 12/04/17 11:01 (Cardizem Cd) 240 mg DAILY PO 12/02/17 09:00 12/04/17 11:01 Lactated Ringer's 1,000 ml @ 30 mls/hr Q24H PRN IV 12/02/17 08:30 12/05/17 08:29 Sodium Chloride 500 ml @ 30 mls/hr [id number] PRN IV 12/02/17 08:30 12/05/17 08:29 (Lopressor) 25 mg SUBSTANCE ABUSE NURSE PRN PO 12/02/17 08:30 12/05/17 08:29 (NovoLIN R INJ) See Protocol Table ... SUBSTANCE ABUSE NURSE PRN SQ 12/02/17 08:30 12/05/17 08:29 (Oscal-D 250-125) 250 mg TID PO 12/02/17 13:00 12/04/17 13:23 (Benadryl) 25 mg Q6H PRN PO 12/02/17 13:00 (Bryant 7.5-325 Mg) 1 tab Q3H PRN PO 12/02/17 13:00 12/02/17 15:46 (Vitamin D3) 5,000 units DAILY PO 12/03/17 09:00 12/04/17 11:01 (Haldol Inj) 2 mg Q6H PRN IM 12/03/17 19:00 Urinary Catheter: No Vascular Central Line Catheter: No A/P Assessment and Plan 77 Y/O female with Left hip fracture secondary to mechanical fall. Pelvis x-ray significant for left intertrochanteric hip fracture with varus angulation -Orthopedic surgery following, s/p Left hip reduction and intramedullary nail fixation -Pain control -PT Fall Remainder of imaging including cervical spine CT, head CT, knee x-ray, rib x- ray and thoracic spine x-ray all negative for acute process. Patient does have multilevel degenerative disc disease with grade 1 anteriolisthesis, likely chronic, with foramina narrowing at C3-4. -Pain control. -Cont PT -Heating pad as needed Atrial fibrillation -Resume home Eliquis once cleared by Ortho. -Continue home medications Hypertension/hyperlipidemia -Continue home medications Acute on chronic anemia, probably secondary to blood loss from surgery. -s/p 2 units of PRBC. Follow-up hemoglobin 10.5, continue to monitor - no signs of active bleeding. DVT prophylaxis: SCDs and teds Discharge Planning Waiting choice form from family, will discharge to [facility] Madhavi Reynolds Dec 04, 2017 13:57
[2017-12-04 16:20] VITALS: BP 146/82; PULSE 88; RESP 19; TEMP 98.4; O2SAT 97
[2017-12-04] MEDS: ACETAMINOPHEN 325 MG TAB PO PRN (18:48)
[2017-12-04 20:00] VITALS: BP 138/64; PULSE 90; RESP 18; TEMP 99.7; O2SAT 100
[2017-12-05] VITALS (7 sets, daily range): BP systolic 115–143; BP diastolic 56–74; PULSE 68–81; RESP 16–18; TEMP 98–99; O2SAT 93–99
[2017-12-05 06:04] LABS: HEMATOCRIT 27.4 % (35.0-46.0); HEMOGLOBIN 9.1 GM/DL (11.6-15.3); MEAN CELL VOLUME 78.5 FL (80.0-100.0); MEAN CORPUSCULAR HGB CONC 33.1 % (32.0-36.0); MEAN PLATELET VOLUME 7.2 FL (7.0-11.0); PLATELET COUNT 116 TH/MM3 (150-450); RED CELL DISTRIBUTION WIDTH 18.1 % (11.6-17.2); WHITE BLOOD COUNT 5.5 TH/MM3 (4.0-11.0)
[2017-12-05] MEDS: CHOLECALCIFEROL (VIT D3) 5000 UNIT CAP PO SCH (08:00)
[2017-12-05] MEDS: DOCUSATE SODIUM 50 MG/SENNA 8.6 MG TAB PO SCH ×2 (08:00→21:14)
[2017-12-05] MEDS: CARVEDILOL 3.125 MG TAB PO SCH ×2 (08:00→21:14)
[2017-12-05] MEDS: AMIODARONE 200 MG TAB PO SCH (08:01)
[2017-12-05] MEDS: CALCIUM/VITAMIN D 250 MG/125 U TAB PO SCH ×3 (08:01→18:00)
[2017-12-05] MEDS: ISOSORBIDE MONONITRATE 60 MG CR TAB (IMDUR) PO SCH (08:01)
[2017-12-05] MEDS: FERROUS SULFATE 325 MG (65 MG ELEMENTAL IRON) TAB PO SCH (08:01)
[2017-12-05] MEDS: DILTIAZEM-CD 240 MG CAP ER PO SCH (08:01)
[2017-12-05] MEDS: LEVOTHYROXINE SODIUM 125 MCG TAB PO SCH (08:01)
[2017-12-05] MEDS: PANTOPRAZOLE SOD 40 MG DELAYED RELEASE TAB PO SCH (08:01)
[2017-12-05] MEDS: SODIUM CHLORIDE 0.9% FLUSH 10 ML FLUSH IV FLUSH SCH ×2 (08:02→21:00)
[2017-12-05] MEDS: ACETAMINOPHEN 325 MG TAB PO PRN ×2 (09:12→18:00)
--- NOTE | 2017-12-05 10:13 | HHI.PR ---
Objective Vitals Vital Signs Date Time Temp Pulse Resp B/P (MAP) Pulse Ox O2 Delivery O2 Flow Rate FiO2 12/05/17 00:00 98.7 81 18 126/58 (80) 95 12/04/17 22:14 21 12/04/17 20:00 99.7 90 18 138/64 (88) 100 12/04/17 16:20 98.4 88 19 146/82 (103) 97 12/04/17 11:40 97.5 91 19 146/80 (102) 97 I/O 12/04/17 12/04/17 12/04/17 12/05/17 12/05/17 12/05/17 07:00 15:00 23:00 07:00 15:00 23:00 Intake Total 640 ml 300 ml 0 ml Balance 640 ml 300 ml 0 ml Intake Oral 240 ml 300 ml 0 ml Packed Cells 400 ml # Voids 2 4 0 # Bowel Movements 1 0 Result Diagram: 12/05/17 0545 12/04/17 1056 Objective Remarks GENERAL: SKIN: Warm and dry. right elbow skin tear HEAD: Atraumatic. Normocephalic. EYES: Pupils equal and round. No scleral icterus. No injection or drainage. ENT: No nasal bleeding or discharge. Mucous membranes pink and moist. NECK: Trachea midline. No JVD. CARDIOVASCULAR: Regular rate and rhythm. RESPIRATORY: No accessory muscle use. Clear to auscultation. Breath sounds equal bilaterally. GASTROINTESTINAL: Abdomen soft, non-tender, nondistended. Hepatic and splenic margins not palpable. MUSCULOSKELETAL: Extremities without clubbing, cyanosis, or edema. No obvious deformities. NEUROLOGICAL: Awake and alert. No obvious cranial nerve deficits. Motor grossly within normal limits. 4 out of 5 muscle strength in the arms and legs. Normal speech. PSYCHIATRIC: Appropriate mood and confused Medications and IVs Current Medications Medications (Trade) Dose Ordered Sig/Yolie Route Start Time Stop Time Status Last Admin (Morphine Inj) 4 mg Q3H PRN IV PUSH 12/01/17 21:15 12/02/17 06:47 Sodium Chloride 1,000 ml @ 70 mls/hr [id number] IV 12/01/17 22:00 12/01/17 22:51 (NS Flush) 2 ml UNSCH PRN IV FLUSH 12/01/17 21:15 4/17/18 02:14 (NS Flush) 2 ml BID IV FLUSH 12/02/17 09:00 12/05/17 08:02 (Tylenol) 650 mg Q4H PRN PO 12/01/17 21:15 12/05/17 09:12 (Zofran Inj) 4 mg Q6H PRN IVP 12/01/17 21:15 12/02/17 18:04 (Narcan Inj) 0.4 mg UNSCH PRN IV PUSH 12/01/17 21:15 (Adelaida-Colace) 1 tab BID PO 12/02/17 09:00 12/05/17 08:00 (Milk Of Magnesia Liq) 30 ml Q12H PRN PO 12/01/17 21:15 12/02/17 20:24 (Senokot) 17.2 mg Q12H PRN PO 12/01/17 21:15 (Dulcolax Supp) 10 mg DAILY PRN RECTAL 12/01/17 21:15 (Lactulose Liq) 30 ml DAILY PRN PO 12/01/17 21:15 (Cordarone) 100 mg DAILY PO 12/02/17 09:00 12/05/17 08:01 (Coreg) 3.125 mg BID PO 12/02/17 09:00 12/05/17 08:00 (Ferrous Sulfate) 325 mg DAILY PO 12/02/17 09:00 12/05/17 08:01 (Imdur) 60 mg DAILY PO 12/02/17 09:00 12/05/17 08:01 (Synthroid) 125 mcg DAILY@0700 PO 12/02/17 09:00 12/05/17 08:01 (Protonix) 40 mg DAILY PO 12/02/17 09:00 12/05/17 08:01 (Cardizem Cd) 240 mg DAILY PO 12/02/17 09:00 12/05/17 08:01 (Oscal-D 250-125) 250 mg TID PO 12/02/17 13:00 12/05/17 08:01 (Benadryl) 25 mg Q6H PRN PO 12/02/17 13:00 (Pengilly 7.5-325 Mg) 1 tab Q3H PRN PO 12/02/17 13:00 12/02/17 15:46 (Vitamin D3) 5,000 units DAILY PO 12/03/17 09:00 12/05/17 08:00 (Haldol Inj) 2 mg Q6H PRN IM 12/03/17 19:00 Urinary Catheter: No Vascular Central Line Catheter: No A/P Assessment and Plan 77 Y/O female with Left hip fracture secondary to mechanical fall. Pelvis x-ray significant for left intertrochanteric hip fracture with varus angulation -Orthopedic surgery following, s/p Left hip reduction and intramedullary nail fixation -Pain control -PT/OT consulted for rehab Fall Remainder of imaging including cervical spine CT, head CT, knee x-ray, rib x- ray and thoracic spine x-ray all negative for acute process. Patient does have multilevel degenerative disc disease with grade 1 anteriolisthesis, likely chronic, with foramina narrowing at C3-4. -Pain control. -Cont PT -Heating pad as needed Atrial fibrillation -Resume home Eliquis once cleared by Ortho. -Continue home medications Hypertension/hyperlipidemia -Continue home medications Acute on chronic anemia, probably secondary to blood loss from surgery. -s/p 2 units of PRBC. Follow-up hemoglobin 9.1, continue to monitor, labs in am - no signs of active bleeding. -Cont iron tablets DVT prophylaxis: SCDs and teds Discharge Planning [facility] to evaluate Madhavi Reynolds Dec 05, 2017 10:13
--- NOTE | 2017-12-05 11:55 | HHI.PR ---
Subjective Remarks Patient laying in bed, complains of nausea. Denies any pain. Objective Vitals Vital Signs Date Time Temp Pulse Resp B/P (MAP) Pulse Ox O2 Delivery O2 Flow Rate FiO2 12/05/17 00:00 98.7 81 18 126/58 (80) 95 12/04/17 22:14 21 12/04/17 20:00 99.7 90 18 138/64 (88) 100 12/04/17 16:20 98.4 88 19 146/82 (103) 97 I/O 12/04/17 12/04/17 12/04/17 12/05/17 12/05/17 12/05/17 07:00 15:00 23:00 07:00 15:00 23:00 Intake Total 640 ml 300 ml 0 ml Balance 640 ml 300 ml 0 ml Intake Oral 240 ml 300 ml 0 ml Packed Cells 400 ml # Voids 2 4 0 # Bowel Movements 1 0 Result Diagram: 12/05/17 0545 12/04/17 1056 Objective Remarks GENERAL: SKIN: Warm and dry. right elbow skin tear HEAD: Atraumatic. Normocephalic. EYES: Pupils equal and round. No scleral icterus. No injection or drainage. ENT: No nasal bleeding or discharge. Mucous membranes pink and moist. NECK: Trachea midline. No JVD. CARDIOVASCULAR: Regular rate and rhythm. RESPIRATORY: No accessory muscle use. Clear to auscultation. Breath sounds equal bilaterally. GASTROINTESTINAL: Abdomen soft, non-tender, nondistended. Hepatic and splenic margins not palpable. nauseated MUSCULOSKELETAL: Extremities without clubbing, cyanosis, or edema. No obvious deformities. NEUROLOGICAL: Awake and alert. No obvious cranial nerve deficits. Motor grossly within normal limits. 4 out of 5 muscle strength in the arms and legs. Normal speech. PSYCHIATRIC: Appropriate mood and confused Medications and IVs Current Medications Medications (Trade) Dose Ordered Sig/Yolie Route Start Time Stop Time Status Last Admin (Morphine Inj) 4 mg Q3H PRN IV PUSH 12/01/17 21:15 12/02/17 06:47 Sodium Chloride 1,000 ml @ 70 mls/hr [id number] IV 12/01/17 22:00 12/01/17 22:51 (NS Flush) 2 ml UNSCH PRN IV FLUSH 12/01/17 21:15 4/17/18 02:14 (NS Flush) 2 ml BID IV FLUSH 12/02/17 09:00 12/05/17 08:02 (Tylenol) 650 mg Q4H PRN PO 12/01/17 21:15 12/05/17 09:12 (Zofran Inj) 4 mg Q6H PRN IVP 12/01/17 21:15 12/02/17 18:04 (Narcan Inj) 0.4 mg UNSCH PRN IV PUSH 12/01/17 21:15 (Adelaida-Colace) 1 tab BID PO 12/02/17 09:00 12/05/17 08:00 (Milk Of Magnesia Liq) 30 ml Q12H PRN PO 12/01/17 21:15 12/02/17 20:24 (Senokot) 17.2 mg Q12H PRN PO 12/01/17 21:15 (Dulcolax Supp) 10 mg DAILY PRN RECTAL 12/01/17 21:15 (Lactulose Liq) 30 ml DAILY PRN PO 12/01/17 21:15 (Cordarone) 100 mg DAILY PO 12/02/17 09:00 12/05/17 08:01 (Coreg) 3.125 mg BID PO 12/02/17 09:00 12/05/17 08:00 (Ferrous Sulfate) 325 mg DAILY PO 12/02/17 09:00 12/05/17 08:01 (Imdur) 60 mg DAILY PO 12/02/17 09:00 12/05/17 08:01 (Synthroid) 125 mcg DAILY@0700 PO 12/02/17 09:00 12/05/17 08:01 (Protonix) 40 mg DAILY PO 12/02/17 09:00 12/05/17 08:01 (Cardizem Cd) 240 mg DAILY PO 12/02/17 09:00 12/05/17 08:01 (Oscal-D 250-125) 250 mg TID PO 12/02/17 13:00 12/05/17 08:01 (Benadryl) 25 mg Q6H PRN PO 12/02/17 13:00 (Nyssa 7.5-325 Mg) 1 tab Q3H PRN PO 12/02/17 13:00 12/02/17 15:46 (Vitamin D3) 5,000 units DAILY PO 12/03/17 09:00 12/05/17 08:00 (Haldol Inj) 2 mg Q6H PRN IM 12/03/17 19:00 Urinary Catheter: No Vascular Central Line Catheter: No A/P Assessment and Plan 77 Y/O female with Left hip fracture secondary to mechanical fall. Pelvis x-ray significant for left intertrochanteric hip fracture with varus angulation -Orthopedic surgery following, s/p Left hip reduction and intramedullary nail fixation -Pain control -PT/OT consulted for rehab -Antiemetics as needed Fall Remainder of imaging including cervical spine CT, head CT, knee x-ray, rib x- ray and thoracic spine x-ray all negative for acute process. Patient does have multilevel degenerative disc disease with grade 1 anterolisthesis, likely chronic, with foramina narrowing at C3-4. -Pain control. -Cont PT -Heating pad as needed Atrial fibrillation -Resume home Eliquis once cleared by Ortho. -Continue home medications Hypertension/hyperlipidemia -Continue home medications Acute on chronic anemia, probably secondary to blood loss from surgery. -s/p 2 units of PRBC. Follow-up hemoglobin 9.1, continue to monitor, labs in am - no signs of active bleeding. -Cont iron tablets DVT prophylaxis: SCDs and teds Discharge Planning [facility] to evaluate Madhavi Reynolds Dec 05, 2017 11:55
[2017-12-05] MEDS: SODIUM CHLOR 0.9% 1000 ML INJ 1,000 ML IV SCH (12:00)
[2017-12-05] MEDS: ACETAMINOPHEN/HYDROcodone 325 MG/7.5 MG TAB PO PRN (18:38)
[2017-12-06 00:13] VITALS: BP 120/59; PULSE 68; RESP 18; TEMP 97.5; O2SAT 96
[2017-12-06] MEDS: SODIUM CHLOR 0.9% 1000 ML INJ 1,000 ML IV SCH (02:06)
[2017-12-06] MEDS: ACETAMINOPHEN/HYDROcodone 325 MG/7.5 MG TAB PO PRN (04:52)
[2017-12-06 05:02] LABS: AUTOMATED NEUTROPHIL # 3.1 TH/MM3 (1.8-7.7); BASOPHIL % 0.5 % (0.0-2.0); EOSINOPHIL # 0.1 TH/MM3 (0-0.4); EOSINOPHIL % 2.6 % (0.0-4.0); HEMOGLOBIN 9.1 GM/DL (11.6-15.3); LYMPH % 19.9 % (9.0-44.0); LYMPHOCYTE # 0.9 TH/MM3 (1.0-4.8); MEAN CELL VOLUME 79.7 FL (80.0-100.0); MEAN CORPUSCULAR HEMOGLOBIN 26.8 PG (27.0-34.0); MEAN CORPUSCULAR HGB CONC 33.6 % (32.0-36.0); MEAN PLATELET VOLUME 7.4 FL (7.0-11.0); MONO % 12.9 % (0.0-8.0); MONOCYTE # 0.6 TH/MM3 (0-0.9); NEUT % 64.1 % (16.0-70.0); PLATELET COUNT 123 TH/MM3 (150-450); RED BLOOD COUNT 3.39 MIL/MM3 (4.00-5.30); RED CELL DISTRIBUTION WIDTH 18.7 % (11.6-17.2); WHITE BLOOD COUNT 4.8 TH/MM3 (4.0-11.0)
[2017-12-06 05:26] LABS: BICARBONATE 28.9 MEQ/L (21.0-32.0); CALCIUM 8.2 MG/DL (8.5-10.1); CREATININE 0.79 MG/DL (0.50-1.00)
[2017-12-06] MEDS: LEVOTHYROXINE SODIUM 125 MCG TAB PO SCH (07:05)
[2017-12-06 08:00] VITALS: BP 161/73; PULSE 79; RESP 16; TEMP 98.1; O2SAT 96
[2017-12-06] MEDS: SODIUM CHLORIDE 0.9% FLUSH 10 ML FLUSH IV FLUSH SCH (09:00)
[2017-12-06] MEDS: CALCIUM/VITAMIN D 250 MG/125 U TAB PO SCH (10:37)
[2017-12-06] MEDS: ISOSORBIDE MONONITRATE 60 MG CR TAB (IMDUR) PO SCH (10:37)
[2017-12-06] MEDS: AMIODARONE 200 MG TAB PO SCH (10:37)
[2017-12-06] MEDS: DOCUSATE SODIUM 50 MG/SENNA 8.6 MG TAB PO SCH (10:37)
[2017-12-06] MEDS: PANTOPRAZOLE SOD 40 MG DELAYED RELEASE TAB PO SCH (10:37)
[2017-12-06] MEDS: CHOLECALCIFEROL (VIT D3) 5000 UNIT CAP PO SCH (10:37)
[2017-12-06] MEDS: CARVEDILOL 3.125 MG TAB PO SCH (10:37)
[2017-12-06] MEDS: DILTIAZEM-CD 240 MG CAP ER PO SCH (10:37)
[2017-12-06] MEDS: FERROUS SULFATE 325 MG (65 MG ELEMENTAL IRON) TAB PO SCH (10:38)
[2017-12-06 12:00] VITALS: BP 174/77; PULSE 85; RESP 16; TEMP 98; O2SAT 96
--- NOTE | 2017-12-06 13:58 | HHI.FF ---
Face to Face Verification Diagnosis: (1) Closed left hip fracture (2) Atrial fibrillation Physical Therapy Order: Evaluate and Treat Occupational Therapy Order: Evaluate and Treat Home Health Nursing Order: Wound care and dressing changes Nursing assessment with vital signs I have seen patient Mary Melendez on 12/06/17. My clinical findings support the need for the requested home health care services because: PT and OT evaluated the patient. Pt will require home health Deconditioned w/ increased weakness High risk of falls I certify that my clinical findings support that this patient is homebound because: PT and OT evaluated the patient. Pt will require home health Unsteady gait/balance Moriah Barbosa MD Dec 06, 2017 13:58
[2017-12-06] MEDS ORDERED: POTASSIUM CHLORIDE 20 MEQ CONTROLLED RELEASE TAB PO ONE (14:00)
--- NOTE | 2017-12-06 14:30 | HHI.DS ---
Discharge Summary Admission Date Dec 01, 2017 at 19:12 Discharge Date: Dec 06, 2017 Admitting Diagnosis Left hip fracture (1) Atrial fibrillation ICD Code: I48.91 - Unspecified atrial fibrillation Status: Chronic (2) Closed left hip fracture ICD Code: S72.002A - Fracture of unspecified part of neck of left femur, initial encounter for closed fracture Status: Acute Procedures Left intertrochanteric femur fracture IM nail - POD 3 Brief History - From Admission 77-year-old female with a past medical history significant for atrial fibrillation on Eliquis, hypertension, hyperlipidemia and history of multiple TIAs presents to the emergency department for evaluation of a fall. The patient reports she was wearing flip-flops when she was walking to get the mail and suddenly she fell. She denies any loss of consciousness. She did not strike her head. The patient reports she was unable to get up for approximately 20 minutes secondary to pain. Neighbors found her and EMS was called. The patient denies any chest pain or shortness of breath. No abdominal pain. No fever/chills. No nausea/vomiting/diarrhea. No lateralizing signs/symptoms. CBC/BMP: 12/06/17 0438 12/06/17 0438 Significant Findings Laboratory Tests Test 12/04/17 10:56 12/05/17 05:45 12/06/17 04:38 Hemoglobin 10.5 GM/DL (11.6-15.3) 9.1 GM/DL (11.6-15.3) 9.1 GM/DL (11.6-15.3) Hematocrit 31.9 % (35.0-46.0) 27.4 % (35.0-46.0) 27.0 % (35.0-46.0) Mean Corpuscular Volume 78.4 FL (80.0-100.0) 78.5 FL (80.0-100.0) 79.7 FL (80.0-100.0) Mean Corpuscular Hemoglobin 25.8 PG (27.0-34.0) 26.0 PG (27.0-34.0) 26.8 PG (27.0-34.0) Red Cell Distribution Width 17.8 % (11.6-17.2) 18.1 % (11.6-17.2) 18.7 % (11.6-17.2) Platelet Count 127 TH/MM3 (150-450) 116 TH/MM3 (150-450) 123 TH/MM3 (150-450) Neutrophils (%) (Auto) 77.5 % (16.0-70.0) Monocytes (%) (Auto) 11.0 % (0.0-8.0) 12.9 % (0.0-8.0) Lymphocytes # (Auto) 0.7 TH/MM3 (1.0-4.8) 0.9 TH/MM3 (1.0-4.8) Estimat Glomerular Filtration Rate 79 ML/MIN (>89) 70 ML/MIN (>89) Red Blood Count 3.50 MIL/MM3 (4.00-5.30) 3.39 MIL/MM3 (4.00-5.30) Calcium Level 8.2 MG/DL (8.5-10.1) Potassium Level 3.4 MEQ/L (3.5-5.1) Imaging Last Impressions Hip X-Ray 12/02/17 0000 Signed Impressions: Service Date/Time: Saturday, December 02, 2017 12:38 - CONCLUSION: 1. Left hip ORIF, as above. Christian Campbell MD Thoracic Spine X-Ray 12/01/17 0000 Signed Impressions: Service Date/Time: Friday, December 01, 2017 16:54 - CONCLUSION: 1. Multilevel and disc disease with bridging lateral and anterior osteophytes. 2. Mild dextroscoliosis of the thoracolumbar spine. 3. No acute fracture. Bernabe Perea MD Ribs X-Ray 12/01/17 0000 Signed Impressions: Service Date/Time: Friday, December 01, 2017 16:45 - CONCLUSION: 1. Hyperinflation with no acute infiltrate. 2. No fracture Bernabe Perea MD Knee X-Ray 12/01/17 0000 Signed Impressions: Service Date/Time: Friday, December 01, 2017 17:00 - CONCLUSION: No acute fracture. No significant effusion. Bernabe Perea MD Hip and Pelvis X-Ray 12/01/17 0000 Signed Impressions: Service Date/Time: Friday, December 01, 2017 16:54 - CONCLUSION: 1. Left intertrochanteric hip fracture with varus angulation. 2. Probable old left inferior pubic ramus fracture. Bernabe Perea MD Head CT 12/01/17 0000 Signed Impressions: Service Date/Time: Friday, December 01, 2017 17:25 - CONCLUSION: 1. Chronic sinusitis, left sphenoid. 2. Stable, symmetric cortical atrophy. 3. No acute intracranial process, trauma or fracture. Bernabe Perea MD Cervical Spine CT 12/01/17 0000 Signed Impressions: Service Date/Time: Friday, December 01, 2017 17:25 - CONCLUSION: 1. Multilevel degenerative disc disease with loss of disc height at just about every cervical level. This is most severe from C3-4 through C5-6. 2. Grade 1 anterolisthesis of C2 on 3 and C3 on 4 is probably chronic related to facet hypertrophy. 3. No fracture. 4. Foramina narrowing leftward at C3-4 due to facet hypertrophy may be severe enough to compromise the left C4 nerve root. Bernabe Perea MD PE at Discharge CARDIOVASCULAR: Regular rate and rhythm. RESPIRATORY: No accessory muscle use. Clear to auscultation. Breath sounds equal bilaterally. GASTROINTESTINAL: Abdomen soft, non-tender, nondistended. MUSCULOSKELETAL: Extremities without edema. No obvious deformities. NEUROLOGICAL: Awake and alert.Normal speech. PSYCHIATRIC: Appropriate mood and confused Pt update on day of discharge Pt denies any chest pains, SOB, nausea or vomiting. She is eager to be discharged. Hospital Course 77 Y/O female with Left hip fracture secondary to mechanical fall. Pelvis x-ray significant for left intertrochanteric hip fracture with varus angulation -Orthopedic surgery following, s/p Left hip reduction and intramedullary nail fixation. Continue pain control. Orthopedic recommends resuming Eliquis. Patient tells me she takes 2.5 mg p.o. twice daily. She has good follow-up with her primary care doctor. PT and OT evaluate the patient. We will discharge her with home with home health Fall Remainder of imaging including cervical spine CT, head CT, knee x-ray, rib x- ray and thoracic spine x-ray all negative for acute process. Patient does have multilevel degenerative disc disease with grade 1 anterolisthesis, likely chronic, with foramina narrowing at C3-4. Atrial fibrillation -on home dose of Eliquis Acute on chronic anemia, probably secondary to blood loss from surgery. -s/p 2 units of PRBC. Follow-up hemoglobin 9.1 - no signs of active bleeding. -Cont iron tablets Pt Condition on Discharge: Stable Discharge Disposition: Disch w/ Home Health Serv Discharge Time: > 30 minutes Discharge Instructions DIET: Follow Instructions for: Heart Healthy Diet, Diabetic Diet Activities you can perform: See Additionl Instruction Other Activity Instructions: Physical therapy: Weightbearing as tolerated Daily dressing changes Follow up Referrals: Orthopedics - 2 Weeks @ [facility] with Daniele Denise MD PCP Follow-up - 1 Week New Medications: Calcium Carbonate-Vitamin D (Calcium 600+D 200) 600-200 Mg-Unit Tab 1 TAB PO BID for Nutritional Supplement, #60 TAB 0 Refills Cholecalciferol (Vitamin D3) 2,000 Unit Cap 2000 UNITS PO DAILY for Nutritional Supplement for 60 Days, #56 CAP 0 Refills Ergocalciferol (Ergocalciferol) 50,000 Unit Cap 22136 UNITS PO Q7D for Nutritional Supplement, #8 CAP Hydrocodone-Acetaminophen (Hydrocodone-Acetaminophen) 7.5 Mg-325 Mg Tab 1 TAB PO Q4H PRN for PAIN, #60 TAB 0 Refills Walker/Adult/Folding (Walker/Adult/Folding) 1 Mis Mis EA .XX DIRECTED, #1 0 Refills Continued Medications: Amiodarone (Amiodarone) 100 Mg Tab 100 MG PO DAILY for Regulate Heart Beat, #30 TAB 0 Refills Apixaban (Eliquis) 2.5 Mg Tab 2.5 MG PO BID for Blood Clot Prevention, #60 TAB 3 Refills Carvedilol (Coreg) 3.125 Mg Tab 3.125 MG PO BID, #60 TAB 0 Refills Cyanocobalamin (Vitamin B-12) 1,000 Mcg Tab 1000 MCG PO BID for Nutritional Supplement, #1 BOTTLE 0 Refills Cyclosporine Opth (Restasis Opth) 0.05% Emul 2 DROP EACH EYE BID for Dry Eye, #1 BOX 0 Refills Diltiazem ER 12 HR (Diltiazem ER 12 HR) 120 Mg Caper 120 MG PO BID, #60 CAP 0 Refills Ferrous Sulfate (Ferrous Sulfate) 325 Mg (65 Mg Iron) Tablet 325 MG PO DAILY for Nutritional Supplement, #30 TAB 0 Refills Fluticasone Nasal [place] (Fluticasone Nasal [place]) 50 Mcg/Act Naspr 50 MCG EACH NARE BID for Allergy Management, #1 BOTTLE 0 Refills 50 mcg/spray Isosorbide Mononitrate ER (Isosorbide Mononitrate ER) 60 Mg Tab 60 MG PO DAILY for Prevent Chest Pain, #30 TAB 0 Refills Levothyroxine (Levothyroxine) 125 Mcg Tab 125 MCG PO DAILY for Thyroid, #30 TAB 0 Refills Pantoprazole (Protonix) 40 Mg Tab 40 MG PO DAILY for Reflux, #30 TAB 0 Refills [fish oil] () 600 MG PO BID [presser vision] () 1 DROP EACH EYE BID Moriah Barbosa MD Dec 06, 2017 14:30
[2017-12-06] MEDS ORDERED: APIXABAN 2.5 MG TABLET PO ONE (14:45)
[2017-12-06] MEDS ORDERED: APIXABAN 2.5 MG TABLET PO SCH (21:00)
== END 2017-12-06 17:15 | disposition home health service (06) | DRG 481 ==
LOC: NEPC 16:07 → NEDA 19:12 → N04B 21:31 → N06B 12-02 10:40 → N06A 12-02 15:02
PROVIDERS: ADMIT Hospitalist; ATTEND Hospitalist
PROC: 0QS706Z Reposition Left Upper Femur with Intramedullary Internal Fixation Device, Open Approach (ICD-10-PCS; 2017-12-02)
PROC: 30233N1 Transfusion of Nonautologous Red Blood Cells into Peripheral Vein, Percutaneous Approach (ICD-10-PCS; principal; 2017-12-03)
DX: S72.142A Displaced intertrochanteric fracture of left femur, initial encounter for closed fracture (principal); D62 Acute posthemorrhagic anemia; I48.91 Unspecified atrial fibrillation; K31.84 Gastroparesis; I10 Essential (primary) hypertension; E03.9 Hypothyroidism, unspecified; Z96.641 Presence of right artificial hip joint; M81.0 Age-related osteoporosis without current pathological fracture; M19.90 Unspecified osteoarthritis, unspecified site; H40.9 Unspecified glaucoma; K21.9 Gastro-esophageal reflux disease without esophagitis; K22.70 Barrett's esophagus without dysplasia; I25.10 Atherosclerotic heart disease of native coronary artery without angina pectoris; W01.0XXA Fall on same level from slipping, tripping and stumbling without subsequent striking against object, initial encounter; S40.812A Abrasion of left upper arm, initial encounter; S80.212A Abrasion, left knee, initial encounter; M54.2 Cervicalgia; Y93.01 Activity, walking, marching and hiking; M43.12 Spondylolisthesis, cervical region; E78.5 Hyperlipidemia, unspecified; K44.9 Diaphragmatic hernia without obstruction or gangrene; Z79.01 Long term (current) use of anticoagulants; Z86.73 Personal history of transient ischemic attack (TIA), and cerebral infarction without residual deficits
CPT/HCPCS: 36430; 51702; 70450; 71101; 72072; 72125; 73502; 73560; 76000; 80048; 82306; 85014; 85018; 85025; 85027; 85610; 85730; 86850; 86900; 86901; 86920; 93005; 94150; 96374; 96375; C1713; J0131; J0690; J1100; J1580; J2175; J2270; J2370; J2405; J2710; J3010; J3370; J7030; J7050; J7120; P9016